=== PATIENT | male | born 1965 | race Caucasian/White ===

== ENCOUNTER → 2017-03-14 | Outpatient (CLI) | payer OTHER ==
--- NOTE | 2017-03-14 08:45 | MR ---
MR lumbar spine wo con radiculopathy lsp Multiplanar, multiecho imaging of the lumbar spine was obtained without contrast on a 3 Ruth magnet. REFERENCE: Previous MRI of the sacroiliac joints dated 04/12/2016. FINDINGS: It is difficult to appreciate ankylosis of the SI joints on this study. Prevertebral soft tissues are normal. There is a mild dextroscoliosis. Vertebral body height and alignment are maintained. Cord signal is maintained. The conus ends normally at the level of the superior endplate of L1. At T12-L1, the intervertebral foramina appear maintained. There is no significant compressive discopa thy. There are mild hypertrophic changes in the facets. At L1-2, the intervertebral foramina are maintained. There is no significant compressive discopathy. There is hypertrophic change in the facets. There is some lateral impression upon the thecal sac by t he left facet. At L2-3, the intervertebral foramina appear maintained. There is no significant compressive discopath y. There is hypertrophic change and capsulitis within the facets. At L3-4, there is mild, bilateral intervertebral foraminal narrowing. There is a diffuse disc displac ement. There are hypertrophic changes in the facets. There is mild trefoiling of the thecal sac. At L4-5, there is bilateral intervertebral foraminal narrowing. There is a diffuse disc displacement. There are hypertrophic changes in the facets. There is mild, bilateral lateral recess stenosis. At L5-S1, the intervertebral foramina are well maintained. There is a diffuse disc displacement. Ther e are hypertrophic changes in the facets. IMPRESSION: 1. DIFFUSE DEGENERATIVE DISC DISEASE AND FACET ARTHROPATHY. 2. MULTILEVEL INTERVERTEBRAL FORAMINAL NARROWING. 3. BILATERAL MILD LATERAL RECESS STENOSIS, L4-5.
== END | disposition home or self-care (01) ==
LOC: RADMRIMAIN 07:46
PROVIDERS: ATTEND Internal Medicine Rheumatology
DX: M48.06 Spinal stenosis, lumbar region (principal); M99.73 Connective tissue and disc stenosis of intervertebral foramina of lumbar region; M51.16 Intervertebral disc disorders with radiculopathy, lumbar region; M46.86 Other specified inflammatory spondylopathies, lumbar region
CPT/HCPCS: 72148

== ENCOUNTER → 2017-05-27 | Outpatient (CLI) | payer OTHER ==
[2017-05-23 12:59] VITALS: BMI 33.0
[2017-05-27 13:32] VITALS: BP 147/90; PULSE 72; RESP 16
--- NOTE | 2017-05-27 14:00 | P.HPIM ---
History of Present Illness H&P Date: 05/27/17 Chief Complaint: low back and leg pain This is a 51-year-old patient referred by Dr. Cervantes for chronic pain in low back and legs. Patient was diagnosed with ankylosing spondylitis two years ago and this pain has been worsening since, and the numbness/tingling in his feet and toes is preventing him from sleeping. Patient has been taking medications from primary care physician including [place] medications with little relief, and patient self-medicates with alcohol. Patient denies adverse drug effects from medications. Patient also denies new-onset weakness, bowel/bladder incontinence , or any other signs or symptoms of cauda equina syndrome. There are no signs of acute intoxication, and no indications of medication diversion or overuse. Patient notes that pain worsens significantly with standing and walking, and improves with rest, alcohol, and medication. Patient has used several types of medications for pain, including NSAIDS, OPIOIDS, and BENZODIAZEPINES. Patient HAS NOT had surgery. Patient HAS NOT had injections previously. Patient HAS had physical therapy recently without relief. In addition to above, 13-point review of systems is also negative for chest pain , shortness of breath, changes in vision, changes in hearing, new onset weakness , abdominal pain, diarrhea, extreme fatigue, malaise, fever, skin changes, homicidal or suicidal ideation, or bowel or bladder incontinence. Vital Signs: Reviewed in EMR Gen: WDWN, AAOx3, NAD HEENT: NCAT, EOMI, hearing grossly normal Pulm: resp unlabored Abd: soft, NT, ND Neck: supple, trachea midline ROM in flexion lumbar spine: reduced ROM in extension lumbar spine: reduced Lumbar paravertebral tenderness: + Facet loading: + bilateral SI joint tenderness: + bilateral Lloyd's test: + R > L Straight leg raise: + LLE at 15 degrees Neuro: CN II-XII grossly intact, muscle strength lower extremities PRESERVED Past Medical History Past Medical History: COPD, Skin Disorder Additional Past Medical History / Comment(s): anykylosing spondylitis,rt uveitis ,HLAB27 positive-Autoimmune Disease,chronic rash r/t steroids,monocular vision rt eye. BACK PAIN. History of Any Multi-Drug Resistant Organisms: None Reported Additional Past Surgical History / Comment(s): rt cataract and 3 laser procedures r/t uveitis Past Anesthesia/Blood Transfusion Reactions: No Reported Reaction Additional Past Anesthesia/Blood Transfusion Reaction / Comment(s): Very fearful of needles Smoking Status: Current every day smoker - Past Family History Brother(s) Family Medical History: Myocardial Infarction ([place]) Mother Family Medical History: CVA/TIA Father Family Medical History: Myocardial Infarction ([place]) Medications and Allergies Home Medications Medication Instructions Recorded Confirmed Type Adalimumab [Humira Pen] 40 mg SQ [id number] 05/23/17 05/27/17 History Albuterol Inhaler [Ventolin Hfa 1 - 2 puff INHALATION Q6HR PRN 05/23/17 History Inhaler] Atenolol [Tenormin] 50 mg PO DAILY 05/23/17 05/27/17 History Atorvastatin [Lipitor] 40 mg PO DAILY 05/23/17 05/27/17 History Cholecalciferol (Vitamin D3) 2,000 unit PO DAILY 05/23/17 05/27/17 History [Vitamin D3] DULoxetine HCL [Cymbalta] 60 mg PO DAILY 05/23/17 05/27/17 History Gabapentin [Neurontin] 1,200 mg PO HS 05/23/17 05/27/17 History Gabapentin [Neurontin] 600 mg PO 0700,1430 05/23/17 05/27/17 History HYDROcodone/APAP 10-325MG [[place] 1 tab PO Q6H PRN 05/23/17 05/27/17 History 10-325] Mometasone/Formoterol [Dulera 200 2 puff INHALATION BID PRN 05/23/17 05/27/17 History Mcg/5 Mcg Inhaler] azaTHIOprine [Imuran] 100 mg PO BID 05/23/17 05/27/17 History cycloSPORINE [cycloSPORINE (GEQ 100 mg PO DAILY 05/23/17 05/27/17 History for SandIMMUNE) 100MG] cycloSPORINE [cycloSPORINE (GEQ 100 mg PO HS 05/23/17 05/27/17 History for SandIMMUNE) 100MG] predniSONE 10 mg PO DAILY 05/23/17 05/27/17 History Allergies Allergy/AdvReac Type Severity Reaction Status Date / Time erythromycin base Allergy Dyspnea,hiv Verified 05/27/17 13:04 es Physical Exam Vitals: Vital Signs Pulse Resp BP Pulse Ox 05/27/17 13:27 72 16 147/90 96 Results Comments: MRI lumbar spine without contrast dated 03/14/2017 demonstrates hypertrophic changes in the facets at T12-L1, L1-L2, L2-L3, L3-L4, L4-L5, and L5-S1. There are diffuse disc displacement at L3-L4, L4-L5, and L5-S1. At the L4-L5 level there is mild bilateral foraminal stenosis. Assessment and Plan (1) Ankylosing spondylitis lumbar region Status: Chronic (2) Lumbar spondylosis Status: Chronic (3) Chronic pain syndrome Status: Chronic (4) Tobacco abuse Status: Chronic Plan: 1. Explanation: Opioid and psychological risk scores were reviewed. Diagnoses , prognoses, and multiple treatment options including but not limited to physical therapy, interventional therapies, adjuvant medical therapies, narcotic medication therapies, and surgery were discussed with the patient and all questions were answered to the patient's satisfaction. 2. Opioid agreement: no opioids prescribed today 3. Counseling: The patient was counseled extensively on SMOKING CESSATION, BODY MASS INDEX, EXERCISE. Specifically, the patient was instructed regarding the importance of smoking cessation, weight control, and exercise in the context of both chronic pain and overall health. 4. Procedures: bilateral lumbar medial branch block 5. Consultations: none 6. Investigations: none 7. 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 Disposition: f/u for procedure as scheduled PQRS measures: 1-Patient's medications are documented in the chart. 2-Tobacco use is positive, counseling given 3-Patient has not had a pneumococcal vaccine. 4-Advanced care planning discussed, patient unable to give. 5-Opioid contract NOT signed with the patient. 6-Pain positive, follow-up visit or procedure scheduled 7-Patient's blood pressure measured and documented, and patient will follow up with the primary care due to hypertension. 8-Patient's weight was measured, and body mass index ABOVE the normal limits, and counseling was done. Patient instructed to follow up with PCP. 9-Patient WAS identified as an unhealthy alcohol user. Time with Patient: Greater than 30
== END ==
LOC: PNWHC3 12:56
PROVIDERS: ATTEND Anesthesiology
DX: M45.6 Ankylosing spondylitis lumbar region (principal); M47.816 Spondylosis without myelopathy or radiculopathy, lumbar region; Z79.899 Other long term (current) drug therapy; Z88.1 Allergy status to other antibiotic agents
CPT/HCPCS: 99211

== ENCOUNTER 2017-07-17 06:32 | Day surgery (SDC) | payer OTHER ==
[2017-07-15 11:03] VITALS: BMI 33.0
[~2017-07-17 06:32] MED LIST: LACTATED RINGERS 1,000 ML IV SCH
[2017-07-17 06:52] VITALS: RESP 16; TEMP 98.1
[2017-07-17] MEDS ORDERED: LIDOCAINE 1% 20 ML VIAL (10MG/ML) FOR IV START INTRADERMA ONE (06:58)
--- NOTE | 2017-07-17 07:23 | P.PCN ---
Date of Procedure: 07/17/17 Preoperative Diagnosis: Lumbar spondylosis without myelopathy Postoperative Diagnosis: Same as above Procedure(s) Performed: Lumbar bilateral medial branch block under fluoroscopic guidance Anesthesia: MAC (Conscious sedation with IV fentanyl and Versed) Surgeon: Júnior Montano Pathology: none sent Condition: stable Disposition: PACU Description of Procedure: the patient was seen and identified in the preop holding area , risks and benefits and possible complications of the procedure and alternatives were discussed with the patient, and the patient agreed to proceed with the procedure and signed the consent. IV was started and vital signs monitored during the procedure and fluoroscopy was used to maximize the benefit and accuracy of the needle placement, sedation was given to decrease patient anxiety, patient was taken to the procedure room and placed in prone position vital signs monitored. The patient was seen in the preop holding area consent was obtained then she was brought into the procedure room and placed in prone position. Skin was prepped with Chloraprep and draped in a sterile manner. Lidocaine 1% was used to numb the skin up at the target points that were chosen as follows: at the L5-S1 level which corresponds to the dorsal ramus of L5 the target points were at the superior medial aspect of the sacral ala on each side of the spine on the AP view of fluoroscopy, and for theL2, L3 and L4 medial branches the target points were the connection between the transverse process and the superior to go process of L3, L4 and L5 respectively on the oblique views of fluoroscopy. I used 22-gauge 3-1/2 inch Qu[place]ke spinal needles for this procedure and after contacting bone at the target points mentioned above I injected 1 mL of a solution made up of 5 mls of Marcaine 0.5% PF +40 mg of Kenalog . Patient tolerated procedure well. At the end of the procedure the needles removed and a bandage applied after the skin was cleaned the cleaning solution. patient was then taken to the recovery room in stable condition and monitored in the recovery room for 20-30 minutes and discharged home in stable condition after discharge criteria met .
[2017-07-17] MEDS ORDERED: LACTATED RINGERS 1,000 ML IV ONE (07:30)
[2017-07-17 07:45] VITALS: BP 139/88; PULSE 65
--- NOTE | 2017-07-17 08:10 | FL ---
EXAMINATION TYPE: FL guided pain mgmt statistic DATE OF EXAM: 07/17/2017 COMPARISON: NONE HISTORY: Back pain TECHNIQUE: Fluoroscopy. FINDINGS/IMPRESSION: Fluoroscopic guidance was provided during procedure performed by Dr. Montano. A total of 9 seconds of fluoroscopic time was utilized during the procedure and 3 spot images was acq uired demonstrating intraoperative localization.
== END 2017-07-17 08:03 | disposition home or self-care (01) ==
LOC: ORPAIN 06:32
PROVIDERS: ATTEND Anesthesiology
DX: M47.816 Spondylosis without myelopathy or radiculopathy, lumbar region (principal); M06.9 Rheumatoid arthritis, unspecified; I10 Essential (primary) hypertension; Z88.1 Allergy status to other antibiotic agents
CPT/HCPCS: 64493; 64494; 64495; J2250; J3301; J3010; 99152

== ENCOUNTER 2018-07-06 09:35 | Emergency (ER) | payer OTHER ==
[2018-07-06 09:56] VITALS: RESP 16
--- NOTE | 2018-07-06 09:57 | ED ---
General Adult HPI - General Chief complaint: Extremity Injury, Lower Stated complaint: RT ANKLE INJURY Time Seen by Provider: 07/06/18 09:46 Source: patient, RN notes reviewed Mode of arrival: wheelchair Limitations: no limitations - History of Present Illness Initial comments: Patient 52-year-old male presented to the emergency room today with a chief complaint of injury to the right ankle that occurred 3 days ago. Patient states that he was outside and stepped into a hole accidentally twisting his right ankle. He states did feel a pop. He states he talked his family doctor was advised that he should have x-rays obtained. Patient states that he has had some swelling increased tenderness over the lateral malleolus. Patient denies any other complaints or symptoms. Patient denies any recent fever, chills , shortness of breath, chest pain, back pain, abdominal pain, nausea or vomiting , headaches or visual changes, or any other complaints. - Related Data Home Medications Medication Instructions Recorded Confirmed Albuterol Inhaler [Ventolin Hfa 1 - 2 puff INHALATION RT-Q4H PRN 05/23/17 Inhaler] Atenolol [Tenormin] 50 mg PO HS 05/23/17 07/06/18 DULoxetine HCL [Cymbalta] 60 mg PO DAILY 05/23/17 07/06/18 HYDROcodone/APAP 10-325MG [[place] 1 tab PO Q6H PRN 05/23/17 07/06/18 10-325] Mometasone/Formoterol [Dulera 200 1 puff INHALATION RT-BID 05/23/17 07/06/18 Mcg/5 Mcg Inhaler] azaTHIOprine [Imuran] 50 mg PO DAILY 05/23/17 07/06/18 Adalimumab [Humira Pen] 40 mg SQ Q14D 07/06/18 07/06/18 Ibuprofen [Motrin] 800 mg PO Q6H PRN 07/06/18 07/06/18 cycloSPORINE [cycloSPORINE (GEQ 50 mg PO BID 07/06/18 07/06/18 for SandIMMUNE)] predniSONE 40 mg PO DAILY 07/06/18 07/06/18 Allergies Allergy/AdvReac Type Severity Reaction Status Date / Time erythromycin base Allergy Severe Dyspnea,hiv Verified 07/06/18 10:02 es Review of Systems ROS Statement: Those systems with pertinent positive or pertinent negative responses have been documented in the HPI. ROS Other: All systems not noted in ROS Statement are negative. Past Medical History Past Medical History: COPD, Hyperlipidemia, Pneumonia, Skin Disorder Additional Past Medical History / Comment(s): anykylosing spondylitis,rt uveitis ,HLAB27 positive-Autoimmune Disease,chronic rash r/t steroids, monocular vision rt eye. umbilical hernia, chronic back pain-2 herniated disks, degenerative disk disease, CURRENTLY ON ANTIBIOTICS FOR BILAT EAR INFECTIONS History of Any Multi-Drug Resistant Organisms: None Reported Additional Past Surgical History / Comment(s): rt cataract and 3 laser procedures r/t uveitis, pain clinic procedure Past Anesthesia/Blood Transfusion Reactions: No Reported Reaction Additional Past Anesthesia/Blood Transfusion Reaction / Comment(s): Very fearful of needles Past Psychological History: Depression Smoking Status: Current every day smoker Past Alcohol Use History: Occasional Past Drug Use History: None Reported - Past Family History Brother(s) Family Medical History: Myocardial Infarction ([place]) Mother Family Medical History: No Reported History Father Family Medical History: Myocardial Infarction ([place]) General Exam - General Exam Comments Initial Comments: General: The patient is awake and alert, in no distress, and does not appear acutely ill. Neck: The neck is supple, there is no tenderness or JVD. Musculoskeletal: Patient does have some moderate swelling over the lateral malleolus posterior some bruising down to his foot over the third and fourth distal metatarsals. Mild tenderness over the second metatarsal on palpation. Pedal pulses 2+. Does have tenderness in the lateral malleolus minimal increased tenderness in the ligamentous areas or the lateral side. No tenderness to the right knee. Sensations intact. Neurological: A&O x 3. CN II-XII intact, There are no obvious motor or sensory deficits. Coordination appears grossly intact. Speech is normal. Skin: Skin is warm and dry and no rashes or lesions are noted. Psychiatric: Normal mood and affect. Limitations: no limitations Course Vital Signs 07/06/18 09:49 Temperature 97.7 F Pulse Rate 59 L Respiratory 16 Rate Blood Pressure 171/92 O2 Sat by Pulse 100 Oximetry Medical Decision Making - Medical Decision Making Patient a reviewed negative for any acute fracture dislocation. Results were discussed with patient. Patient given Aircast splint here in the emergency room for stability. He is advised to ice elevate the affected area follow-up over the next week if symptoms persist. Advised return for any other concerns. Disposition Clinical Impression: Ankle sprain Disposition: HOME SELF-CARE Condition: Good Instructions: Ankle Sprain (ED) Additional Instructions: Please continue to ice elevate the affected area at least 4 times a day for 20 minutes at a time. Please use Tylenol/ibuprofen for pain. Please follow-up in 7-10 days for repeat x-rays if symptoms persist. Please return to emergency room for any other concerns. Is patient prescribed a controlled substance at d/c from ED?: No Referrals: Maribel Murguia DO [Primary Care Provider] - 1-2 days Time of Disposition: 11:18
--- NOTE | 2018-07-06 10:42 | XR ---
EXAMINATION TYPE: XR ankle complete RT, XR foot complete RT , 6 VIEWS DATE OF EXAM ORDERED: 07/06/2018 HISTORY: Pain. COMPARISON: None. FINDINGS: There are mild degenerative changes in the right first MTP joint. No fracture, dislocation or other acute osseous lesion is seen. There is a well-corticated ossific fragment adjacent to the lateral malleolus. This may relate to old trauma. No fracture, dislocation or ankle joint effusion is seen. IMPRESSION: NO ACUTE OSSEOUS LESION.
--- NOTE | 2018-07-06 10:43 | XR ---
EXAMINATION TYPE: XR tibia fibula RT , 4 VIEWS DATE OF EXAM ORDERED: 07/06/2018 HISTORY: Pain. COMPARISON: None. FINDINGS: No fracture or dislocation is identified. No other osseous lesion is seen. IMPRESSION: NO ACUTE OSSEOUS LESION.
[2018-07-06 11:32] VITALS: BP 155/80; PULSE 60; TEMP 97.5
== END 2018-07-06 11:20 | disposition home or self-care (01) ==
LOC: EC 09:35
DX: S93.401A Sprain of unspecified ligament of right ankle, initial encounter (principal); J44.9 Chronic obstructive pulmonary disease, unspecified; F32.9 Major depressive disorder, single episode, unspecified; F17.200 Nicotine dependence, unspecified, uncomplicated; Z79.51 Long term (current) use of inhaled steroids; Z79.52 Long term (current) use of systemic steroids; Z79.899 Other long term (current) drug therapy; Z88.1 Allergy status to other antibiotic agents; X50.1XXA Overexertion from prolonged static or awkward postures, initial encounter
CPT/HCPCS: 73590; 73610; 73630; 99283; 29515; L4350

== ENCOUNTER → 2018-10-30 | Outpatient (CLI) | payer OTHER ==
--- NOTE | 2018-10-31 07:11 | NM ---
EXAMINATION TYPE: NM DatScan Brain SPECT DATE OF EXAM: 10/30/2018 COMPARISON: NONE HISTORY: TECHNIQUE: 10 drops of Lugol's solution was administered 1 hour prior to injection as a thyroid bloc mia agent. After the administration of 4.35 mCi I-123 Ioflupane DaTscan. Images obtained 3 hours p ost injection. SPECT images of the brain were acquired with axial and coronal reconstructions. FINDINGS: The axial SPECT images demonstrate normal background activity. Accounting for head tilt, t here appears to be slight asymmetrically blunted comma-shaped appearance of the left corpus striatum. IMPRESSION: Slightly blunted striatal activity on the left may indicate early changes of idiopathic P arkinson's disease or Parkinsonian syndrome.
== END | disposition home or self-care (01) ==
LOC: RADNMMAIN 10:50
PROVIDERS: ATTEND Psychiatry & Neurology Neurology
DX: R90.89 Other abnormal findings on diagnostic imaging of central nervous system (principal)
CPT/HCPCS: 78607; A9584

== ENCOUNTER → 2020-05-10 | Outpatient (CLI) | payer MEDICARE, OTHER ==
--- NOTE | 2020-05-10 13:36 | CT ---
EXAMINATION TYPE: CT lumbar spine wo con DATE OF EXAM: 05/10/2020 7:49 AM COMPARISON: MRI lumbar spine 03/14/2017 HISTORY: Ankylosing spondylitis CT DLP: 1618.8 mGycm Automated exposure control for dose reduction was used. Unenhanced CT of the lumbar spine was performed. Bone and soft tissue window settings are submitted as well as coronal and sagittal reconstructions. There is diffuse long segment anterior and lateral bridging syndesmophytes consistent with bamboo spi ne and history of ankylosing spondylitis. There is fusion of the bilateral sacroiliac joints. No evidence of acute fracture or dislocation. Vertebral body heights are normal. Disc spaces are norm al. No evidence of pseudoarthroses. Decreased osseous mineralization. Degenerative disc disease and f acet arthropathy. No evidence of high-grade central stenosis. Bilateral neural foramina narrowing of the bilateral inferior lumbosacral spine. IMPRESSION: 1. Diffuse bridging syndesmophytes of the lumbar spine and bony fusion of the bilateral sacroiliac pool ints, consistent with ankylosing spondylitis. 2. No evidence of acute fracture or dislocation. 3. Decreased osseous mineralization.
== END | disposition home or self-care (01) ==
LOC: RADCTMAIN 07:16
PROVIDERS: ATTEND Orthopaedic Surgery
DX: M25.78 Osteophyte, vertebrae (principal); M81.0 Age-related osteoporosis without current pathological fracture; Z88.1 Allergy status to other antibiotic agents
CPT/HCPCS: 72131

== ENCOUNTER 2020-06-14 20:13 | Inpatient (IN) | payer MEDICARE, OTHER ==
[2020-06-14] MEDS ORDERED: methylPREDNISolone SOD SUCCI 125 MG/2 ML VIAL IV STA (20:45)
[2020-06-14] MEDS ORDERED: SODIUM CHLORIDE 0.9% 500 ML 500 ML IV SCH (20:45)
[2020-06-14] MEDS ORDERED: IPRATROPIUM-ALBUTEROL 3 ML NEB INHALATION STA ×2 (20:45→22:39)
--- NOTE | 2020-06-14 20:48 | ED ---
General Adult HPI - General Source: patient, RN notes reviewed Mode of arrival: ambulatory Limitations: no limitations <Octaviano Ram - Last Filed: 06/14/20 23:17> <Gee Rashid - Last Filed: 06/19/20 04:15> - General Chief complaint: Upper Respiratory Infection Stated complaint: Pneumonia Time Seen by Provider: 06/14/20 20:27 - History of Present Illness Initial comments: 54-year-old male with a past medical history of COPD, hyperlipidemia, pneumonia presents to the emergency room for a chief complaint of shortness of breath. Patient reports that he was diagnosed with pneumonia about one week ago and has been taking Augmentin and doxycycline. He reports that despite this he has become increasingly short of breath. He has a productive cough. He has had chest pressure on and off. Patient reports he saw his primary care provider today who wanted him to come to the hospital for admission. Patient has been doing breathing treatments at home without improvement as well. Patient reports that he was tested negative for flu and covid 1 week ago through urgent care.Patient has no other complaints at this time including chest pain, abdominal pain, nausea or vomiting, headache, or visual changes. (Octaviano Ram) - Related Data Home Medications Medication Instructions Recorded Confirmed DULoxetine HCL [Cymbalta] 60 mg PO DAILY 05/23/17 06/14/20 atenoloL [Tenormin] 75 mg PO HS 05/23/17 06/14/20 azaTHIOprine [Imuran] 100 mg PO BID 05/23/17 06/14/20 Adalimumab [Humira(Cf) Pen] 40 mg SQ Q14D 07/06/18 06/14/20 Albuterol Sulfate [Albuterol 2 puff PO RT-Q6H PRN 06/14/20 06/14/20 Sulfate Hfa] Atorvastatin [Lipitor] 40 mg PO DAILY 06/14/20 06/14/20 Cholecalciferol [Vitamin D3 (25 1,000 unit PO DAILY 06/14/20 06/14/20 Mcg = 1000 Iu)] Fluticasone Propion/Salmeterol 1 puff INHALATION RT-BID 06/14/20 06/14/20 [Wixela 250-50 Inhub] Pregabalin [Lyrica] 75 mg PO DAILY 06/14/20 06/14/20 Pregabalin [Lyrica] 150 mg PO HS 06/14/20 06/14/20 buPROPion XL [Wellbutrin XL] 150 mg PO BID 06/14/20 06/14/20 oxyCODONE-APAP 7.5-325MG [Percocet 1 tab PO TID PRN 06/14/20 06/14/20 7.5-325 mg] predniSONE 10 mg PO DAILY 06/14/20 06/14/20 Previous Rx's Medication Instructions Recorded Doxycycline [Vibramycin] 100 mg PO BID 5 Days #10 capsule 06/17/20 Ipratropium-Albuterol Nebulize 3 ml INHALATION RT-QID #120 ml 06/17/20 [Duoneb 0.5 mg-3 mg/3 ml Soln] Nicotine 21Mg/24Hr Patch [Habitrol] 1 patch TRANSDERM DAILY #30 patch 06/17/20 predniSONE 10 mg PO DIRECTED #30 tab 06/17/20 Allergies Allergy/AdvReac Type Severity Reaction Status Date / Time erythromycin base Allergy Severe Dyspnea,hiv Verified 06/14/20 23:29 es Review of Systems ROS Other: All systems not noted in ROS Statement are negative. <Octaviano Ram - Last Filed: 06/14/20 23:17> ROS Other: All systems not noted in ROS Statement are negative. <Gee Rashid - Last Filed: 06/19/20 04:15> ROS Statement: Those systems with pertinent positive or pertinent negative responses have been documented in the HPI. Past Medical History Past Medical History: COPD, Hyperlipidemia, Pneumonia, Skin Disorder Additional Past Medical History / Comment(s): anykylosing spondylitis,rt uveitis,HLAB27 positive-Autoimmune Disease,chronic rash r/t steroids, monocular vision rt eye. umbilical hernia, chronic back pain-2 herniated disks, degenerative disk disease, CURRENTLY ON ANTIBIOTICS FOR BILAT EAR INFECTIONS History of Any Multi-Drug Resistant Organisms: None Reported Additional Past Surgical History / Comment(s): rt cataract and 3 laser procedures r/t uveitis, pain clinic procedure Past Anesthesia/Blood Transfusion Reactions: No Reported Reaction Additional Past Anesthesia/Blood Transfusion Reaction / Comment(s): Very fearful of needles Past Psychological History: Depression Smoking Status: Current every day smoker Past Alcohol Use History: Occasional Past Drug Use History: None Reported - Past Family History Brother(s) Family Medical History: Myocardial Infarction ([place]) Mother Family Medical History: No Reported History Father Family Medical History: Myocardial Infarction ([place]) <Octaviano Ram P - Last Filed: 06/14/20 23:17> General Exam Limitations: no limitations General appearance: alert, in no apparent distress Head exam: Present: atraumatic Eye exam: Present: normal appearance, PERRL, EOMI. Absent: scleral icterus, conjunctival injection, periorbital swelling ENT exam: Present: normal exam, mucous membranes moist Neck exam: Present: normal inspection, full ROM. Absent: tenderness, meningismus, lymphadenopathy Respiratory exam: Present: wheezes (wheezing in lung lebron bilaterally). Absent: respiratory distress, rales, rhonchi, stridor Cardiovascular Exam: Present: regular rate, normal rhythm, normal heart sounds. Absent: systolic murmur, diastolic murmur, rubs, gallop, clicks GI/Abdominal exam: Present: soft, normal bowel sounds. Absent: distended, tenderness, guarding, rebound, rigid Neurological exam: Present: alert <Octaviano Ram P - Last Filed: 06/14/20 23:17> Course Vital Signs 06/14/20 06/14/20 06/14/20 20:16 20:31 21:18 Temperature 98.7 F Pulse Rate 58 L 54 L Respiratory 16 19 18 Rate Blood Pressure 153/98 143/81 O2 Sat by Pulse 99 97 Oximetry 06/14/20 06/14/20 06/14/20 21:41 21:46 23:11 Temperature Pulse Rate 75 76 84 Respiratory 16 16 Rate Blood Pressure O2 Sat by Pulse Oximetry 06/14/20 06/15/20 06/15/20 23:19 04:23 06:40 Temperature Pulse Rate 84 66 55 L Respiratory 18 18 Rate Blood Pressure 149/92 156/91 O2 Sat by Pulse 96 97 Oximetry 06/15/20 06/15/20 06/15/20 07:21 07:59 08:08 Temperature Pulse Rate 60 65 64 Respiratory 16 Rate Blood Pressure 154/82 O2 Sat by Pulse 98 Oximetry 06/15/20 06/15/20 06/15/20 09:35 11:37 11:46 Temperature Pulse Rate 86 64 85 Respiratory 16 Rate Blood Pressure 145/76 O2 Sat by Pulse 99 Oximetry 06/15/20 06/15/20 13:45 15:47 Temperature 98.3 F 98.0 F Pulse Rate 61 68 Respiratory 18 18 Rate Blood Pressure 157/78 166/84 O2 Sat by Pulse 98 96 Oximetry EKG Findings - EKG Comments: EKG Findings:: Sinus bradycardia, ventricular rate 55, [place] interval 166, QTC 41 <Octaviano Ram - Last Filed: 06/14/20 23:17> Medical Decision Making - Lab Data Result diagrams: 06/14/20 21:03 06/14/20 21:03 <Octaviano Ram - Last Filed: 06/14/20 23:17> - Lab Data Result diagrams: 06/14/20 21:03 06/14/20 21:03 <Gee Rashid - Last Filed: 06/19/20 04:15> - Medical Decision Making Vitals are stable. EKG is unremarkable. Patient does have wheezing noted throughout the lung lebron. CBC CMP unremarkable. Troponin is negative. D- dimer was elevated therefore chest CTA was ordered. This showed no evidence of pulmonary embolism. There is right pleural effusion without suspicious pulmonary mass. The patient continues to feel short of breath despite breathing treatments and steroids. Patient reports he saw Dr. Milan today who sent him to the emergency room for admission. Patient will be admitted for further management of COPD exacerbation and trending troponins. (Octaviano Ram) I saw this patient in conjunction with the physician per diem physical therapist assistant. I performed independent history and physical exam. Agree with case management. (Gee Rashid) - Lab Data Lab Results 06/14/20 06/14/20 06/14/20 Range/Units 21:03 21:03 21:03 WBC 7.7 (3.8-10.6) k/uL RBC 4.45 (4.30-5.90) m/uL Hgb 15.1 (13.0-17.5) gm/dL Hct 45.8 (39.0-53.0) % MCV 102.8 H (80.0-100.0) fL MCH 33.9 (25.0-35.0) pg MCHC 33.0 (31.0-37.0) g/dL RDW 13.4 (11.5-15.5) % Plt Count 276 (150-450) k/uL Neutrophils % 61 % Lymphocytes % 26 % Monocytes % 5 % Eosinophils % 5 % Basophils % 1 % Neutrophils # 4.7 (1.3-7.7) k/uL Lymphocytes # 2.0 (1.0-4.8) k/uL Monocytes # 0.4 (0-1.0) k/uL Eosinophils # 0.4 (0-0.7) k/uL Basophils # 0.1 (0-0.2) k/uL Macrocytosis Slight PT 9.5 (9.0-12.0) sec INR 0.9 (<1.2) APTT 24.5 (22.0-30.0) sec D-Dimer 1.90 H (<0.60) mg/L FEU Sodium 137 (137-145) mmol/L Potassium 4.4 (3.5-5.1) mmol/L Chloride 106 (98-107) mmol/L Carbon Dioxide 26 (22-30) mmol/L Anion Gap 5 mmol/L BUN 29 H (9-20) mg/dL Creatinine 0.83 (0.66-1.25) mg/dL Est GFR (CKD-EPI)AfAm >90 (>60 ml/min/1.73 sqM) Est GFR (CKD-EPI)NonAf >90 (>60 ml/min/1.73 sqM) Glucose 94 (74-99) mg/dL Plasma Lactic Acid Marciano (0.7-2.0) mmol/L Calcium 9.5 (8.4-10.2) mg/dL Total Bilirubin 0.6 (0.2-1.3) mg/dL AST 22 (17-59) U/L ALT 21 (4-49) U/L Alkaline Phosphatase 90 (38-126) U/L Troponin I (0.000-0.034) ng/mL NT-Pro-B Natriuret Pep pg/mL Total Protein 6.5 (6.3-8.2) g/dL Albumin 3.8 (3.5-5.0) g/dL Procalcitonin (0.02-0.09) ng/mL Coronavirus (PCR) (Not Detected) Influenza Type A RNA (Not Detectd) Influenza Type B (PCR) (Not Detectd) 10/20/20 10/20/20 10/20/20 Range/Units 21:03 21:03 21:03 WBC (3.8-10.6) k/uL RBC (4.30-5.90) m/uL Hgb (13.0-17.5) gm/dL Hct (39.0-53.0) % MCV (80.0-100.0) fL MCH (25.0-35.0) pg MCHC (31.0-37.0) g/dL RDW (11.5-15.5) % Plt Count (150-450) k/uL Neutrophils % % Lymphocytes % % Monocytes % % Eosinophils % % Basophils % % Neutrophils # (1.3-7.7) k/uL Lymphocytes # (1.0-4.8) k/uL Monocytes # (0-1.0) k/uL Eosinophils # (0-0.7) k/uL Basophils # (0-0.2) k/uL Macrocytosis PT (9.0-12.0) sec INR (<1.2) APTT (22.0-30.0) sec D-Dimer (<0.60) mg/L FEU Sodium (137-145) mmol/L Potassium (3.5-5.1) mmol/L Chloride (98-107) mmol/L Carbon Dioxide (22-30) mmol/L Anion Gap mmol/L BUN (9-20) mg/dL Creatinine (0.66-1.25) mg/dL Est GFR (CKD-EPI)AfAm (>60 ml/min/1.73 sqM) Est GFR (CKD-EPI)NonAf (>60 ml/min/1.73 sqM) Glucose (74-99) mg/dL Plasma Lactic Acid Marciano 1.2 (0.7-2.0) mmol/L Calcium (8.4-10.2) mg/dL Total Bilirubin (0.2-1.3) mg/dL AST (17-59) U/L ALT (4-49) U/L Alkaline Phosphatase (38-126) U/L Troponin I <0.012 (0.000-0.034) ng/mL NT-Pro-B Natriuret Pep 47 pg/mL Total Protein (6.3-8.2) g/dL Albumin (3.5-5.0) g/dL Procalcitonin (0.02-0.09) ng/mL Coronavirus (PCR) (Not Detected) Influenza Type A RNA (Not Detectd) Influenza Type B (PCR) (Not Detectd) 06/15/20 06/15/20 06/15/20 Range/Units 00:42 00:42 03:47 WBC (3.8-10.6) k/uL RBC (4.30-5.90) m/uL Hgb (13.0-17.5) gm/dL Hct (39.0-53.0) % MCV (80.0-100.0) fL MCH (25.0-35.0) pg MCHC (31.0-37.0) g/dL RDW (11.5-15.5) % Plt Count (150-450) k/uL Neutrophils % % Lymphocytes % % Monocytes % % Eosinophils % % Basophils % % Neutrophils # (1.3-7.7) k/uL Lymphocytes # (1.0-4.8) k/uL Monocytes # (0-1.0) k/uL Eosinophils # (0-0.7) k/uL Basophils # (0-0.2) k/uL Macrocytosis PT (9.0-12.0) sec INR (<1.2) APTT (22.0-30.0) sec D-Dimer (<0.60) mg/L FEU Sodium (137-145) mmol/L Potassium (3.5-5.1) mmol/L Chloride (98-107) mmol/L Carbon Dioxide (22-30) mmol/L Anion Gap mmol/L BUN (9-20) mg/dL Creatinine (0.66-1.25) mg/dL Est GFR (CKD-EPI)AfAm (>60 ml/min/1.73 sqM) Est GFR (CKD-EPI)NonAf (>60 ml/min/1.73 sqM) Glucose (74-99) mg/dL Plasma Lactic Acid Marciano (0.7-2.0) mmol/L Calcium (8.4-10.2) mg/dL Total Bilirubin (0.2-1.3) mg/dL AST (17-59) U/L ALT (4-49) U/L Alkaline Phosphatase (38-126) U/L Troponin I <0.012 <0.012 (0.000-0.034) ng/mL NT-Pro-B Natriuret Pep pg/mL Total Protein (6.3-8.2) g/dL Albumin (3.5-5.0) g/dL Procalcitonin 0.02 (0.02-0.09) ng/mL Coronavirus (PCR) (Not Detected) Influenza Type A RNA (Not Detectd) Influenza Type B (PCR) (Not Detectd) 06/15/20 06/15/20 Range/Units 09:31 09:31 WBC (3.8-10.6) k/uL RBC (4.30-5.90) m/uL Hgb (13.0-17.5) gm/dL Hct (39.0-53.0) % MCV (80.0-100.0) fL MCH (25.0-35.0) pg MCHC (31.0-37.0) g/dL RDW (11.5-15.5) % Plt Count (150-450) k/uL Neutrophils % % Lymphocytes % % Monocytes % % Eosinophils % % Basophils % % Neutrophils # (1.3-7.7) k/uL Lymphocytes # (1.0-4.8) k/uL Monocytes # (0-1.0) k/uL Eosinophils # (0-0.7) k/uL Basophils # (0-0.2) k/uL Macrocytosis PT (9.0-12.0) sec INR (<1.2) APTT (22.0-30.0) sec D-Dimer (<0.60) mg/L FEU Sodium (137-145) mmol/L Potassium (3.5-5.1) mmol/L Chloride (98-107) mmol/L Carbon Dioxide (22-30) mmol/L Anion Gap mmol/L BUN (9-20) mg/dL Creatinine (0.66-1.25) mg/dL Est GFR (CKD-EPI)AfAm (>60 ml/min/1.73 sqM) Est GFR (CKD-EPI)NonAf (>60 ml/min/1.73 sqM) Glucose (74-99) mg/dL Plasma Lactic Acid Marciano (0.7-2.0) mmol/L Calcium (8.4-10.2) mg/dL Total Bilirubin (0.2-1.3) mg/dL AST (17-59) U/L ALT (4-49) U/L Alkaline Phosphatase (38-126) U/L Troponin I (0.000-0.034) ng/mL NT-Pro-B Natriuret Pep pg/mL Total Protein (6.3-8.2) g/dL Albumin (3.5-5.0) g/dL Procalcitonin (0.02-0.09) ng/mL Coronavirus (PCR) Not Detected (Not Detected) Influenza Type A RNA Not Detected (Not Detectd) Influenza Type B (PCR) Not Detected (Not Detectd) Disposition Is patient prescribed a controlled substance at d/c from ED?: No Time of Disposition: 23:18 <Octaviano Ram - Last Filed: 06/14/20 23:17> <Gee Rashid - Last Filed: 06/19/20 04:15> Clinical Impression: COPD exacerbation, Shortness of breath Disposition: ADMITTED IP TO THIS HOSP Condition: Fair
--- NOTE | 2020-06-14 21:01 | XR ---
EXAMINATION TYPE: XR chest 2V DATE OF EXAM: 06/14/2020 COMPARISON: NONE HISTORY: Fever. TECHNIQUE: Frontal and lateral views of the chest are obtained. FINDINGS: There is small right pleural effusion with adjacent opacity. No pneumothorax seen. The ca rdiac silhouette size is within normal limits. The osseous structures are intact. IMPRESSION: Small right pleural effusion with adjacent atelectasis.
[2020-06-14 21:33] LABS: Basophils # (A) 0.1 k/uL (0-0.2); Basophils % (A) 1 %; Eosinophils # (A) 0.4 k/uL (0-0.7); Eosinophils % (A) 5 %; HCT 45.8 % (39.0-53.0); HGB 15.1 gm/dL (13.0-17.5); Lymphocytes % (A) 26 %; MCH 33.9 pg (25.0-35.0); MCV 102.8 fL (80.0-100.0); Macrocytosis Slight; Mean Platelet Volume 8.4; Monocytes # (A) 0.4 k/uL (0-1.0); Monocytes % (A) 5 %; Neutrophils # (A) 4.7 k/uL (1.3-7.7); Neutrophils % (A) 61 %; Platelet Count 276 k/uL (150-450); RBC 4.45 m/uL (4.30-5.90); RDW 13.4 % (11.5-15.5); WBC 7.7 k/uL (3.8-10.6)
[2020-06-14 21:42] LABS: ALT 21 U/L (4-49); AST 22 U/L (17-59); African American GFR (CKD) >90 (>60 ml/min/1.73 sqM); Albumin 3.8 g/dL (3.5-5.0); Alkaline Phosphatase 90 U/L (38-126); Anion Gap 5 mmol/L; Blood Urea Nitrogen 29 mg/dL (9-20); Calcium 9.5 mg/dL (8.4-10.2); Carbon Dioxide 26 mmol/L (22-30); Chloride 106 mmol/L (98-107); Glucose 94 mg/dL (74-99); Non-African American GFR(CKD) >90 (>60 ml/min/1.73 sqM); Potassium 4.4 mmol/L (3.5-5.1); Sodium 137 mmol/L (137-145); Total Bilirubin 0.6 mg/dL (0.2-1.3); Total Protein 6.5 g/dL (6.3-8.2)
[2020-06-14 21:45] LABS: INR 0.9 (<1.2); Partial Thromboplastin Time 24.5 sec (22.0-30.0); Prothrombin Time 9.5 sec (9.0-12.0)
[2020-06-14 21:46] LABS: D-Dimer 1.9 mg/L FEU (<0.60)
--- NOTE | 2020-06-14 23:01 | CT ---
EXAMINATION TYPE: CT chest angio for PE DATE OF EXAM: 06/14/2020 COMPARISON: None HISTORY: SOB. elevated d-dimer. CT DLP: 596.6 mGycm Automated exposure control for dose reduction was used. CONTRAST: Performed with IV Contrast, patient injected with 90cc mL of Isovue 370. There are 3-D post processed images. There is a mild right pleural effusion. There is mild atelectasis at the right posterior lung base. T here is no evidence of a pulmonary mass. There is some minimal infiltrate at the left lung apex in th e posterior segment left upper lobe. There is no suspicious pulmonary mass. Heart size is normal. There is no pericardial effusion. There is no mediastinal adenopathy. There are no hilar masses. Thoracic aorta shows no aneurysm or dissection. The ascending aorta measures 3.6 cm . There is normal contrast opacification of the pulmonary arteries. There are no filling defects. There is multilevel spondylotic changes in the thoracic spine. There is bridging osteophyte formation . I see no focal bone destruction. Upper abdominal soft tissues are intact. There is large 2 cm calci fied gallstone. IMPRESSION: No evidence of pulmonary embolism. Right pleural effusion and mild atelectasis right posterior lung b ase. No suspicious pulmonary mass.
[2020-06-15] MEDS: IPRATROPIUM-ALBUTEROL 3 ML NEB INHALATION SCH ×4 (07:59→19:49)
--- NOTE | 2020-06-15 08:28 | P.HPIM ---
History of Present Illness This is a pleasant 54 years old male with past medical history of Parkinson disease. 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 This patient of Dr. Brodie Milan. 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 Is currently smoking about 1 pack and half per day. He got sick about one week ago and diagnosed with pneumonia with treated with antibiotics, he felt slightly better for short while and then he came back to the emergency with shortness of breath exertional dyspnea with coughing and Y phlegm but no chest pain. No change in urine or bowel habits. No fever patient states is there when tested negative for both influenza and Covid about one week ago Vitas looks stable and is saturating 97% on room air. Patient is afebrile. Labs reviewed showing unremarkable CBC, BMP, liver enzymes and troponins 3 with negative less than 0.012. D-dimer is elevated at 1.9. CTA of the chest: No acute pulmonary embolism. Right pleural effusion with mild atelectasis. No pulmonary mass. EKG showing sinus bradycardia at [address] T changes: Chest x- ray: and emergency room patient was started on steroids and breathing treatment. Review of Systems CONSTITUTIONAL: No fever, no malaise, no fatigue. HEENT: No recent visual problems or hearing problems. Denied any sore throat. CARDIOVASCULAR: No orthopnea, PND, no palpitations, no syncope. PULMONARY: no hemoptysis. GASTROINTESTINAL: No diarrhea, no nausea, no vomiting, no abdominal pain. Normoactive bowel sounds. NEUROLOGICAL: No headaches, no weakness, no numbness. HEMATOLOGICAL: Denies any bleeding or petechiae. GENITOURINARY: Denies any burning micturition, frequency, or urgency. MUSCULOSKELETAL/RHEUMATOLOGICAL: Denies any joint pain, swelling, or any muscle pain. ENDOCRINE: Denies any polyuria or polydipsia. Past Medical History Past Medical History: COPD, Hyperlipidemia, Pneumonia, Skin Disorder Additional Past Medical History / Comment(s): anykylosing spondylitis,rt uveitis,HLAB27 positive-Autoimmune Disease,chronic rash r/t steroids, monocular vision rt eye. umbilical hernia, chronic back pain-2 herniated disks, degenerative disk disease, CURRENTLY ON ANTIBIOTICS FOR BILAT EAR INFECTIONS History of Any Multi-Drug Resistant Organisms: None Reported Additional Past Surgical History / Comment(s): rt cataract and 3 laser procedures r/t uveitis, pain clinic procedure Past Anesthesia/Blood Transfusion Reactions: No Reported Reaction Additional Past Anesthesia/Blood Transfusion Reaction / Comment(s): Very fearful of needles Past Psychological History: Depression Smoking Status: Current every day smoker Past Alcohol Use History: Occasional Past Drug Use History: None Reported - Past Family History Brother(s) Family Medical History: Myocardial Infarction ([place]) Mother Family Medical History: No Reported History Father Family Medical History: Myocardial Infarction ([place]) Medications and Allergies Home Medications Medication Instructions Recorded Confirmed Type DULoxetine HCL [Cymbalta] 60 mg PO DAILY 05/23/17 06/14/20 History atenoloL [Tenormin] 75 mg PO HS 05/23/17 06/14/20 History azaTHIOprine [Imuran] 100 mg PO BID 05/23/17 06/14/20 History Adalimumab [Humira Pen] 40 mg SQ Q14D 07/06/18 06/14/20 History Albuterol Sulfate [Albuterol 2 puff PO RT-Q6H PRN 06/14/20 06/14/20 History Sulfate Hfa] Amoxic-Pot Clav 875-125Mg 1 tab PO BID 06/14/20 06/14/20 History [Augmentin 875-125] Atorvastatin [Lipitor] 40 mg PO DAILY 06/14/20 06/14/20 History Cholecalciferol [Vitamin D3 (25 1,000 unit PO DAILY 06/14/20 06/14/20 History Mcg = 1000 Iu)] Doxycycline Monohydrate [Monodox] 100 mg PO BID 06/14/20 06/14/20 History Fluticasone Propion/Salmeterol 1 puff INHALATION RT-BID 06/14/20 06/14/20 History [Wixela 250-50 Inhub] Pregabalin [Lyrica] 75 mg PO DAILY 06/14/20 06/14/20 History Pregabalin [Lyrica] 150 mg PO HS 06/14/20 06/14/20 History buPROPion XL [Wellbutrin Xl] 150 mg PO BID 06/14/20 06/14/20 History oxyCODONE-APAP 7.5-325MG [Percocet 1 tab PO TID PRN 06/14/20 06/14/20 History 7.5-325 mg] predniSONE 10 mg PO DAILY 06/14/20 06/14/20 History Allergies Allergy/AdvReac Type Severity Reaction Status Date / Time erythromycin base Allergy Severe Dyspnea,hiv Verified 06/14/20 23:29 es Physical Exam Vitals: Vital Signs Temp Pulse Resp BP Pulse Ox 06/15/20 08:08 64 06/15/20 07:59 65 06/15/20 07:21 60 16 154/82 98 06/15/20 06:40 55 L 18 156/91 97 06/15/20 04:23 66 18 149/92 96 06/14/20 23:19 84 06/14/20 23:11 84 06/14/20 21:46 76 16 06/14/20 21:41 75 16 06/14/20 21:18 54 L 18 143/81 97 06/14/20 20:31 19 06/14/20 20:16 98.7 F 58 L 16 153/98 99 Intake and Output 06/14/20 06/15/20 06/15/20 22:59 06:59 14:59 Other: Weight 108.862 kg GENERAL: The patient is alert and oriented x3, not in any acute distress. Well developed, well nourished. HEENT: Pupils are round and equally reacting to light. EOMI. No scleral icterus. No conjunctival pallor. Normocephalic, atraumatic. No pharyngeal erythema. No thyromegaly. CARDIOVASCULAR: S1 and S2 present. No murmurs, rubs, or gallops. PULMONARY: Chest is clear to auscultation, no wheezing or crackles. ABDOMEN: Soft, nontender, nondistended, normoactive bowel sounds. No palpable organomegaly. MUSCULOSKELETAL: No joint swelling or deformity. EXTREMITIES: No cyanosis, clubbing, or pedal edema. NEUROLOGICAL: Gross neurological examination did not reveal any focal deficits. SKIN: No rashes. No petechiae Results CBC & Chem 7: 06/14/20 21:03 06/14/20 21:03 Labs: Abnormal Lab Results - Last 24 Hours (Table) 06/14/20 06/14/20 06/14/20 Range/Units 21:03 21:03 21:03 MCV 102.8 H (80.0-100.0) fL D-Dimer 1.90 H (<0.60) mg/L FEU BUN 29 H (9-20) mg/dL Assessment and Plan Assessment: Acute COPD exacerbation small right pleural effusion Ankylosing spondylitis, LA B 27 positive autoimmune disease Umbilical hernia Chronic low back pain secondary to herniated disc with degenerative disc disease Elevated d-dimer with negative CTA for PE. Plan: This is a pleasant 54 years old male who presents with acute COPD exacerbation. Continue with steroids bronchodilator. And doxycycline. Pulmonary consult. Recheck influenza and Covid test. Sputum culture Labs and medication were reviewed.. Continue same treatment. Continue with symptomatic treatment. Resume home medication. Monitor lytes and vitals. DVT and GI prophylaxis. Further recommendationsas per clinical course of the patient DVT prophylaxis: Subcutaneous heparin GI Prophylaxis: Pepcid
[2020-06-15] MEDS ORDERED: DOXYCYCLINE 100 MG in SODIUM CHLORIDE 0.9% 100 ML IVPB SCH (09:00)
[2020-06-15] MEDS: DOXYCYCLINE 100 MG in SODIUM CHLORIDE 0.9% 100 ML IVPB SCH (13:40)
[2020-06-15] MEDS: HEPARIN SODIUM,PORCINE 5,000 UNIT/ML 1 ML VIAL SQ SCH ×2 (13:40→21:58)
[2020-06-15] MEDS: FAMOTIDINE 20 MG/2 ML VIAL IV SCH ×2 (13:40→21:58)
[2020-06-15] MEDS ORDERED: oxyCODONE-APAP 7.5-325MG 1 EACH TAB PO PRN (15:21)
--- NOTE | 2020-06-15 15:42 | CONS ---
CONSULTATION PULMONARY/CRITICAL CARE CONSULTATION: DATE OF SERVICE: 06/15/2020 This is a 54-year-old male whom we were asked to see for upper respiratory tract infection/pneumonia. This is a 54-year-old male with a history of underlying COPD from chronic and ongoing tobacco use for more than 40 years, hyperlipidemia, previous pneumonia, ankylosing spondylitis, uveitis, umbilical hernia, chronic back pain, degenerative disc disease, and bilateral ear infections. The patient apparently came into the ER complaining of possible underlying pneumonia. He apparently was diagnosed about a week ago as having pneumonia and was started on Augmentin and doxycycline. Although he was taking his medications as prescribed, he admits to worsening shortness of breath. He also has a productive cough. He apparently also has had chest pressure on and off. The patient apparently saw his primary care provider on the day of admission which was Dr. Murguia, and apparently Dr. Murguia advised him to come in to be evaluated. He does see Dr. Cervantes as well as Rheumatology ankylosing spondylitis. Because he was not getting into any improvement, he decided to come in to be evaluated. The patient has been tested negative for influenza. And also tested negative for COVID 1 week ago. The patient denies any chest pain or pressure. There is no nausea, vomiting, diarrhea. There are no genitourinary complaints. CURRENT MEDICATIONS: Reviewed. He is currently on albuterol inhaler, Cymbalta, [place], Dulera, atenolol, Imuran, Humira, Motrin, cyclosporine, and prednisone. ALLERGIES: ERYTHROMYCIN. MEDICAL HISTORY: Reviewed. The patient has a history of COPD from chronic tobacco use, although he has never seen a lung doctor, hyperlipidemia, pneumonia, ankylosing spondylitis, uveitis, chronic rash, monocular vision in his right eye, umbilical hernia, chronic back pain, herniated disk, degenerative disk disease, and bilateral infections. SURGICAL HISTORY: Includes right cataract right cataract surgery, 3 laser procedures, as well as some other minor procedures. SOCIAL HISTORY: Positive for ongoing tobacco use. He smokes 1-2 packs a day. He has been smoking for more than 40 years. He drinks alcohol occasionally. There is no illicit drug use. FAMILY HISTORY: Positive for a brother with AR, mother without any medical history and father with myocardial infarction. REVIEW OF SYSTEMS: CONSTITUTIONAL: Negative. NEUROLOGIC: Negative. HEENT: Negative. CARDIOVASCULAR: Negative. PULMONARY: Shortness of breath, cough, nonproductive. GI: Negative. : Negative. RHEUMATOLOGIC: Negative. IMMUNOLOGIC: Negative. ENDOCRINOLOGIC: Negative. DERMATOLOGIC: Negative. Current vital signs are reviewed. Temperature is 98.7, heart rate 76, respiratory rate 16, blood pressure 143/81 mean 101, room air saturation 99%. There is no acute distress. HEENT: Examination is grossly unremarkable. NECK: Supple. Full range of motion. No adenopathy. Neck veins are flat. CARDIOVASCULAR: Examination reveals regular rhythm and rate. Heart rate 76 beats per minute. S1, S2 normal. There is no S3, S4, or murmur. LUNGS: A few scattered expiratory rhonchi and wheezes. The patient sounds more like a COPD exacerbation patient. No crackles. ABDOMEN: Soft, bowel sounds are heard. EXTREMITIES: Intact. No cyanosis, clubbing, or edema. SKIN: Without rash. NEUROLOGIC: Examination is brief but nonfocal. LABS: Reviewed. White count 7.7, hemoglobin 15.1, hematocrit 45.8, platelet count 276,000 PT/INR PTT all normal. D-dimer 1.9. Sodium, potassium chloride, CO2 all normal anion gap normal. BUN and creatinine were 29 and 0.83. The entire rest of the comprehensive metabolic profile including lactic acid, troponin, and N-terminal proBNP were all normal. Influenza studies were negative. Microbiologic studies were negative. IMAGING: Chest x-ray shows a right basilar infiltrate with small right-sided pleural effusion. Chest CT shows no evidence of pulmonary embolism. There is some atelectasis or infiltrate at the right lung base and a small right-sided pleural effusion. Current medications reviewed. Currently, the patient is on doxycycline, famotidine, subcu heparin, and DuoNeb. The patient is also on corticosteroids. ASSESSMENT: 1. Probable chronic obstructive pulmonary disease exacerbation complicated by right basilar atelectasis versus infiltrate and small right-sided pleural effusion. 2. Doubt COVID-19 infection. 3. History of ongoing tobacco use with nicotine addiction. 4. History of ankylosing spondylitis on multiple immunosuppressive drugs including Humira, Imuran, cyclosporine, and prednisone. 5. Hyperlipidemia demonstrates history of COPD from ongoing tobacco use and nicotine addiction. 6. Hyperlipidemia. 7. Prior history of pneumonia. 8. History of uveitis. 9. Umbilical hernia. 10.History of chronic back pain. 11.History of herniated disk. 12.Degenerative disk disease. 13.Bilateral ear infection. PLAN: Please see my orders. Additional recommendations and suggestions are forthcoming. The patient is test was repeated. No additional recommendations are made. We will follow. The patient should be treated primarily as a COPD exacerbation. The patient improved otherwise. MMBILLIEL / ASHLEYN: [id number] /
[2020-06-15] MEDS: atenoloL 25 MG TAB PO SCH (16:15)
[2020-06-15] MEDS: FORMOTEROL FUMARATE 20 MCG/2 ML NEBU INHALATION SCH (19:49)
[2020-06-15] MEDS: BUDESONIDE 1 MG/2 ML NEBU INHALATION SCH (19:49)
[2020-06-15] MEDS: buPROPion XL 150 MG TAB.ER.24H PO SCH (21:58)
[2020-06-15] MEDS: PREGABALIN 75 MG CAP PO SCH (21:58)
[2020-06-15] MEDS: azaTHIOprine 50 MG TAB PO SCH (21:59)
[2020-06-16] MEDS: DOXYCYCLINE 100 MG in SODIUM CHLORIDE 0.9% 100 ML IVPB SCH ×2 (02:09→13:34)
[2020-06-16] MEDS: BUDESONIDE 1 MG/2 ML NEBU INHALATION SCH ×2 (08:06→19:02)
[2020-06-16] MEDS: IPRATROPIUM-ALBUTEROL 3 ML NEB INHALATION SCH ×4 (08:06→19:02)
[2020-06-16] MEDS: FORMOTEROL FUMARATE 20 MCG/2 ML NEBU INHALATION SCH ×2 (08:06→19:02)
[2020-06-16] MEDS: methylPREDNISolone SOD SUCCI 125 MG/2 ML VIAL IV SCH ×4 (08:28→23:52)
[2020-06-16] MEDS: buPROPion XL 150 MG TAB.ER.24H PO SCH ×2 (08:28→21:33)
[2020-06-16] MEDS: NICOTINE 21MG/24HR PATCH TRANSDERM SCH (08:28)
[2020-06-16] MEDS: ATORVASTATIN 40 MG TAB PO SCH (08:29)
[2020-06-16] MEDS: HEPARIN SODIUM,PORCINE 5,000 UNIT/ML 1 ML VIAL SQ SCH ×2 (08:29→21:34)
[2020-06-16] MEDS: PREGABALIN 75 MG CAP PO SCH ×2 (08:29→21:26)
[2020-06-16] MEDS: azaTHIOprine 50 MG TAB PO SCH ×2 (08:29→21:33)
[2020-06-16] MEDS: DULoxetine HCL 60 MG CAPSULE.DR PO SCH (08:29)
[2020-06-16] MEDS: FAMOTIDINE 20 MG/2 ML VIAL IV SCH ×2 (08:29→21:33)
--- NOTE | 2020-06-16 10:20 | PN ---
PROGRESS NOTE PULMONARY/CRITICAL CARE PROGRESS NOTE: DATE OF SERVICE: 06/16/2020 This is a 54-year-old gentleman that we saw yesterday in the emergency room. He came into the hospital with complaints of increasing shortness of breath, cough with minimal phlegm production, chest tightness, wheezing and shortness of breath. His COVID-19 test was negative. He does have a history of underlying hyperlipidemia, previous episode of pneumonia, ankylosing spondylitis/Martha Strumpell disease, uveitis, umbilical hernia, chronic back pain, degenerative disk disease, and bilateral ear infections. The patient went to see his primary doctor, Dr. Murguia, was started on Augmentin and doxycycline. He got worse and end up coming into the hospital. His ankylosing spondylitis is managed by Dr. Cervantes. He is basically being treated for a COPD exacerbation and possibly a slight over small pneumonia in the right lower lobe with a small parapneumonic effusion Current vital signs are reviewed, temperature is 97.6, heart rate 59, respiratory rate 16, blood pressure 143/;p67 mean arterial pressure 85, room air saturation 97%. He appears in no acute distress. HEENT: Examination is unremarkable. NECK: Supple, full range of motion. CARDIOVASCULAR: Examination reveals regular rhythm and rate. Heart rate about 60 beats per minute. LUNGS: Some inspiratory and expiratory rhonchi and wheezes. Breath sounds are diminished. ABDOMEN: Soft. EXTREMITIES: Intact. No cyanosis, clubbing, or edema. SKIN: Without rash. NEUROLOGIC: Examination is brief but nonfocal. No new labs to report. As I mentioned, his COVID test was negative. Influenza A and B studies were also negative. Microbiology is currently negative. No recent chest x-ray to report. We did look at the chest x-ray and CAT scan from June 14, 2020. MEDICATIONS: Reviewed. He is currently on Humira, Tenormin, Lipitor, Imuran, Pulmicort solution, Wellbutrin, doxycycline, Cymbalta, Pepcid, formoterol, heparin, DuoNeb, Solu-Medrol, nicotine patch, oxycodone/APAP, and Lyrica. ASSESSMENT: 1. COPD exacerbation, potentially complicated by a right lower lobe pneumonia with small parapneumonic effusion. 2. Ongoing tobacco use and nicotine addiction. 3. COVID-19 testing negative. 4. History of ankylosing spondylitis/Amrtha Strumpell disease, currently on multiple immunosuppressive drugs including Humira, Imuran, cyclosporin and prednisone. 5. History of hyperlipidemia. 6. Prior history of pneumonia. 7. History of uveitis. 8. Umbilical hernia. 9. Chronic back pain. 10.History of herniated disk. 11.Degenerative disk disease. 12.Bilateral ear infections. PLAN: Currently, the patient is on appropriate medications. No additional recommendations are made. Prognosis is guarded. He is counseled about the importance of smoking cessation. He will need outpatient followup. He has never seen a slag dumper. He will need outpatient pulmonary function testing as well. Prognosis is guarded. MMODL / IJN: [id number] /
[2020-06-16] MEDS: atenoloL 25 MG TAB PO SCH (21:32)
[2020-06-17] MEDS: DOXYCYCLINE 100 MG in SODIUM CHLORIDE 0.9% 100 ML IVPB SCH (03:27)
[2020-06-17] MEDS: methylPREDNISolone SOD SUCCI 125 MG/2 ML VIAL IV SCH ×2 (05:30→12:26)
--- NOTE | 2020-06-17 07:53 | P.PN ---
Subjective Progress Note Date: 06/17/20 Principal diagnosis: Acute exacerbation of chronic obstructive pulmonary The patient is seen today 06/17/2020 in follow-up in the observation unit. He is currently sitting up at bedside. Awake and alert in no acute distress. He is breathing quite a bit better today compared to yesterday. His been under treatment for an acute exacerbation of chronic obstructive pulmonary disease. He does have chronic tobacco dependence and a NicoDerm patches in place. He remains on DuoNeb inhalations, Pulmicort and Perforomist inhalations, IV Solu- Medrol. He is currently maintaining good O2 saturations in the 90s on room air. He's been afebrile. Hemodynamically stable. Objective - Vital Signs Vital signs: Vital Signs Temp 97.9 F 06/17/20 03:00 Pulse 58 L 06/17/20 03:00 Resp 18 06/17/20 03:00 BP 117/59 06/17/20 03:00 Pulse Ox 97 06/17/20 03:00 Intake & Output 06/16/20 06/17/20 06/17/20 18:59 06:59 18:59 Output Total 1 Balance -1 Output: Urine 1 Other: Voiding Method Toilet Toilet # Voids 5 1 - Exam GENERAL EXAM: Alert, active, pleasant 54-year-old gentleman, on room air, comfortable in no apparent distress. HEAD: Normocephalic. EYES: Normal reaction of pupils, equal size. NOSE: Clear with pink turbinates. THROAT: No erythema or exudates. NECK: No masses, no JVD. CHEST: No chest wall deformity. LUNGS: Equal air entry with faint end expiratory wheeze, diminished. CVS: S1 and S2 normal with no audible murmur, regular rhythm. ABDOMEN: No hepatosplenomegaly, normal bowel sounds, no guarding or rigidity. SPINE: No scoliosis or deformity SKIN: No rashes CENTRAL NERVOUS SYSTEM: No focal deficits, tone is normal in all 4 extremities. EXTREMITIES: There is no peripheral edema. No clubbing, no cyanosis. Peripheral pulses are intact. - Labs CBC & Chem 7: 06/14/20 21:03 06/14/20 21:03 Labs: Microbiology - Last 24 Hours (Table) 06/14/20 21:03 Blood Culture - Preliminary Blood No Growth after 48 hours 06/16/20 11:42 Gram Stain - Preliminary Sputum Sputum Culture - Preliminary Assessment and Plan Assessment: 1 Acute exacerbation of chronic obstructive pulmonary disease, complicated by purulent tracheobronchitis 2 Chronic and ongoing tobacco dependence 3 Obesity. 4 Ankylosing spondylitis with multiple immunosuppressive drugs including Humira, Imuran, cyclosporine and prednisone 5 Hyperlipidemia 6 History of pneumonia 7 History of uveitis 8 Degenerative disc disease Plan: The patient was seen and evaluated by Dr. Rueda He is cleared for discharge from pulmonary standpoint Complete a prednisone taper starting at 40 mg daily for 4 days Complete a course of azithromycin 5 more days DuoNeb inhalations 4 times a day Symbicort 2 puffs twice a day Ventolin HFA as needed Follow-up in our office in 1-2 weeks' time where we can perform full pulmonary function testing and make recommendations regarding maintenance medications I, the cosigning physician, performed a history & physical examination of the patient. Lungs sounds with faint end expiratory wheeze bilaterally, diminished. Maintaining good O2 saturations in the 90s on room air. I discussed the assessment and plan of care with my nurse practitioner, Michelle Steven. I attest to the above note as dictated by her.
[2020-06-17 08:03] VITALS: BP 143/69; RESP 16; TEMP 98.3
[2020-06-17] MEDS: HEPARIN SODIUM,PORCINE 5,000 UNIT/ML 1 ML VIAL SQ SCH (08:05)
[2020-06-17] MEDS: IPRATROPIUM-ALBUTEROL 3 ML NEB INHALATION SCH ×2 (08:10→11:32)
[2020-06-17] MEDS: BUDESONIDE 1 MG/2 ML NEBU INHALATION SCH (08:10)
[2020-06-17] MEDS: FORMOTEROL FUMARATE 20 MCG/2 ML NEBU INHALATION SCH (08:10)
[2020-06-17] MEDS: NICOTINE 21MG/24HR PATCH TRANSDERM SCH (08:12)
[2020-06-17] MEDS: PREGABALIN 75 MG CAP PO SCH (08:12)
[2020-06-17] MEDS: DULoxetine HCL 60 MG CAPSULE.DR PO SCH (08:12)
[2020-06-17] MEDS: ATORVASTATIN 40 MG TAB PO SCH (08:12)
[2020-06-17] MEDS: buPROPion XL 150 MG TAB.ER.24H PO SCH (08:12)
[2020-06-17] MEDS: FAMOTIDINE 20 MG/2 ML VIAL IV SCH (08:12)
[2020-06-17] MEDS: azaTHIOprine 50 MG TAB PO SCH (08:13)
--- NOTE | 2020-06-17 10:10 | P.PN ---
Subjective This is a pleasant 54 years old male with past medical history of Parkinson disease. 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 This patient of Dr. Brodie Milan. 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 Is currently smoking about 1 pack and half per day. He got sick about one week ago and diagnosed with pneumonia with treated with antibiotics, he felt slightly better for short while and then he came back to the emergency with shortness of breath exertional dyspnea with coughing and Y phlegm but no chest pain. No change in urine or bowel habits. No fever patient states is there when tested negative for both influenza and Covid about one week ago Vitas looks stable and is saturating 97% on room air. Patient is afebrile. Labs reviewed showing unremarkable CBC, BMP, liver enzymes and troponins 3 with negative less than 0.012. D-dimer is elevated at 1.9. CTA of the chest: No acute pulmonary embolism. Right pleural effusion with mild atelectasis. No pulmonary mass. EKG showing sinus bradycardia at [address] T changes: Chest x- ray: and emergency room patient was started on steroids and breathing treatment. 06/17/2020 Although patient feeling better and noticed working in the room freely, he is also on room air with no tachypnea or chest pain however there is still significant expiratory wheezing on physical exam pulmonary team. For 1 more day of IV steroids and bronchodilator Expecting patient to be discharged some once cleared by pulmonary service. Objective - Vital Signs Vital signs: Vital Signs Temp 97.6 F 06/16/20 08:36 Pulse 52 L 06/16/20 11:48 Resp 20 06/16/20 08:36 BP 144/79 06/16/20 08:36 Pulse Ox 97 06/16/20 08:36 Intake & Output 06/15/20 06/16/20 06/16/20 18:59 06:59 18:59 Intake Total 400 Balance 400 Weight 108.862 kg Intake: Oral 400 Other: Voiding Method Toilet Toilet Toilet # Voids 5 - Exam GENERAL: The patient is alert and oriented x3, not in any acute distress. Well developed, well nourished. HEENT: Pupils are round and equally reacting to light. EOMI. No scleral icterus. No conjunctival pallor. Normocephalic, atraumatic. No pharyngeal erythema. No thyromegaly. CARDIOVASCULAR: S1 and S2 present. No murmurs, rubs, or gallops. -PULMONARY: Chest is clear to auscultation, bilateral expiratory wheezing. ABDOMEN: Soft, nontender, nondistended, normoactive bowel sounds. No palpable organomegaly. MUSCULOSKELETAL: No joint swelling or deformity. EXTREMITIES: No cyanosis, clubbing, or pedal edema. NEUROLOGICAL: Gross neurological examination did not reveal any focal deficits. SKIN: No rashes. no petechiae. - Labs CBC & Chem 7: 06/14/20 21:03 06/14/20 21:03 Labs: Microbiology - Last 24 Hours (Table) 06/14/20 21:03 Blood Culture - Preliminary Blood No Growth after 24 hours Assessment and Plan Assessment: Acute COPD exacerbation small right pleural effusion Ankylosing spondylitis, LA B 27 positive autoimmune disease Umbilical hernia Chronic low back pain secondary to herniated disc with degenerative disc disease Elevated d-dimer with negative CTA for PE. Plan: This is a pleasant 54 years old male who presents with acute COPD exacerbation. Continue with steroids bronchodilator. And doxycycline. Pulmonary consult. Recheck influenza and Covid test. Sputum culture Labs and medication were reviewed.. Continue same treatment. Continue with symptomatic treatment. Resume home medication. Monitor lytes and vitals. DVT and GI prophylaxis. Further recommendationsas per clinical course of the patient DVT prophylaxis: Subcutaneous heparin GI Prophylaxis: Pepcid
[2020-06-17 11:42] VITALS: PULSE 60
--- NOTE | 2020-06-17 16:42 | DS ---
DISCHARGE SUMMARY DATE OF SERVICE: 06/17/2020 FINAL DIAGNOSES: 1. Chronic obstructive pulmonary disease acute exacerbation with acute purulent tracheobronchitis. 2. Chronic ongoing nicotine dependence. 3. Obesity. 4. Ankylosing spondylitis with multiple immunosuppressive medications. 5. Hyperlipidemia. 6. History of pneumonia. 7. History of CAD. 8. History of DJD. DISCHARGE DISPOSITION: The patient will be discharged in stable condition with guarded prognosis. HISTORY OF PRESENT ILLNESS: This is a 54-year-old gentleman with a past medical history of multiple medical problems admitted with COPD exacerbation, acute purulent tracheobronchitis. Patient treated with steroids and intensive bronchodilator treatment and antibiotics. Patient improved significantly. Dr. Rueda saw the patient, cleared the patient for discharge. On exam, vitals are stable. CARDIOVASCULAR: S1, S2. ABDOMEN: Soft. NERVOUS SYSTEM: No focal deficits. DISCHARGE INSTRUCTIONS: 1. Diet is cardiac. 2. Activity limited until followup. 3. Follow up with Dr. Murguia in 2-3 days. 4. Follow up with Dr. Rueda as recommended. DISCHARGE MEDICATIONS: 1. Albuterol p.r.n. 2. Cymbalta 60 mg p.o. daily. 3. Humira q.14 days. 4. Imuran 100 mg p.o. b.i.d. 5. Lipitor 40 mg daily. 6. Lyrica 150 mg q.h.s. and 75 mg p.o. daily. 7. Oxycodone 1 tablet t.i.d. p.r.n. 8. Prednisone 10 mg p.o. daily. 9. Tenormin 75 mg q.h.s. 10.Vitamin D3 1000 mg p.o. daily. 11.Wellbutrin XL 150 mg p.o. b.i.d. 12.Fluticasone salmeterol 1 puff b.i.d. 13.DuoNeb q.i.d. and p.r.n. 14.Habitrol 21 daily. 15.Prednisone taper 40 mg daily for 3 days, 30 for 3 days, 20 for 3 days, 10 for 3 days. 16.Doxycycline 100 mg p.o. b.i.d. for 5 days. Once again, the patient will be discharged in a stable condition with guarded prognosis. MMODL / IJN: [id number] /
[2020-06-21] MEDS ORDERED: NON FORMULARY DRUG (Adalimumab [Humira(Cf) Pen] 40 MG/0.4 ML Pen.Ij.Kit) SQ SCH (09:00)
== END 2020-06-17 12:45 | disposition home or self-care (01) | DRG 191 ==
LOC: EC 20:13 → 1SOBS 23:12 → OBSVTOIN 06-16 09:41
PROVIDERS: ADMIT Internal Medicine; ATTEND Internal Medicine
DX: J44.1 Chronic obstructive pulmonary disease with (acute) exacerbation (principal); J91.8 Pleural effusion in other conditions classified elsewhere; J98.11 Atelectasis; D89.89 Other specified disorders involving the immune mechanism, not elsewhere classified; G20 Parkinson's disease; M45.9 Ankylosing spondylitis of unspecified sites in spine; J44.0 Chronic obstructive pulmonary disease with (acute) lower respiratory infection; Z20.828 Contact with and (suspected) exposure to other viral communicable diseases; J20.9 Acute bronchitis, unspecified; E66.9 Obesity, unspecified; E78.5 Hyperlipidemia, unspecified; G89.29 Other chronic pain; H53.8 Other visual disturbances; F17.210 Nicotine dependence, cigarettes, uncomplicated; F32.9 Major depressive disorder, single episode, unspecified; R21 Rash and other nonspecific skin eruption; R00.1 Bradycardia, unspecified; H20.11 Chronic iridocyclitis, right eye; M51.26 Other intervertebral disc displacement, lumbar region; K42.9 Umbilical hernia without obstruction or gangrene; H66.93 Otitis media, unspecified, bilateral; M51.36 Other intervertebral disc degeneration, lumbar region; I25.10 Atherosclerotic heart disease of native coronary artery without angina pectoris; M19.90 Unspecified osteoarthritis, unspecified site; T38.0X5A Adverse effect of glucocorticoids and synthetic analogues, initial encounter; Z71.6 Tobacco abuse counseling; Z68.31 Body mass index [BMI] 31.0-31.9, adult; Z79.899 Other long term (current) drug therapy; Z79.52 Long term (current) use of systemic steroids; Z98.41 Cataract extraction status, right eye; Z87.01 Personal history of pneumonia (recurrent); Z98.890 Other specified postprocedural states; Z88.1 Allergy status to other antibiotic agents; Z82.49 Family history of ischemic heart disease and other diseases of the circulatory system
CPT/HCPCS: 36415; 71046; 71275; 80053; 83605; 83880; 84145; 84484; 85025; 85379; 85610; 85730; 87040; 87070; 87205; 87502; 93005; 94640; 96365; 96374; 96375; 99285

== ENCOUNTER → 2020-10-24 | Outpatient (CLI) | payer MEDICARE, OTHER | END | disposition home or self-care (01) | LOC: LABWHC1 12:33 | PROVIDERS: ATTEND Psychiatry & Neurology Neurology | DX: Z01.812 Encounter for preprocedural laboratory examination (principal) | CPT/HCPCS: U0003; C9803; U0005 ==

== ENCOUNTER → 2020-10-24 | Outpatient (CLI) | payer MEDICARE, OTHER | END | disposition home or self-care (01) | LOC: LABWHC1 12:01 | PROVIDERS: ATTEND Psychiatry & Neurology Pain Medicine | DX: M45.6 Ankylosing spondylitis lumbar region (principal); M35.2 Behcet's disease | CPT/HCPCS: 36415; 85652; 86140 ==

== ENCOUNTER 2021-04-09 10:21 | Emergency (ER) | payer MEDICARE, OTHER ==
[2021-04-09 10:33] VITALS: RESP 18
[2021-04-09] MEDS ORDERED: ACET/COD 300 MG/30 MG STARTER PACK 6 TAB BTL PO STA (11:18)
[2021-04-09] MEDS ORDERED: HYDROcodone/APAP 5-325MG 1 EACH TAB PO STA (11:18)
--- NOTE | 2021-04-09 11:23 | ED ---
Skin/Abscess/FB HPI - General Chief complaint: Skin/Abscess/Foreign Body Stated complaint: rt sided facial swelling Time Seen by Provider: 04/09/21 10:35 Source: patient, RN notes reviewed Mode of arrival: ambulatory Limitations: no limitations - History of Present Illness Initial comments: 55-year-old male presents emergency Department with chief complaint of right- sided facial redness and swelling. Patient states started with a small pimple he states and popping woke up today with increasing pain and swelling. No dentition pain. Patient states that is just swelling and uncomfortable if you press over the area no fevers or chills no difficulty swallowing or difficult breathing. - Related Data Home Medications Medication Instructions Recorded Confirmed DULoxetine HCL [Cymbalta] 60 mg PO DAILY 05/23/17 06/14/20 atenoloL [Tenormin] 75 mg PO HS 05/23/17 06/14/20 azaTHIOprine [Imuran] 100 mg PO BID 05/23/17 06/14/20 Adalimumab [Humira(Cf) Pen] 40 mg SQ Q14D 07/06/18 06/14/20 Albuterol Sulfate [Albuterol 2 puff PO RT-Q6H PRN 06/14/20 06/14/20 Sulfate Hfa] Atorvastatin [Lipitor] 40 mg PO DAILY 06/14/20 06/14/20 Cholecalciferol [Vitamin D3 (25 1,000 unit PO DAILY 06/14/20 06/14/20 Mcg = 1000 Iu)] Fluticasone Propion/Salmeterol 1 puff INHALATION RT-BID 06/14/20 06/14/20 [Wixela 250-50 Inhub] Pregabalin [Lyrica] 75 mg PO DAILY 06/14/20 06/14/20 Pregabalin [Lyrica] 150 mg PO HS 06/14/20 06/14/20 buPROPion XL [Wellbutrin XL] 150 mg PO BID 06/14/20 06/14/20 oxyCODONE-APAP 7.5-325MG [Percocet 1 tab PO TID PRN 06/14/20 06/14/20 7.5-325 mg] predniSONE 10 mg PO DAILY 06/14/20 06/14/20 Previous Rx's Medication Instructions Recorded Doxycycline [Vibramycin] 100 mg PO BID 5 Days #10 capsule 06/17/20 Ipratropium-Albuterol Nebulize 3 ml INHALATION RT-QID #120 ml 06/17/20 [Duoneb 0.5 mg-3 mg/3 ml Soln] Nicotine 21Mg/24Hr Patch [Habitrol] 1 patch TRANSDERM DAILY #30 patch 06/17/20 predniSONE 10 mg PO DIRECTED #30 tab 06/17/20 Cephalexin [Keflex] 500 mg PO Q6HR #40 cap 04/09/21 Sulfamethox-Tmp 800-160Mg [Bactrim 1 each PO Q12HR #20 tab 04/09/21 Ds] Allergies Allergy/AdvReac Type Severity Reaction Status Date / Time erythromycin base Allergy Severe Dyspnea,hiv Verified 04/09/21 10:34 es Review of Systems ROS Statement: Those systems with pertinent positive or pertinent negative responses have been documented in the HPI. ROS Other: All systems not noted in ROS Statement are negative. 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 History of Any Multi-Drug Resistant Organisms: None Reported Additional Past Surgical History / Comment(s): rt cataract and 3 laser procedures r/t uveitis, pain clinic procedure Past Anesthesia/Blood Transfusion Reactions: No Reported Reaction Additional Past Anesthesia/Blood Transfusion Reaction / Comment(s): Very fearful of needles Past Psychological History: Depression Smoking Status: Current every day smoker Past Alcohol Use History: Occasional Past Drug Use History: None Reported - Past Family History Brother(s) Family Medical History: Myocardial Infarction ([place]) Additional Family Medical History / Comment(s): Brother had a [place] at the age of 51 yrs and is living. Mother Family Medical History: CVA/TIA, Hypertension Additional Family Medical History / Comment(s): Mother has had CVAs. She is living Father Family Medical History: Myocardial Infarction ([place]) Additional Family Medical History / Comment(s): Father had a TN at the age of 83 yrs. He is living General Exam Limitations: no limitations General appearance: alert, in no apparent distress Head exam: Present: atraumatic, normocephalic, normal inspection Eye exam: Present: normal appearance, PERRL, EOMI. Absent: scleral icterus, conjunctival injection, periorbital swelling ENT exam: Present: mucous membranes moist, TM's normal bilaterally, other (Swelling along the right anterior mandible region there is a small firm abscess with surrounding cytolytic changes). Absent: normal oropharynx (Poor dentition) Neck exam: Present: normal inspection, full ROM. Absent: tenderness, meningismus, lymphadenopathy Respiratory exam: Present: normal lung sounds bilaterally. Absent: respiratory distress, wheezes, rales, rhonchi, stridor Cardiovascular Exam: Present: regular rate, normal rhythm, normal heart sounds. Absent: systolic murmur, diastolic murmur, rubs, gallop, clicks Course Vital Signs 04/09/21 10:31 Temperature 98.3 F Pulse Rate 68 Respiratory 18 Rate Blood Pressure 138/88 O2 Sat by Pulse 98 Oximetry Medical Decision Making - Medical Decision Making Patient has facial abscess cellulitis of started on oral antibiotics warm compresses and recheck in 24 hours. Return parameters were discussed. Disposition Clinical Impression: Facial cellulitis, Facial abscess Disposition: HOME SELF-CARE Condition: Stable Instructions (If sedation given, give patient instructions): Abscess (ED) Additional Instructions: Please return to the Emergency Department if symptoms worsen or any other concerns. Prescriptions: Sulfamethox-Tmp 800-160Mg [Bactrim Ds] 1 each PO Q12HR #20 tab Cephalexin [Keflex] 500 mg PO Q6HR #40 cap Is patient prescribed a controlled substance at d/c from ED?: No Referrals: Maribel Murguia DO [Primary Care Provider] - 1-2 days Time of Disposition: 11:23
[2021-04-09 11:45] VITALS: BP 133/78; PULSE 72; TEMP 98.5
== END 2021-04-09 11:40 | disposition home or self-care (01) ==
LOC: EC 10:21
DX: L03.211 Cellulitis of face (principal); L02.01 Cutaneous abscess of face; J44.9 Chronic obstructive pulmonary disease, unspecified; E78.5 Hyperlipidemia, unspecified; F32.9 Major depressive disorder, single episode, unspecified; F17.200 Nicotine dependence, unspecified, uncomplicated; Z88.1 Allergy status to other antibiotic agents
CPT/HCPCS: 99283

== ENCOUNTER 2021-04-11 11:59 | Inpatient (IN) | payer MEDICARE, OTHER ==
[2021-04-11 14:07] LABS: Basophils % (A) 0 %; Eosinophils % (A) 0 %; HCT 49.7 % (39.0-53.0); HGB 17.2 gm/dL (13.0-17.5); Lymphocytes # (A) 0.9 k/uL (1.0-4.8); Lymphocytes % (A) 8 %; MCHC 34.6 g/dL (31.0-37.0); MCV 101.2 fL (80.0-100.0); Macrocytosis Slight; Mean Platelet Volume 10.3; Monocytes # (A) 0.4 k/uL (0-1.0); Monocytes % (A) 4 %; Neutrophils # (A) 9.5 k/uL (1.3-7.7); Neutrophils % (A) 86 %; Platelet Count 192 k/uL (150-450); RBC 4.91 m/uL (4.30-5.90); RDW 13.9 % (11.5-15.5)
[2021-04-11 14:09] LABS: ALT 32 U/L (4-49); AST 39 U/L (17-59); African American GFR (CKD) >90 (>60 ml/min/1.73 sqM); Albumin 4.7 g/dL (3.5-5.0); Alkaline Phosphatase 97 U/L (38-126); Anion Gap 10 mmol/L; Blood Urea Nitrogen 13 mg/dL (9-20); C Reactive Protein 7.8 mg/dL (<1.0); Calcium 10.2 mg/dL (8.4-10.2); Carbon Dioxide 24 mmol/L (22-30); Chloride 101 mmol/L (98-107); Glucose 151 mg/dL (74-99); Non-African American GFR(CKD) >90 (>60 ml/min/1.73 sqM); Potassium 5.3 mmol/L (3.5-5.1); Sodium 135 mmol/L (137-145); Total Protein 7.5 g/dL (6.3-8.2)
[2021-04-11 14:15] LABS: INR 0.8 (<1.2); Partial Thromboplastin Time 25.3 sec (22.0-30.0); Prothrombin Time 9.4 sec (9.0-12.0)
[2021-04-11] MEDS ORDERED: KETOROLAC 15 MG/ML 1 ML VIAL IVP STA (14:34)
--- NOTE | 2021-04-11 14:49 | ED ---
Skin/Abscess/FB HPI - General Chief complaint: Skin/Abscess/Foreign Body Stated complaint: revisit - facial swelling Time Seen by Provider: 04/11/21 13:21 Source: patient Mode of arrival: ambulatory Limitations: no limitations - History of Present Illness Initial comments: Patient is a 55-year-old male with history of COPD, presenting to the emergency department for a recheck of an injury to his right lower cheek. Patient states on Saturday, 4 days ago, he was weed whacking when something flew and hit him on the right lower cheek. He states he does not know what this object was. He came here 2 days later for an abscess to the right lower cheek, he was started on Keflex and Bactrim. Patient returns 2 days later, today for increased pain, swelling and increased redness. He states the area has been draining some however the swelling is increasing in the inside of his mouth. He states he has not been able to chew or eat secondary to the increased pain and swelling. He denies having a fever. Does admit to some mild nausea but no vomiting. I did a trouble breathing. He states the discomfort is felt up into the right side of his cheek and he also feels some discomfort in the right side of his neck. He has no further complaints at this time. His vital signs are stable upon arrival. His tetanus vaccine is up-to-date. - Related Data Home Medications Medication Instructions Recorded Confirmed DULoxetine HCL [Cymbalta] 60 mg PO DAILY 05/23/17 06/14/20 atenoloL [Tenormin] 75 mg PO HS 05/23/17 06/14/20 azaTHIOprine [Imuran] 100 mg PO BID 05/23/17 06/14/20 Adalimumab [Humira(Cf) Pen] 40 mg SQ Q14D 07/06/18 06/14/20 Albuterol Sulfate [Albuterol 2 puff PO RT-Q6H PRN 06/14/20 06/14/20 Sulfate Hfa] Atorvastatin [Lipitor] 40 mg PO DAILY 06/14/20 06/14/20 Cholecalciferol [Vitamin D3 (25 1,000 unit PO DAILY 06/14/20 06/14/20 Mcg = 1000 Iu)] Fluticasone Propion/Salmeterol 1 puff INHALATION RT-BID 06/14/20 06/14/20 [Wixela 250-50 Inhub] Pregabalin [Lyrica] 75 mg PO DAILY 06/14/20 06/14/20 Pregabalin [Lyrica] 150 mg PO HS 06/14/20 06/14/20 buPROPion XL [Wellbutrin XL] 150 mg PO BID 06/14/20 06/14/20 oxyCODONE-APAP 7.5-325MG [Percocet 1 tab PO TID PRN 06/14/20 06/14/20 7.5-325 mg] predniSONE 10 mg PO DAILY 06/14/20 06/14/20 Previous Rx's Medication Instructions Recorded Doxycycline [Vibramycin] 100 mg PO BID 5 Days #10 capsule 06/17/20 Ipratropium-Albuterol Nebulize 3 ml INHALATION RT-QID #120 ml 06/17/20 [Duoneb 0.5 mg-3 mg/3 ml Soln] Nicotine 21Mg/24Hr Patch [Habitrol] 1 patch TRANSDERM DAILY #30 patch 06/17/20 predniSONE 10 mg PO DIRECTED #30 tab 06/17/20 Cephalexin [Keflex] 500 mg PO Q6HR #40 cap 04/09/21 Sulfamethox-Tmp 800-160Mg [Bactrim 1 each PO Q12HR #20 tab 04/09/21 Ds] Allergies Allergy/AdvReac Type Severity Reaction Status Date / Time erythromycin base Allergy Severe Dyspnea,hiv Verified 04/11/21 12:04 es Review of Systems ROS Statement: Those systems with pertinent positive or pertinent negative responses have been documented in the HPI. ROS Other: All systems not noted in ROS Statement are negative. 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 History of Any Multi-Drug Resistant Organisms: None Reported Additional Past Surgical History / Comment(s): rt cataract and 3 laser procedures r/t uveitis, pain clinic procedure Past Anesthesia/Blood Transfusion Reactions: No Reported Reaction Additional Past Anesthesia/Blood Transfusion Reaction / Comment(s): Very fearful of needles Past Psychological History: Depression Smoking Status: Current every day smoker Past Alcohol Use History: Occasional Past Drug Use History: None Reported - Past Family History Brother(s) Family Medical History: Myocardial Infarction ([place]) Additional Family Medical History / Comment(s): Brother had a [place] at the age of 51 yrs and is living. Mother Family Medical History: CVA/TIA, Hypertension Additional Family Medical History / Comment(s): Mother has had CVAs. She is living Father Family Medical History: Myocardial Infarction ([place]) Additional Family Medical History / Comment(s): Father had a OH at the age of 83 yrs. He is living General Exam - General Exam Comments Initial Comments: GENERAL: Patient is well-developed and well-nourished. Patient is nontoxic and in mild distress. HEAD: Atraumatic, normocephalic. EYES: Pupils equal round and reactive to light, extraocular movements intact, sclera anicteric, conjunctiva are normal. Eyelids were unremarkable. ENT: TMs normal, nares patent, oropharynx clear without exudates. Moist mucous membranes. Patient has a large area of swelling and induration noted to the right cheek, he does have a small abrasion noted, no active draining. He also has moderate size swelling in the inside of his mouth in the same area. The swelling is noted to the right cheek, does not fall below the jaw line. NECK: Normal range of motion, supple without lymphadenopathy or JVD. LUNGS: Unlabored respirations. Breath sounds clear to auscultation bilaterally and equal. No wheezes rales or rhonchi. HEART: Regular rate and rhythm without murmurs, rubs or gallops. ABDOMEN: Soft, nontender, normoactive bowel sounds. No guarding, no rebound. No masses appreciated. : Deferred MUSCULOSKELETAL: Normal extremities with adequate strength and normal range of motion, no pitting or edema. No clubbing or cyanosis. NEUROLOGICAL: Patient is alert and oriented x 3. SKIN: Warm, Dry, normal turgor, no rashes or lesions noted. Limitations: no limitations Course Vital Signs 04/11/21 12:00 Temperature 97.4 F L Pulse Rate 66 Respiratory 18 Rate Blood Pressure 153/87 O2 Sat by Pulse 95 Oximetry Medical Decision Making - Medical Decision Making Patient is a 55-year-old male presenting for recheck of an injury to his right cheek. He has worsening pain, swelling. He has been on Bactrim and Keflex for the last 2 days without improvement. No fevers. He was slight white count at 11. CRP is 7.8, ESR is 43. CT of the soft tissue neck shows a 4 x 8 x 2 area of soft tissue thickening along the anterior right side of the mouth. Patient also has a single impacted the right mandible molar. There is trap fluid in the right mastoid air cells and right middle ear, correlate for any signs or symptoms of osteo-mastoiditis. Patient will be admitted For cellulitis, worsening abscess. Patient was started on Unasyn and Vanco for coverage. Patient exited by Dr. Carcamo. Discussed with Dr. Don. - Lab Data Result diagrams: 04/11/21 13:46 04/11/21 13:46 Lab Results 04/11/21 04/11/21 04/11/21 Range/Units 13:46 13:46 13:46 WBC 11.0 H (3.8-10.6) k/uL RBC 4.91 (4.30-5.90) m/uL Hgb 17.2 (13.0-17.5) gm/dL Hct 49.7 (39.0-53.0) % MCV 101.2 H (80.0-100.0) fL MCH 35.0 (25.0-35.0) pg MCHC 34.6 (31.0-37.0) g/dL RDW 13.9 (11.5-15.5) % Plt Count 192 (150-450) k/uL MPV 10.3 Neutrophils % 86 % Lymphocytes % 8 % Monocytes % 4 % Eosinophils % 0 % Basophils % 0 % Neutrophils # 9.5 H (1.3-7.7) k/uL Lymphocytes # 0.9 L (1.0-4.8) k/uL Monocytes # 0.4 (0-1.0) k/uL Eosinophils # 0.0 (0-0.7) k/uL Basophils # 0.0 (0-0.2) k/uL Manual Slide Review Performed Large Platelets Present Macrocytosis Slight ESR 43 H (0-15) mm/hr PT 9.4 (9.0-12.0) sec INR 0.8 (<1.2) APTT 25.3 (22.0-30.0) sec Sodium 135 L (137-145) mmol/L Potassium 5.3 H (3.5-5.1) mmol/L Chloride 101 (98-107) mmol/L Carbon Dioxide 24 (22-30) mmol/L Anion Gap 10 mmol/L BUN 13 (9-20) mg/dL Creatinine 0.89 (0.66-1.25) mg/dL Est GFR (CKD-EPI)AfAm >90 (>60 ml/min/1.73 sqM) Est GFR (CKD-EPI)NonAf >90 (>60 ml/min/1.73 sqM) Glucose 151 H (74-99) mg/dL Plasma Lactic Acid Marciano (0.7-2.0) mmol/L Calcium 10.2 (8.4-10.2) mg/dL Total Bilirubin 1.0 (0.2-1.3) mg/dL AST 39 (17-59) U/L ALT 32 (4-49) U/L Alkaline Phosphatase 97 (38-126) U/L C-Reactive Protein 7.8 H (<1.0) mg/dL Total Protein 7.5 (6.3-8.2) g/dL Albumin 4.7 (3.5-5.0) g/dL 04/11/21 Range/Units 13:52 WBC (3.8-10.6) k/uL RBC (4.30-5.90) m/uL Hgb (13.0-17.5) gm/dL Hct (39.0-53.0) % MCV (80.0-100.0) fL MCH (25.0-35.0) pg MCHC (31.0-37.0) g/dL RDW (11.5-15.5) % Plt Count (150-450) k/uL MPV Neutrophils % % Lymphocytes % % Monocytes % % Eosinophils % % Basophils % % Neutrophils # (1.3-7.7) k/uL Lymphocytes # (1.0-4.8) k/uL Monocytes # (0-1.0) k/uL Eosinophils # (0-0.7) k/uL Basophils # (0-0.2) k/uL Manual Slide Review Large Platelets Macrocytosis ESR (0-15) mm/hr PT (9.0-12.0) sec INR (<1.2) APTT (22.0-30.0) sec Sodium (137-145) mmol/L Potassium (3.5-5.1) mmol/L Chloride (98-107) mmol/L Carbon Dioxide (22-30) mmol/L Anion Gap mmol/L BUN (9-20) mg/dL Creatinine (0.66-1.25) mg/dL Est GFR (CKD-EPI)AfAm (>60 ml/min/1.73 sqM) Est GFR (CKD-EPI)NonAf (>60 ml/min/1.73 sqM) Glucose (74-99) mg/dL Plasma Lactic Acid Marciano 1.2 (0.7-2.0) mmol/L Calcium (8.4-10.2) mg/dL Total Bilirubin (0.2-1.3) mg/dL AST (17-59) U/L ALT (4-49) U/L Alkaline Phosphatase (38-126) U/L C-Reactive Protein (<1.0) mg/dL Total Protein (6.3-8.2) g/dL Albumin (3.5-5.0) g/dL Disposition Clinical Impression: Abscess of right external cheek, Facial cellulitis Disposition: ADMITTED IP TO THIS [facility] Condition: Stable Referrals: Maribel Murguia DO [Primary Care Provider] - 1-2 days Decision Date: 04/11/21 Decision Time: 15:13
--- NOTE | 2021-04-11 14:58 | CT ---
EXAMINATION TYPE: CT soft tissue neck w con DATE OF EXAM: 04/11/2021 COMPARISON: None HISTORY: 55-year-old male right side neck/facial swelling TECHNIQUE: Contiguous axial scanning of the soft tissues of the neck performed with IV Contrast, yarely ent injected with 100 mL of Isovue 300. Coronal/sagittal reconstructions performed. CT DLP: 420.1 mGycm Automated exposure control for dose reduction was used. FINDINGS: The parotid, submandibular, and thyroid glands appear satisfactory. The patient is edentulous. There is an impacted and unerupted right mandibular molar. Small cortical break along the superior medial cortex here, refer to axial image 56. There is abnormal soft tissue thickening with heterogeneous density measuring 4.3 cm clinical correla tion and 3.8 cm AP by 2.5 cm wide along the right side of the anterior mouth. Unclear if this represe nts some type of mass or phlegmonous change. The former is somewhat favored and further ENT evaluatio n is recommended. Visualized orbits and globes are intact. Rightward nasal septal deviation. Small mucosal retention cy sts along the floors of the maxillary sinuses. The right mastoid air cells are hypoplastic but there is opacification of the remaining mastoid air cells and right middle ear cavity. Nasopharynx appears clear. Mild bilateral palatine tonsillar hypertrophy with punctate calcifications. Mild lingual tonsillar hy pertrophy. Epiglottis and prevertebral soft tissues are satisfactory. Glottic and subglottic structures and visualized upper lungs are clear. No cervical lymphadenopathy seen IMPRESSION: 1. A 4.3 X 3.8 X 2.5 CM AREA OF ABNORMAL HETEROGENEOUS SOFT TISSUE THICKENING ALONG THE ANTERIOR RIGH T SIDE OF THE MOUTH. NEOPLASM IS SOMEWHAT FAVORED OVER PHLEGMONOUS CHANGE/INFECTION THOUGH BOTH ARE P OSSIBLE. 2. THE PATIENT IS EDENTULOUS BUT WITH A SINGLE IMPACTED/UNERUPTED RIGHT MANDIBULAR MOLAR. THIS SHOWS A SMALL OVERLYING CORTICAL BREAK. CORRELATE TO EXCLUDE POTENTIAL ODONTOGENIC SOURCE OF INFECTION FROM HERE. 3. TRAPPED FLUID IN THE RIGHT MASTOID AIR CELLS AND RIGHT MIDDLE EAR CAVITY. CORRELATE FOR ANY SIGNS/ SYMPTOMS OF OTOMASTOIDITIS.
[2021-04-11 14:59] LABS: Erythrocyte Sedimentation Rate 43 mm/hr (0-15)
[2021-04-11] MEDS ORDERED: IBUPROFEN 400 MG TAB PO PRN (15:10)
[2021-04-11] MEDS ORDERED: ONDANSETRON 4 MG/2 ML VIAL IVP PRN (15:10)
[2021-04-11] MEDS ORDERED: NALOXONE 0.4 MG/ML 1 ML VIAL IV PRN (15:10)
[2021-04-11] MEDS ORDERED: ACETAMINOPHEN TAB 325 MG TAB PO PRN (15:10)
[2021-04-11] MEDS ORDERED: AMPICILLIN-SULBACTAM 3 GM in SODIUM CHLORIDE 0.9% 100 ML IVPB STA (15:12)
[2021-04-11 15:13] LABS: Large Platelets Present
[2021-04-11] MEDS ORDERED: VANCOMYCIN IV PER PHARMACY 1 EACH MISC MISCELLANE PRN (15:22)
[2021-04-11] MEDS ORDERED: VANCOMYCIN 2,000 MG in SODIUM CHLORIDE 0.9% 500 ML 500 ML IVPB ONE (15:45)
[2021-04-11] MEDS: SODIUM CHLORIDE 0.9% 1,000 ML IV SCH (15:45)
--- NOTE | 2021-04-11 17:14 | P.HPIM ---
History of Present Illness This is a pleasant 55 years old male with past medical history of hyperlipidemia, Parkinson disease, ankylosing spondylitis and right eye uveitis, HLA-B27 positive autoimmune disease, chronic back and cervical pain, herniated disc,. History of depression Presents because of injury to cheek from weed wiper on Saturday, while he was trying to cut some weed in his home, he didn't notice any went at that time about now presents with increased pain and swelling and redness of his right cheek. He was started on Keflex and Bactrim 2 days ago. Now presents because of increased signs and symptoms as above. Labs showing mild leukocytosis of 11 K, elevated ESR of 43, sodium 135, potassium 5.3, creatinine 0.8. As not elevated. CT of the neck tissue with IV contrast: 4.3 x 3.8 x 2.5 area of abnormal heterogenous soft tissue thickening along the anterior right side of the mouth. Neoplasm is somewhat favored over infection. Patient is with single impacted/unruptured mandibular molar Emergency room patient was started on Unasyn and IV vancomycin. Review of Systems CONSTITUTIONAL: No fever, no malaise, no fatigue. HEENT: No recent visual problems or hearing problems. Denied any sore throat. CARDIOVASCULAR: No orthopnea, PND, no palpitations, no syncope. PULMONARY: No shortness of breath, no cough, no hemoptysis. GASTROINTESTINAL: No diarrhea, no nausea, no vomiting, no abdominal pain. No rmoactive bowel sounds. NEUROLOGICAL: No headaches, no weakness, no numbness. HEMATOLOGICAL: Denies any bleeding or petechiae. GENITOURINARY: Denies any burning micturition, frequency, or urgency. MUSCULOSKELETAL/RHEUMATOLOGICAL: Denies any joint pain, swelling, or any muscle pain. ENDOCRINE: Denies any polyuria or polydipsia. 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 History of Any Multi-Drug Resistant Organisms: None Reported Additional Past Surgical History / Comment(s): rt cataract and 3 laser procedures r/t uveitis, pain clinic procedure Past Anesthesia/Blood Transfusion Reactions: No Reported Reaction Additional Past Anesthesia/Blood Transfusion Reaction / Comment(s): Very fearful of needles Past Psychological History: Depression Smoking Status: Current every day smoker Past Alcohol Use History: Occasional Past Drug Use History: None Reported - Past Family History Brother(s) Family Medical History: Myocardial Infarction ([place]) Additional Family Medical History / Comment(s): Brother had a [place] at the age of 51 yrs and is living. Mother Family Medical History: CVA/TIA, Hypertension Additional Family Medical History / Comment(s): Mother has had CVAs. She is living Father Family Medical History: Myocardial Infarction ([place]) Additional Family Medical History / Comment(s): Father had a PR at the age of 83 yrs. He is living Medications and Allergies Home Medications Medication Instructions Recorded Confirmed Type DULoxetine HCL [Cymbalta] 60 mg PO DAILY 05/23/17 04/11/21 History atenoloL [Tenormin] 75 mg PO HS 05/23/17 04/11/21 History azaTHIOprine [Imuran] 100 mg PO BID 05/23/17 04/11/21 History Adalimumab [Humira(Cf) Pen] 40 mg SQ Q14D 07/06/18 04/11/21 History Albuterol Sulfate [Albuterol 1 - 2 puff INHALATION RT-Q6H PRN 06/14/20 04/11/21 History Sulfate Hfa] Atorvastatin [Lipitor] 40 mg PO DAILY 06/14/20 04/11/21 History Pregabalin [Lyrica] 75 mg PO DAILY 06/14/20 04/11/21 History Pregabalin [Lyrica] 150 mg PO HS 06/14/20 04/11/21 History buPROPion XL [Wellbutrin XL] 150 mg PO BID 06/14/20 04/11/21 History Cephalexin [Keflex] 500 mg PO Q6HR #40 cap 04/09/21 04/11/21 Rx Sulfamethox-Tmp 800-160Mg [Bactrim 1 each PO Q12HR #20 tab 04/09/21 04/11/21 Rx Ds] Cholecalciferol [Vitamin D3 (25 25 mcg PO DAILY 04/11/21 04/11/21 History Mcg = 1000 Iu)] oxyCODONE-APAP 10-325MG [Percocet 1 tab PO TID PRN 04/11/21 04/11/21 History 10-325 mg] predniSONE 10 mg PO DAILY 04/11/21 04/11/21 History Allergies Allergy/AdvReac Type Severity Reaction Status Date / Time erythromycin base Allergy Severe Dyspnea,hiv Verified 04/11/21 12:04 es Physical Exam Vitals: Vital Signs Temp Pulse Resp BP Pulse Ox 04/11/21 15:28 98.8 F 64 16 145/91 04/11/21 12:00 97.4 F L 66 18 153/87 95 Intake and Output 04/11/21 04/11/21 04/11/21 06:59 14:59 22:59 Other: Weight 108.862 kg GENERAL: The patient is alert and oriented x3, not in any acute distress. Well developed, well nourished. -HEENT: Pupils are round and equally reacting to light. EOMI. No scleral icterus. No conjunctival pallor. Normocephalic, atraumatic. No pharyngeal erythema. No thyromegaly. Right cheek fluctuant mass about 1.5 inches in diameter close to the right mouth corner, with open dry wound on the outside, no discharge from the site. No teeth CARDIOVASCULAR: S1 and S2 present. No murmurs, rubs, or gallops. PULMONARY: Chest is clear to auscultation, no wheezing or crackles. ABDOMEN: Soft, nontender, nondistended, normoactive bowel sounds. No palpable organomegaly. MUSCULOSKELETAL: No joint swelling or deformity. EXTREMITIES: No cyanosis, clubbing, or pedal edema. NEUROLOGICAL: Gross neurological examination did not reveal any focal deficits. SKIN: No rashes. No petechiae Results CBC & Chem 7: 04/11/21 13:46 04/11/21 13:46 Labs: Abnormal Lab Results - Last 24 Hours (Table) 04/11/21 04/11/21 Range/Units 13:46 13:46 WBC 11.0 H (3.8-10.6) k/uL MCV 101.2 H (80.0-100.0) fL Neutrophils # 9.5 H (1.3-7.7) k/uL Lymphocytes # 0.9 L (1.0-4.8) k/uL ESR 43 H (0-15) mm/hr Sodium 135 L (137-145) mmol/L Potassium 5.3 H (3.5-5.1) mmol/L Glucose 151 H (74-99) mg/dL C-Reactive Protein 7.8 H (<1.0) mg/dL Assessment and Plan Assessment: Right cheek cellulitis, with right cheek area mass versus abscess of 4.3 x 3.8 x 2.5 cm Hyperlipidemia History of Parkinson disease History of ankylosing spondylitis and right eye uveitis, HLA-B27 positive autoimmune disease History of chronic back pain and cervical pain and herniated disc History of depression, Not an active issue Plan: This is a pleasant 55 years old male who presents with right cheek abscess. Possible mass. Started on vancomycin. And Unasyn. Consult infectious disease team. ENT Labs and medication were reviewed.. Continue same treatment. Continue with symptomatic treatment. Resume home medication. Monitor lytes and vitals. DVT and GI prophylaxis. Further recommendations depends on the clinical course of the patient DVT prophylaxis: Subcutaneous heparin GI Prophylaxis: Pepcid Prognosis is guarded
[2021-04-11] MEDS: KETOROLAC 15 MG/ML 1 ML VIAL IVP PRN (19:45)
[2021-04-11] MEDS: HYDROcodone/APAP 5-325MG 1 EACH TAB PO PRN (22:56)
[2021-04-11] MEDS ORDERED: LORazepam 2 MG/ML INJ IV PRN (23:20)
[2021-04-12] MEDS: SODIUM CHLORIDE 0.9% 1,000 ML IV SCH ×3 (01:58→23:01)
[2021-04-12] MEDS: KETOROLAC 15 MG/ML 1 ML VIAL IVP PRN ×4 (01:59→21:36)
[2021-04-12] MEDS: HYDROcodone/APAP 5-325MG 1 EACH TAB PO PRN ×4 (02:56→18:20)
[2021-04-12] MEDS: NICOTINE 21MG/24HR PATCH TRANSDERM SCH ×2 (02:57→09:06)
[2021-04-12 04:22] LABS: Basophils % (A) 1 %; Eosinophils # (A) 0.3 k/uL (0-0.7); Eosinophils % (A) 3 %; HCT 44.2 % (39.0-53.0); HGB 14.8 gm/dL (13.0-17.5); Lymphocytes # (A) 1.8 k/uL (1.0-4.8); Lymphocytes % (A) 21 %; MCH 34.7 pg (25.0-35.0); MCHC 33.4 g/dL (31.0-37.0); MCV 103.8 fL (80.0-100.0); Macrocytosis Slight; Mean Platelet Volume 10.3; Monocytes # (A) 0.5 k/uL (0-1.0); Monocytes % (A) 5 %; Neutrophils # (A) 5.9 k/uL (1.3-7.7); Neutrophils % (A) 68 %; Platelet Count 176 k/uL (150-450); RBC 4.25 m/uL (4.30-5.90); RDW 13.7 % (11.5-15.5); WBC 8.6 k/uL (3.8-10.6)
[2021-04-12] MEDS: VANCOMYCIN 2,000 MG in SODIUM CHLORIDE 0.9% 500 ML 500 ML IVPB SCH ×2 (06:18→19:10)
[2021-04-12] MEDS ORDERED: THIAMINE 100 MG TAB PO SCH (09:00)
[2021-04-12] MEDS: FAMOTIDINE 20 MG/2 ML VIAL IV SCH ×2 (09:03→21:28)
[2021-04-12] MEDS: HEPARIN SODIUM,PORCINE/PF 5,000 UNIT/0.5 ML SYRINGE SQ SCH ×2 (09:03→21:28)
[2021-04-12 09:49] LABS: African American GFR (CKD) 99.1 (60.0-200.0); Calcium 8.9 mg/dL (8.7-10.3); Non-African American GFR(CKD) 85.5 (60.0-200.0); Potassium 4.4 mmol/L (3.5-5.5)
[2021-04-12] MEDS ORDERED: AMPICILLIN-SULBACTAM 3 GM in SODIUM CHLORIDE 0.9% 100 ML IVPB SCH (14:00)
[2021-04-12] MEDS ORDERED: LORazepam 2 MG/ML INJ IV PRN ×3 (17:01)
[2021-04-12] MEDS: THIAMINE 100 MG TAB PO SCH (18:20)
[2021-04-12] MEDS: atenoloL 25 MG TAB PO SCH (21:27)
[2021-04-12] MEDS: azaTHIOprine 50 MG TAB PO SCH (21:27)
[2021-04-12] MEDS: buPROPion XL 150 MG TAB.ER.24H PO SCH (21:28)
[2021-04-12] MEDS: PREGABALIN 75 MG CAP PO SCH (21:28)
--- NOTE | 2021-04-12 22:19 | P.PN ---
Subjective This is a pleasant 55 years old male with past medical history of hyperlipidemia, Parkinson disease, ankylosing spondylitis and right eye uveitis, HLA-B27 positive autoimmune disease, chronic back and cervical pain, herniated disc,. History of depression Presents because of injury to cheek from weed wiper on Saturday, while he was trying to cut some weed in his home, he didn't notice any went at that time about now presents with increased pain and swelling and redness of his right cheek. He was started on Keflex and Bactrim 2 days ago. Now presents because of increased signs and symptoms as above. Labs showing mild leukocytosis of 11 K, elevated ESR of 43, sodium 135, potassium 5.3, creatinine 0.8. As not elevated. CT of the neck tissue with IV contrast: 4.3 x 3.8 x 2.5 area of abnormal heterogenous soft tissue thickening along the anterior right side of the mouth. Neoplasm is somewhat favored over infection. Patient is with single impacted/unruptured mandibular molar Emergency room patient was started on Unasyn and IV vancomycin. 04/12/2021 Patient with right cheek abscess close to his right mouth angle about inch and a half in diameter obvious wound or fistula or discharge looks fluctuating mass and CT showing an abscess. Concurrently covered with Unasyn and IV vancomycin. No much change from yesterday. Hemodynamically stable and labs stable. Leukocytosis improved down to 8. Creatinine is within reference range at 1.0 Check vancomycin trough tomorrow and creatinine as well. No signs or symptoms of alcohol withdrawal Objective - Vital Signs Vital signs: Vital Signs Temp 98.4 F 04/12/21 20:54 Pulse 58 L 04/12/21 20:54 Resp 18 04/12/21 20:54 BP 165/90 04/12/21 20:54 Pulse Ox 98 04/12/21 20:54 Intake & Output 04/12/21 04/12/21 04/13/21 06:59 18:59 06:59 Weight 108.862 kg - Exam GENERAL: The patient is alert and oriented x3, not in any acute distress. Well developed, well nourished. -HEENT: Pupils are round and equally reacting to light. EOMI. No scleral icterus. No conjunctival pallor. Normocephalic, atraumatic. No pharyngeal erythema. No thyromegaly. Right cheek fluctuant mass about 1.5 inches in diameter close to the right mouth corner, with open dry wound on the outside, no discharge from the site. No teeth CARDIOVASCULAR: S1 and S2 present. No murmurs, rubs, or gallops. PULMONARY: Chest is clear to auscultation, no wheezing or crackles. ABDOMEN: Soft, nontender, nondistended, normoactive bowel sounds. No palpable organomegaly. MUSCULOSKELETAL: No joint swelling or deformity. EXTREMITIES: No cyanosis, clubbing, or pedal edema. NEUROLOGICAL: Gross neurological examination did not reveal any focal deficits. SKIN: No rashes. No petechiae - Labs CBC & Chem 7: 04/12/21 03:50 04/12/21 03:50 Labs: Abnormal Lab Results - Last 24 Hours (Table) 04/12/21 04/12/21 Range/Units 03:50 03:50 RBC 4.25 L (4.30-5.90) m/uL MCV 103.8 H (80.0-100.0) fL Glucose 128 H (70-110) mg/dL Microbiology - Last 24 Hours (Table) 04/11/21 13:46 Blood Culture - Preliminary Blood No Growth after 24 hours 04/11/21 13:46 Blood Culture - Preliminary Blood No Growth after 24 hours Assessment and Plan Assessment: Right cheek cellulitis, with right cheek area mass versus abscess of 4.3 x 3.8 x 2.5 cm Hyperlipidemia History of Parkinson disease History of ankylosing spondylitis and right eye uveitis, HLA-B27 positive autoimmune disease History of chronic back pain and cervical pain and herniated disc History of depression, Not an active issue Plan: This is a pleasant 55 years old male who presents with right cheek abscess. Possible mass. Started on vancomycin. And Unasyn. Consult infectious disease team. ENT consult Monitor creatinine. Check vancomycin trough Nicotine patch Labs and medication were reviewed.. Continue same treatment. Continue with symptomatic treatment. Resume home medication. Monitor lytes and vitals. DVT and GI prophylaxis. Further recommendations depends on the clinical course of the patient DVT prophylaxis: Subcutaneous heparin GI Prophylaxis: Pepcid Prognosis is guarded
[2021-04-12] MEDS: AMPICILLIN-SULBACTAM 3 GM in SODIUM CHLORIDE 0.9% 100 ML IVPB SCH (22:59)
--- NOTE | 2021-04-12 23:28 | P.CONS ---
History of Present Illness - Reason for Consult Consult date: 04/12/21 right cheek cellulitis Requesting physician: Francisco E Sheet - Chief Complaint right cheek pain x 4 days - History of Present Illness History of present illness : Patient is 55-year-old male presenting to the ER for evaluation of painful swelling to the right lower jaw area patient symptoms started on Saturday for his presentation the hospital after the patient was doing a bit of biking and something flew and hit him on the right lower cheek area patient noticed the area started getting more swollen red and painful and was seen in the ER 2 days ago the patient was sent home on oral Keflex and Bactrim however the patient presented back to the hospital yesterday with concern for increasing swelling redness and pain to the right lower jaw area patient described the pain to be more of a dull aching to sharp intensity is about 7 intracranial radiation with associated swelling redness but no drainage patient did have some chills but denies high-grade fever on presentation to the hospital patient was afebrile he did have white count of 11,000 kidney function was normal blood culture has been obtained which is currently pending patient did have a CT of the soft tissue of the neck we did shows 4.3 X3.8X 2.5 cm heterogeneous soft tissue thickening along the right side of the mouth concerning for neoplasm versus abscess patient was started on vancomycin in fectious disease was consulted for further management of antibiotic therapy Review of system: Positive point has been mentioned in HPI rest of the systems are negative Past medical history : Reviewed, documented below Past surgical history : Reviewed, documented below Social history: Reviewed, documented below Medications: Reviewed, as documented below GENERAL DESCRIPTION: Middle-aged male lying in bed, no distress. No tachypnea or accessory muscle of respiration use. HEENT: Shows Pallor , no scleral icterus. Oral mucous membrane is dry. Right lower jaw did have an area of induration tenderness no drainage NECK: Trachea central, no thyromegaly. LUNGS: Unlabored breathing. Clear to auscultation anteriorly. No wheeze or crackle. HEART: S1, S2, regular rate and rhythm. ABDOMEN: Soft, no tenderness , guarding or rigidity EXTREMITIES: No edema of feet. SKIN: No rash, no masses palpable. NEUROLOGICAL: The patient is awake, alert, oriented x3, mood and affect normal. LABS AND RADIOLOGY: Reviewed results see below Assessment : Patient with right facial abscess and cellulitis clinical doubt acute nausea as the patient did have a symptom onset of only 4 days and then seem to have failed to respond to outpatient oral Keflex and Bactrim likely secondary to burden of disease and the patient benefit from surgical drainage of this abscess along with deep cultures Plan: 1-vancomycin pharmacy to dose her with a target trough of 15 while watching her kidney function and Vanco trough closely. 2-we will add Unasyn 3 g every 6 hours 3-ENT evaluation for surgical drainage of this abscess and deep culture We will follow on clinical condition and cultures to further adjust medication if needed Thank you for this consultation we will follow the patient along with you Past Medical History Past Medical History: COPD, Hyperlipidemia, Pneumonia, Skin Disorder Additional Past Medical History / Comment(s): Current pneumonia with antibiotic, parkinson's disease, bronchitis, anykylosing spondylitis,rt eye uveitis, monoc ular vision rt eye, HLAB27 positive autoimmune disease, ankylosing spondyitis, chronic back/cervical pain-2 herniated disks, degenerative disk disease, lumbar collapsed vertebrae with pinched nerves, numbness bilateral legs, 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 History of Any Multi-Drug Resistant Organisms: None Reported Additional Past Surgical History / Comment(s): rt cataract and 3 laser procedures r/t uveitis, pain clinic procedure Past Anesthesia/Blood Transfusion Reactions: No Reported Reaction Additional Past Anesthesia/Blood Transfusion Reaction / Comm: Very fearful of needles Past Psychological History: Depression Smoking Status: Current every day smoker Past Alcohol Use History: Occasional Past Drug Use History: None Reported - Past Family History Brother(s) Family Medical History: Myocardial Infarction (NC) Additional Family Medical History / Comment(s): Brother had a NC at the age of 51 yrs and is living. Mother Family Medical History: CVA/TIA, Hypertension Additional Family Medical History / Comment(s): Mother has had CVAs. She is living Father Family Medical History: Myocardial Infarction ([place]) Additional Family Medical History / Comment(s): Father had a NC at the age of 83 yrs. He is living Medications and Allergies Home Medications Medication Instructions Recorded Confirmed Type DULoxetine HCL [Cymbalta] 60 mg PO DAILY 05/23/17 04/11/21 History atenoloL [Tenormin] 75 mg PO HS 05/23/17 04/11/21 History azaTHIOprine [Imuran] 100 mg PO BID 05/23/17 04/11/21 History Adalimumab [Humira(Cf) Pen] 40 mg SQ Q14D 07/06/18 04/11/21 History Albuterol Sulfate [Albuterol 1 - 2 puff INHALATION RT-Q6H PRN 06/14/20 04/11/21 History Sulfate Hfa] Atorvastatin [Lipitor] 40 mg PO DAILY 06/14/20 04/11/21 History Pregabalin [Lyrica] 75 mg PO DAILY 06/14/20 04/11/21 History Pregabalin [Lyrica] 150 mg PO HS 06/14/20 04/11/21 History buPROPion XL [Wellbutrin XL] 150 mg PO BID 06/14/20 04/11/21 History Cephalexin [Keflex] 500 mg PO Q6HR #40 cap 04/09/21 04/11/21 Rx Sulfamethox-Tmp 800-160Mg [Bactrim 1 each PO Q12HR #20 tab 04/09/21 04/11/21 Rx Ds] Cholecalciferol [Vitamin D3 (25 25 mcg PO DAILY 04/11/21 04/11/21 History Mcg = 1000 Iu)] oxyCODONE-APAP 10-325MG [Percocet 1 tab PO TID PRN 04/11/21 04/11/21 History 10-325 mg] predniSONE 10 mg PO DAILY 04/11/21 04/11/21 History Allergies Allergy/AdvReac Type Severity Reaction Status Date / Time erythromycin base Allergy Severe Dyspnea,hiv Verified 04/11/21 12:04 es Physical Exam Vitals: Vital Signs Temp Pulse Resp BP Pulse Ox 04/12/21 06:21 97.8 F 58 L 18 124/76 96 04/12/21 00:48 57 L 16 157/95 96 04/11/21 15:28 98.8 F 64 16 145/91 Results CBC & Chem 7: 04/12/21 03:50 04/12/21 03:50 Labs: Abnormal Lab Results - Last 24 Hours (Table) 04/11/21 04/11/21 04/12/21 Range/Units 13:46 13:46 03:50 WBC 11.0 H (3.8-10.6) k/uL RBC 4.25 L (4.30-5.90) m/uL MCV 101.2 H 103.8 H (80.0-100.0) fL Neutrophils # 9.5 H (1.3-7.7) k/uL Lymphocytes # 0.9 L (1.0-4.8) k/uL ESR 43 H (0-15) mm/hr Sodium 135 L (137-145) mmol/L Potassium 5.3 H (3.5-5.1) mmol/L Glucose 151 H (74-99) mg/dL C-Reactive Protein 7.8 H (<1.0) mg/dL 04/12/21 Range/Units 03:50 WBC (3.8-10.6) k/uL RBC (4.30-5.90) m/uL MCV (80.0-100.0) fL Neutrophils # (1.3-7.7) k/uL Lymphocytes # (1.0-4.8) k/uL ESR (0-15) mm/hr Sodium (137-145) mmol/L Potassium (3.5-5.1) mmol/L Glucose 128 H (74-99) mg/dL C-Reactive Protein (<1.0) mg/dL
[2021-04-13] MEDS: AMPICILLIN-SULBACTAM 3 GM in SODIUM CHLORIDE 0.9% 100 ML IVPB SCH ×4 (05:07→21:52)
[2021-04-13] MEDS: VANCOMYCIN 2,000 MG in SODIUM CHLORIDE 0.9% 500 ML 500 ML IVPB SCH ×2 (06:11→17:45)
[2021-04-13 07:32] LABS: African American GFR (CKD) >90 (>60 ml/min/1.73 sqM); Anion Gap 5 mmol/L; Blood Urea Nitrogen 11 mg/dL (9-20); Calcium 9.3 mg/dL (8.4-10.2); Carbon Dioxide 25 mmol/L (22-30); Chloride 108 mmol/L (98-107); Glucose 114 mg/dL (74-99); Non-African American GFR(CKD) >90 (>60 ml/min/1.73 sqM); Potassium 4.4 mmol/L (3.5-5.1); Sodium 138 mmol/L (137-145)
[2021-04-13] MEDS: predniSONE 10 MG TAB PO SCH (09:34)
[2021-04-13] MEDS: CHOLECALCIFEROL 25 MCG (1000 IU) TABLET PO SCH (09:34)
[2021-04-13] MEDS: PREGABALIN 75 MG CAP PO SCH ×2 (09:34→21:53)
[2021-04-13] MEDS: MULTIVITAMINS, THERA 1 EACH TAB PO SCH (09:34)
[2021-04-13] MEDS: DULoxetine HCL 60 MG CAPSULE.DR PO SCH (09:34)
[2021-04-13] MEDS: buPROPion XL 150 MG TAB.ER.24H PO SCH ×2 (09:34→21:53)
[2021-04-13] MEDS: amLODIPine 5 MG TAB PO SCH (09:35)
[2021-04-13] MEDS: azaTHIOprine 50 MG TAB PO SCH ×2 (09:35→21:52)
[2021-04-13] MEDS: ATORVASTATIN 40 MG TAB PO SCH (09:35)
[2021-04-13] MEDS: NICOTINE 21MG/24HR PATCH TRANSDERM SCH (09:35)
[2021-04-13] MEDS: THIAMINE 100 MG TAB PO SCH ×2 (09:35→17:44)
[2021-04-13] MEDS: FAMOTIDINE 20 MG/2 ML VIAL IV SCH (09:35)
[2021-04-13] MEDS: SODIUM CHLORIDE 0.9% 1,000 ML IV SCH ×2 (09:36→17:45)
[2021-04-13] MEDS: HEPARIN SODIUM,PORCINE/PF 5,000 UNIT/0.5 ML SYRINGE SQ SCH ×3 (09:37→22:00)
--- NOTE | 2021-04-13 15:56 | P.PN ---
Subjective This is a pleasant 55 years old male with past medical history of hyperlipidemia, Parkinson disease, ankylosing spondylitis and right eye uveitis, HLA-B27 positive autoimmune disease, chronic back and cervical pain, herniated disc,. History of depression Presents because of injury to cheek from weed wiper on Saturday, while he was trying to cut some weed in his home, he didn't notice any went at that time about now presents with increased pain and swelling and redness of his right cheek. He was started on Keflex and Bactrim 2 days ago. Now presents because of increased signs and symptoms as above. Labs showing mild leukocytosis of 11 K, elevated ESR of 43, sodium 135, potassium 5.3, creatinine 0.8. As not elevated. CT of the neck tissue with IV contrast: 4.3 x 3.8 x 2.5 area of abnormal heterogenous soft tissue thickening along the anterior right side of the mouth. Neoplasm is somewhat favored over infection. Patient is with single impacted/unruptured mandibular molar Emergency room patient was started on Unasyn and IV vancomycin. 04/12/2021 Patient with right cheek abscess close to his right mouth angle about inch and a half in diameter obvious wound or fistula or discharge looks fluctuating mass and CT showing an abscess. Concurrently covered with Unasyn and IV vancomycin. No much change from yesterday. Hemodynamically stable and labs stable. Leukocytosis improved down to 8. Creatinine is within reference range at 1.0 Check vancomycin trough tomorrow and creatinine as well. No signs or symptoms of alcohol withdrawal 04/13/2021 Patient right cheek Is Opened up Yesterday and There Was Some Discharge However Still There Is Significant Swallowing and Induration Although It Is Improved from Admission. for wound culture has been sent Hemodynamically stable. Creatinine is normal At 0.8 Infectious disease input is appreciated, continue with vancomycin and Unasyn ENT team has been consulted Objective - Vital Signs Vital signs: Vital Signs Temp 98.1 F 04/13/21 12:49 Pulse 53 L 04/13/21 12:49 Resp 18 04/13/21 12:49 BP 148/81 04/13/21 12:49 Pulse Ox 98 04/13/21 12:49 Intake & Output 04/12/21 04/13/21 04/13/21 18:59 06:59 18:59 Intake Total 1900 Balance 1900 Weight 108.862 kg Intake: Intake, IV Titration 1900 Amount Ampicillin-Sulbactam 3 gm 100 In Sodium Chloride 0.9% 100 ml @ 200 mls/hr IVPB Q6H [facility] Rx#:[id number] Ampicillin-Sulbactam 3 gm 100 In Sodium Chloride 0.9% 100 ml @ 200 mls/hr IVPB Q6H [facility] Rx#:[id number] Sodium Chloride 0.9% 1, 1200 000 ml @ 100 mls/hr IV . Q10H [facility] Rx#:[id number] Vancomycin 2,000 mg In 500 Sodium Chloride 0.9% 500 ml 500 ml @ 167 mls/hr IVPB Q12H [facility] Rx#: [id number] Other: Voiding Method Toilet # Voids 5 - Exam GENERAL: The patient is alert and oriented x3, not in any acute distress. Well developed, well nourished. -HEENT: Pupils are round and equally reacting to light. EOMI. No scleral icterus. No conjunctival pallor. Normocephalic, atraumatic. No pharyngeal erythema. No thyromegaly. Right cheek fluctuant mass about 1.5 inches in diameter close to the right mouth corner, with open dry wound on the outside, no discharge from the site. No teeth CARDIOVASCULAR: S1 and S2 present. No murmurs, rubs, or gallops. PULMONARY: Chest is clear to auscultation, no wheezing or crackles. ABDOMEN: Soft, nontender, nondistended, normoactive bowel sounds. No palpable organomegaly. MUSCULOSKELETAL: No joint swelling or deformity. EXTREMITIES: No cyanosis, clubbing, or pedal edema. NEUROLOGICAL: Gross neurological examination did not reveal any focal deficits. SKIN: No rashes. No petechiae - Labs CBC & Chem 7: 04/12/21 03:50 04/13/21 06:46 Labs: Abnormal Lab Results - Last 24 Hours (Table) 04/13/21 Range/Units 06:46 Chloride 108 H (98-107) mmol/L Glucose 114 H (74-99) mg/dL Microbiology - Last 24 Hours (Table) 04/13/21 11:05 Wound Culture - Preliminary Face 04/13/21 11:05 Anaerobic Culture - Preliminary Face 04/11/21 13:46 Blood Culture - Preliminary Blood No Growth after 48 hours 04/11/21 13:46 Blood Culture - Preliminary Blood No Growth after 48 hours Assessment and Plan Assessment: Right cheek cellulitis, with right cheek area mass versus abscess of 4.3 x 3.8 x 2.5 cm Hyperlipidemia History of Parkinson disease History of ankylosing spondylitis and right eye uveitis, HLA-B27 positive autoimmune disease History of chronic back pain and cervical pain and herniated disc History of depression, Not an active issue Plan: This is a pleasant 55 years old male who presents with right cheek abscess. Possible mass. Started on vancomycin. And Unasyn. Consult infectious disease team. ENT consult is ordered Monitor creatinine. Check vancomycin trough Follow-up wound culture Nicotine patch Labs and medication were reviewed.. Continue same treatment. Continue with symptomatic treatment. Resume home medication. Monitor lytes and vitals. DVT and GI prophylaxis. Further recommendations depends on the clinical course of the patient DVT prophylaxis: Subcutaneous heparin GI Prophylaxis: Pepcid Prognosis is guarded
[2021-04-13] MEDS: FAMOTIDINE 20 MG TAB PO SCH (21:52)
[2021-04-13] MEDS: atenoloL 25 MG TAB PO SCH (21:53)
--- NOTE | 2021-04-13 22:09 | CONS ---
CONSULTATION DATE OF CONSULTATION: 04/13/2021 CHIEF COMPLAINT: "My face is swollen." HISTORY OF PRESENT ILLNESS: The patient is a 55-year-old male who presented to the emergency room with a complaint of pain and swelling to the right cheek area. The patient states that he was weed-wacking when a foreign object came up and hit him in the lower lip. He states that there was a puncture wound, but he did not notice any foreign body. Following that, he experienced some pain and swelling and presented to the ER, where he was started on Keflex and sulfa. Two days following that, he had no improvement, with increased pain and swelling. He re-presented to the ER, where a CT scan revealed significant swelling of the right buccal mucosa extending into the vestibule. The patient is edentulous. He does have an impacted wisdom tooth. He is currently on IV antibiotics with improvement, and the swollen area has begun to drain. The patient's past medical history is significant for COPD, hyperlipidemia, ankylosing spondylitis, an autoimmune disease, bronchitis, Parkinson's disease, and degenerative disc disease with several collapsed vertebrae and pinched nerves with resulting numbness to his lower extremities. He also complains of arthritis in multiple joints. His social history is significant for smoking. His medications include albuterol, Humira, Lipitor, Lyrica, Wellbutrin, Percocet, and prednisone. He previously was on doxycycline, Keflex and Bactrim. Head and neck examination reveals mild soft tissue swelling of the right buccal space with a small wound with drainage below the lateral aspect of the right lower lip. The area is somewhat soft, but palpation of the right buccal mucosa reveals a rather firm swelling which is mildly painful. The patient is edentulous, with no odontogenic infection noted. The impacted wisdom tooth is not visible or palpable. There are no other oral lesions. ASSESSMENT: Right buccal space abscess secondary to foreign body. There is no odontogenic component. PLAN: The patient is to continue the IV antibiotics, apply heat to the area, and I expect him to be discharged in the next day or two on p.o. antibiotics. There is no oral surgical intervention at this time. MMODL / IJN: [id number] /
--- NOTE | 2021-04-13 23:03 | PN ---
PROGRESS NOTE DATE OF SERVICE: 04/13/2021 REASON FOR FOLLOWUP: Right facial abscess. INTERVAL HISTORY: The patient is afebrile. The patient is currently breathing comfortably. The patient denies having any chest pain or shortness of breath or cough. No nausea, vomiting, abdominal pain. Overall pain and discomfort to the facial area has improved. PHYSICAL EXAMINATION: Blood pressure 150/77 with a pulse of 60, temperature 99.2. He is 96% on room air. GENERAL DESCRIPTION: General description is a middle-aged male up in the bed in no distress. HEENT EXAMINATION: The right facial induration and swelling have slightly decreased. LUNGS: Unlabored breathing. Clear to auscultation anteriorly. HEART: S1, S2. Regular rate and rhythm. ABDOMEN: Soft. No tenderness. LABS: Blood culture so far negative. White count normal. DIAGNOSTIC IMPRESSION AND PLAN: Patient with right facial abscess and cellulitis. Waiting for surgical drainage. The patient is covered with vancomycin and Unasyn. Culture has been obtained to guide antibiotic therapy and continue supportive care. MMODL / IJN: [id number] /
[2021-04-14] MEDS: SODIUM CHLORIDE 0.9% 1,000 ML IV SCH ×3 (03:15→23:45)
[2021-04-14] MEDS: AMPICILLIN-SULBACTAM 3 GM in SODIUM CHLORIDE 0.9% 100 ML IVPB SCH ×4 (04:29→22:06)
[2021-04-14] MEDS ORDERED: VANCOMYCIN TROUGH DUE 1 EACH MISC MISCELLANE ONE (05:00)
[2021-04-14] MEDS: VANCOMYCIN 2,000 MG in SODIUM CHLORIDE 0.9% 500 ML 500 ML IVPB SCH ×2 (06:21→17:18)
[2021-04-14] MEDS: HEPARIN SODIUM,PORCINE/PF 5,000 UNIT/0.5 ML SYRINGE SQ SCH ×2 (09:08→22:06)
[2021-04-14] MEDS: ATORVASTATIN 40 MG TAB PO SCH (09:09)
[2021-04-14] MEDS: NICOTINE 21MG/24HR PATCH TRANSDERM SCH (09:09)
[2021-04-14] MEDS: CHOLECALCIFEROL 25 MCG (1000 IU) TABLET PO SCH (09:10)
[2021-04-14] MEDS: amLODIPine 5 MG TAB PO SCH (09:10)
[2021-04-14] MEDS: azaTHIOprine 50 MG TAB PO SCH ×2 (09:10→22:05)
[2021-04-14] MEDS: buPROPion XL 150 MG TAB.ER.24H PO SCH ×2 (09:10→22:06)
[2021-04-14] MEDS: MULTIVITAMINS, THERA 1 EACH TAB PO SCH (09:10)
[2021-04-14] MEDS: PREGABALIN 75 MG CAP PO SCH ×2 (09:10→22:05)
[2021-04-14] MEDS: THIAMINE 100 MG TAB PO SCH ×2 (09:10→17:18)
[2021-04-14] MEDS: predniSONE 10 MG TAB PO SCH (09:10)
[2021-04-14] MEDS: DULoxetine HCL 60 MG CAPSULE.DR PO SCH (09:10)
[2021-04-14] MEDS: FAMOTIDINE 20 MG TAB PO SCH ×2 (09:10→22:06)
[2021-04-14 10:22] LABS: African American GFR (CKD) 118.2 (60.0-200.0); Anion Gap 10.6 mmol/L (4.00-12.00); BUN/Creat Ratio 18.75 Ratio (12.00-20.00); Calcium 9.3 mg/dL (8.7-10.3); Carbon Dioxide 22.4 mmol/L (21.6-31.8); Potassium 4.1 mmol/L (3.5-5.5)
--- NOTE | 2021-04-14 16:45 | PN ---
PROGRESS NOTE DATE OF SERVICE: 04/14/2021 REASON FOR FOLLOWUP: Right facial abscess and cellulitis. INTERVAL HISTORY: The patient remains afebrile. The patient mentioned he did have spontaneous drainage of his facial buccal abscess. Culture has been obtained. Overall pain and discomfort have improved. No chest pain, shortness of breath or cough. No abdominal pain or diarrhea. PHYSICAL EXAMINATION: Blood pressure 140/77 with a pulse of 49, temperature 98.3. He is 96% on room air. GENERAL DESCRIPTION: General description is a middle-aged male up in the bed in no distress. HEENT EXAMINATION: Right facial swelling and induration have decreased. LUNGS: Unlabored breathing with decreased intensity of breath sounds. No wheeze. HEART: S1, S2. Regular rate and rhythm. ABDOMEN: Soft. No tenderness. LABS: BUN of 15, creatinine 0.8. Cultures currently pending. DIAGNOSTIC IMPRESSION AND PLAN: Patient with facial cellulitis and a buccal abscess, status post spontaneous drainage. Cultures are pending. Patient to continue Unasyn, vancomycin while waiting for the culture to finalize. Discharge antibiotics on the basis of culture report. Continue supportive care. MMODL / IJN: [id number] /
[2021-04-14] MEDS: atenoloL 25 MG TAB PO SCH (22:05)
[2021-04-15] MEDS: AMPICILLIN-SULBACTAM 3 GM in SODIUM CHLORIDE 0.9% 100 ML IVPB SCH ×4 (03:39→22:36)
[2021-04-15] MEDS: VANCOMYCIN 2,000 MG in SODIUM CHLORIDE 0.9% 500 ML 500 ML IVPB SCH ×2 (05:15→17:57)
[2021-04-15] MEDS: NICOTINE 21MG/24HR PATCH TRANSDERM SCH (08:58)
[2021-04-15] MEDS: DULoxetine HCL 60 MG CAPSULE.DR PO SCH (08:58)
[2021-04-15] MEDS: MULTIVITAMINS, THERA 1 EACH TAB PO SCH (08:58)
[2021-04-15] MEDS: predniSONE 10 MG TAB PO SCH (08:59)
[2021-04-15] MEDS: azaTHIOprine 50 MG TAB PO SCH ×2 (08:59→21:16)
[2021-04-15] MEDS: FAMOTIDINE 20 MG TAB PO SCH ×2 (08:59→21:16)
[2021-04-15] MEDS: CHOLECALCIFEROL 25 MCG (1000 IU) TABLET PO SCH (08:59)
[2021-04-15] MEDS: HEPARIN SODIUM,PORCINE/PF 5,000 UNIT/0.5 ML SYRINGE SQ SCH ×3 (08:59→21:15)
[2021-04-15] MEDS: amLODIPine 5 MG TAB PO SCH ×2 (08:59→09:14)
[2021-04-15] MEDS: ATORVASTATIN 40 MG TAB PO SCH (08:59)
[2021-04-15] MEDS: PREGABALIN 75 MG CAP PO SCH ×2 (08:59→21:16)
[2021-04-15] MEDS: THIAMINE 100 MG TAB PO SCH ×2 (08:59→17:57)
[2021-04-15] MEDS: buPROPion XL 150 MG TAB.ER.24H PO SCH ×2 (08:59→21:16)
[2021-04-15] MEDS: SODIUM CHLORIDE 0.9% 1,000 ML IV SCH (09:00)
--- NOTE | 2021-04-15 10:18 | P.PN ---
Subjective Progress Note Date: 04/14/21 55 years old male with past medical history of hyperlipidemia, Parkinson disease, ankylosing spondylitis and right eye uveitis, HLA-B27 positive autoimmune disease, chronic back and cervical pain, herniated disc,. History of depression Presents because of injury to cheek from weed wiper on Saturday, while he was trying to cut some weed in his home, he didn't notice any went at that time about now presents with increased pain and swelling and redness of his right cheek. He was started on Keflex and Bactrim 2 days ago. Now presents because of increased signs and symptoms as above. Labs showing mild leukocytosis of 11 K, elevated ESR of 43, sodium 135, potassium 5.3, creatinine 0.8. As not elevated. CT of the neck tissue with IV contrast: 4.3 x 3.8 x 2.5 area of abnormal heterogenous soft tissue thickening along the anterior right side of the mouth. Neoplasm is somewhat favored over infection. Patient is with single impacted/unruptured mandibular molar Emergency room patient was started on Unasyn and IV vancomycin. Objective - Vital Signs Vital signs: Vital Signs Temp 98.3 F 04/14/21 12:34 Pulse 49 L 04/14/21 12:34 Resp 16 04/14/21 12:34 BP 140/77 04/14/21 12:34 Pulse Ox 96 04/14/21 12:34 Intake & Output 04/13/21 04/14/21 04/14/21 18:59 06:59 18:59 Intake Total 1360 2000 Balance 1360 1999 Intake: Intake, IV Titration 1800 Amount Ampicillin-Sulbactam 3 gm 100 In Sodium Chloride 0.9% 100 ml @ 200 mls/hr IVPB Q6H [facility] Rx#:[id number] Sodium Chloride 0.9% 1, 1200 000 ml @ 100 mls/hr IV . Q10H [facility] Rx#:[id number] Vancomycin 2,000 mg In 500 Sodium Chloride 0.9% 500 ml 500 ml @ 167 mls/hr IVPB Q12H [facility] Rx#: [id number] Oral 1360 200 Other: Voiding Method Toilet # Voids 3 3 - Exam GENERAL: The patient is alert and oriented x3, not in any acute distress. Well developed, well nourished. -HEENT: Pupils are round and equally reacting to light. EOMI. No scleral icterus. No conjunctival pallor. Normocephalic, atraumatic. No pharyngeal erythema. No thyromegaly. Right cheek fluctuant mass about 1.5 inches in diameter close to the right mouth corner, with open dry wound on the outside, no discharge from the site. No teeth CARDIOVASCULAR: S1 and S2 present. No murmurs, rubs, or gallops. PULMONARY: Chest is clear to auscultation, no wheezing or crackles. ABDOMEN: Soft, nontender, nondistended, normoactive bowel sounds. No palpable organomegaly. MUSCULOSKELETAL: No joint swelling or deformity. EXTREMITIES: No cyanosis, clubbing, or pedal edema. NEUROLOGICAL: Gross neurological examination did not reveal any focal deficits. SKIN: No rashes. No petechiae - Labs CBC & Chem 7: 04/12/21 03:50 04/14/21 05:14 Labs: Abnormal Lab Results - Last 24 Hours (Table) 04/14/21 Range/Units 05:14 Glucose 125 H (70-110) mg/dL Microbiology - Last 24 Hours (Table) 04/13/21 11:05 Gram Stain - Preliminary Face Wound Culture - Preliminary 04/13/21 11:05 Anaerobic Culture - Preliminary Face 04/11/21 13:46 Blood Culture - Preliminary Blood No Growth after 48 hours 04/11/21 13:46 Blood Culture - Preliminary Blood No Growth after 48 hours Assessment and Plan Assessment: Right cheek cellulitis, with right cheek area mass versus abscess of 4.3 x 3.8 x 2.5 cm Hyperlipidemia History of Parkinson disease History of ankylosing spondylitis and right eye uveitis, HLA-B27 positive autoimmune disease History of chronic back pain and cervical pain and herniated disc History of depression, Not an active issue Plan: This is a pleasant 55 years old male who presents with right cheek abscess. Possible mass. Started on vancomycin. And Unasyn. Consult infectious disease team. ENT consult is ordered Monitor creatinine. Check vancomycin trough Follow-up wound culture Nicotine patch Labs and medication were reviewed.. Continue same treatment. Continue with symptomatic treatment. Resume home medication. Monitor lytes and vitals. DVT and GI prophylaxis. Further recommendations depends on the clinical course of the patient DVT prophylaxis: Subcutaneous heparin GI Prophylaxis: Pepcid Prognosis is guarded
--- NOTE | 2021-04-15 16:13 | PN ---
PROGRESS NOTE DATE OF SERVICE: 04/15/2021 REASON FOR FOLLOWUP: Right facial abscess, cellulitis. INTERVAL HISTORY: The patient is currently afebrile. The patient is breathing comfortably. Right facial pain and swelling have improved. No further drainage. No chest pain, shortness of breath or cough. No abdominal pain or diarrhea. PHYSICAL EXAMINATION: Blood pressure 115/70 with a pulse of 47, temperature 98.1. He is 98% on room air. GENERAL DESCRIPTION: General description is a middle-aged male up in the bed in no distress. HEENT EXAMINATION: Right facial swelling and redness have decreased. LUNGS: Unlabored breathing. Clear to auscultation anteriorly. HEART: S1, S2. Regular rate and rhythm. ABDOMEN: Soft. No tenderness. LABS: No new labs have been obtained today. Cultures currently pending. DIAGNOSTIC IMPRESSION AND PLAN: Patient with a right facial abscess and cellulitis, status post spontaneous drainage. Cultures are pending. Patient is covered with Unasyn and vancomycin. Discharge antibiotic on the basis of culture report. Continue supportive care. MMODL / IJN: [id number] /
--- NOTE | 2021-04-15 19:07 | P.PN ---
Subjective Progress Note Date: 04/15/21 Principal diagnosis: Right cheek cellulitis/ abscess 55 years old male with past medical history of hyperlipidemia, Parkinson disease, ankylosing spondylitis and right eye uveitis, HLA-B27 positive autoimmune disease, chronic back and cervical pain, herniated disc,. History of depression Presents because of injury to cheek from weed wiper on Saturday, while he was trying to cut some weed in his home, he didn't notice any went at that time about now presents with increased pain and swelling and redness of his right cheek. He was started on Keflex and Bactrim 2 days ago. Now presents because of increased signs and symptoms as above. Labs showing mild leukocytosis of 11 K, elevated ESR of 43, sodium 135, potassium 5.3, creatinine 0.8. As not elevated. CT of the neck tissue with IV contrast: 4.3 x 3.8 x 2.5 area of abnormal heterogenous soft tissue thickening along the anterior right side of the mouth. Neoplasm is somewhat favored over infection. Patient is with single impacted/unruptured mandibular molar Emergency room patient was started on Unasyn and IV vancomycin. 04/15/2021 Patient is seen and evaluated in room at bedside; denies any specific complaints Vital signs are stable with temperature of 98.1, pulse 47, blood pressure 115/70 with O2 saturation of 98% on room air Patient remains on IV Unasyn and vancomycin for facial abscess and cellulitis; patient is status post spontaneous drainage; final culture and sensitivity are still pending; ID on board and recommending to continue with current antibiotics to final culture is available Objective - Vital Signs Vital signs: Vital Signs Temp 97.6 F 04/15/21 05:32 Pulse 42 L 04/15/21 05:32 Resp 18 04/15/21 05:32 BP 130/82 04/15/21 05:32 Pulse Ox 99 04/15/21 05:32 Intake & Output 04/14/21 04/15/21 04/15/21 18:59 06:59 18:59 Intake Total 2140 Balance 2140 Intake: Intake, IV Titration 1500 Amount Ampicillin-Sulbactam 3 gm 200 In Sodium Chloride 0.9% 100 ml @ 200 mls/hr IVPB Q6H [facility] Rx#:[id number] Sodium Chloride 0.9% 1, 800 000 ml @ 100 mls/hr IV . Q10H [facility] Rx#:[id number] Vancomycin 2,000 mg In 500 Sodium Chloride 0.9% 500 ml 500 ml @ 167 mls/hr IVPB Q12H [facility] Rx#: [id number] Oral 640 Other: # Voids 2 3 - Exam GENERAL: The patient is alert and oriented x3, not in any acute distress. Well developed, well nourished. -HEENT: Pupils are round and equally reacting to light. EOMI. No scleral icterus. No conjunctival pallor. Normocephalic, atraumatic. No pharyngeal erythema. No thyromegaly. Right cheek fluctuant mass about 1.5 inches in diameter close to the right mouth corner, with open dry wound on the outside, no discharge from the site. No teeth CARDIOVASCULAR: S1 and S2 present. No murmurs, rubs, or gallops. PULMONARY: Chest is clear to auscultation, no wheezing or crackles. ABDOMEN: Soft, nontender, nondistended, normoactive bowel sounds. No palpable organomegaly. MUSCULOSKELETAL: No joint swelling or deformity. EXTREMITIES: No cyanosis, clubbing, or pedal edema. NEUROLOGICAL: Gross neurological examination did not reveal any focal deficits. SKIN: No rashes. No petechiae - Labs CBC & Chem 7: 04/12/21 03:50 04/14/21 05:14 Labs: Abnormal Lab Results - Last 24 Hours (Table) 04/14/21 Range/Units 05:14 Glucose 125 H (70-110) mg/dL Microbiology - Last 24 Hours (Table) 04/11/21 13:46 Blood Culture - Preliminary Blood No Growth after 72 hours 04/11/21 13:46 Blood Culture - Preliminary Blood No Growth after 72 hours 04/13/21 11:05 Gram Stain - Preliminary Face Wound Culture - Preliminary Assessment and Plan Assessment: Right cheek cellulitis, with right cheek area mass versus abscess of 4.3 x 3.8 x 2.5 cm Hyperlipidemia History of Parkinson disease History of ankylosing spondylitis and right eye uveitis, HLA-B27 positive autoimmune disease History of chronic back pain and cervical pain and herniated disc History of depression, Not an active issue Plan: This is a pleasant 55 years old male who presents with right cheek abscess. Possible mass. Started on vancomycin. And Unasyn. Consult infectious disease team. ENT consult is ordered Monitor creatinine. Check vancomycin trough Follow-up wound culture Nicotine patch Labs and medication were reviewed.. Continue same treatment. Continue with symptomatic treatment. Resume home medication. Monitor lytes and vitals. DVT and GI prophylaxis. Further recommendations depends on the clinical course of the patient DVT prophylaxis: Subcutaneous heparin GI Prophylaxis: Pepcid Prognosis is guarded
[2021-04-15 20:09] VITALS: RESP 18
[2021-04-15] MEDS: atenoloL 25 MG TAB PO SCH (22:33)
[2021-04-16] MEDS: SODIUM CHLORIDE 0.9% 1,000 ML IV SCH ×3 (02:01→15:26)
[2021-04-16] MEDS: AMPICILLIN-SULBACTAM 3 GM in SODIUM CHLORIDE 0.9% 100 ML IVPB SCH ×2 (03:37→09:18)
[2021-04-16 04:55] VITALS: PULSE 50
[2021-04-16] MEDS: VANCOMYCIN 2,000 MG in SODIUM CHLORIDE 0.9% 500 ML 500 ML IVPB SCH (05:39)
[2021-04-16 06:15] LABS: Basophils # (A) 0.1 k/uL (0-0.2); Basophils % (A) 1 %; Eosinophils # (A) 0.2 k/uL (0-0.7); Eosinophils % (A) 3 %; HCT 43.6 % (39.0-53.0); HGB 14.5 gm/dL (13.0-17.5); Lymphocytes # (A) 2.1 k/uL (1.0-4.8); Lymphocytes % (A) 36 %; MCHC 33.3 g/dL (31.0-37.0); MCV 102.2 fL (80.0-100.0); Macrocytosis Slight; Mean Platelet Volume 9.6; Monocytes # (A) 0.3 k/uL (0-1.0); Monocytes % (A) 6 %; Neutrophils # (A) 2.9 k/uL (1.3-7.7); Neutrophils % (A) 51 %; Platelet Count 255 k/uL (150-450); RBC 4.27 m/uL (4.30-5.90); RDW 13.1 % (11.5-15.5); WBC 5.7 k/uL (3.8-10.6)
[2021-04-16] MEDS: HEPARIN SODIUM,PORCINE/PF 5,000 UNIT/0.5 ML SYRINGE SQ SCH (06:56)
[2021-04-16] MEDS: PREGABALIN 75 MG CAP PO SCH (07:46)
[2021-04-16] MEDS: predniSONE 10 MG TAB PO SCH (07:46)
[2021-04-16] MEDS: azaTHIOprine 50 MG TAB PO SCH (07:46)
[2021-04-16] MEDS: ATORVASTATIN 40 MG TAB PO SCH (07:47)
[2021-04-16] MEDS: THIAMINE 100 MG TAB PO SCH (07:47)
[2021-04-16] MEDS: FAMOTIDINE 20 MG TAB PO SCH (07:47)
[2021-04-16] MEDS: NICOTINE 21MG/24HR PATCH TRANSDERM SCH (07:47)
[2021-04-16] MEDS: amLODIPine 5 MG TAB PO SCH (07:47)
[2021-04-16] MEDS: CHOLECALCIFEROL 25 MCG (1000 IU) TABLET PO SCH (07:47)
[2021-04-16] MEDS: buPROPion XL 150 MG TAB.ER.24H PO SCH (07:47)
[2021-04-16] MEDS: MULTIVITAMINS, THERA 1 EACH TAB PO SCH (07:47)
[2021-04-16] MEDS: DULoxetine HCL 60 MG CAPSULE.DR PO SCH (07:47)
[2021-04-16 11:55] VITALS: BP 162/76; TEMP 97.4
[2021-04-16 12:50] LABS: African American GFR (CKD) 112.6 (60.0-200.0); BUN/Creat Ratio 14.44 Ratio (12.00-20.00); Calcium 8.9 mg/dL (8.7-10.3); Non-African American GFR(CKD) 97.2 (60.0-200.0); Potassium 4.1 mmol/L (3.5-5.5)
--- NOTE | 2021-04-16 14:51 | PN ---
PROGRESS NOTE DATE OF SERVICE: 04/16/2021 REASON FOR FOLLOWUP: Right buccal/facial abscess and cellulitis. INTERVAL HISTORY: The patient is afebrile. The patient is feeling better, breathing comfortably. Denies having any chest pain or shortness of breath or cough. No abdominal pain. Overall pain and discomfort to the right cheek have improved. PHYSICAL EXAMINATION: Blood pressure 152/76, pulse of 50, temperature 97.4. He is 97% on room air. GENERAL DESCRIPTION: General description is a middle-aged male up in the room in no distress. HEENT EXAMINATION: Right facial swelling and redness have improved. LUNGS: Unlabored breathing. Clear to auscultation anteriorly. HEART: S1, S2. Regular rate and rhythm. ABDOMEN: Soft. No tenderness. LABS: Hemoglobin is 14.5, white count 5.7, BUN of 13, creatinine 0.9. DIAGNOSTIC IMPRESSION AND PLAN: Patient with right facial abscess and cellulitis with spontaneous drainage. Culture with MRSA. Patient will finish therapy with oral Bactrim DS. He already has no need for antibiotic on discharge. Continue supportive care. MMODL / IJN: [id number] /
[2021-04-18] MEDS ORDERED: NON FORMULARY DRUG (Adalimumab [Humira(Cf) Pen] 40 MG/0.4 ML Pen.Ij.Kit) SQ SCH (09:00)
== END 2021-04-16 15:49 | disposition home or self-care (01) | DRG 603 ==
LOC: EC 11:59 → 5NMEDONC 15:10
PROVIDERS: ADMIT Internal Medicine; ATTEND Internal Medicine
DX: L02.01 Cutaneous abscess of face (principal); K12.2 Cellulitis and abscess of mouth; L03.211 Cellulitis of face; M35.89 Other specified systemic involvement of connective tissue; M45.9 Ankylosing spondylitis of unspecified sites in spine; E78.5 Hyperlipidemia, unspecified; F17.210 Nicotine dependence, cigarettes, uncomplicated; F32.9 Major depressive disorder, single episode, unspecified; G20 Parkinson's disease; J44.9 Chronic obstructive pulmonary disease, unspecified; K01.1 Impacted teeth; M19.90 Unspecified osteoarthritis, unspecified site; Z79.899 Other long term (current) drug therapy; Z88.1 Allergy status to other antibiotic agents; R11.0 Nausea; M51.36 Other intervertebral disc degeneration, lumbar region; R20.0 Anesthesia of skin; M50.20 Other cervical disc displacement, unspecified cervical region; G89.29 Other chronic pain; M54.9 Dorsalgia, unspecified; K42.9 Umbilical hernia without obstruction or gangrene; H26.9 Unspecified cataract; F40.231 Fear of injections and transfusions; Z98.41 Cataract extraction status, right eye; Z79.2 Long term (current) use of antibiotics; Z79.52 Long term (current) use of systemic steroids; Z87.01 Personal history of pneumonia (recurrent); Z87.09 Personal history of other diseases of the respiratory system
CPT/HCPCS: 36415; 70491; 80048; 80053; 80202; 83605; 85025; 85610; 85652; 85730; 86140; 87040; 87070; 87075; 87077; 87186; 87205; 96374; 99284

== ENCOUNTER 2022-01-01 10:12 | Emergency (ER) | payer MEDICARE, OTHER ==
[2022-01-01 10:26] VITALS: TEMP 98.2
--- NOTE | 2022-01-01 12:47 | ED ---
General Adult HPI - General Chief complaint: Recheck/Abnormal Lab/Rx Stated complaint: facial burn/swelling Time Seen by Provider: 01/01/22 11:57 Source: patient, RN notes reviewed Mode of arrival: ambulatory Limitations: no limitations - History of Present Illness Initial comments: 56-year-old male presents emergency Department chief complaint of chin i nfection. Patient states that he had a burn days ago states now is red swollen painful. Patient does have a history of skin infections. Patient denies any difficulty opening closing his jaw, no fevers chills or night sweats. Patient offers no complaints. - Related Data Home Medications Medication Instructions Recorded Confirmed DULoxetine HCL [Cymbalta] 60 mg PO DAILY 05/23/17 04/11/21 atenoloL [Tenormin] 75 mg PO HS 05/23/17 04/11/21 azaTHIOprine [Imuran] 100 mg PO BID 05/23/17 04/11/21 Adalimumab [Humira(Cf) Pen] 40 mg SQ Q14D 07/06/18 04/11/21 Albuterol Sulfate [Albuterol 1 - 2 puff INHALATION RT-Q6H PRN 06/14/20 04/11/21 Sulfate Hfa] Atorvastatin [Lipitor] 40 mg PO DAILY 06/14/20 04/11/21 Pregabalin [Lyrica] 75 mg PO DAILY 06/14/20 04/11/21 Pregabalin [Lyrica] 150 mg PO HS 06/14/20 04/11/21 buPROPion XL [Wellbutrin XL] 150 mg PO BID 06/14/20 04/11/21 Cholecalciferol [Vitamin D3 (25 25 mcg PO DAILY 04/11/21 04/11/21 Mcg = 1000 Iu)] oxyCODONE-APAP 10-325MG [Percocet 1 tab PO TID PRN 04/11/21 04/11/21 10-325 mg] predniSONE 10 mg PO DAILY 04/11/21 04/11/21 Previous Rx's Medication Instructions Recorded Sulfamethox-Tmp 800-160Mg [Bactrim 1 each PO Q12HR #20 tab 04/09/21 DS 800-160 mg] Multivitamins, Thera [Multivitamin 1 each PO DAILY tab 04/16/21 (formulary)] Thiamine [Vitamin B-1] 100 mg PO BID-W/MEALS tab 04/16/21 amLODIPine [Norvasc] 5 mg PO DAILY #30 tab 04/16/21 Cephalexin [Keflex] 500 mg PO Q6HR #40 cap 01/01/22 Sulfamethox-Tmp 800-160Mg [Bactrim 1 each PO Q12HR #20 tab 01/01/22 Ds] Allergies Allergy/AdvReac Type Severity Reaction Status Date / Time erythromycin base Allergy Severe Dyspnea,hiv Verified 01/01/22 10:26 es Review of Systems ROS Statement: Those systems with pertinent positive or pertinent negative responses have been documented in the HPI. ROS Other: All systems not noted in ROS Statement are negative. 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 History of Any Multi-Drug Resistant Organisms: MRSA Date of last positivie culture/infection: 04/11/21 MDRO Source:: MRSA FACE Additional Past Surgical History / Comment(s): rt cataract and 3 laser proc edures r/t uveitis, pain clinic procedure Past Anesthesia/Blood Transfusion Reactions: No Reported Reaction Additional Past Anesthesia/Blood Transfusion Reaction / Comment(s): Very fearful of needles Past Psychological History: Depression Smoking Status: Current every day smoker Past Alcohol Use History: Occasional Past Drug Use History: None Reported - Past Family History Brother(s) Family Medical History: Myocardial Infarction ([place]) Additional Family Medical History / Comment(s): Brother had a [place] at the age of 51 yrs and is living. Mother Family Medical History: CVA/TIA, Hypertension Additional Family Medical History / Comment(s): Mother has had CVAs. She is living Father Family Medical History: Myocardial Infarction ([place]) Additional Family Medical History / Comment(s): Father had a NC at the age of 83 yrs. He is living General Exam Limitations: no limitations General appearance: alert, in no apparent distress Head exam: Present: atraumatic, normocephalic, normal inspection Eye exam: Present: normal appearance, PERRL, EOMI. Absent: scleral icterus, conjunctival injection, periorbital swelling ENT exam: Present: mucous membranes moist, TM's normal bilaterally, normal external ear exam, other (Swelling of the chin region with mild erythema and sore is noted). Absent: normal oropharynx Neck exam: Present: normal inspection, full ROM. Absent: tenderness, meningismus, lymphadenopathy Respiratory exam: Present: normal lung sounds bilaterally. Absent: respiratory distress, wheezes, rales, rhonchi, stridor Cardiovascular Exam: Present: regular rate, normal rhythm, normal heart sounds. Absent: systolic murmur, diastolic murmur, rubs, gallop, clicks Course Vital Signs 01/01/22 10:23 Temperature 98.2 F Pulse Rate 62 Respiratory 25 H Rate Blood Pressure 135/80 O2 Sat by Pulse 95 Oximetry Medical Decision Making - Medical Decision Making Patient has infection of the chin patient was started on clindamycin. Return parameters were discussed. Disposition Clinical Impression: Facial cellulitis Disposition: TRANSFER TO PSYCH HOSP/UNIT Condition: Stable Instructions (If sedation given, give patient instructions): Cellulitis (ED) Additional Instructions: Please return to the Emergency Department if symptoms worsen or any other concerns. Prescriptions: Sulfamethox-Tmp 800-160Mg [Bactrim Ds] 1 each PO Q12HR #20 tab Cephalexin [Keflex] 500 mg PO Q6HR #40 cap Is patient prescribed a controlled substance at d/c from ED?: No Referrals: Maribel Murguia DO [Primary Care Provider] - 1-2 days Time of Disposition: 12:46
[2022-01-01 13:28] VITALS: BP 127/85; PULSE 54; RESP 16
== END 2022-01-01 13:27 ==
LOC: EC 10:12
DX: L03.211 Cellulitis of face (principal); E78.5 Hyperlipidemia, unspecified; G20 Parkinson's disease; J44.9 Chronic obstructive pulmonary disease, unspecified; F17.200 Nicotine dependence, unspecified, uncomplicated; F32.A Depression, unspecified; Z79.52 Long term (current) use of systemic steroids; Z79.51 Long term (current) use of inhaled steroids; Z79.899 Other long term (current) drug therapy; Z88.1 Allergy status to other antibiotic agents
CPT/HCPCS: 99284

== ENCOUNTER 2022-06-28 07:38 | Inpatient (IN) | payer MEDICARE, OTHER ==
[2022-06-28] MEDS ORDERED: IPRATROPIUM 0.5 MG/2.5 ML NEBU INHALATION STA (07:43)
[2022-06-28] MEDS ORDERED: ALBUTEROL NEBULIZED 2.5 MG/3 ML INHALATION STA (07:43)
[2022-06-28 08:20] LABS: Basophils # (A) 0.1 k/uL (0-0.2); Basophils % (A) 2 %; Eosinophils # (A) 0.2 k/uL (0-0.7); Eosinophils % (A) 2 %; HCT 45.7 % (39.0-53.0); HGB 15.7 gm/dL (13.0-17.5); Lymphocytes # (A) 1.2 k/uL (1.0-4.8); Lymphocytes % (A) 13 %; MCH 33.9 pg (25.0-35.0); MCHC 34.2 g/dL (31.0-37.0); Monocytes # (A) 0.5 k/uL (0-1.0); Monocytes % (A) 5 %; Neutrophils # (A) 7.1 k/uL (1.3-7.7); Neutrophils % (A) 77 %; Platelet Count 185 k/uL (150-450); RBC 4.62 m/uL (4.30-5.90); RDW 13.4 % (11.5-15.5); WBC 9.2 k/uL (3.8-10.6)
--- NOTE | 2022-06-28 08:20 | ED ---
General Adult HPI - General Chief complaint: Shortness of Breath Stated complaint: sob Time Seen by Provider: 06/28/22 07:40 Source: patient, RN notes reviewed, old records reviewed Mode of arrival: EMS Limitations: no limitations - History of Present Illness Initial comments: This is a 56-year-old male who presents emergency Department stating has COPD and continues to smoke. Patient states he also is a pretty regular drinker. Patient states he did not drink last evening. Patient states this is a symptomatically breathing and difficulty breathing is gotten considerably worse per patient states he took some breathing treatments at home has not helped her patient denies any fever chills or cough per patient denies any chest pain or palpitations. Patient denies any exposure to cold recently. Patient denies any abdominal pain patient is not vomiting diarrhea. Patient denies any swelling to legs or calf tenderness. Patient denies any headache patient denies numbness weakness. - Related Data Home Medications Medication Instructions Recorded Confirmed DULoxetine HCL [Cymbalta] 60 mg PO DAILY 05/23/17 04/11/21 atenoloL [Tenormin] 75 mg PO HS 05/23/17 04/11/21 azaTHIOprine [Imuran] 100 mg PO BID 05/23/17 04/11/21 Adalimumab [Humira(Cf) Pen] 40 mg SQ Q14D 07/06/18 04/11/21 Albuterol Sulfate [Albuterol 1 - 2 puff INHALATION RT-Q6H PRN 06/14/20 04/11/21 Sulfate Hfa] Atorvastatin [Lipitor] 40 mg PO DAILY 06/14/20 04/11/21 Pregabalin [Lyrica] 75 mg PO DAILY 06/14/20 04/11/21 Pregabalin [Lyrica] 150 mg PO HS 06/14/20 04/11/21 buPROPion XL [Wellbutrin XL] 150 mg PO BID 06/14/20 04/11/21 Cholecalciferol [Vitamin D3 (25 25 mcg PO DAILY 04/11/21 04/11/21 Mcg = 1000 Iu)] oxyCODONE-APAP 10-325MG [Percocet 1 tab PO TID PRN 04/11/21 04/11/21 10-325 mg] predniSONE 10 mg PO DAILY 04/11/21 04/11/21 Previous Rx's Medication Instructions Recorded Sulfamethox-Tmp 800-160Mg [Bactrim 1 each PO Q12HR #20 tab 04/09/21 DS 800-160 mg] Multivitamins, Thera [Multivitamin 1 each PO DAILY tab 04/16/21 (formulary)] Thiamine [Vitamin B-1] 100 mg PO BID-W/MEALS tab 04/16/21 amLODIPine [Norvasc] 5 mg PO DAILY #30 tab 04/16/21 Cephalexin [Keflex] 500 mg PO Q6HR #40 cap 01/01/22 Sulfamethox-Tmp 800-160Mg [Bactrim 1 each PO Q12HR #20 tab 01/01/22 Ds] Allergies Allergy/AdvReac Type Severity Reaction Status Date / Time erythromycin base Allergy Severe Dyspnea,hiv Verified 06/28/22 07:51 es Review of Systems ROS Statement: Those systems with pertinent positive or pertinent negative responses have been documented in the HPI. ROS Other: All systems not noted in ROS Statement are negative. 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 History of Any Multi-Drug Resistant Organisms: MRSA Date of last positivie culture/infection: 04/11/21 MDRO Source:: MRSA FACE Additional Past Surgical History / Comment(s): rt cataract and 3 laser procedures r/t uveitis, pain clinic procedure Past Anesthesia/Blood Transfusion Reactions: No Reported Reaction Additional Past Anesthesia/Blood Transfusion Reaction / Comment(s): Very fearful of needles Past Psychological History: Depression Smoking Status: Current every day smoker Past Alcohol Use History: Occasional Past Drug Use History: None Reported - Past Family History Brother(s) Family Medical History: Myocardial Infarction ([place]) Additional Family Medical History / Comment(s): Brother had a [place] at the age of 51 yrs and is living. Mother Family Medical History: CVA/TIA, Hypertension Additional Family Medical History / Comment(s): Mother has had CVAs. She is living Father Family Medical History: Myocardial Infarction ([place]) Additional Family Medical History / Comment(s): Father had a [place] at the age of 83 yrs. He is living General Exam - General Exam Comments Initial Comments: GENERAL: Patient is well-developed and well-nourished. Patient is nontoxic and well- hydrated and is in mild distress. ENT: Neck is soft and supple. No significant lymphadenopathy is noted. Oropharynx is clear. Moist mucous membranes. Neck has full range of motion without eliciting any pain. EYES: The sclera were anicteric and conjunctiva were pink and moist. Extraocular movements were intact and pupils were equal round and reactive to light. Eyelids were unremarkable. PULMONARY: Diffuse expiratory wheezing CARDIOVASCULAR: There is a regular rate and rhythm without any murmurs gallops or rubs. ABDOMEN: Soft and nontender with normal bowel sounds. SKIN: Skin is clear with no lesions or rashes and otherwise unremarkable. NEUROLOGIC: Patient is alert and oriented x3. Cranial nerves II through XII are grossly intact. Motor and sensory are also intact. Normal speech, volume and content. Symmetrical smile. MUSCULOSKELETAL: Normal extremities with adequate strength and full range of motion. No lower extremity swelling or edema. No calf tenderness. LYMPHATICS: No significant lymphadenopathy is noted PSYCHIATRIC: Normal psychiatric evaluation. Limitations: no limitations Course Vital Signs 06/28/22 06/28/22 06/28/22 07:47 07:52 08:14 Temperature 97.8 F Pulse Rate 62 62 Respiratory 20 20 Rate Blood Pressure 138/73 O2 Sat by Pulse 96 Oximetry 06/28/22 06/28/22 06/28/22 08:32 10:00 11:00 Temperature Pulse Rate 62 76 71 Respiratory 20 18 Rate Blood Pressure 130/69 117/60 O2 Sat by Pulse 95 96 Oximetry 06/28/22 12:00 Temperature Pulse Rate 59 L Respiratory 20 Rate Blood Pressure 127/73 O2 Sat by Pulse 94 L Oximetry Medical Decision Making - Medical Decision Making EKG was read by me that shows a sinus bradycardia 59 bpm [place] interval is on a 65 QRS is 90 QT interval 414 QTC is 413. Patient's EKG shows no ST segment elevation or depression. Patient's EKG no extrasystole. Chest x-ray interpreted by me. Chest x-ray shows no infiltrates no pleural effusions. Patient received multiple breathing treatments in the emergency department as well as steroids. Patient continued to wheeze diffusely. I spoke with sounds physician's he agreed to admit the patient admitted the patient wrote admitting orders. - Lab Data Result diagrams: 06/28/22 08:02 06/28/22 08:02 Lab Results 06/28/22 06/28/22 06/28/22 Range/Units 08:02 08:02 08:02 WBC 9.2 (3.8-10.6) k/uL RBC 4.62 (4.30-5.90) m/uL Hgb 15.7 (13.0-17.5) gm/dL Hct 45.7 (39.0-53.0) % MCV 99.0 (80.0-100.0) fL MCH 33.9 (25.0-35.0) pg MCHC 34.2 (31.0-37.0) g/dL RDW 13.4 (11.5-15.5) % Plt Count 185 (150-450) k/uL MPV 10.0 Neutrophils % 77 % Lymphocytes % 13 % Monocytes % 5 % Eosinophils % 2 % Basophils % 2 % Neutrophils # 7.1 (1.3-7.7) k/uL Lymphocytes # 1.2 (1.0-4.8) k/uL Monocytes # 0.5 (0-1.0) k/uL Eosinophils # 0.2 (0-0.7) k/uL Basophils # 0.1 (0-0.2) k/uL PT 10.0 (9.0-12.0) sec INR 0.9 (<1.2) APTT 25.0 (22.0-30.0) sec Sodium 138 (137-145) mmol/L Potassium 4.2 (3.5-5.1) mmol/L Chloride 104 (98-107) mmol/L Carbon Dioxide 25 (22-30) mmol/L Anion Gap 9 mmol/L BUN 21 H (9-20) mg/dL Creatinine 0.79 (0.66-1.25) mg/dL Est GFR (CKD-EPI)AfAm >90 (>60 ml/min/1.73 sqM) Est GFR (CKD-EPI)NonAf >90 (>60 ml/min/1.73 sqM) Glucose 143 H (74-99) mg/dL Plasma Lactic Acid Marciano (0.7-2.0) mmol/L Calcium 8.9 (8.4-10.2) mg/dL Magnesium 1.6 (1.6-2.3) mg/dL Total Bilirubin 0.9 (0.2-1.3) mg/dL AST 30 (17-59) U/L ALT 32 (4-49) U/L Alkaline Phosphatase 63 (38-126) U/L Troponin I (0.000-0.034) ng/mL NT-Pro-B Natriuret Pep pg/mL Total Protein 6.3 (6.3-8.2) g/dL Albumin 4.1 (3.5-5.0) g/dL Serum Alcohol <10 mg/dL 06/28/22 06/28/22 06/28/22 Range/Units 08:02 08:02 08:02 WBC (3.8-10.6) k/uL RBC (4.30-5.90) m/uL Hgb (13.0-17.5) gm/dL Hct (39.0-53.0) % MCV (80.0-100.0) fL MCH (25.0-35.0) pg MCHC (31.0-37.0) g/dL RDW (11.5-15.5) % Plt Count (150-450) k/uL MPV Neutrophils % % Lymphocytes % % Monocytes % % Eosinophils % % Basophils % % Neutrophils # (1.3-7.7) k/uL Lymphocytes # (1.0-4.8) k/uL Monocytes # (0-1.0) k/uL Eosinophils # (0-0.7) k/uL Basophils # (0-0.2) k/uL PT (9.0-12.0) sec INR (<1.2) APTT (22.0-30.0) sec Sodium (137-145) mmol/L Potassium (3.5-5.1) mmol/L Chloride (98-107) mmol/L Carbon Dioxide (22-30) mmol/L Anion Gap mmol/L BUN (9-20) mg/dL Creatinine (0.66-1.25) mg/dL Est GFR (CKD-EPI)AfAm (>60 ml/min/1.73 sqM) Est GFR (CKD-EPI)NonAf (>60 ml/min/1.73 sqM) Glucose (74-99) mg/dL Plasma Lactic Acid Marciano 1.8 (0.7-2.0) mmol/L Calcium (8.4-10.2) mg/dL Magnesium (1.6-2.3) mg/dL Total Bilirubin (0.2-1.3) mg/dL AST (17-59) U/L ALT (4-49) U/L Alkaline Phosphatase (38-126) U/L Troponin I <0.012 (0.000-0.034) ng/mL NT-Pro-B Natriuret Pep 54 pg/mL Total Protein (6.3-8.2) g/dL Albumin (3.5-5.0) g/dL Serum Alcohol mg/dL Disposition Clinical Impression: COPD exacerbation Disposition: ADMITTED IP TO THIS HOSP Referrals: Maribel Murguia DO [Primary Care Provider] - 1-2 days Time of Disposition: 12:59
[2022-06-28 08:32] LABS: ALT 32 U/L (4-49); AST 30 U/L (17-59); African American GFR (CKD) >90 (>60 ml/min/1.73 sqM); Albumin 4.1 g/dL (3.5-5.0); Alcohol <10 mg/dL; Alkaline Phosphatase 63 U/L (38-126); Anion Gap 9 mmol/L; Blood Urea Nitrogen 21 mg/dL (9-20); Calcium 8.9 mg/dL (8.4-10.2); Carbon Dioxide 25 mmol/L (22-30); Chloride 104 mmol/L (98-107); Glucose 143 mg/dL (74-99); Magnesium 1.6 mg/dL (1.6-2.3); Non-African American GFR(CKD) >90 (>60 ml/min/1.73 sqM); Potassium 4.2 mmol/L (3.5-5.1); Sodium 138 mmol/L (137-145); Total Bilirubin 0.9 mg/dL (0.2-1.3); Total Protein 6.3 g/dL (6.3-8.2)
[2022-06-28 08:33] LABS: INR 0.9 (<1.2)
--- NOTE | 2022-06-28 09:18 | XR ---
EXAMINATION TYPE: XR chest 2V DATE OF EXAM: 06/28/2022 COMPARISON: 06/14/2020 INDICATION: Difficulty breathing TECHNIQUE: Frontal and lateral views of the chest are obtained. FINDINGS: The heart size is normal. The pulmonary vasculature is normal. The lungs are clear. IMPRESSION: 1. No acute pulmonary process.
[2022-06-28] MEDS ORDERED: NALOXONE 0.4 MG/ML 1 ML VIAL IVP PRN (13:00)
[2022-06-28] MEDS ORDERED: IPRATROPIUM-ALBUTEROL 3 ML NEB INHALATION PRN (13:00)
[2022-06-28] MEDS ORDERED: SYMBICORT 160-4.5 MCG INHALER INHALATION PRN (14:08)
[2022-06-28] MEDS: NICOTINE 21MG/24HR PATCH TRANSDERM SCH ×2 (15:25→20:29)
[2022-06-28] MEDS: IPRATROPIUM-ALBUTEROL 3 ML NEB INHALATION SCH ×2 (15:39→21:08)
[2022-06-28] MEDS: oxyCODONE-APAP 10-325MG 1 EACH TAB PO SCH (15:57)
[2022-06-28 17:10] LABS: Glucose,Whole Blood 236 mg/dL (70-110)
[2022-06-28] MEDS ORDERED: DEXTROSE 50% SYRINGE 50 ML IVP PRN ×2 (17:25)
[2022-06-28] MEDS: INSULIN ASPART (NovoLOG) 100 UNIT/ML VIAL SQ SCH (17:36)
[2022-06-28] MEDS: methylPREDNISolone SOD SUCCI 125 MG/2 ML VIAL IV SCH (17:36)
--- NOTE | 2022-06-28 17:51 | P.HPIM ---
History of Present Illness H&P Date: 06/28/22 History of Presenting Illness: Patient is a very pleasant 56-year-old male with a past medical history of COPD and continued nicotine dependence smoking 1-2 packs of cigarettes daily, daily alcohol use/abuse, hypertension, hyperlipidemia, autoimmune disorder HLA-B27 and chronic back pain. he presented to the emergency department with the chief complaint of shortness of breath. Patient reports worsening shortness of breath and cough unrelieved by home breathing treatments 3 days. Patient denies having any fevers, chills, dizziness, lightheadedness, chest pain, palpitations, sinus or nasal congestion, or experiencing any numbness/tingling/weakness/swelling in his extremities. He underwent full evaluation in the emergency department. CBC, coags, and CMP were unremarkable. Troponin negative at less than 0.012, ProBNP 54, and serum alcohol less than 10. EKG showing sinus bradycardia at 59 bpm with no significant T-wave or ST abnormalities showing no signs of acute ischemia. Chest x-ray negative for acute cardiopulmonary process. Patient was found to have an acute exacerbation of COPD, In the ER he was started on steroids, Augmentin, and given a breathing treatment but continued with persistent wheezing showing no improvement. Pt was admitted under our services with consultation to pulmonology. Review of systems: Pertinent positives and negatives as discussed in HPI, a complete review of systems was performed and all other systems are negative. Physical exam: Vital signs reviewed and stable. General: Nontoxic, no distress and appears stated age. Derm: Skin warm and dry, normal coloration for ethnicity. Head: Atraumatic, normocephalic and symmetric. Eyes: EOMs intact, no lid lag, and anicteric sclera Mouth: no lip lesions, mucus membranes moist Cardiovascular: regular rate and rhythm with normal S1S2, no murmur, positive posterior tibial pulses bilaterally, and cap refill < 2 seconds. Lungs: Respirations even and regular on 2 L O2 via nasal cannula patient did have increased work of breathing without accessory muscle use.. Lungs with wheezing diffusely throughout all lebron bilaterally, no rhonchi or refills. Patient had coarse cough noted during assessment. Abdominal: soft, nontender to palpation, no guarding, no appreciable o rganomegaly Ext: ROM intact. No gross muscle atrophy, no edema, no contractures Neuro: Speech clear, face symmetrical and CN II-XII grossly intact with no noted focal neuro deficits Psych: Alert and oriented to person, place, time, and situation. Appropriate and pleasant affect. Assessment and Plan of Care: Acute COPD exacerbation -Consult to Pulmonology -Oxygenation to be administered and titrated as needed to maintain SPO2 equal to or greater than 90% -Telemetry monitoring. -Continuous Pulse-oximetry -Duonebs as needed for SOB and/or wheezing -Incentive Spirometry -Steroids: Solu-Medrol -Antibiotics: Augmentin -Continue daily Symbicort -Strongly recommend smoking cessation, educated patient on the importance of smoking cessation and risks associated with continued use. Hypertension -Monitor vital signs and continue daily medication regimen with atenolol Hyperlipidemia -Continue daily medication regimen with atorvastatin Nicotine dependence -Nicotine patch -Strongly recommend smoking cessation, educated patient on the importance of smoking cessation and risks associated with continued use. The patient is admitted with an anticipated greater than 2 midnight stay for evaluation of COPD with acute exacerbation CODE STATUS: Full code DVT prophylaxis: Heparin Discussed with: Pt and RN Anticipated discharge date: clinical course to determine Anticipated discharge place: Home A total of 43 minutes was spent on the care of this complex patient more than 50% of the time was spent in counseling and care coordination. 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 History of Any Multi-Drug Resistant Organisms: MRSA Date of last positivie culture/infection: 04/11/21 MDRO Source:: MRSA FACE Additional Past Surgical History / Comment(s): rt cataract and 3 laser procedures r/t uveitis, pain clinic procedure Past Anesthesia/Blood Transfusion Reactions: No Reported Reaction Additional Past Anesthesia/Blood Transfusion Reaction / Comment(s): Very fearful of needles Past Psychological History: Depression Smoking Status: Current every day smoker Past Alcohol Use History: Occasional Past Drug Use History: None Reported - Past Family History Brother(s) Family Medical History: Myocardial Infarction ([place]) Additional Family Medical History / Comment(s): Brother had a UT at the age of 51 yrs and is living. Mother Family Medical History: CVA/TIA, Hypertension Additional Family Medical History / Comment(s): Mother has had CVAs. She is living Father Family Medical History: Myocardial Infarction ([place]) Additional Family Medical History / Comment(s): Father had a UT at the age of 83 yrs. He is living Medications and Allergies Home Medications Medication Instructions Recorded Confirmed Type DULoxetine HCL [Cymbalta] 60 mg PO DAILY 05/23/17 06/28/22 History atenoloL [Tenormin] 75 mg PO HS 05/23/17 06/28/22 History azaTHIOprine [Imuran] 100 mg PO BID 05/23/17 06/28/22 History Adalimumab [Humira(Cf) Pen] 40 mg SQ Q14D 07/06/18 06/28/22 History Atorvastatin [Lipitor] 40 mg PO DAILY 06/14/20 06/28/22 History buPROPion XL [Wellbutrin XL] 150 mg PO DAILY 06/14/20 06/28/22 History Cholecalciferol [Vitamin D3 (25 25 mcg PO DAILY 04/11/21 06/28/22 History Mcg = 1000 Iu)] oxyCODONE-APAP 10-325MG [Percocet 1 tab PO TID 04/11/21 06/28/22 History 10-325 mg] predniSONE 10 mg PO DAILY 04/11/21 06/28/22 History Fluticasone Propion/Salmeterol 1 puff INHALATION RT-BID PRN 06/28/22 06/28/22 History [Advair 500-50 Diskus] Fluticasone/Umeclidin/Vilanter 1 puff INHALATION RT-DAILY 06/28/22 06/28/22 History [Trelegy Ellipta 100-62.5-25] Pregabalin [Lyrica] 150 mg PO BID 06/28/22 06/28/22 History rOPINIRole HCL [Requip] 0.25 mg PO TID 06/28/22 06/28/22 History Allergies Allergy/AdvReac Type Severity Reaction Status Date / Time erythromycin base Allergy Severe Dyspnea,hiv Verified 06/28/22 07:51 es Physical Exam Vitals: Vital Signs Temp Pulse Resp BP Pulse Ox 06/28/22 12:00 59 L 20 127/73 94 L 06/28/22 11:00 71 18 117/60 96 06/28/22 10:00 76 20 130/69 95 06/28/22 08:32 62 06/28/22 08:14 62 06/28/22 07:52 20 06/28/22 07:47 97.8 F 62 20 138/73 96 Intake and Output 06/27/22 06/28/22 06/28/22 22:59 06:59 14:59 Other: Weight 111.13 kg Results CBC & Chem 7: 06/28/22 08:02 06/28/22 08:02 Labs: Abnormal Lab Results - Last 24 Hours (Table) 06/28/22 Range/Units 08:02 BUN 21 H (9-20) mg/dL Glucose 143 H (74-99) mg/dL
[2022-06-28] MEDS: atenoloL 50 MG TAB PO SCH (20:21)
[2022-06-28] MEDS: AMOXIC-POT CLAV 875-125MG 1 EACH TAB PO SCH (20:22)
[2022-06-28] MEDS: PREGABALIN 75 MG CAP PO SCH (20:22)
[2022-06-28] MEDS: azaTHIOprine 50 MG TAB PO SCH (20:23)
[2022-06-28 20:48] LABS: Glucose,Whole Blood 195 mg/dL (70-110)
[2022-06-28] MEDS: SYMBICORT 160-4.5 MCG INHALER INHALATION SCH (21:08)
[2022-06-29] MEDS: INSULIN ASPART (NovoLOG) 100 UNIT/ML VIAL SQ SCH ×5 (00:03→21:47)
[2022-06-29] MEDS: oxyCODONE-APAP 10-325MG 1 EACH TAB PO SCH ×4 (00:04→21:50)
[2022-06-29] MEDS: HEPARIN SODIUM,PORCINE/PF 5,000 UNIT/0.5 ML SYRINGE SQ SCH ×5 (00:05→17:05)
[2022-06-29] MEDS: methylPREDNISolone SOD SUCCI 125 MG/2 ML VIAL IV SCH ×4 (00:10→18:10)
[2022-06-29] MEDS: SYMBICORT 160-4.5 MCG INHALER INHALATION SCH ×2 (06:58→19:55)
[2022-06-29] MEDS: IPRATROPIUM-ALBUTEROL 3 ML NEB INHALATION SCH ×4 (06:58→19:55)
[2022-06-29 07:22] LABS: Glucose,Whole Blood 203 mg/dL (70-110)
[2022-06-29] MEDS ORDERED: SYMBICORT 80-4.5 MCG INHALER INHALATION SCH (08:00)
[2022-06-29] MEDS: PREGABALIN 75 MG CAP PO SCH ×2 (08:44→21:32)
[2022-06-29] MEDS: buPROPion XL 150 MG TAB.ER.24H PO SCH (08:44)
[2022-06-29] MEDS: ATORVASTATIN 40 MG TAB PO SCH (08:44)
[2022-06-29] MEDS: DULoxetine HCL 60 MG CAPSULE.DR PO SCH (08:44)
[2022-06-29] MEDS: NICOTINE 21MG/24HR PATCH TRANSDERM SCH (08:44)
[2022-06-29] MEDS: CHOLECALCIFEROL 25 MCG (1000 IU) TABLET PO SCH (08:44)
[2022-06-29] MEDS: azaTHIOprine 50 MG TAB PO SCH ×2 (08:45→21:34)
[2022-06-29] MEDS: AMOXIC-POT CLAV 875-125MG 1 EACH TAB PO SCH ×2 (08:45→21:33)
[2022-06-29 09:12] LABS: HCT 47.1 % (39.6-50.0); HGB 15.5 g/dL (13.0-17.0); MCH 32.6 pg (27.0-32.0); MCHC 32.9 g/dL (32.0-37.0); MCV 98.9 fL (80.0-97.0); Mean Platelet Volume 12.5 fL (9.5-12.2); NRBC Per 100 WBC 0 /100 WBCS (0.0-0.0); Platelet Count 222 X 10*3/uL (140-440); RBC 4.76 X 10*6/uL (4.40-5.60); RDW 14.3 % (11.5-14.5); WBC 11.32 X 10*3/uL (4.50-10.00)
[2022-06-29 09:17] LABS: African American GFR (CKD) 117.4 (60.0-200.0); Albumin 4.4 g/dL (3.8-4.9); Albumin/Globulin Ratio 1.91 (1.60-3.17); Anion Gap 13.5 mmol/L (10.00-18.00); BUN/Creat Ratio 25.13 Ratio (12.00-20.00); Blood Urea Nitrogen 20.1 mg/dL (9.0-27.0); Calcium 9.4 mg/dL (8.7-10.3); Carbon Dioxide 22.5 mmol/L (20.0-27.5); Globulin 2.3 g/dL (1.6-3.3); Non-African American GFR(CKD) 101.3 (60.0-200.0); Potassium 4.9 mmol/L (3.5-5.5); Total Bilirubin 0.4 mg/dL (0.30-1.20); Total Protein 6.7 g/dL (6.2-8.2)
[2022-06-29 11:40] LABS: Glucose,Whole Blood 249 mg/dL (70-110)
--- NOTE | 2022-06-29 12:47 | P.PN ---
Subjective Progress Note Date: 06/29/22 Principal diagnosis: Shortness of breath. Pulmonary consult dated 06/29/2022. 56-year-old male who presented to the emergency department on June 28, complaining of shortness of breath. The patient does continue to smoke. He's been smoking for 42 years. I apparently saw him in the office couple years ago. He has not been back. He is on 2 L. He does not use home oxygen. He is a nebulizer machine at home with albuterol sulfate and ipratropium bromide, and he also has Advair. The patient comes in with shortness of breath, cough, wheezing, and phlegm production. The patient is feeling only a bit better since he came in on the third. He denies any chest pain or chest discomfort. He denies any fever or chills. He denies any abdominal pain, nausea, vomiting, or diarrhea. His primary care physician is Dr. Murguia. He also has a history of hyperlipidemia, Parkinson's disease, ankylosing spondylitis, uveitis, [id number] autoimmune disease, and chronic back pain. White count 11.3, hemoglobin 15.5, hematocrit 47.1, and platelet count normal. Sodium 137, potassium 4.9, chlorides 101, CO2 23, BUN 20, and creatinine 0.8. The rest of the comprehensive metabolic profile is essentially normal. The patient's chest x-ray does not show an acute pulmonary process. Objective - Vital Signs Vital signs: Vital Signs Temp 97.8 F 06/29/22 05:26 Pulse 72 06/29/22 10:57 Resp 20 06/29/22 05:26 BP 139/82 06/29/22 05:26 Pulse Ox 95 06/29/22 05:26 FiO2 Intake & Output 06/28/22 06/29/22 06/29/22 18:59 06:59 18:59 Weight 111.13 kg Other: Voiding Method Toilet Toilet # Voids 3 2 - Exam No acute distress, oriented 3. Currently on 2 L. No audible wheezing, use of accessory muscles, or conversational dyspnea. The patient does have a very wet, congested and bronchospastic cough. HEENT examination is grossly unremarkable. Neck supple. Full range of motion. No adenopathy thyromegaly or neck vein distention. Cardiovascular examination reveals regular rhythm rate. S1-S2 normal. No S3 or S4. No discernible murmur noted. Heart sounds are distant. Heart rate 72 bpm. Lungs reveal coarse bilateral inspiratory and expiratory wheezes and rhonchi. Breath sounds are equal bilaterally. Slight prolongation on forced maneuver. Adventitious lung sounds are more prominent on forced maneuver. No crackles are appreciated. Abdomen soft bowel sounds are heard. No masses or tenderness. Extremities are intact. No cyanosis clubbing or edema. Skin is without rash or lesion. Neurologic examination is brief but nonfocal. - Labs CBC & Chem 7: 06/29/22 06:07 06/29/22 06:07 Labs: Abnormal Lab Results - Last 24 Hours (Table) 06/28/22 06/28/22 06/29/22 Range/Units 17:04 20:47 06:07 WBC 11.32 H (4.50-10.00) X 10*3/uL MCV 98.9 H (80.0-97.0) fL MCH 32.6 H (27.0-32.0) pg MPV 12.5 H (9.5-12.2) fL BUN/Creatinine Ratio (12.00-20.00) Ratio Glucose (70-110) mg/dL POC Glucose (mg/dL) 236 H 195 H (70-110) mg/dL 06/29/22 06/29/22 06/29/22 Range/Units 06:07 07:21 11:39 WBC (4.50-10.00) X 10*3/uL MCV (80.0-97.0) fL MCH (27.0-32.0) pg MPV (9.5-12.2) fL BUN/Creatinine Ratio 25.13 H (12.00-20.00) Ratio Glucose 213 H (70-110) mg/dL POC Glucose (mg/dL) 203 H 249 H (70-110) mg/dL Microbiology - Last 24 Hours (Table) 06/28/22 08:01 Blood Culture - Preliminary Blood No Growth after 24 hours 06/28/22 08:02 Blood Culture - Preliminary Blood No Growth after 24 hours Assessment and Plan Assessment: Acute hypoxemic respiratory failure secondary to COPD exacerbation. Possible tracheobronchitis, without evidence of pneumonia. Ongoing tobacco use with nicotine addiction. History of hyperlipidemia. History of pneumonia. History of Parkinson's disease. History of ankylosing spondylitis. History of HLA-B27 positive, autoimmune disease. Plan: Plan dated 06/29/2022. The patient is currently on Augmentin. The patient's also getting Symbicort 160/4.5, 2 puffs twice a day. In addition, the patient is getting updrafts with albuterol sulfate and ipratropium bromide, a nicotine patch, and Solu-Medrol, 60 mg every 6 hours. We will continue to follow the patient and make recommendations along the way. The patient will follow-up with me again in the office. He has not see me for a couple years. We counseled about the importanc e of smoking cessation. He will obviously need an updated PFT when he comes back into the office. Time with Patient: Greater than 30
--- NOTE | 2022-06-29 16:33 | P.PN ---
Subjective Progress Note Date: 06/29/22 Hospital Course: Patient is a very pleasant 56-year-old male with a past medical history of COPD and continued nicotine dependence smoking 1-2 packs of cigarettes daily, daily alcohol use/abuse, hypertension, hyperlipidemia, autoimmune disorder HLA-B27 and chronic back pain. he presented to the emergency department with the chief complaint of shortness of breath. Patient reports worsening shortness of breath and cough unrelieved by home breathing treatments 3 days. Patient den ies having any fevers, chills, dizziness, lightheadedness, chest pain, palpitations, sinus or nasal congestion, or experiencing any numbness/tingling/weakness/swelling in his extremities. He underwent full evaluation in the emergency department. CBC, coags, and CMP were unremarkable. Troponin negative at less than 0.012, ProBNP 54, and serum alcohol less than 10. EKG showing sinus bradycardia at 59 bpm with no significant T-wave or ST abnormalities showing no signs of acute ischemia. Chest x-ray negative for acute cardiopulmonary process. Patient was found to have an acute exacerbation of CO PD, In the ER he was started on steroids, Augmentin, and given a breathing treatment but continued with persistent wheezing showing no improvement. Pt was admitted under our services with consultation to pulmonology. Physical exam: Pt seen and fully evaluated at bedside this morning. Overall patient seems slightly better in regards to his work of breathing he continues to be quite bronchospastic with lungs tight and wheezy throughout. Patient reports continued shortness of breath with any exertion but states it has slightly improved at rest. Again had long discussion with patient regarding importance of smoking cessation. Patient denies having any other complaints at this time based on current assessment, patient will likely need an additional 1-2 days of hospitalization for his COPD exacerbation. Vital signs reviewed and stable. General: Nontoxic, no distress and appears stated age. Derm: Skin warm and dry, normal coloration for ethnicity. Head: Atraumatic, normocephalic and symmetric. Eyes: EOMs intact, no lid lag, and anicteric sclera Mouth: no lip lesions, mucus membranes moist Cardiovascular: regular rate and rhythm with normal S1S2, no murmur, positive posterior tibial pulses bilaterally, and cap refill < 2 seconds. Lungs: Respirations even and regular on 2 L O2 via nasal cannula. Lungs with wheezing diffusely throughout all lebron bilaterally, no rhonchi or rales. Patient had coarse cough noted during assessment. His work of breathing has improved, but he continues to be quite bronchospasmic, tight and wheezy. Abdominal: soft, nontender to palpation, no guarding, no appreciable organomegaly Ext: ROM intact. No gross muscle atrophy, no edema, no contractures Neuro: Speech clear, face symmetrical and CN II-XII grossly intact with no noted focal neuro deficits Psych: Alert and oriented to person, place, time, and situation. Appropriate and pleasant affect. Assessment and Plan of Care: Acute COPD exacerbation -Pulmonology following -Oxygenation to be administered and titrated as needed to maintain SPO2 equal to or greater than 90% -Telemetry monitoring. -Monitor Pulse-oximetry -Duonebs scheduled and as needed for SOB and/or wheezing -Incentive Spirometry, recommended using 10-15 times hourly while awake -Steroids: Solu-Medrol -Antibiotics: Augmentin -Continue daily Symbicort -Strongly recommend smoking cessation, educated patient on the importance of smoking cessation and risks associated with continued use. Autoimmune disorder HLA-B27 -Patient may continue use of daily immunosuppressant, Imuran, at this time. However, if patient develops any signs of infection we will hold. Hypertension -Monitor vital signs and continue daily medication regimen with atenolol Hyperlipidemia -Continue daily medication regimen with atorvastatin Nicotine dependence -Nicotine patch -Strongly recommend smoking cessation, educated patient on the importance of smoking cessation and risks associated with continued use. CODE STATUS: Full code DVT prophylaxis: Heparin Discussed with: Pt and RN Anticipated discharge date: Clinical course to determine Anticipated discharge place: Home A total of 33 minutes was spent on the care of this complex patient more than 50% of the time was spent in counseling and care coordination. I reviewed the documentation as provided by the NITESH above, who is the original author of this note. I agree with the documented assessment and plan, with the following changes: none Objective - Vital Signs Vital signs: Vital Signs Temp 97.8 F 06/29/22 05:26 Pulse 66 06/29/22 08:42 Resp 20 06/29/22 05:26 BP 139/82 06/29/22 05:26 Pulse Ox 95 06/29/22 05:26 FiO2 Intake & Output 06/28/22 06/29/22 06/29/22 18:59 06:59 18:59 Weight 111.13 kg Other: Voiding Method Toilet # Voids 3 2 - Labs CBC & Chem 7: 06/29/22 06:07 06/29/22 06:07 Labs: Abnormal Lab Results - Last 24 Hours (Table) 06/28/22 06/28/22 06/29/22 Range/Units 17:04 20:47 06:07 WBC 11.32 H (4.50-10.00) X 10*3/uL MCV 98.9 H (80.0-97.0) fL MCH 32.6 H (27.0-32.0) pg MPV 12.5 H (9.5-12.2) fL BUN/Creatinine Ratio (12.00-20.00) Ratio Glucose (70-110) mg/dL POC Glucose (mg/dL) 236 H 195 H (70-110) mg/dL 06/29/22 06/29/22 Range/Units 06:07 07:21 WBC (4.50-10.00) X 10*3/uL MCV (80.0-97.0) fL MCH (27.0-32.0) pg MPV (9.5-12.2) fL BUN/Creatinine Ratio 25.13 H (12.00-20.00) Ratio Glucose 213 H (70-110) mg/dL POC Glucose (mg/dL) 203 H (70-110) mg/dL
[2022-06-29 17:11] LABS: Glucose,Whole Blood 289 mg/dL (70-110)
[2022-06-29 21:22] LABS: Glucose,Whole Blood 286 mg/dL (70-110)
[2022-06-29] MEDS: atenoloL 50 MG TAB PO SCH (21:32)
[2022-06-30] MEDS: HEPARIN SODIUM,PORCINE/PF 5,000 UNIT/0.5 ML SYRINGE SQ SCH ×4 (00:32→16:43)
[2022-06-30] MEDS: methylPREDNISolone SOD SUCCI 125 MG/2 ML VIAL IV SCH ×4 (00:32→17:39)
[2022-06-30] MEDS: SYMBICORT 160-4.5 MCG INHALER INHALATION SCH ×2 (09:06→19:58)
[2022-06-30] MEDS: IPRATROPIUM-ALBUTEROL 3 ML NEB INHALATION SCH ×4 (09:06→19:58)
[2022-06-30] MEDS: INSULIN ASPART (NovoLOG) 100 UNIT/ML VIAL SQ SCH ×4 (09:23→20:23)
[2022-06-30] MEDS: ATORVASTATIN 40 MG TAB PO SCH (09:24)
[2022-06-30] MEDS: buPROPion XL 150 MG TAB.ER.24H PO SCH (09:24)
[2022-06-30] MEDS: AMOXIC-POT CLAV 875-125MG 1 EACH TAB PO SCH ×2 (09:24→20:22)
[2022-06-30] MEDS: azaTHIOprine 50 MG TAB PO SCH ×2 (09:24→20:23)
[2022-06-30] MEDS: DULoxetine HCL 60 MG CAPSULE.DR PO SCH (09:26)
[2022-06-30] MEDS: oxyCODONE-APAP 10-325MG 1 EACH TAB PO SCH ×3 (09:26→20:23)
[2022-06-30] MEDS: CHOLECALCIFEROL 25 MCG (1000 IU) TABLET PO SCH (09:26)
[2022-06-30] MEDS: PREGABALIN 75 MG CAP PO SCH ×2 (09:27→20:22)
[2022-06-30] MEDS: NICOTINE 21MG/24HR PATCH TRANSDERM SCH (10:01)
[2022-06-30 11:37] LABS: Glucose,Whole Blood 175 mg/dL (70-110)
[2022-06-30 12:32] LABS: Glucose,Whole Blood 223 mg/dL (70-110)
--- NOTE | 2022-06-30 13:26 | PN ---
PROGRESS NOTE DATE OF SERVICE: 06/30/2022 This is a Pulmonary/Critical Care Progress Note. SUBJECTIVE: This is a 56-year-old gentleman, who is admitted with a diagnosis of COPD exacerbation. He is seen today in room 527. He is feeling a bit better today. Slightly improved shortness of breath, and cough. Not ready for discharge yet. He is on 2 L. Not receiving any IV fluids. The patient unfortunately used to see me in the past but has not seen me recently. OBJECTIVE: VITAL SIGNS: Current vital signs include a blood pressure of 140/82, heart rate of 89, respiratory rate of 20, saturation on 2 L of 95%, and temperature, which is normal. GENERAL: No obvious respiratory distress, use of accessory muscles, or audible wheezing. HEENT: Grossly unremarkable. NECK: Supple. Full range of motion. No adenopathy. Neck veins are flat. CARDIOVASCULAR: Reveals regular rhythm and rate. S1, S2 normal. No S3, S4, or murmur. LUNGS: Some inspiratory and expiratory wheezes and rhonchi. There is prolongation of expiration. No crackles. ABDOMEN: Soft. Bowel sounds are heard. EXTREMITIES: Intact. No cyanosis, clubbing, or edema. SKIN: Without rash. NEUROLOGIC: Brief, but nonfocal. ASSESSMENT: 1. Chronic obstructive pulmonary disease exacerbation, complicated by purulent tracheobronchitis, modestly improved. 2. Ongoing tobacco use with nicotine addiction. PLAN: The patient is on appropriate medications. Not quite ready for discharge, I told him maybe tomorrow or Saturday. We will continue to follow. Labs, x-rays, and medications cannot be reviewed as the computer system continues to go down. MMODL / IJN: [id number] / MTDD
--- NOTE | 2022-06-30 14:55 | P.PN ---
Subjective Progress Note Date: 06/30/22 Hospital Course: Patient is a very pleasant 56-year-old male with a past medical history of COPD and continued nicotine dependence smoking 1-2 packs of cigarettes daily, daily alcohol use/abuse, hypertension, hyperlipidemia, autoimmune disorder HLA-B27 and chronic back pain. he presented to the emergency department with the chief complaint of shortness of breath. Patient reports worsening shortness of breath and cough unrelieved by home breathing treatments 3 days. Patient den ies having any fevers, chills, dizziness, lightheadedness, chest pain, palpitations, sinus or nasal congestion, or experiencing any numbness/tingling/weakness/swelling in his extremities. He underwent full evaluation in the emergency department. CBC, coags, and CMP were unremarkable. Troponin negative at less than 0.012, ProBNP 54, and serum alcohol less than 10. EKG showing sinus bradycardia at 59 bpm with no significant T-wave or ST abnormalities showing no signs of acute ischemia. Chest x-ray negative for acute cardiopulmonary process. Patient was found to have an acute exacerbation of CO PD, In the ER he was started on steroids, Augmentin, and given a breathing treatment but continued with persistent wheezing showing no improvement. Pt was admitted under our services with consultation to pulmonology. Physical exam: Pt seen and fully evaluated at bedside this morning. Patient did not seem to show any improvement over the past 24 hours. Patient with conversational dyspnea this morning, approximately 3 words prior to stopping to catch breath. Patient does report feeling short of breath he has been maintaining SpO2 of 90- 93% on 2 L O2 via nasal cannula. Patient denies having any other complaints at this time. Patient to continue Solu-Medrol, Augmentin, Symbicort, and scheduled as well as as needed nebulizer treatments. Pulmonology following. Vital signs reviewed and stable. General: Nontoxic, no distress and appears stated age. Derm: Skin warm and dry, normal coloration for ethnicity. Head: Atraumatic, normocephalic and symmetric. Eyes: EOMs intact, no lid lag, and anicteric sclera Mouth: no lip lesions, mucus membranes moist Cardiovascular: regular rate and rhythm with normal S1S2, no murmur, positive posterior tibial pulses bilaterally, and cap refill < 2 seconds. Lungs: Respirations even and regular on 2 L O2 via nasal cannula. Lungs with wheezing diffusely throughout all lebron bilaterally, no rhonchi or rales. Patient had coarse cough noted during assessment. His work of breathing has improved, but he continues to be quite bronchospasmic, tight and wheezy. Abdominal: soft, nontender to palpation, no guarding, no appreciable organomegaly Ext: ROM intact. No gross muscle atrophy, no edema, no contractures Neuro: Speech clear, face symmetrical and CN II-XII grossly intact with no noted focal neuro deficits Psych: Alert and oriented to person, place, time, and situation. Appropriate and pleasant affect. Assessment and Plan of Care: Acute COPD exacerbation -Pulmonology following -Oxygenation to be administered and titrated as needed to maintain SPO2 equal to or greater than 90% -Telemetry monitoring. -Monitor Pulse-oximetry -Duonebs scheduled and as needed for SOB and/or wheezing -Incentive Spirometry, recommended using 10-15 times hourly while awake -Steroids: Solu-Medrol -Antibiotics: Augmentin -Continue daily Symbicort -Strongly recommend smoking cessation, educated patient on the importance of smoking cessation and risks associated with continued use. Gram positive cocci reported as preliminary results on blood culture -Likely contaminant as it is only noted in 1 of 2 blood cultures. Patient is currently on Augmentin which would provide coverage if truly positive, awaiting final culture results. Autoimmune disorder HLA-B27 -Patient may continue use of daily immunosuppressant, Imuran, at this time. However, if patient develops any signs of infection we will hold. Hypertension -Monitor vital signs and continue daily medication regimen with atenolol Hyperlipidemia -Continue daily medication regimen with atorvastatin Nicotine dependence -Nicotine patch -Strongly recommend smoking cessation, educated patient on the importance of smoking cessation and risks associated with continued use. CODE STATUS: Full code DVT prophylaxis: Heparin Discussed with: Pt and RN Anticipated discharge date: Clinical course to determine Anticipated discharge place: Home A total of 35 minutes was spent on the care of this complex patient more than 50% of the time was spent in counseling and care coordination. Objective - Vital Signs Vital signs: Vital Signs Temp 97.9 F 06/29/22 21:00 Pulse 74 06/30/22 09:12 Resp 16 06/29/22 21:00 BP 134/69 06/29/22 21:00 Pulse Ox 90 L 06/29/22 21:00 FiO2 Intake & Output 06/29/22 06/30/22 06/30/22 18:59 06:59 18:59 Intake Total 20 Balance 20 Intake: IV 20 flush 20 Other: Voiding Method Toilet - Labs CBC & Chem 7: 06/29/22 06:07 06/29/22 06:07 Labs: Abnormal Lab Results - Last 24 Hours (Table) 06/29/22 06/29/22 06/29/22 Range/Units 11:39 17:09 21:11 POC Glucose (mg/dL) 249 H 289 H 286 H (70-110) mg/dL Microbiology - Last 24 Hours (Table) 06/28/22 08:01 Blood Culture Gram Stain - Preliminary Blood 06/28/22 08:01 Blood Culture - Final Blood 06/28/22 08:02 Blood Culture - Preliminary Blood No Growth after 24 hours
[2022-06-30 16:53] LABS: Glucose,Whole Blood 234 mg/dL (70-110)
[2022-06-30 20:14] LABS: Glucose,Whole Blood 255 mg/dL (70-110)
[2022-06-30] MEDS: atenoloL 50 MG TAB PO SCH (20:22)
[2022-07-01] MEDS: HEPARIN SODIUM,PORCINE/PF 5,000 UNIT/0.5 ML SYRINGE SQ SCH ×4 (00:14→23:34)
[2022-07-01] MEDS: methylPREDNISolone SOD SUCCI 125 MG/2 ML VIAL IV SCH ×5 (00:16→23:34)
[2022-07-01 07:34] LABS: Glucose,Whole Blood 176 mg/dL (70-110)
[2022-07-01] MEDS: SYMBICORT 160-4.5 MCG INHALER INHALATION SCH ×2 (08:07→20:11)
[2022-07-01] MEDS: IPRATROPIUM-ALBUTEROL 3 ML NEB INHALATION SCH ×4 (08:07→20:11)
[2022-07-01] MEDS: PREGABALIN 75 MG CAP PO SCH ×2 (09:19→21:03)
[2022-07-01] MEDS: NICOTINE 21MG/24HR PATCH TRANSDERM SCH (09:19)
[2022-07-01] MEDS: DULoxetine HCL 60 MG CAPSULE.DR PO SCH (09:20)
[2022-07-01] MEDS: oxyCODONE-APAP 10-325MG 1 EACH TAB PO SCH ×3 (09:20→21:04)
[2022-07-01] MEDS: AMOXIC-POT CLAV 875-125MG 1 EACH TAB PO SCH ×2 (09:20→21:03)
[2022-07-01] MEDS: ATORVASTATIN 40 MG TAB PO SCH (09:20)
[2022-07-01] MEDS: buPROPion XL 150 MG TAB.ER.24H PO SCH (09:21)
[2022-07-01] MEDS: INSULIN ASPART (NovoLOG) 100 UNIT/ML VIAL SQ SCH ×4 (09:22→21:05)
[2022-07-01] MEDS: azaTHIOprine 50 MG TAB PO SCH ×2 (09:22→21:33)
[2022-07-01] MEDS: CHOLECALCIFEROL 25 MCG (1000 IU) TABLET PO SCH (09:26)
--- NOTE | 2022-07-01 11:26 | P.PN ---
Subjective Progress Note Date: 07/01/22 Principal diagnosis: Shortness of breath. Pulmonary consult dated 06/29/2022. 56-year-old male who presented to the emergency department on June 28, complaining of shortness of breath. The patient does continue to smoke. He's been smoking for 42 years. I apparently saw him in the office couple years ago. He has not been back. He is on 2 L. He does not use home oxygen. He is a nebulizer machine at home with albuterol sulfate and ipratropium bromide, and he also has Advair. The patient comes in with shortness of breath, cough, wheezing, and phlegm production. The patient is feeling only a bit better since he came in on the third. He denies any chest pain or chest discomfort. He denies any fever or chills. He denies any abdominal pain, nausea, vomiting, or diarrhea. His primary care physician is Dr. Murguia. He also has a history of hyperlipidemia, Parkinson's disease, ankylosing spondylitis, uveitis, [id number] autoimmune disease, and chronic back pain. White count 11.3, hemoglobin 15.5, hematocrit 47.1, and platelet count normal. Sodium 137, potassium 4.9, chlorides 101, CO2 23, BUN 20, and creatinine 0.8. The rest of the comprehensive metabolic profile is essentially normal. The patient's chest x-ray does not show an acute pulmonary process. Progress note dated 07/01/2022. 56-year-old male seen in room 527. He remains on 2 L of oxygen. He still quite short of breath, with wheezing, coughing, and chest tightness. He is showing improvement though, and I suspect she might be able to be discharged tomorrow. Unfortunately, the patient does continue to smoke. The only lab today was a glucose of 176. Blood cultures show evidence of micrococcus species on June 28. Objective - Vital Signs Vital signs: Vital Signs Temp 97.7 F 07/01/22 05:00 Pulse 69 07/01/22 08:19 Resp 18 07/01/22 05:00 BP 128/69 07/01/22 05:00 Pulse Ox 97 07/01/22 05:00 FiO2 Intake & Output 06/30/22 07/01/22 07/01/22 19:59 06:59 18:59 Intake Total Balance Intake: IV flush Oral Other: Voiding Method Toilet # Voids - Exam No acute distress, oriented 3. Currently on 2 L. No audible wheezing, use of accessory muscles, or conversational dyspnea. HEENT examination is grossly unremarkable. Neck supple. Full range of motion. No adenopathy thyromegaly or neck vein distention. Cardiovascular examination reveals regular rhythm rate. S1-S2 normal. No S3 or S4. No discernible murmur noted. Heart sounds are distant. Heart rate 69 bpm. Lungs reveal coarse bilateral inspiratory and expiratory wheezes and rhonchi. Breath sounds are equal bilaterally. Slight prolongation on forced maneuver. Adventitious lung sounds are more prominent on forced maneuver. No crackles are appreciated. 2 L saturation is 97%. Abdomen soft bowel sounds are heard. No masses or tenderness. Extremities are intact. No cyanosis clubbing or edema. Skin is without rash or lesion. Neurologic examination is brief but nonfocal. - Labs CBC & Chem 7: 06/29/22 06:07 06/29/22 06:07 Labs: Abnormal Lab Results - Last 24 Hours (Table) 06/30/22 06/30/22 06/30/22 Range/Units 12:30 16:42 20:11 POC Glucose (mg/dL) 223 H 234 H 255 H (70-110) mg/dL 07/01/22 Range/Units 07:25 POC Glucose (mg/dL) 176 H (70-110) mg/dL Microbiology - Last 24 Hours (Table) 06/28/22 08:02 Blood Culture - Preliminary Blood No Growth after 72 hours 06/28/22 08:01 Blood Culture Gram Stain - Preliminary Blood Blood Culture - Preliminary Micrococcus species Assessment and Plan Assessment: Acute hypoxemic respiratory failure secondary to COPD exacerbation. Possible tracheobronchitis, without evidence of pneumonia. Ongoing tobacco use with nicotine addiction. History of hyperlipidemia. History of pneumonia. History of Parkinson's disease. History of ankylosing spondylitis. History of HLA-B27 positive, autoimmune disease. Plan: Plan dated 06/29/2022. The patient is currently on Augmentin. The patient's also getting Symbicort 160/4.5, 2 puffs twice a day. In addition, the patient is getting updrafts with albuterol sulfate and ipratropium bromide, a nicotine patch, and Solu-Medrol, 60 mg every 6 hours. We will continue to follow the patient and make recommendations along the way. The patient will follow-up with me again in the office. He has not see me for a couple years. We counseled about the importance of smoking cessation. He will obviously need an updated PFT when he comes back into the office. Plan dated 07/01/2022. The patient is on appropriate medications. We will continue to follow the patient and make recommendations along the way. I'm hoping by tomorrow, Novem carlitos 7, the patient could be considered for possible discharge. Blood cultures are showing evidence of micrococcus. The patient is currently on Symbicort, albuterol sulfate and ipratropium bromide, Solu-Medrol, and Augmentin. Time with Patient: Less than 30
[2022-07-01 11:27] LABS: Glucose,Whole Blood 245 mg/dL (70-110)
--- NOTE | 2022-07-01 12:50 | P.PN ---
Subjective Progress Note Date: 07/01/22 Hospital Course: Patient is a very pleasant 56-year-old male with a past medical history of COPD and continued nicotine dependence smoking 1-2 packs of cigarettes daily, daily alcohol use/abuse, hypertension, hyperlipidemia, autoimmune disorder HLA-B27 and chronic back pain. he presented to the emergency department with the chief complaint of shortness of breath. Patient reports worsening shortness of breath and cough unrelieved by home breathing treatments 3 days. Patient den ies having any fevers, chills, dizziness, lightheadedness, chest pain, palpitations, sinus or nasal congestion, or experiencing any numbness/tingling/weakness/swelling in his extremities. He underwent full evaluation in the emergency department. CBC, coags, and CMP were unremarkable. Troponin negative at less than 0.012, ProBNP 54, and serum alcohol less than 10. EKG showing sinus bradycardia at 59 bpm with no significant T-wave or ST abnormalities showing no signs of acute ischemia. Chest x-ray negative for acute cardiopulmonary process. Patient was found to have an acute exacerbation of CO PD, In the ER he was started on steroids, Augmentin, and given a breathing treatment but continued with persistent wheezing showing no improvement. Pt was admitted under our services with consultation to pulmonology. Physical exam: Pt seen and fully evaluated at bedside this morning. He appears to have slight improvement from yesterday as he is now with exertional dyspnea but able to speak in approximately 5-6 words prior to stopping to catch his breath. He reports his shortness of breath at rest has improved but remains quite significant with any exertion. He remains on 2 L O2 via nasal cannula. Patient again counseled on importance of smoking cessation. Plans to evaluate for home O2 needs tomorrow morning for likely discharge within the next 24-48 hours. At this time patient to continue Solu-Medrol, Augmentin, Symbicort, and scheduled as well as as needed nebulizer treatments. Pulmonology following. Vital signs reviewed and stable. General: Nontoxic, no distress and appears stated age. Derm: Skin warm and dry, normal coloration for ethnicity. Head: Atraumatic, normocephalic and symmetric. Eyes: EOMs intact, no lid lag, and anicteric sclera Mouth: no lip lesions, mucus membranes moist Cardiovascular: regular rate and rhythm with normal S1S2, no murmur, positive p osterior tibial pulses bilaterally, and cap refill < 2 seconds. Lungs: Respirations even and regular on 2 L O2 via nasal cannula. Lungs with wheezing diffusely throughout all lebron bilaterally, no rhonchi, crackles or rales. Abdominal: soft, nontender to palpation, no guarding, no appreciable or ganomegaly Ext: ROM intact. No gross muscle atrophy, no edema, no contractures Neuro: Speech clear, face symmetrical and CN II-XII grossly intact with no noted focal neuro deficits Psych: Alert and oriented to person, place, time, and situation. Appropriate and pleasant affect. Assessment and Plan of Care: Acute COPD exacerbation -Pulmonology following -Oxygenation to be administered and titrated as needed to maintain SPO2 equal to or greater than 90% -Telemetry monitoring. -Monitor Pulse-oximetry -Duonebs scheduled and as needed for SOB and/or wheezing -Incentive Spirometry, recommended using 10-15 times hourly while awake -Steroids: Solu-Medrol -Antibiotics: Augmentin -Continue daily Symbicort -Strongly recommend smoking cessation, educated patient on the importance of smoking cessation and risks associated with continued use. Gram positive cocci reported as preliminary results on blood culture -Likely contaminant as it is only noted in 1 of 2 blood cultures. Patient is currently on Augmentin which would provide coverage if truly positive, awaiting final culture results. Autoimmune disorder HLA-B27 -Patient may continue use of daily immunosuppressant, Imuran, at this time. However, if patient develops any signs of infection we will hold. Hypertension -Monitor vital signs and continue daily medication regimen with atenolol Hyperlipidemia -Continue daily medication regimen with atorvastatin Nicotine dependence -Nicotine patch -Strongly recommend smoking cessation, educated patient on the importance of smoking cessation and risks associated with continued use. CODE STATUS: Full code DVT prophylaxis: Heparin Discussed with: Pt and RN Anticipated discharge date: Clinical course to determine Anticipated discharge place: Home A total of 33 minutes was spent on the care of this complex patient more than 50% of the time was spent in counseling and care coordination. I reviewed the documentation as provided by the NITESH above, who is the original author of this note. I agree with the documented assessment and plan, with the following changes: none Objective - Vital Signs Vital signs: Vital Signs Temp 97.7 F 07/01/22 05:00 Pulse 69 07/01/22 08:19 Resp 18 07/01/22 05:00 BP 128/69 07/01/22 05:00 Pulse Ox 97 07/01/22 05:00 FiO2 Intake & Output 06/30/22 07/01/22 07/01/22 19:59 06:59 18:59 Intake Total Balance Intake: IV flush Oral Other: Voiding Method # Voids - Labs CBC & Chem 7: 06/29/22 06:07 06/29/22 06:07 Labs: Abnormal Lab Results - Last 24 Hours (Table) 06/30/22 06/30/22 06/30/22 Range/Units 07:34 12:30 16:42 POC Glucose (mg/dL) 175 H 223 H 234 H (70-110) mg/dL 06/30/22 07/01/22 Range/Units 20:11 07:25 POC Glucose (mg/dL) 255 H 176 H (70-110) mg/dL Microbiology - Last 24 Hours (Table) 06/28/22 08:01 Blood Culture Gram Stain - Preliminary Blood Blood Culture - Preliminary Micrococcus species 06/28/22 08:02 Blood Culture - Preliminary Blood No Growth after 48 hours
[2022-07-01 17:19] LABS: Glucose,Whole Blood 264 mg/dL (70-110)
[2022-07-01 20:07] LABS: Glucose,Whole Blood 346 mg/dL (70-110)
[2022-07-01] MEDS: atenoloL 50 MG TAB PO SCH (21:03)
[2022-07-02] MEDS: methylPREDNISolone SOD SUCCI 125 MG/2 ML VIAL IV SCH ×3 (06:00→17:32)
[2022-07-02 06:58] LABS: Glucose,Whole Blood 200 mg/dL (70-110)
[2022-07-02] MEDS: SYMBICORT 160-4.5 MCG INHALER INHALATION SCH ×2 (07:43→19:40)
[2022-07-02] MEDS: IPRATROPIUM-ALBUTEROL 3 ML NEB INHALATION SCH ×4 (07:43→19:40)
[2022-07-02] MEDS: NICOTINE 21MG/24HR PATCH TRANSDERM SCH (08:42)
[2022-07-02] MEDS: ATORVASTATIN 40 MG TAB PO SCH (08:43)
[2022-07-02] MEDS: AMOXIC-POT CLAV 875-125MG 1 EACH TAB PO SCH ×2 (08:43→20:56)
[2022-07-02] MEDS: DULoxetine HCL 60 MG CAPSULE.DR PO SCH (08:43)
[2022-07-02] MEDS: HEPARIN SODIUM,PORCINE/PF 5,000 UNIT/0.5 ML SYRINGE SQ SCH ×2 (08:43→14:31)
[2022-07-02] MEDS: INSULIN ASPART (NovoLOG) 100 UNIT/ML VIAL SQ SCH ×4 (08:43→20:56)
[2022-07-02] MEDS: oxyCODONE-APAP 10-325MG 1 EACH TAB PO SCH ×3 (08:44→20:55)
[2022-07-02] MEDS: PREGABALIN 75 MG CAP PO SCH ×2 (08:44→20:56)
[2022-07-02] MEDS: CHOLECALCIFEROL 25 MCG (1000 IU) TABLET PO SCH (08:44)
[2022-07-02] MEDS: buPROPion XL 150 MG TAB.ER.24H PO SCH (08:45)
[2022-07-02] MEDS: azaTHIOprine 50 MG TAB PO SCH ×2 (08:45→21:17)
[2022-07-02 08:56] LABS: Estimated Average Glucose CANCELED
[2022-07-02 11:19] LABS: Glucose,Whole Blood 320 mg/dL (70-110)
--- NOTE | 2022-07-02 12:18 | P.PN ---
Subjective Progress Note Date: 07/02/22 The patient is seen today 07/02/2022 in follow-up on the regular medical floor. He is currently sitting up at the bedside. Awake and alert in no acute distress. He is improved today compared to yesterday. Still not quite back to his baseline. Still dyspneic with conversation. Dyspneic with exertion. Maintaining O2 saturations in the 90s on room air. Afebrile. Hemodynamically stable. Blood glucose 200. He is continued on DuoNeb inhalations, Symbicort, IV Solu-Medrol. NicoDerm patch in place. Empiric antibiotics in the form of Augmentin. Objective - Vital Signs Vital signs: Vital Signs Temp 97.9 F 07/02/22 05:30 Pulse 64 07/02/22 11:32 Resp 16 07/02/22 05:30 BP 130/77 07/02/22 05:30 Pulse Ox 92 L 07/02/22 10:20 FiO2 Intake & Output 07/01/22 07/02/22 07/02/22 18:59 06:59 18:59 Intake Total 260 Balance 260 Intake: IV 20 flush 20 Oral 240 Other: Voiding Method Toilet Toilet # Voids 1 - Exam GENERAL EXAM: Alert, pleasant 56-year-old male patient, on room air, fairly comfortable in no apparent distress. HEAD: Normocephalic. EYES: Normal reaction of pupils, equal size. NOSE: Clear with pink turbinates. THROAT: No erythema or exudates. NECK: No masses, no JVD. CHEST: No chest wall deformity. LUNGS: Equal air entry with bilateral wheeze. Diminished. CVS: S1 and S2 normal with no audible murmur, regular rhythm. ABDOMEN: No hepatosplenomegaly, normal bowel sounds, no guarding or rigidity. SPINE: No scoliosis or deformity SKIN: No rashes CENTRAL NERVOUS SYSTEM: No focal deficits, tone is normal in all 4 extremities. EXTREMITIES: There is no peripheral edema. No clubbing, no cyanosis. Per ipheral pulses are intact. - Labs CBC & Chem 7: 06/29/22 06:07 06/29/22 06:07 Labs: Abnormal Lab Results - Last 24 Hours (Table) 07/01/22 07/01/22 07/02/22 Range/Units 17:06 20:05 06:57 POC Glucose (mg/dL) 264 H 346 H 200 H (70-110) mg/dL 07/02/22 Range/Units 11:18 POC Glucose (mg/dL) 320 H (70-110) mg/dL Microbiology - Last 24 Hours (Table) 06/28/22 08:02 Blood Culture - Preliminary Blood No Growth after 96 hours 06/28/22 08:01 Blood Culture Gram Stain - Final Blood Blood Culture - Final Micrococcus species Assessment and Plan Assessment: Acute hypoxemic respiratory failure secondary to COPD exacerbation. Possible tracheobronchitis, without evidence of pneumonia. Ongoing tobacco use with nicotine addiction. History of hyperlipidemia. History of pneumonia. History of Parkinson's disease. History of ankylosing spondylitis. History of HLA-B27 positive, autoimmune disease. Lang: The patient was seen and evaluated Medications and labs reviewed Improved but not quite back to his baseline Continue the current treatment plan Continue Symbicort, DuoNeb inhalations, IV Solu-Medrol Continue empiric antibiotics Educated regarding the importance of complete smoking cessation Probable discharge in the a.m. We will continue to follow I have personally seen and examined the patient, performed the documentation and the assessment and plan as written. Number of minutes spent on the visit: 10.
--- NOTE | 2022-07-02 13:35 | P.PN ---
Subjective Progress Note Date: 07/02/22 Hospital Course: Patient is a very pleasant 56-year-old male with a past medical history of COPD and continued nicotine dependence smoking 1-2 packs of cigarettes daily, daily alcohol use/abuse, hypertension, hyperlipidemia, autoimmune disorder HLA-B27 and chronic back pain. he presented to the emergency department with the chief complaint of shortness of breath. Patient reports worsening shortness of breath and cough unrelieved by home breathing treatments 3 days. Patient den ies having any fevers, chills, dizziness, lightheadedness, chest pain, palpitations, sinus or nasal congestion, or experiencing any numbness/tingling/weakness/swelling in his extremities. He underwent full evaluation in the emergency department. CBC, coags, and CMP were unremarkable. Troponin negative at less than 0.012, ProBNP 54, and serum alcohol less than 10. EKG showing sinus bradycardia at 59 bpm with no significant T-wave or ST abnormalities showing no signs of acute ischemia. Chest x-ray negative for acute cardiopulmonary process. Patient was found to have an acute exacerbation of CO PD, In the ER he was started on steroids, Augmentin, and given a breathing treatment but continued with persistent wheezing showing no improvement. Pt was admitted under our services with consultation to pulmonology. Physical exam: Pt seen and fully evaluated at bedside this morning. He continues to have improvement in airflow but remains with bronchospasmic with diffuse expiratory wheezing in all [place] bilaterally. He has been weaned off of oxygen SpO2 at rest on room air is 92%. Discussed with RN need for home oxygen evaluation and patient was again counseled on importance of smoking cessation. At this time patient to continue Solu-Medrol, Augmentin, Symbicort, and scheduled as well as as needed nebulizer treatments with plans to discharge within the next 24 hours likely tomorrow a.m. Vital signs reviewed and stable. General: Nontoxic, no distress and appears stated age. Derm: Skin warm and dry, normal coloration for ethnicity. Head: Atraumatic, normocephalic and symmetric. Eyes: EOMs intact, no lid lag, and anicteric sclera Mouth: no lip lesions, mucus membranes moist Cardiovascular: regular rate and rhythm with normal S1S2, no murmur, positive posterior tibial pulses bilaterally, and cap refill < 2 seconds. Lungs: Respirations even and regular on 2 L O2 via nasal cannula. Lungs with wheezing diffusely throughout all lebron bilaterally, no rhonchi, crackles or rales. Abdominal: soft, nontender to palpation, no guarding, no appreciable organomegaly Ext: ROM intact. No gross muscle atrophy, no edema, no contractures Neuro: Speech clear, face symmetrical and CN II-XII grossly intact with no noted focal neuro deficits Psych: Alert and oriented to person, place, time, and situation. Appropriate and pleasant affect. Assessment and Plan of Care: Acute COPD exacerbation -Pulmonology following -Oxygenation to be administered and titrated as needed to maintain SPO2 equal to or greater than 90% -Telemetry monitoring. -Monitor Pulse-oximetry -Duonebs scheduled and as needed for SOB and/or wheezing -Incentive Spirometry, recommended using 10-15 times hourly while awake -Steroids: Solu-Medrol -Antibiotics: Augmentin -Continue daily Symbicort -Strongly recommend smoking cessation, educated patient on the importance of smoking cessation and risks associated with continued use. Gram positive cocci reported as preliminary results on blood culture -Likely contaminant as it is only noted in 1 of 2 blood cultures. Patient is currently on Augmentin which would provide coverage if truly positive, awaiting final culture results. Autoimmune disorder HLA-B27 -Patient may continue use of daily immunosuppressant, Imuran, at this time. However, if patient develops any signs of infection we will hold. Hypertension -Monitor vital signs and continue daily medication regimen with atenolol Hyperlipidemia -Continue daily medication regimen with atorvastatin Nicotine dependence -Nicotine patch -Strongly recommend smoking cessation, educated patient on the importance of smoking cessation and risks associated with continued use. CODE STATUS: Full code DVT prophylaxis: Heparin Discussed with: Pt and RN Anticipated discharge date: Likely tomorrow morning Anticipated discharge place: Home A total of 31 minutes was spent on the care of this complex patient more than 50% of the time was spent in counseling and care coordination. I reviewed the documentation as provided by the NITESH above, who is the original author of this note. I agree with the documented assessment and plan, with the following changes: none Objective - Vital Signs Vital signs: Vital Signs Temp 98.2 F 07/02/22 11:34 Pulse 62 07/02/22 11:34 Resp 18 07/02/22 11:34 BP 151/76 07/02/22 11:34 Pulse Ox 95 07/02/22 11:34 FiO2 Intake & Output 07/01/22 07/02/22 07/02/22 18:59 06:59 18:59 Intake Total 260 Balance 260 Intake: IV 20 flush 20 Oral 240 Other: Voiding Method Toilet Toilet # Voids 1 - Labs CBC & Chem 7: 06/29/22 06:07 06/29/22 06:07 Labs: Abnormal Lab Results - Last 24 Hours (Table) 07/01/22 07/01/22 07/02/22 Range/Units 17:06 20:05 06:57 POC Glucose (mg/dL) 264 H 346 H 200 H (70-110) mg/dL 07/02/22 Range/Units 11:18 POC Glucose (mg/dL) 320 H (70-110) mg/dL Microbiology - Last 24 Hours (Table) 06/28/22 08:02 Blood Culture - Preliminary Blood No Growth after 96 hours 06/28/22 08:01 Blood Culture Gram Stain - Final Blood Blood Culture - Final Micrococcus species
[2022-07-02 17:17] LABS: Glucose,Whole Blood 265 mg/dL (70-110)
[2022-07-02 19:41] VITALS: RESP 16; TEMP 97.7
[2022-07-02 20:18] LABS: Glucose,Whole Blood 256 mg/dL (70-110)
[2022-07-02] MEDS: atenoloL 50 MG TAB PO SCH (20:56)
[2022-07-03] MEDS: HEPARIN SODIUM,PORCINE/PF 5,000 UNIT/0.5 ML SYRINGE SQ SCH ×2 (00:14→08:31)
[2022-07-03] MEDS: methylPREDNISolone SOD SUCCI 125 MG/2 ML VIAL IV SCH ×2 (00:19→06:18)
[2022-07-03 05:08] VITALS: BP 138/79
[2022-07-03 07:07] LABS: Glucose,Whole Blood 209 mg/dL (70-110)
[2022-07-03] MEDS: IPRATROPIUM-ALBUTEROL 3 ML NEB INHALATION SCH ×2 (07:31→10:51)
[2022-07-03] MEDS: SYMBICORT 160-4.5 MCG INHALER INHALATION SCH (07:31)
[2022-07-03 07:44] VITALS: PULSE 52
[2022-07-03] MEDS: NICOTINE 21MG/24HR PATCH TRANSDERM SCH (08:31)
[2022-07-03] MEDS: ATORVASTATIN 40 MG TAB PO SCH (08:32)
[2022-07-03] MEDS: AMOXIC-POT CLAV 875-125MG 1 EACH TAB PO SCH (08:32)
[2022-07-03] MEDS: INSULIN ASPART (NovoLOG) 100 UNIT/ML VIAL SQ SCH (08:32)
[2022-07-03] MEDS: buPROPion XL 150 MG TAB.ER.24H PO SCH (08:33)
[2022-07-03] MEDS: DULoxetine HCL 60 MG CAPSULE.DR PO SCH (08:33)
[2022-07-03] MEDS: oxyCODONE-APAP 10-325MG 1 EACH TAB PO SCH (08:33)
[2022-07-03] MEDS: CHOLECALCIFEROL 25 MCG (1000 IU) TABLET PO SCH (08:33)
[2022-07-03] MEDS: azaTHIOprine 50 MG TAB PO SCH (08:33)
[2022-07-03] MEDS: PREGABALIN 75 MG CAP PO SCH (08:34)
--- NOTE | 2022-07-03 10:31 | P.DS ---
Providers Date of admission: 06/28/22 13:00 Expected date of discharge: 07/03/22 Attending physician: Ani Milton MD Consults: 06/28/22 17:41 Consult Physician Routine Consulting Provider: Marquise Rueda Consult Reason/Comments: COPD exacerbation, follows you outpatient Do you want consulting provider notified?: Yes Primary care physician: Maribel Murguia Hospital Course: Discharge Diagnosis: Acute COPD exacerbation, patient was strongly educated on the importance of smoking cessation and risks associated with continued use. Patient discharged home on doxycycline, prednisone taper, and duo nebs. Patient to follow up outpatient with pulmonology in one week. Gram positive cocci Micrococcus species in one of 2 blood cultures, believed to be contaminant. However patient did complete 5 day course of Augmentin. Repeat blood culture showing no growth after 120 hours. Autoimmune disorder HLA-B27. Pt to continue use of daily immunosuppressant, Imuran. Hypertension. Monitor vital signs and continue daily medication regimen with atenolol Hyperlipidemia. Continue daily medication regimen with atorvastatin Nicotine dependence. Strongly recommend smoking cessation, educated patient on the importance of smoking cessation and risks associated with continued use. Hospital Course: Patient is a very pleasant 56-year-old male with a past medical history of COPD and continued nicotine dependence smoking 1-2 packs of cigarettes daily, daily alcohol use/abuse, hypertension, hyperlipidemia, autoimmune disorder HLA-B27 and chronic back pain. he presented to the emergency department with the chief complaint of shortness of breath. Patient reports worsening shortness of amish ath and cough unrelieved by home breathing treatments 3 days. Patient denies having any fevers, chills, dizziness, lightheadedness, chest pain, palpitations, sinus or nasal congestion, or experiencing any numbness/tingling/weakness/swelling in his extremities. He underwent full evaluation in the emergency department. CBC, coags, and CMP were unremarkable. Troponin negative at less than 0.012, ProBNP 54, and serum alcohol less than 10. EKG showing sinus bradycardia at 59 bpm with no significant T-wave or ST abnormalities showing no signs of acute ischemia. Chest x-ray negative for acute cardiopulmonary process. Patient was found to have an acute exacerbation of COPD, In the ER he was started on steroids, Augmentin, and given a breathing treatment but continued with persistent wheezing showing no improvement. Pt was admitted under our services with consultation to pulmonology. patient received IV steroids, empiric antibiotics, as well as scheduled and as needed breathing treatments. the patient slowly progressed throughout hospitalization. He was weaned off of oxygen and maintained SpO2 ambulatory and at rest greater than 90%. Patient was strongly educated on the importance of smoking cessation and the risks associated with continued use. Patient completed 5 day course of Augmentin and is being discharged home on 10 day course of doxycycline, prednisone taper, and duo nebs. Patient to follow-up with PCP in 1-2 days and pulmonology in one week. Patient being discharged home on COPD navigator program. Physical exam: Vital signs reviewed and stable. General: Nontoxic, no distress and appears stated age. Derm: Skin warm and dry, normal coloration for ethnicity. Head: Atraumatic, normocephalic and symmetric. Eyes: EOMs intact, no lid lag, and anicteric sclera Mouth: no lip lesions, mucus membranes moist Cardiovascular: regular rate and rhythm with normal S1S2, no murmur, positive posterior tibial pulses bilaterally, and cap refill < 2 seconds. Lungs: Respirations even and regular on room air.. Lungs with equal airflow bilaterally. Expiratory wheezes, no rhonchi, crackles or rales. Abdominal: soft, nontender to palpation, no guarding, no appreciable organomegaly Ext: ROM intact. No gross muscle atrophy, no edema, no contractures Neuro: Speech clear, face symmetrical and CN II-XII grossly intact with no noted focal neuro deficits Psych: Alert and oriented to person, place, time, and situation. Appropriate and pleasant affect. A total of 33 minutes of time were spent preparing this complex discharge summary. Pt was discharged on 07/03/22 at 9:57 AM. Attending Note: Ron Potter NP rendered care for this patient independently, reviewed the findings and plan as documented in the note above. I did not physically speak with or examine the patient on this date. Patient Condition at Discharge: Stable Plan - Discharge Summary Discharge Rx Participant: No New Discharge Prescriptions: New Ipratropium-Albuterol Nebulize [Duoneb 0.5 mg-3 mg/3 ml Soln] 3 ml INHALATION Q6H PRN #120 each PRN Reason: Shortness Of Breath Or Wheezing predniSONE See Taper PO DIRECTED 16 Days #30 tab Nicotine 21Mg/24Hr Patch [Habitrol] 1 patch TRANSDERM DAILY 30 Days #30 patch Doxycycline [Vibramycin] 100 mg PO BID 10 Days #20 capsule Continue azaTHIOprine [Imuran] 100 mg PO BID DULoxetine HCL [Cymbalta] 60 mg PO DAILY atenoloL [Tenormin] 75 mg PO HS Adalimumab [Humira(Cf) Pen] 40 mg SQ Q14D Atorvastatin [Lipitor] 40 mg PO DAILY buPROPion XL [Wellbutrin XL] 150 mg PO DAILY Cholecalciferol [Vitamin D3 (25 Mcg = 1000 Iu)] 25 mcg PO DAILY oxyCODONE-APAP 10-325MG [Percocet 10-325 mg] 1 tab PO TID predniSONE 10 mg PO DAILY rOPINIRole HCL [Requip] 0.25 mg PO TID Fluticasone/Umeclidin/Vilanter [Trelegy Ellipta 100-62.5-25] 1 puff INHALATION RT-DAILY Pregabalin [Lyrica] 150 mg PO BID Fluticasone Propion/Salmeterol [Advair 500-50 Diskus] 1 puff INHALATION RT- BID PRN PRN Reason: Shortness Of Breath Discharge Medication List DULoxetine HCL [Cymbalta] 60 mg PO DAILY 05/23/17 [History] atenoloL [Tenormin] 75 mg PO HS 05/23/17 [History] azaTHIOprine [Imuran] 100 mg PO BID 05/23/17 [History] Adalimumab [Humira(Cf) Pen] 40 mg SQ Q14D 07/06/18 [History] Atorvastatin [Lipitor] 40 mg PO DAILY 06/14/20 [History] buPROPion XL [Wellbutrin XL] 150 mg PO DAILY 06/14/20 [History] Cholecalciferol [Vitamin D3 (25 Mcg = 1000 Iu)] 25 mcg PO DAILY 04/11/21 [History] oxyCODONE-APAP 10-325MG [Percocet 10-325 mg] 1 tab PO TID 04/11/21 [History] predniSONE 10 mg PO DAILY 04/11/21 [History] Fluticasone Propion/Salmeterol [Advair 500-50 Diskus] 1 puff INHALATION RT-BID PRN 06/28/22 [History] Fluticasone/Umeclidin/Vilanter [Trelegy Ellipta 100-62.5-25] 1 puff INHALATION RT-DAILY 06/28/22 [History] Pregabalin [Lyrica] 150 mg PO BID 06/28/22 [History] rOPINIRole HCL [Requip] 0.25 mg PO TID 06/28/22 [History] Doxycycline [Vibramycin] 100 mg PO BID 10 Days #20 capsule 07/03/22 [Rx] Ipratropium-Albuterol Nebulize [Duoneb 0.5 mg-3 mg/3 ml Soln] 3 ml INHALATION Q6H PRN #120 each 07/03/22 [Rx] Nicotine 21Mg/24Hr Patch [Habitrol] 1 patch TRANSDERM DAILY 30 Days #30 patch 07/03/22 [Rx] predniSONE See Taper PO DIRECTED 16 Days #30 tab 07/03/22 [Rx] Follow up Appointment(s)/Referral(s): Maribel Murguia DO [Primary Care Provider] - 07/05/22 11:20 am () Marquise Rueda DO [Doctor of Osteopathic Medicine] - 07/24/22 1:00 pm (The office is putting you on the cancelation list.) Patient Instructions/Handouts: Prednisone (By mouth), Nicotine (Absorbed through the skin), Ipratropium/Albuterol (By breathing), How to Stop Smoking (DC), How to Use an Incentive Spirometer (DC), COPD (Chronic Obstructive Pulmonary Disease) (DC), Chronic Lung Disease and Infection Prevention (DC) Activity/Diet/Wound Care/Special Instructions: Activity: As tolerated. Take breaks as needed. Diet: Heart healthy and carb consistent diet. Avoid salts, or foods with hidden salts such as canned or boxed foods and frozen dinners. Extra salt makes your heart work harder and traps the fluid in your body for longer. Special Instructions: Take all of your medications as directed and remember to keep all of your doctor's appointments and follow-up as needed. Strongly recommend you to stop smoking, as we discussed continued smoking will lead to worsening of your COPD and continued exacerbations. Continued smoking with your COPD can lead to significant health consequences up to and including . Thank you for allowing us to participate in your care, it was truly a pleasure having you for our patient!!! Discharge Disposition: HOME WITH HOME HEALTH SERVICES
[2022-07-03 11:09] LABS: Glucose,Whole Blood 245 mg/dL (70-110)
--- NOTE | 2022-07-03 11:49 | P.PN ---
Subjective Progress Note Date: 07/03/22 The patient is seen today 07/02/2022 in follow-up on the regular medical floor. He is currently sitting up at the bedside. Awake and alert in no acute distress. He is improved today compared to yesterday. Still not quite back to his baseline. Still dyspneic with conversation. Dyspneic with exertion. Maintaining O2 saturations in the 90s on room air. Afebrile. Hemodynamically stable. Blood glucose 200. He is continued on DuoNeb inhalations, Symbicort, IV Solu-Medrol. NicoDerm patch in place. Empiric antibiotics in the form of Augmentin. The patient is seen today 07/03/2022 in follow-up on the regular medical floor. He is awake and alert in no acute distress. Feeling better today. Nearly back to his baseline. Less cough and congestion. He is maintaining good O2 saturations in the 90s on room air. He's been afebrile. Hemodynamically stable. Follow-up blood culture reveals no growth. Blood glucose 245. Appendectomy is continued on DuoNeb inhalations, Symbicort, IV Solu-Medrol. Antibiotics in the form of Augmentin. Objective - Vital Signs Vital signs: Vital Signs Temp 97.7 F 07/03/22 05:00 Pulse 52 L 07/03/22 07:44 Resp 16 07/03/22 05:00 BP 138/79 07/03/22 05:00 Pulse Ox 93 L 07/03/22 05:00 FiO2 Intake & Output 07/02/22 07/03/22 07/03/22 18:59 06:59 18:59 Intake Total 1170 250 Balance 1170 250 Intake: Oral 1170 250 Other: # Voids 2 - Exam GENERAL EXAM: Alert, pleasant 56-year-old male, on room air, fairly comfortable in no apparent distress. HEAD: Normocephalic. EYES: Normal reaction of pupils, equal size. NOSE: Clear with pink turbinates. THROAT: No erythema or exudates. NECK: No masses, no JVD. CHEST: No chest wall deformity. LUNGS: Equal air entry with bilateral wheeze. Diminished. CVS: S1 and S2 normal with no audible murmur, regular rhythm. ABDOMEN: No hepatosplenomegaly, normal bowel sounds, no guarding or rigidity. SPINE: No scoliosis or deformity SKIN: No rashes CENTRAL NERVOUS SYSTEM: No focal deficits, tone is normal in all 4 extremities. EXTREMITIES: There is no peripheral edema. No clubbing, no cyanosis. Peripheral pulses are intact. - Labs CBC & Chem 7: 06/29/22 06:07 06/29/22 06:07 Labs: Abnormal Lab Results - Last 24 Hours (Table) 07/02/22 07/02/22 07/03/22 Range/Units 17:16 20:16 07:07 POC Glucose (mg/dL) 265 H 256 H 209 H (70-110) mg/dL 07/03/22 Range/Units 11:08 POC Glucose (mg/dL) 245 H (70-110) mg/dL Microbiology - Last 24 Hours (Table) 06/28/22 08:02 Blood Culture - Preliminary Blood No Growth after 120 hours Assessment and Plan Assessment: Acute hypoxemic respiratory failure secondary to COPD exacerbation. Possible tracheobronchitis, without evidence of pneumonia. Ongoing tobacco use with nicotine addiction. History of hyperlipidemia. History of pneumonia. History of Parkinson's disease. History of ankylosing spondylitis. History of HLA-B27 positive, autoimmune disease. Lang: The patient was seen and evaluated Medications and labs reviewed Cleared for discharge from the pulmonary stamp Continue his home pulmonary medications Complete a prednisone taper starting at 40 mg daily for 4 days Complete a course of antibiotics in form of doxycycline 100 mg twice a day for 10 days Educated regarding the importance of complete smoking cessation Follow-up in the office in 1 week I have personally seen and examined the patient, performed the documentation and the assessment and plan as written. Number of minutes spent on the visit: 10.
--- NOTE | 2022-07-10 10:53 | CDI ---
Documentation Clarification Form Date: 07/10/2022 10:36:00 AM From: Cynthia Saleh Admit Date: 06/28/2022 01:00:00 PM Patient Name: Mauro Hollis Visit Number: [id number] Discharge Date: 07/03/2022 12:10:00 PM ATTENTION: The Clinical Documentation Specialists (CDI) and [facility] Coding Staff appreciate your assistance in clarifying documentation. Please respond to the clarification below the line at the bottom and electronically sign. The CDI & [facility] Coding staff will review the response and follow-up if needed. Please note: Queries are made part of the Legal Health Record. If you have any questions, please contact the author of this message via ITS. Dr. Rosie Dial Acute hypoxemic respiratory failure secondary to COPD exacerbation is documented in PN's 06/29 to 07/03. For each diagnosis, documentation must be clear to determine if the condition was present at the time of the patients inpatient admission or developed during the hospital stay. Additional clarification regarding the POA status of respiratory failure is requested. History/Risk Factors: COPD smoker, HTN hyperlipidemia Clinical Indicators: Patient admit time is 06/28/22 13:00. An hour after admission patient's O2 sat 93% on 2L. No documentation of Acute respiratory failure in ER notes or H and P. RR at 18 and 20. Triage vitals RR 20, 96% on 2L NC. Treatment: 2L NC Definition of Present on Admission (POA): A diagnosis present at the time the order for admission to inpatient status was written. Please clarify if the Acute hypoxic respiratory failure was POA [ ] Y = Yes, the Acute hypoxic respiratory failure was POA [ ] N = No, the Acute hypoxic respiratory failure was not present when admit order written. [ ] W = Clinically undetermined if the condition was present at the time of the order for inpatient admission. Yes, the Acute hypoxic respiratory failure was POA MTDD
== END 2022-07-03 12:10 | disposition home health service (06) | DRG 190 ==
LOC: EC 07:38 → 5NMEDONC 13:00
PROVIDERS: ADMIT Internal Medicine; ATTEND Internal Medicine
DX: J44.1 Chronic obstructive pulmonary disease with (acute) exacerbation (principal); J96.01 Acute respiratory failure with hypoxia; I10 Essential (primary) hypertension; M45.9 Ankylosing spondylitis of unspecified sites in spine; Z71.6 Tobacco abuse counseling; F17.210 Nicotine dependence, cigarettes, uncomplicated; J44.0 Chronic obstructive pulmonary disease with (acute) lower respiratory infection; J20.9 Acute bronchitis, unspecified; G20 Parkinson's disease; E78.5 Hyperlipidemia, unspecified; F32.A Depression, unspecified; R00.1 Bradycardia, unspecified; M15.9 Polyosteoarthritis, unspecified; Z79.624 Long term (current) use of inhibitors of nucleotide synthesis; Z79.899 Other long term (current) drug therapy; Z82.3 Family history of stroke; Z82.49 Family history of ischemic heart disease and other diseases of the circulatory system; Z87.01 Personal history of pneumonia (recurrent); M51.36 Other intervertebral disc degeneration, lumbar region; M50.20 Other cervical disc displacement, unspecified cervical region; M45.8 Ankylosing spondylitis sacral and sacrococcygeal region; D89.89 Other specified disorders involving the immune mechanism, not elsewhere classified; Z79.891 Long term (current) use of opiate analgesic; Z86.14 Personal history of Methicillin resistant Staphylococcus aureus infection; G89.29 Other chronic pain
CPT/HCPCS: 36415; 71046; 80053; 80320; 83036; 83605; 83735; 83880; 84484; 85025; 85027; 85610; 85730; 87040; 87635; 93005; 94640; 94760; 96365; 99285

== ENCOUNTER → 2022-11-09 | Outpatient (CLI) | payer MEDICARE, OTHER ==
--- NOTE | 2022-11-09 15:05 | CT ---
EXAMINATION TYPE: CT brain wo con DATE OF EXAM: 11/09/2022 COMPARISON: None HISTORY: slight AMS CT DLP: 1254 mGycm Automated exposure control for dose reduction was used. FINDINGS: The ventricles, basal cisterns and sulci over the convexities are within normal limits and there is n o mass effect or shift to midline structures. No abnormal density is seen throughout the brain parenchyma. There is no acute intra or extra-axial h emorrhage. The posterior fossa including the brainstem, fourth ventricle and cerebellar pontine angles are gross ly normal. The intraorbital contents appear normal and symmetric. There are mild chronic inflammatory changes maxillary sinuses. The mastoid air cells are well aerated . The calvarium is intact. IMPRESSION: Mild chronic inflammatory changes of the maxillary sinuses with no other significant abnormality seen . There is no acute bleed or mass effect. IMPRESSION:
== END | disposition home or self-care (01) ==
LOC: RADCTMAIN 13:42
PROVIDERS: ATTEND Family Medicine
DX: R41.82 Altered mental status, unspecified (principal); J34.89 Other specified disorders of nose and nasal sinuses
CPT/HCPCS: 70450

== ENCOUNTER 2023-04-01 10:55 | Inpatient (IN) | payer MEDICARE, OTHER ==
--- NOTE | 2023-04-01 11:57 | ED ---
General Adult HPI - General Chief complaint: Extremity Injury, Upper Stated complaint: arm swelling Time Seen by Provider: 04/01/23 11:16 Source: patient Mode of arrival: ambulatory Limitations: no limitations - History of Present Illness Initial comments: 57-year-old male presenting to ED with a chief complaint of left elbow pain. Patient states 2 days ago hit his left elbow on a piece of wood. Since then notes pain and swelling to his left elbow. Yesterday, states that he started to notice yellow drainage from his left elbow prompting him to present to the ED for further evaluation. Notes history of remote trauma to the same elbow 2 weeks ago. Denies fever. No other symptoms. - Related Data Home Medications Medication Instructions Recorded Confirmed DULoxetine HCL [Cymbalta] 60 mg PO DAILY 05/23/17 04/01/23 atenoloL [Tenormin] 75 mg PO HS 05/23/17 04/01/23 Adalimumab [Humira(Cf) Pen] 40 mg SQ Q14D 07/06/18 04/01/23 Atorvastatin [Lipitor] 40 mg PO DAILY 06/14/20 04/01/23 oxyCODONE-APAP 10-325MG [Percocet 1 tab PO TID PRN 04/11/21 04/01/23 10-325 mg] Fluticasone/Umeclidin/Vilanter 1 puff INHALATION RT-DAILY 06/28/22 04/01/23 [Trelegy Ellipta 100-62.5-25] Pregabalin [Lyrica] 150 mg PO BID 06/28/22 04/01/23 Albuterol Inhaler [Ventolin Hfa 1 - 2 puff INHALATION RT-QID PRN 04/01/23 04/01/23 Inhaler] Albuterol Nebulized [Ventolin 1.25 mg INHALATION RT-Q6H PRN 04/01/23 04/01/23 Nebulized (Accuneb)] Omeprazole [PriLOSEC] 40 mg PO DAILY 04/01/23 04/01/23 metFORMIN HCL ER [Glucophage XR] 500 mg PO BID 04/01/23 04/01/23 predniSONE 10 mg PO DAILY 04/01/23 04/01/23 rOPINIRole HCL [Requip] 0.5 mg PO TID 04/01/23 04/01/23 sitaGLIPtin [Januvia] 100 mg PO DAILY 04/01/23 04/01/23 Allergies Allergy/AdvReac Type Severity Reaction Status Date / Time erythromycin base Allergy Severe Dyspnea,hiv Verified 04/01/23 14:09 es Review of Systems ROS Statement: Those systems with pertinent positive or pertinent negative responses have been documented in the HPI. ROS Other: All systems not noted in ROS Statement are negative. 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 History of Any Multi-Drug Resistant Organisms: MRSA Date of last positivie culture/infection: 04/11/21 MDRO Source:: MRSA FACE Additional Past Surgical History / Comment(s): rt cataract and 3 laser procedures r/t uveitis, pain clinic procedure Past Anesthesia/Blood Transfusion Reactions: No Reported Reaction Additional Past Anesthesia/Blood Transfusion Reaction / Comment(s): Very fearful of needles Past Psychological History: Depression Smoking Status: Former smoker Past Alcohol Use History: Occasional Past Drug Use History: None Reported - Past Family History Brother(s) Family Medical History: Myocardial Infarction (ND) Additional Family Medical History / Comment(s): Brother had a ND at the age of 51 yrs and is living. Mother Family Medical History: CVA/TIA, Hypertension Additional Family Medical History / Comment(s): Mother has had CVAs. She is living Father Family Medical History: Myocardial Infarction (ND) Additional Family Medical History / Comment(s): Father had a ND at the age of 83 yrs. He is living General Exam Limitations: no limitations General appearance: alert, in no apparent distress Neck exam: Present: normal inspection Respiratory exam: Present: normal lung sounds bilaterally Cardiovascular Exam: Present: regular rate, normal rhythm GI/Abdominal exam: Present: soft Extremities exam: Present: other (Strength and sensation of the left upper extremity intact. Left elbow shows warmth, erythema, edema with tenderness to palpation. No active drainage.) Neurological exam: Present: alert, oriented X3 Skin exam: Present: warm, dry Course Vital Signs 04/01/23 11:00 Temperature 98.5 F Pulse Rate 65 Respiratory 20 Rate Blood Pressure 124/77 O2 Sat by Pulse 99 Oximetry Procedures - Incision & Drainage Site: upper extremity Anesthetic Used: lidocaine 1% Amount (mLs): 2 I&D Cleaning Method: Chloroprep Sterile Field Used?: Yes Needle Aspiration Performed?: Yes (Small amount of purulent fluid with blood) I&D Drainage Obtained: Pus, Blood Culture Obtained?: Yes Patient Tolerated Procedure: well Medical Decision Making - Medical Decision Making Was pt. sent in by a medical professional or institution (, PA, TRANSPORTATION DEPARTMENT SUPERVISOR, urgent care, hospital, or long term...) When possible be specific @ -No Did you speak to anyone other than the patient for history (EMS, parent, family, police, friend...)? What history was obtained from this source @ -No Did you review nursing and triage notes (agree or disagree)? Why? @ -I reviewed and agree with nursing and triage notes Were old charts reviewed (outside hosp., previous admission, EMS record, old EKG, old radiological studies, urgent care reports/EKG's, long term records)? Report findings @ -No old charts were reviewed Differential Diagnosis (chest pain, altered mental status, abdominal pain women, abdominal pain men, vaginal bleeding, weakness, fever, dyspnea, syncope, headache, dizziness, GI bleed, back pain, seizure, CVA, palpatations, mental health, musculoskeletal)? @ -Differential Musculoskeletal Muscular strain, contusion, ligament sprain, fracture, arthritis, septic arthritis, bursitis, cellulitis, muscle spasm, nerve compression, DVT, arterial occlusion, herpes zoster, electrolyte abnormality, tumor.... This is not meant to be in all inclusive list EKG interpreted by me (3pts min.). @ -As above X-rays interpreted by me (1pt min.). @ -None done CT interpreted by me (1pt min.). @ -None done U/S interpreted by me (1pt. min.). @ -Ultrasound showed fluid collection consistent with abscess formation. What testing was considered but not performed or refused? (CT, X-rays, U/S, labs)? Why? @ -None What meds were considered but not given or refused? Why? @ -None Did you discuss the management of the patient with other professionals (professionals i.e. , PA, TRANSPORTATION DEPARTMENT SUPERVISOR, lab, RT, psych nurse, nephrology social worker, coin counter and wrapper, teacher, global chief creative officer, top case assembler)? Give summary @ -No Was smoking cessation discussed for >3mins.? @ -No Was critical care preformed (if so, how long)? @ -No Were there social determinants of health that impacted care today? How? (Homelessness, low income, unemployed, alcoholism, drug addiction, tr ansportation, low edu. Level, literacy, decrease access to med. care, intermediate, rehab)? @ -No Was there de-escalation of care discussed even if they declined (Discuss DNR or withdrawal of care, Hospice)? DNR status @ -No What co-morbidities impacted this encounter? (DM, HTN, Smoking, COPD, CAD, Cancer, CVA, ARF, Chemo, Hep., AIDS, mental health diagnosis, sleep apnea, morbid obesity)? @ -Diabetes, autoimmune disorder Was patient admitted / discharged? Hospital course, mention meds given and route, prescriptions, significant lab abnormalities, going to OR and other pertinent info. @ -[place]. Laboratory studies including CBC, ESR, CRP largely unremarkable however small elevation in ESR. Aspiration performed and small amounts of purulent fluid was obtained and sent off for culture. With purulent fluid obtained and history of MRSA, patient will be admitted for IV antibiotics with consults to infectious disease and orthopedics. Undiagnosed new problem with uncertain prognosis? @ -No Drug Therapy requiring intensive monitoring for toxicity (Heparin, Nitro, Insulin, Cardizem)? @ -No Were any procedures done? @ -No Diagnosis/symptom? @ -Septic bursitis Acute, or Chronic, or Acute on Chronic? @ -Acute Uncomplicated (without systemic symptoms) or Complicated (systemic symptoms)? @ -Uncomplicated Side effects of treatment? @ -No Exacerbation, Progression, or Severe Exacerbation? @ -No Poses a threat to life or bodily function? How? (Chest pain, USA, ND, pneumonia, PE, COPD, DKA, ARF, appy, cholecystitis, CVA, Diverticulitis, Homicidal, Suicidal, threat to staff... and all critical care pts) @ -No - Lab Data Result diagrams: 04/01/23 12:39 04/01/23 12:39 Lab Results 04/01/23 04/01/23 Range/Units 12:39 12:39 WBC 8.8 (3.8-10.6) k/uL RBC 5.38 (4.30-5.90) m/uL Hgb 17.9 H (13.0-17.5) gm/dL Hct 52.0 (39.0-53.0) % MCV 96.6 (80.0-100.0) fL MCH 33.3 (25.0-35.0) pg MCHC 34.5 (31.0-37.0) g/dL RDW 12.9 (11.5-15.5) % Plt Count 155 (150-450) k/uL MPV 10.2 Neutrophils % 74 % Lymphocytes % 15 % Monocytes % 6 % Eosinophils % 3 % Basophils % 1 % Neutrophils # 6.5 (1.3-7.7) k/uL Lymphocytes # 1.3 (1.0-4.8) k/uL Monocytes # 0.5 (0-1.0) k/uL Eosinophils # 0.3 (0-0.7) k/uL Basophils # 0.0 (0-0.2) k/uL ESR 8 (0-15) mm/hr Sodium 136 L (137-145) mmol/L Potassium 4.1 (3.5-5.1) mmol/L Chloride 107 (98-107) mmol/L Carbon Dioxide 22 (22-30) mmol/L Anion Gap 7 mmol/L BUN 16 (9-20) mg/dL Creatinine 0.74 (0.66-1.25) mg/dL Est GFR (CKD-EPI)AfAm >90 (>60 ml/min/1.73 sqM) Est GFR (CKD-EPI)NonAf >90 (>60 ml/min/1.73 sqM) Glucose 88 (74-99) mg/dL Calcium 9.2 (8.4-10.2) mg/dL Total Bilirubin 0.7 (0.2-1.3) mg/dL AST 21 (17-59) U/L ALT 23 (4-49) U/L Alkaline Phosphatase 89 (38-126) U/L C-Reactive Protein 2.5 H (<1.0) mg/dL Total Protein 6.7 (6.3-8.2) g/dL Albumin 3.9 (3.5-5.0) g/dL Disposition Clinical Impression: Septic bursitis of elbow Disposition: ADMITTED IP TO THIS HOSP Referrals: Maribel Murguia DO [Primary Care Provider] - 1-2 days Time of Disposition: 15:15
--- NOTE | 2023-04-01 12:02 | XR ---
EXAMINATION TYPE: XR elbow complete LT DATE OF EXAM: 04/01/2023 11:38 AM INDICATION: Patient age:Male; 57 years old; Reason for study: r/o osteo/bursitis; PHH. COMPARISON: None TECHNIQUE: The left elbow was examined in AP, lateral, and oblique projections. FINDINGS: Soft tissue swelling over the olecranon process/posterior elbow. No osseous erosion. No theo dence of any acute osseous pathology, joint dislocation. IMPRESSION: No evidence of acute fracture. Soft tissue swelling without evidence of osseous erosion. Correlate for bursitis/cellulitis.
[2023-04-01 12:57] LABS: Basophils % (A) 1 %; Eosinophils # (A) 0.3 k/uL (0-0.7); Eosinophils % (A) 3 %; HGB 17.9 gm/dL (13.0-17.5); Lymphocytes # (A) 1.3 k/uL (1.0-4.8); Lymphocytes % (A) 15 %; MCH 33.3 pg (25.0-35.0); MCHC 34.5 g/dL (31.0-37.0); MCV 96.6 fL (80.0-100.0); Mean Platelet Volume 10.2; Monocytes # (A) 0.5 k/uL (0-1.0); Monocytes % (A) 6 %; Neutrophils # (A) 6.5 k/uL (1.3-7.7); Neutrophils % (A) 74 %; Platelet Count 155 k/uL (150-450); RBC 5.38 m/uL (4.30-5.90); RDW 12.9 % (11.5-15.5); WBC 8.8 k/uL (3.8-10.6)
--- NOTE | 2023-04-01 13:39 | US ---
EXAMINATION TYPE: US extremity nonvasc mass LT DATE OF EXAM: 04/01/2023 COMPARISON: NONE CLINICAL INDICATION: Male, 57 years old with history of r/o left septic bursitis; fall a few days ago , now leaking green discharge from large swollen lump TECHNIQUE: Soft tissue left elbow scan FINDINGS: Complex fluid collection seen that could correlate for septic bursitis color Doppler flow around this region is mild but may be secondary to technique. There is soft tissue skin thickening. IMPRESSION: Complex organizing fluid collection suspicious for abscess.
[2023-04-01 13:42] LABS: Erythrocyte Sedimentation Rate 8 mm/hr (0-15)
[2023-04-01 13:46] LABS: ALT 23 U/L (4-49); AST 21 U/L (17-59); African American GFR (CKD) >90 (>60 ml/min/1.73 sqM); Albumin 3.9 g/dL (3.5-5.0); Alkaline Phosphatase 89 U/L (38-126); Anion Gap 7 mmol/L; Blood Urea Nitrogen 16 mg/dL (9-20); C Reactive Protein 2.5 mg/dL (<1.0); Calcium 9.2 mg/dL (8.4-10.2); Carbon Dioxide 22 mmol/L (22-30); Chloride 107 mmol/L (98-107); Glucose 88 mg/dL (74-99); Non-African American GFR(CKD) >90 (>60 ml/min/1.73 sqM); Potassium 4.1 mmol/L (3.5-5.1); Sodium 136 mmol/L (137-145); Total Bilirubin 0.7 mg/dL (0.2-1.3); Total Protein 6.7 g/dL (6.3-8.2)
[2023-04-01] MEDS ORDERED: LIDOCAINE 1% INJ 10MG/ML (20 ML MDV) SQ ONE (14:23)
[2023-04-01] MEDS ORDERED: VANCOMYCIN IV PER PHARMACY 1 EACH MISC MISCELLANE PRN (15:59)
[2023-04-01] MEDS ORDERED: SODIUM CHLORIDE 0.9% 1,000 ML IV STA (16:01)
[2023-04-01] MEDS ORDERED: ALBUTEROL NEBULIZED 1.25 MG/3 ML INHALATION PRN (16:25)
[2023-04-01] MEDS ORDERED: ALBUTEROL HFA INHALER INHALATION PRN (16:25)
[2023-04-01] MEDS ORDERED: DEXTROSE 50% SYRINGE 50 ML IVP PRN ×2 (16:26)
[2023-04-01] MEDS ORDERED: VANCOMYCIN 1,750 MG in SODIUM CHLORIDE 0.9% 500 ML 500 ML IVPB ONE (16:30)
[2023-04-01] MEDS: HYDROmorphone 0.5 MG/0.5 ML SYRINGE IVP PRN (16:38)
[2023-04-01] MEDS ORDERED: ONDANSETRON 4 MG/2 ML VIAL IVP PRN (17:44)
[2023-04-01] MEDS ORDERED: ACETAMINOPHEN TAB 325 MG TAB PO PRN (17:44)
[2023-04-01] MEDS ORDERED: NALOXONE 0.4 MG/ML 1 ML VIAL IV PRN (17:44)
[2023-04-01 17:53] LABS: Glucose,Whole Blood 124 mg/dL (70-110)
[2023-04-01] MEDS: INSULIN ASPART (NovoLOG) 100 UNIT/ML VIAL SQ SCH ×2 (18:19→22:14)
[2023-04-01] MEDS: HYDROmorphone 1 MG/ML 1 ML SYRINGE IVP PRN ×2 (18:25→22:06)
[2023-04-01] MEDS: metFORMIN 500 MG TAB PO SCH (18:27)
[2023-04-01 20:57] LABS: Glucose,Whole Blood 108 mg/dL (70-110)
[2023-04-01] MEDS: SYMBICORT 80-4.5 MCG INHALER INHALATION SCH (21:03)
[2023-04-01] MEDS: PREGABALIN 75 MG CAP PO SCH (22:13)
[2023-04-01] MEDS: atenoloL 25 MG TAB PO SCH (22:13)
[2023-04-01] MEDS: HEPARIN SODIUM,PORCINE 5,000 UNIT/ML 1 ML VIAL SQ SCH (22:14)
[2023-04-02] MEDS: VANCOMYCIN 1,750 MG in SODIUM CHLORIDE 0.9% 500 ML 500 ML IVPB SCH ×3 (01:20→17:08)
[2023-04-02] MEDS: HYDROmorphone 1 MG/ML 1 ML SYRINGE IVP PRN ×6 (01:20→20:03)
--- NOTE | 2023-04-02 02:29 | HP ---
HISTORY AND PHYSICAL CHIEF COMPLAINT: Left elbow and arm swelling. HISTORY OF PRESENT ILLNESS: This is a 57-year-old gentleman who was injured by a piece of wood on the left elbow. Prior to that, the patient has history of fall also. The patient had similar drainage and the patient came to [facility] and admitted for further evaluation and treatment. Some fluid was aspirated and olecranon bursitis was suspected. The patient was admitted for further evaluation and treatment. The ultrasound showed possibly abscess also. There is no history of any fever, rigors, or chills. PAST MEDICAL HISTORY: Reviewed include hyperlipidemia, pneumonia, COPD, rest of the history and chart is also reviewed. HOME MEDICATIONS: Reviewed include oxycodone, doses and rest of medications reviewed. ALLERGIES: Erythromycin. FAMILY HISTORY: History of myocardial infarction in the family. SOCIAL HISTORY: Previous history of smoking. REVIEW OF SYSTEMS: A 14-point review is negative except as mentioned earlier. PHYSICAL EXAMINATION: VITAL SIGNS: Pulse is 65, blood pressure 124/70, respirations 20. HEENT: Conjunctivae normal. NECK: No jugular venous distention. CARDIOVASCULAR: S1, S2 muffled. RESPIRATIONS: ntd ABDOMEN: Soft. nontender. LEGS: No edema, no swelling. NERVOUS SYSTEM: No focal deficit. EXTREMITIES: Significant swelling and pain in the left elbow and proximal part of the left forearm, erythema, redness also present in the olecranon bursitis area, fluctuating mass also present. SKIN: As mentioned earlier. LABORATORY DATA: Reviewed. ASSESSMENT: 1. Left olecranon bursitis, possibly septic, possibly secondary to trauma. 2. Chronic obstructive pulmonary disease. 3. Hyperlipidemia. 4. Multiple complex medical issues. RECOMMENDATIONS: This 57-year-old gentleman presented with multiple complex medical issues, we will monitor the patient closely. I would recommend to initiate broad-spectrum IV antibiotics including vancomycin, obtain the cultures, infectious disease and orthopedic evaluation, symptomatic treatment. Prognosis guarded because of multiple complex medical conditions. Further recommendations to follow. We will initiate the home medications once they are confirmed. MMODL / IJN: [id number] / MTDD
[2023-04-02] MEDS: HYDROcodone/APAP 5-325MG 1 EACH TAB PO PRN (05:46)
[2023-04-02 06:10] LABS: Glucose,Whole Blood 93 mg/dL (70-110)
[2023-04-02] MEDS: INSULIN ASPART (NovoLOG) 100 UNIT/ML VIAL SQ SCH ×4 (06:11→21:43)
[2023-04-02] MEDS: PREGABALIN 75 MG CAP PO SCH ×2 (07:52→21:38)
[2023-04-02] MEDS: HEPARIN SODIUM,PORCINE 5,000 UNIT/ML 1 ML VIAL SQ SCH ×3 (07:52→21:44)
[2023-04-02] MEDS: metFORMIN 500 MG TAB PO SCH ×2 (07:53→17:07)
[2023-04-02] MEDS: predniSONE 10 MG TAB PO SCH (07:53)
[2023-04-02] MEDS: ATORVASTATIN 40 MG TAB PO SCH (07:53)
[2023-04-02] MEDS: DULoxetine HCL 60 MG CAPSULE.DR PO SCH (07:53)
[2023-04-02] MEDS: LINAGLIPTIN 5 MG TABLET PO SCH (07:53)
[2023-04-02] MEDS: PANTOPRAZOLE 40 MG TABLET PO SCH (08:08)
[2023-04-02] MEDS: SYMBICORT 80-4.5 MCG INHALER INHALATION SCH ×2 (08:40→20:26)
[2023-04-02] MEDS: IPRATROPIUM 0.5 MG/2.5 ML NEBU INHALATION SCH ×4 (08:40→20:28)
[2023-04-02] MEDS ORDERED: NON FORMULARY DRUG (Omeprazole 40 MG Capsule.Dr) PO SCH (09:00)
--- NOTE | 2023-04-02 09:54 | P.CNOR ---
History of Present Illness - [facility] Consult date: 04/02/23 History of present illness: Patient is a 57-year-old male who presented to the emergency department yesterday with a chief complaint of left elbow pain. Orthopedics was consulted for left elbow swelling. Patient was seen at bedside this morning sitting up at the edge of the bed currently on IV Vanco. Patient states about 2 weeks ago he developed fall where he landed on his left elbow. He did have a scrape around the tip of his elbow he states currently he does have a scab over this elbow. Patient states this past Saturday he did hit his left elbow has a piece of wood. Patient states over the weekend he did note increase in swelling and redness around the elbow which started to extend down to his wrist and left hand. Patient decided to come to the ER due to the swelling and pain in the left elbow forearm. Patient states since coming to the hospital some swelling in his hand and wrist has decreased, however, he is still having a lot of redness and swelling in the left elbow. Patient states he is able to move his elbow. but does have pain to palpation of the elbow. Patient says in the emergency department they did try and aspirate his elbow. Patient denies chest pain, fever, shortness of breath, nausea, vomiting, change in vision, loss of bowel/bladder control. 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 History of Any Multi-Drug Resistant Organisms: MRSA Year Discovered:: 04/11/21 MDRO Source:: MRSA FACE Additional Past Surgical History / Comment(s): rt cataract and 3 laser procedures r/t uveitis, pain clinic procedure Past Anesthesia/Blood Transfusion Reactions: No Reported Reaction Additional Past Anesthesia/Blood Transfusion Reaction / Comm: Very fearful of needles Past Psychological History: Depression Additional Psychological History / Comment(s): Pt resides with his spouse and son. He has a nebulizer. No other medical equipment. He can drive. Smoking Status: Former smoker Past Alcohol Use History: Occasional Additional Past Alcohol Use History / Comment(s): Pt started smoking in 1977 and is a 1-2.5 ppd smoker. patient quit earlier this month. states he cut down drinking 3 months ago- used to drink daily "all my life" per patient, now he only drinks up to a six pack daily per patient. Past Drug Use History: None Reported - Past Family History Brother(s) Family Medical History: Myocardial Infarction (DC) Additional Family Medical History / Comment(s): Brother had a DC at the age of 51 yrs and is living. Mother Family Medical History: CVA/TIA, Hypertension Additional Family Medical History / Comment(s): Mother has had CVAs. She is living Father Family Medical History: Myocardial Infarction (DC) Additional Family Medical History / Comment(s): Father had a DC at the age of 83 yrs. He is living Medications and Allergies Home Medications Medication Instructions Recorded Confirmed Type DULoxetine HCL [Cymbalta] 60 mg PO DAILY 05/23/17 04/01/23 History atenoloL [Tenormin] 75 mg PO HS 05/23/17 04/01/23 History Adalimumab [Humira(Cf) Pen] 40 mg SQ Q14D 07/06/18 04/01/23 History Atorvastatin [Lipitor] 40 mg PO DAILY 06/14/20 04/01/23 History oxyCODONE-APAP 10-325MG [Percocet 1 tab PO TID PRN 04/11/21 04/01/23 History 10-325 mg] Fluticasone/Umeclidin/Vilanter 1 puff INHALATION RT-DAILY 06/28/22 04/01/23 History [Trelegy Ellipta 100-62.5-25] Pregabalin [Lyrica] 150 mg PO BID 06/28/22 04/01/23 History Albuterol Inhaler [Ventolin Hfa 1 - 2 puff INHALATION RT-QID PRN 04/01/23 04/01/23 History Inhaler] Albuterol Nebulized [Ventolin 1.25 mg INHALATION RT-Q6H PRN 04/01/23 04/01/23 History Nebulized (Accuneb)] Omeprazole [PriLOSEC] 40 mg PO DAILY 04/01/23 04/01/23 History metFORMIN HCL ER [Glucophage XR] 500 mg PO BID 04/01/23 04/01/23 History predniSONE 10 mg PO DAILY 04/01/23 04/01/23 History rOPINIRole HCL [Requip] 0.5 mg PO TID 04/01/23 04/01/23 History sitaGLIPtin [Januvia] 100 mg PO DAILY 04/01/23 04/01/23 History Allergies Allergy/AdvReac Type Severity Reaction Status Date / Time erythromycin base Allergy Severe Dyspnea,hiv Verified 04/01/23 14:09 es Physical Examination Inspection: Erythema and swelling/edema in the left elbow extending distally to the right forearm. Puncture wounds present over the olecranon as well as scab on the tip of the elbow. Negative for any active drainage. Sensation: Equal, symmetric, bilaterally intact throughout the upper extremities Palpation: Moderate to severe tenderness to palpation over the olecranon and diffusely around the elbow and left forearm. Nontender to palpation throughout rest of exam. Range of motion: Patient has full range of motion in the shoulder. Forward elevation, abduction, external and internal rotation. Patient does have point motion in left wrist flexion/extension. Patient is able to wiggle digits in the left hand. Patient does have decreased range of motion left elbow but he does lack several degrees of full extension left elbow. Motor: 4/5 in all major motor groups in left upper extremity Neurovascular: Radial pulse intact, 2+ bilateral. Capillary refill under 3 seconds in digits upper extremities Special tests: Negative Homans bilaterally. Results - Labs Labs: Abnormal Lab Results - Last 24 Hours (Table) 04/01/23 04/01/23 04/01/23 Range/Units 12:39 12:39 17:52 Hgb 17.9 H (13.0-17.5) gm/dL Sodium 136 L (137-145) mmol/L POC Glucose (mg/dL) 124 H (70-110) mg/dL C-Reactive Protein 2.5 H (<1.0) mg/dL H & H 04/01/23 Range/Units 12:39 Hgb 17.9 H (13.0-17.5) gm/dL Hct 52.0 (39.0-53.0) % Result Diagrams: 04/01/23 12:39 04/01/23 12:39 - Diagnostic results Elbow x-ray: report reviewed, image reviewed (Left elbow x-rays negative for any fractures. There is evidence swelling to the left elbow likely septic bursitis) Assessment and Plan Assessment: 1. Septic olecranon bursitis left upper extremity; possible foreign body left elbow Plan: 1. Septic olecranon bursitis left upper extremity; possible foreign body left elbow - patient was seen at bedside this morning. On exam Patient does present with extensive swelling to the left elbow and forearm. X-ray left elbow does present with swelling, likely infection cellulitis. Patient currently on IV vancomycin. ESR and CRP are elevated. Patient does likely have septic bursitis of the left elbow. I did talk with my attending, Dr. Jack. At this time we plan to move forward with surgery tomorrow, 04/03/2023 for I&D of the left elbow. Patient to be nothing by mouth being tonight at midnight. Withhold blood thinners at this time. We'll continue to follow patient during his stay in hospital. 2. Appreciate medical management 3. Pain management - [place]; Tylenol; Dilaudid 4. GI prophylaxis - Protonix 5. DVT prophylaxis - withhold blood thinners at this time 6. PT/OT - weightbearing as tolerated 7. Encourage incentive spirometer use 8. Appreciate consult Time with Patient: Less than 30
[2023-04-02 11:06] LABS: Basophils # (A) 0.04 X 10*3/uL (0.00-0.10); Basophils % (A) 0.5 %; Eosinophils # (A) 0.21 X 10*3/uL (0.04-0.35); Eosinophils % (A) 2.6 %; HCT 46.3 % (39.6-50.0); Lymphocytes # (A) 1.71 X 10*3/uL (0.90-5.00); Lymphocytes % (A) 21.5 %; MCH 33.2 pg (27.0-32.0); MCHC 34.6 d/dL (32.0-37.0); MCV 96.1 FL (80.0-97.0); Mean Platelet Volume 12.7 FL (9.5-12.2); Monocytes # (A) 0.89 X 10*3/uL (0.20-1.00); Monocytes % (A) 11.2 %; NRBC Per 100 WBC 0 X 10*3/uL (0.00-0.01); Neutrophils # (A) 5.06 X 10*3/uL (1.80-7.70); Neutrophils % (A) 63.8 %; Platelet Count 146 X 10*3/uL (140-440); RBC 4.82 X 10*6/uL (4.40-5.60); RDW 13.6 % (11.5-14.5); WBC 7.94 X 10*3/uL (4.50-10.00)
[2023-04-02 11:07] LABS: BUN/Creat Ratio 16.38 Ratio (12.00-20.00); Blood Urea Nitrogen 13.1 mg/dL (9.0-27.0); Calcium 8.8 mg/dL (8.7-10.3); Carbon Dioxide 22.7 mmol/L (21.6-31.8); Chloride 107 mmol/L (96-109); Glucose 91 mg/dL (70-110); Sodium 141 mmol/L (135-145)
[2023-04-02 11:12] LABS: Glucose,Whole Blood 132 mg/dL (70-110)
[2023-04-02 16:14] LABS: Glucose,Whole Blood 187 mg/dL (70-110)
[2023-04-02 20:11] LABS: Glucose,Whole Blood 114 mg/dL (70-110)
--- NOTE | 2023-04-02 20:26 | PN ---
PROGRESS NOTE DATE OF SERVICE: 04/02/2023 SUBJECTIVE: This 57-year-old gentleman who was admitted with left elbow swelling and olecranon bursitis. The patient is slated to undergo surgery by Orthopedic surgery. No chest pain, no palpitations. OBJECTIVE: VITAL SIGNS: Pulse is 54, blood pressure 120/76, respirations 16. CHEST: Clear to auscultation. CARDIOVASCULAR: S1, S2. ABDOMEN: Soft. EXTREMITIES: Left elbow is swollen, left forearm is also the forearm is also. LABORATORY DATA: Reviewed. ASSESSMENT: 1. Left olecranon bursitis, possibly septic secondary to trauma. 2. COPD. 3. Hyperlipidemia. 4. Multiple complex medical issues. RECOMMENDATIONS: Recommended to continue current management and continue symptomatic treatment, otherwise continue the empiric antibiotics. Follow the cultures. Surgery by Orthopedic surgery. DVT prophylaxis. Further recommendations to follow. MMODL / ASHLEYN: [id number] /
[2023-04-02] MEDS: atenoloL 25 MG TAB PO SCH (21:37)
--- NOTE | 2023-04-02 22:06 | P.CONS ---
History of Present Illness - Reason for Consult Consult date: 04/02/23 Bursitis Requesting physician: Anahi Moy - Chief Complaint Left elbow pain and swelling x days - History of Present Illness Patient is a 57-year male with a past medical history significant for hyperlipidemia COPD Parkinson disease presenting to the ER for evaluation of left elbow swelling and pain, patient did have a fall about 2 weeks ago with the patient landed on his left elbow which has scraped tip of his elbow which initially scabbed over however since last Saturday there has been increasing pain swelling and redness patient describes the pain to be mostly sharp in nature almost 10 out of 10 in severity with associated swelling redness and some radi ation of the pain to the upper arm and forearm, and did have some purulent drainage with this and the patient presented to the hospital on presentation to the hospital patient was afebrile and no fever has been guarded subsequently patient did have a normal white count kidney function was normal patient did have a ultrasound which did shows complex organizing fluid collection suspicious for abscess patient did have attempted aspirate of the area by the ER physician culture has been obtained patient was started on vancomycin infectious disease was consulted for further management of antibiotic therapy Review of Systems Positive point and negatives has been mentioned in the HPI, complete review of systems was performed and all other systems are negative Past Medical History Past Medical History: COPD, Hyperlipidemia, Pneumonia, Skin Disorder Additional Past Medical History / Comment(s): Current pneumonia with antibiotic, parkinson's disease, bronchitis, anykylosing spondylitis,rt eye uveitis, monocular vision rt eye, HLAB27 positive autoimmune disease, ankylosing spondyitis, chronic back/cervical pain-2 herniated disks, degenerative disk disease, lumbar collapsed vertebrae with pinched nerves, numbness bilateral legs, 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 History of Any Multi-Drug Resistant Organisms: MRSA Year Discovered:: 04/11/21 MDRO Source:: MRSA FACE Additional Past Surgical History / Comment(s): rt cataract and 3 laser procedures r/t uveitis, pain clinic procedure Past Anesthesia/Blood Transfusion Reactions: No Reported Reaction Additional Past Anesthesia/Blood Transfusion Reaction / Comm: Very fearful of needles Past Psychological History: Depression Additional Psychological History / Comment(s): Pt resides with his spouse and son. He has a nebulizer. No other medical equipment. He can drive. Smoking Status: Former smoker Past Alcohol Use History: Occasional Additional Past Alcohol Use History / Comment(s): Pt started smoking in 1977 and is a 1-2.5 ppd smoker. patient quit earlier this month. states he cut down drinking 3 months ago- used to drink daily "all my life" per patient, now he only drinks up to a six pack daily per patient. Past Drug Use History: None Reported - Past Family History Brother(s) Family Medical History: Myocardial Infarction (IA) Additional Family Medical History / Comment(s): Brother had a IA at the age of 51 yrs and is living. Mother Family Medical History: CVA/TIA, Hypertension Additional Family Medical History / Comment(s): Mother has had CVAs. She is living Father Family Medical History: Myocardial Infarction (IA) Additional Family Medical History / Comment(s): Father had a IA at the age of 83 yrs. He is living Medications and Allergies Home Medications Medication Instructions Recorded Confirmed Type DULoxetine HCL [Cymbalta] 60 mg PO DAILY 05/23/17 04/01/23 History atenoloL [Tenormin] 75 mg PO HS 05/23/17 04/01/23 History Adalimumab [Humira(Cf) Pen] 40 mg SQ Q14D 07/06/18 04/01/23 History Atorvastatin [Lipitor] 40 mg PO DAILY 06/14/20 04/01/23 History oxyCODONE-APAP 10-325MG [Percocet 1 tab PO TID PRN 04/11/21 04/01/23 History 10-325 mg] Fluticasone/Umeclidin/Vilanter 1 puff INHALATION RT-DAILY 06/28/22 04/01/23 History [Trelegy Ellipta 100-62.5-25] Pregabalin [Lyrica] 150 mg PO BID 06/28/22 04/01/23 History Albuterol Inhaler [Ventolin Hfa 1 - 2 puff INHALATION RT-QID PRN 04/01/23 04/01/23 History Inhaler] Albuterol Nebulized [Ventolin 1.25 mg INHALATION RT-Q6H PRN 04/01/23 04/01/23 History Nebulized (Accuneb)] Omeprazole [PriLOSEC] 40 mg PO DAILY 04/01/23 04/01/23 History metFORMIN HCL ER [Glucophage XR] 500 mg PO BID 04/01/23 04/01/23 History predniSONE 10 mg PO DAILY 04/01/23 04/01/23 History rOPINIRole HCL [Requip] 0.5 mg PO TID 04/01/23 04/01/23 History sitaGLIPtin [Januvia] 100 mg PO DAILY 04/01/23 04/01/23 History Allergies Allergy/AdvReac Type Severity Reaction Status Date / Time erythromycin base Allergy Severe Dyspnea,hiv Verified 04/01/23 14:09 es Physical Exam Vitals: Vital Signs Temp Pulse Pulse Resp BP BP Pulse Ox 04/02/23 07:15 97.6 F 54 L 16 122/76 94 L 04/02/23 02:00 97.7 F 54 L 16 103/58 94 L 04/01/23 20:00 98.7 F 63 17 134/77 97 04/01/23 18:00 90 18 132/78 98 04/01/23 17:00 80 18 132/78 100 Intake and Output 04/01/23 04/02/23 04/02/23 22:59 06:59 14:59 Intake Total 2200 Balance 2200 Intake: Intake, IV Titration 2200 Amount Sodium Chloride 0.9% 1, 1200 000 ml @ 100 mls/hr IV . Q10H STA Rx#:[id number] Vancomycin 1,750 mg In 500 Sodium Chloride 0.9% 500 ml 500 ml @ 167 mls/hr IVPB ONCE ONE Rx#: [id number] Vancomycin 1,750 mg In 500 Sodium Chloride 0.9% 500 ml 500 ml @ 167 mls/hr IVPB Q8H [place] Rx#: [id number] Other: # Voids 0 Weight 102.058 kg GENERAL DESCRIPTION: Middle-aged male lying in bed, no distress. No tachypnea or accessory muscle of respiration use. HEENT: Shows Pallor , no scleral icterus. Oral mucous membrane is dry. No pharyngeal erythema or thrush NECK: Trachea central, no thyromegaly. LUNGS: Unlabored breathing. Clear to auscultation anteriorly. No wheeze or crackle. HEART: S1, S2, regular rate and rhythm. No loud murmur ABDOMEN: Soft, no tenderness , guarding or rigidity, no organomegaly EXTREMITIES: Left elbow did have superficial abrasion with significant swelling redness warmth and tenderness to touch SKIN: No rash, no masses palpable. NEUROLOGICAL: The patient is awake, alert, oriented x3, mood and affect normal. Results CBC & Chem 7: 04/04/23 06:07 04/04/23 06:07 Labs: Abnormal Lab Results - Last 24 Hours (Table) 04/01/23 04/01/23 04/01/23 Range/Units 12:39 12:39 17:52 Hgb 17.9 H (13.0-17.5) gm/dL MCH (27.0-32.0) pg MPV (9.5-12.2) FL Sodium 136 L (137-145) mmol/L POC Glucose (mg/dL) 124 H (70-110) mg/dL C-Reactive Protein 2.5 H (<1.0) mg/dL 04/02/23 04/02/23 Range/Units 04:01 11:10 Hgb (13.0-17.5) gm/dL MCH 33.2 H (27.0-32.0) pg MPV 12.7 H (9.5-12.2) FL Sodium (137-145) mmol/L POC Glucose (mg/dL) 132 H (70-110) mg/dL C-Reactive Protein (<1.0) mg/dL Microbiology - Last 24 Hours (Table) 04/01/23 16:30 Gram Stain - Preliminary Elbow - Left Assessment and Plan (1) Septic bursitis of elbow Current Visit: Yes Status: Acute Code(s): M71.129 - OTHER INFECTIVE BURSITIS, UNSPECIFIED ELBOW SNOMED Code(s): 157483976 Plan: 1patient with a left elbow abscess and cellulitis started with the scratch from a fall with associated swelling and redness and concerning for complex fluid collection on the ultrasound possibly abscess and likely from gram-positive skin karl 2-await surgical drainage and deep cultures 3-vancomycin pharmacy to dose with a target trough of 15 while watching kidney function and Vanco trough closely. We will follow on clinical condition and cultures to further adjust medication if needed Thank you for this consultation we will follow the patient along with you Dictation was produced using [employer] dictation software. please excuse any grammatical, word or spelling errors. Time with Patient: Greater than 30
[2023-04-03] MEDS: VANCOMYCIN 1,750 MG in SODIUM CHLORIDE 0.9% 500 ML 500 ML IVPB SCH ×3 (01:28→20:45)
[2023-04-03 06:28] LABS: Glucose,Whole Blood 141 mg/dL (70-110)
[2023-04-03] MEDS: metFORMIN 500 MG TAB PO SCH ×2 (07:32→17:04)
[2023-04-03] MEDS: PANTOPRAZOLE 40 MG TABLET PO SCH (07:33)
[2023-04-03] MEDS: INSULIN ASPART (NovoLOG) 100 UNIT/ML VIAL SQ SCH ×4 (07:34→20:46)
[2023-04-03] MEDS ORDERED: VANCOMYCIN TROUGH DUE 1 EACH MISC MISCELLANE ONE (08:00)
[2023-04-03] MEDS: IPRATROPIUM 0.5 MG/2.5 ML NEBU INHALATION SCH ×4 (08:05→20:27)
[2023-04-03] MEDS: SYMBICORT 80-4.5 MCG INHALER INHALATION SCH ×2 (08:05→20:22)
[2023-04-03] MEDS: HEPARIN SODIUM,PORCINE 5,000 UNIT/ML 1 ML VIAL SQ SCH ×3 (08:15→22:15)
[2023-04-03] MEDS: PREGABALIN 75 MG CAP PO SCH ×2 (08:16→20:46)
[2023-04-03] MEDS: predniSONE 10 MG TAB PO SCH (08:16)
[2023-04-03] MEDS: DULoxetine HCL 60 MG CAPSULE.DR PO SCH (08:16)
[2023-04-03] MEDS: LINAGLIPTIN 5 MG TABLET PO SCH (08:16)
[2023-04-03] MEDS: ATORVASTATIN 40 MG TAB PO SCH (08:16)
[2023-04-03 08:45] LABS: African American GFR (CKD) >90 (>60 ml/min/1.73 sqM); Anion Gap 7 mmol/L; Blood Urea Nitrogen 11 mg/dL (9-20); Calcium 8.7 mg/dL (8.4-10.2); Carbon Dioxide 23 mmol/L (22-30); Chloride 109 mmol/L (98-107); Glucose 115 mg/dL (74-99); Non-African American GFR(CKD) >90 (>60 ml/min/1.73 sqM); Potassium 3.9 mmol/L (3.5-5.1); Sodium 139 mmol/L (137-145)
--- NOTE | 2023-04-03 09:03 | P.PN ---
Subjective Progress Note Date: 04/03/23 Principal diagnosis: Septic olecranon bursitis left upper extremity; possible foreign body left elbow Patient was seen at bedside this morning sitting up in the edge of the bed. P tai says he feels that the swelling in his arm has improved, however, patient still says he has pain over the left elbow. Patient denies any other changes at this time. Denies chest pain, fever, shortness of breath, nausea, vomiting, change in vision, loss of bladder control. Objective - Vital Signs Vital signs: Vital Signs Temp 97.2 F L 04/03/23 07:20 Pulse 61 04/03/23 07:20 Resp 15 04/03/23 07:20 BP 158/70 04/03/23 07:20 Pulse Ox 97 04/03/23 07:20 FiO2 Intake & Output 04/02/23 04/03/23 04/03/23 18:59 06:59 18:59 Intake Total 1680 Balance 1680 Intake: Oral 1680 Other: # Voids 5 3 - Exam Inspection: Erythema and swelling/edema improving in the left elbow extending distally to the right forearm. Puncture wounds present over the olecranon as well as scab on the tip of the elbow. Negative for any active drainage. Sensation: Equal, symmetric, bilaterally intact throughout the upper extremities Palpation: Moderate tenderness to palpation over the olecranon and diffusely around the elbow and left forearm. Nontender to palpation throughout rest of exam. Range of motion: Patient has full range of motion in the shoulder. Forward elevation, abduction, external and internal rotation. Patient does have point motion in left wrist flexion/extension. Patient is able to wiggle digits in the left hand. Patient does have decreased range of motion left elbow but he does lack several degrees of full extension left elbow. Motor: 4/5 in all major motor groups in left upper extremity Neurovascular: Radial pulse intact, 2+ bilateral. Capillary refill under 3 seconds in digits upper extremities Special tests: Negative Homans bilaterally. - Labs CBC & Chem 7: 04/02/23 04:01 04/03/23 08:01 Labs: Abnormal Lab Results - Last 24 Hours (Table) 04/02/23 04/02/23 04/02/23 Range/Units 04:01 04:01 11:10 MCH 33.2 H (27.0-32.0) pg MPV 12.7 H (9.5-12.2) FL POC Glucose (mg/dL) 132 H (70-110) mg/dL Hemoglobin A1c 6.8 H (<=6.0) % 04/02/23 04/02/23 04/03/23 Range/Units 16:13 20:10 06:26 MCH (27.0-32.0) pg MPV (9.5-12.2) FL POC Glucose (mg/dL) 187 H 114 H 141 H (70-110) mg/dL Hemoglobin A1c (<=6.0) % Microbiology - Last 24 Hours (Table) 04/01/23 12:47 Blood Culture - Preliminary Blood 04/01/23 12:22 Blood Culture - Preliminary Blood 04/01/23 16:30 Gram Stain - Preliminary Elbow - Left Assessment and Plan Assessment: 1. Septic olecranon bursitis left upper extremity; possible foreign body left elbow Plan: 1. Septic olecranon bursitis left upper extremity; possible foreign body left elbow - patient was seen at bedside this morning. On exam Patient does present with extensive swelling to the left elbow and forearm, but does seem to be improving. Patient currently on IV vancomycin. ESR and CRP are elevated. Patient does likely have septic bursitis of the left elbow. I did talk with my attending, Dr. Jack. At this time we plan to move forward with surgery today, 04/03/2023 for I&D of the left elbow. Patient to be nothing by mouth. Withhold blood thinners at this time. We'll continue to follow patient during his stay in hospital. 2. Appreciate medical management 3. Pain management - Dupree; Tylenol; Dilaudid 4. GI prophylaxis - Protonix 5. DVT prophylaxis - withhold blood thinners at this time 6. PT/OT - weightbearing as tolerated 7. Encourage incentive spirometer use Time with Patient: Less than 30
[2023-04-03] MEDS: HYDROmorphone 1 MG/ML 1 ML SYRINGE IVP PRN ×4 (10:27→21:45)
[2023-04-03 11:44] LABS: Glucose,Whole Blood 113 mg/dL (70-110)
--- NOTE | 2023-04-03 12:37 | PN ---
PROGRESS NOTE DATE OF SERVICE: 04/03/2023 SUBJECTIVE: This is a 57-year-old gentleman who was admitted with left olecranon bursitis, septic arthritis, being closely monitored. No chest pain, no palpitations, no fever. OBJECTIVE: VITAL SIGNS: Pulse is 54, blood pressure 130/70, respirations 15. CHEST: Clear to auscultation. CARDIOVASCULAR: S1, S2. ABDOMEN: Soft. EXTREMITIES: Left elbow is painful, swollen. Fluctuant mass present. LABORATORY DATA: Reviewed. ASSESSMENT: 1. Left olecranon bursitis with possible sepsis present on admission secondary to trauma. 2. Chronic obstructive pulmonary disease. 3. Hyperlipidemia. 4. Multiple complex medical issues. RECOMMENDATIONS: Recommended to continue current management, continue symptomatic treatment, otherwise repeat labs. I&D planned by Orthopedic surgery. Guarded prognosis. Further recommendations to follow. MMODL / IJN: [id number] /
[2023-04-03] MEDS ORDERED: LACTATED RINGERS 1,000 ML IV ONE (12:58)
[2023-04-03 13:13] LABS: Glucose,Whole Blood 115 mg/dL (70-110)
[2023-04-03] MEDS ORDERED: ONDANSETRON 4 MG/2 ML VIAL IVP ONE (13:16)
[2023-04-03] MEDS ORDERED: DEXAMETHASONE SOD PHOSPHATE 4 MG/ML 1 ML VIAL IVP ONE (13:17)
[2023-04-03] MEDS ORDERED: HYDROCORTISONE SUCCINATE 100 MG/2 ML VIAL IVP ONE (13:40)
[2023-04-03] MEDS ORDERED: fentaNYL (PF) 50 MCG/ML 2 ML AMP ONE (13:45)
[2023-04-03] MEDS ORDERED: SUCCINYLCHOLINE CHLORIDE 200 MG/10 ML VIAL IV ONE (13:45)
[2023-04-03] MEDS ORDERED: LIDOCAINE 2% INJ 20 MG/ML (2 ML VIAL) ONE (13:45)
[2023-04-03] MEDS ORDERED: PROPOFOL 10 MG/ML 20 ML VIAL IV ONE (13:45)
[2023-04-03] MEDS ORDERED: ePHEDrine 50 MG/ML 1 ML VIAL ONE (13:45)
[2023-04-03] MEDS ORDERED: MIDAZOLAM 2 MG/2 ML VIAL ONE (13:45)
[2023-04-03] MEDS ORDERED: ceFAZolin 3,000 MG in SODIUM CHLORIDE 0.9% IRRIGATIO 3,000 ML IRRIGATION ONE (14:16)
[2023-04-03 14:21] LABS: Basophils # (A) 0.02 X 10*3/uL (0.00-0.10); Basophils % (A) 0.3 %; Eosinophils # (A) 0.22 X 10*3/uL (0.04-0.35); Eosinophils % (A) 3.5 %; HCT 45.3 % (39.6-50.0); HGB 15.6 d/dL (13.0-17.0); Lymphocytes % (A) 22.4 %; MCH 33.1 pg (27.0-32.0); MCHC 34.4 d/dL (32.0-37.0); MCV 96.2 FL (80.0-97.0); Mean Platelet Volume 12.7 FL (9.5-12.2); Monocytes # (A) 0.67 X 10*3/uL (0.20-1.00); Monocytes % (A) 10.7 %; NRBC Per 100 WBC 0 X 10*3/uL (0.00-0.01); Neutrophils # (A) 3.93 X 10*3/uL (1.80-7.70); Neutrophils % (A) 62.8 %; Platelet Count 148 X 10*3/uL (140-440); RBC 4.71 X 10*6/uL (4.40-5.60); RDW 13.3 % (11.5-14.5); WBC 6.26 X 10*3/uL (4.50-10.00)
--- NOTE | 2023-04-03 14:43 | P.OP ---
Date of Procedure: 04/03/23 Preoperative Diagnosis: Left olecranon bursitisseptic Postoperative Diagnosis: Same Procedure(s) Performed: Irrigation and debridement/incision and drainage left septic olecranon bursitis Anesthesia: SANJUANITA Surgeon: Gabriel Jack Victims Advocate Clerk/Specialist #1: Rolan Chen Estimated Blood Loss (ml): 10 Pathology: other (Deep cultures/Gram stain) Condition: stable Disposition: PACU Indications for Procedure: The patient is a 57-year-old male presents with a two-week history of left elbow pain, redness, swelling, and drainage after an injury. Upon evaluation he was noted have septic left olecranon bursitis. A discussion of the risks and benefits of surgery was made with patient. He opted to proceed with surgery. Operative risks to include persistence of infection and need for subsequent procedures was discussed. Informed consent was obtained. Operative Findings: As below Description of Procedure: The patient was brought to the operating room, and after induction of general anesthesia the left upper extremity was prepped and draped in normal fashion. The limb was elevated to facilitate exsanguination. The tourniquet was inflated to 250 mmHg. An 8 cm incision was then made centered over the olecranon and the palpable fluctuance and open wound. The skin was incised sharply. Subcutaneous tissues were divided sharply. Electrocautery was used for hemostasis. A wide bursectomy was performed with a scalpel down to the olecranon/bone. Deep cultures were obtained. This was then copiously irrigated with 3 L of saline mixed with. The skin was reapproximated over a Ben drain with simple 3-0 nylon suture. A sterile dressing was applied. The tourniquet was deflated with less than 30 minutes total tourniquet time. The patient was awoken from general anesthesia and transferred to recovery room in good condition. Blood loss was estimated at 10 mL. No complications were incurred. Sponge and needle counts were correct in the case.
[2023-04-03] MEDS ORDERED: HYDROmorphone 0.5 MG/0.5 ML SYRINGE IVP ONE (15:10)
[2023-04-03 16:16] LABS: Glucose,Whole Blood 149 mg/dL (70-110)
[2023-04-03] MEDS: HYDROcodone/APAP 5-325MG 1 EACH TAB PO PRN (17:12)
[2023-04-03 20:09] LABS: Glucose,Whole Blood 223 mg/dL (70-110)
[2023-04-03] MEDS: atenoloL 25 MG TAB PO SCH (21:44)
[2023-04-04] MEDS: KETOROLAC 15 MG/ML 1 ML VIAL IVP PRN ×3 (00:29→17:36)
[2023-04-04 05:30] LABS: Glucose,Whole Blood 96 mg/dL (70-110)
[2023-04-04] MEDS: INSULIN ASPART (NovoLOG) 100 UNIT/ML VIAL SQ SCH ×4 (06:43→21:59)
[2023-04-04] MEDS: PANTOPRAZOLE 40 MG TABLET PO SCH (07:02)
[2023-04-04] MEDS: metFORMIN 500 MG TAB PO SCH ×2 (07:02→16:54)
[2023-04-04 07:16] LABS: African American GFR (CKD) >90 (>60 ml/min/1.73 sqM); Anion Gap 7 mmol/L; Blood Urea Nitrogen 11 mg/dL (9-20); Calcium 8.2 mg/dL (8.4-10.2); Carbon Dioxide 22 mmol/L (22-30); Chloride 107 mmol/L (98-107); Glucose 83 mg/dL (74-99); Non-African American GFR(CKD) >90 (>60 ml/min/1.73 sqM); Potassium 3.8 mmol/L (3.5-5.1); Sodium 136 mmol/L (137-145)
[2023-04-04] MEDS: VANCOMYCIN 1,750 MG in SODIUM CHLORIDE 0.9% 500 ML 500 ML IVPB SCH ×2 (08:09→22:05)
[2023-04-04] MEDS: PREGABALIN 75 MG CAP PO SCH ×2 (08:09→22:05)
[2023-04-04] MEDS: DULoxetine HCL 60 MG CAPSULE.DR PO SCH (08:10)
[2023-04-04] MEDS: LINAGLIPTIN 5 MG TABLET PO SCH (08:10)
[2023-04-04] MEDS: HEPARIN SODIUM,PORCINE 5,000 UNIT/ML 1 ML VIAL SQ SCH ×2 (08:10→22:05)
[2023-04-04] MEDS: predniSONE 10 MG TAB PO SCH (08:10)
[2023-04-04] MEDS: ATORVASTATIN 40 MG TAB PO SCH (08:10)
--- NOTE | 2023-04-04 08:22 | P.PN ---
Subjective Progress Note Date: 04/04/23 Principal diagnosis: Septic olecranon bursitis left upper extremity; possible foreign body left elbow Patient was seen at bedside this morning sitting up to the bed eating breakfast. There is Lobo bandage present over left elbow. Patient states he feels that the swelling in the elbow has gone down since surgery was performed. However, patient says he doesincreased swelling in the left hand/wrist since surgery. Patient says his pain is well-controlled pain medication. Patient states he is not having any other issues at this time. Patient denies chest pain, fever, shortness breath, nausea, vomiting, change in vision, loss of bowel/bladder control. Patient denies any numbness down the left arm. Objective - Vital Signs Vital signs: Vital Signs Temp 97.6 F 04/04/23 01:27 Pulse 50 L 04/04/23 01:27 Resp 16 04/04/23 01:27 BP 106/64 04/04/23 01:27 Pulse Ox 97 04/04/23 01:27 FiO2 Intake & Output 04/03/23 04/04/23 04/04/23 18:59 06:59 18:59 Intake Total 801 Output Total 10 Balance 791 Intake: IV 801 Output: Estimated Blood Loss 10 Other: # Voids 3 2 - Exam Lobo bandage present to the left upper extremity over the elbow at this time. There is some swelling present in the left wrist/hand. Patient is able to fully flex and extend left wrist. Patient does have full range of motion left shoulder and forward elevation, abduction, external and internal rotation. There is some limited range of motion of left elbow due to the bandage pain in the elbow. Radial pulse intact, 2+ bilaterally. Cap refill under 3 seconds in digits of upper extremities. There is a fair amount of tenderness supination diffusely throughout the left elbow. Nontender to palpation throughout rest of exam. Dressing to be left in place and may be taken down this evening. - Labs CBC & Chem 7: 04/03/23 08:04/04/23 06:07 Labs: Abnormal Lab Results - Last 24 Hours (Table) 04/03/23 04/03/23 04/03/23 Range/Units 08: 08: 11:43 MCH 33.1 H (27.0-32.0) pg MPV 12.7 H (9.5-12.2) FL Sodium (137-145) mmol/L Chloride 109 H (98-107) mmol/L Creatinine (0.66-1.25) mg/dL Glucose 115 H (74-99) mg/dL POC Glucose (mg/dL) 113 H (70-110) mg/dL Calcium (8.4-10.2) mg/dL 04/03/23 04/03/23 04/03/23 Range/Units 13:11 16:14 20:08 MCH (27.0-32.0) pg MPV (9.5-12.2) FL Sodium (137-145) mmol/L Chloride (98-107) mmol/L Creatinine (0.66-1.25) mg/dL Glucose (74-99) mg/dL POC Glucose (mg/dL) 115 H 149 H 223 H (70-110) mg/dL Calcium (8.4-10.2) mg/dL 04/04/23 Range/Units 06:07 MCH (27.0-32.0) pg MPV (9.5-12.2) FL Sodium 136 L (137-145) mmol/L Chloride (98-107) mmol/L Creatinine 0.65 L (0.66-1.25) mg/dL Glucose (74-99) mg/dL POC Glucose (mg/dL) (70-110) mg/dL Calcium 8.2 L (8.4-10.2) mg/dL Microbiology - Last 24 Hours (Table) 04/01/23 12:47 Blood Culture - Preliminary Blood 04/01/23 12:22 Blood Culture - Preliminary Blood 04/01/23 16:30 Gram Stain - Preliminary Elbow - Left Wound Culture - Preliminary Assessment and Plan Assessment: Left olecranon bursitisseptic - Postop day 1 status post Irrigation and debridement/incision and drainage left septic olecranon bursitis Plan: 1. Left olecranon bursitisseptic - surgery was performed yesterday, 04/03/2023 Irrigation and debridement/incision and drainage left septic olecranon bursitis. patient was seen at bedside this morning. Lobo bandage present to left upper extremity over elbow. We'll maintain dressing at this time. Plan for possible removal of drain tomorrow morning and dressing change. Patient currently on IV vancomycin. Cultures pending at this time. Pain medic ation as needed. Weightbearing as tolerated. We'll continue to follow patient during his stay in hospital. 2. Appreciate medical management 3. Pain management - Parrish; Tylenol; Dilaudid 4. GI prophylaxis - Protonix 5. DVT prophylaxis -heparin 6. PT/OT - weightbearing as tolerated 7. Encourage incentive spirometer use Time with Patient: Less than 30
[2023-04-04] MEDS: HYDROmorphone 1 MG/ML 1 ML SYRINGE IVP PRN ×2 (08:54→14:20)
[2023-04-04] MEDS: SYMBICORT 80-4.5 MCG INHALER INHALATION SCH ×2 (08:58→20:33)
[2023-04-04] MEDS: IPRATROPIUM 0.5 MG/2.5 ML NEBU INHALATION SCH ×4 (09:06→20:34)
[2023-04-04 10:51] LABS: Basophils # (A) 0.02 X 10*3/uL (0.00-0.10); Basophils % (A) 0.3 %; Eosinophils # (A) 0.18 X 10*3/uL (0.04-0.35); Eosinophils % (A) 2.6 %; HCT 39.9 % (39.6-50.0); HGB 13.1 d/dL (13.0-17.0); Lymphocytes # (A) 1.43 X 10*3/uL (0.90-5.00); Lymphocytes % (A) 20.6 %; MCH 32.2 pg (27.0-32.0); MCHC 32.8 d/dL (32.0-37.0); Mean Platelet Volume 12.1 FL (9.5-12.2); Monocytes # (A) 0.61 X 10*3/uL (0.20-1.00); Monocytes % (A) 8.8 %; NRBC Per 100 WBC 0 X 10*3/uL (0.00-0.01); Neutrophils # (A) 4.66 X 10*3/uL (1.80-7.70); Neutrophils % (A) 67.3 %; Platelet Count 144 X 10*3/uL (140-440); RBC 4.07 X 10*6/uL (4.40-5.60); RDW 13.3 % (11.5-14.5); WBC 6.93 X 10*3/uL (4.50-10.00)
[2023-04-04 11:13] LABS: Glucose,Whole Blood 125 mg/dL (70-110)
--- NOTE | 2023-04-04 13:19 | PN ---
PROGRESS NOTE DATE OF SERVICE: 04/04/2023 SUBJECTIVE: This is a 57-year-old gentleman admitted with left olecranon septic bursitis, had incision and drainage. No chest pain. No palpitation. Cultures are negative. OBJECTIVE: VITAL SIGNS: Pulse is 50, blood pressure 106/64, respirations 16. CHEST: Clear to auscultation. CARDIOVASCULAR: S1 and S2. ABDOMEN: Soft. EXTREMITIES: Left elbow status post surgery, incision and drainage. LABORATORY DATA: Reviewed. ASSESSMENT: 1. Left olecranon bursitis, posttraumatic, with possible sepsis present on admission, status post incision and drainage. 2. Chronic obstructive pulmonary disease. 3. Hyperlipidemia. 4. Multiple complex medical issues. RECOMMENDATIONS: Recommend to continue current medications. Continue symptomatic treatment. The patient is on antibiotics. Otherwise, closely follow with Orthopedic Surgery and as well as Infectious Disease. Further recommendations to follow. MMODL / IJN: [id number] /
--- NOTE | 2023-04-04 15:33 | P.PN ---
Subjective Progress Note Date: 04/03/23 Principal diagnosis: Left elbow olecranon bursitis Patient is a 57-year male with a past medical history significant for hyperlipidemia COPD Parkinson disease presenting to the ER for evaluation of left elbow swelling and pain, started with a trauma 2 weeks prior to admission to the hospital patient did have abnormal ultrasound suggestive of abscess. on today's evaluation that is 04/03/2023, the patient denies having any fever or any chills, the patient is breathing comfortably on room air no chest pain shortness of the cough no nausea no vomiting no abdominal pain recommending a pain to the left elbow area Patient did have a hemoglobin of 15.6 white count 6.26 creatinine 0.66, blood culture so far pending Objective - Vital Signs Vital signs: Vital Signs Temp 97.2 F L 04/03/23 07:20 Pulse 61 04/03/23 07:20 Resp 15 04/03/23 07:20 BP 158/70 04/03/23 07:20 Pulse Ox 97 04/03/23 07:20 FiO2 Intake & Output 04/02/23 04/03/23 04/03/23 18:59 06:59 18:59 Intake Total 1680 Balance 1680 Intake: Oral 1680 Other: # Voids 5 3 - Exam GENERAL DESCRIPTION: Middle-age male lying in bed in no distress RESPIRATORY SYSTEM: Unlabored breathing , decreased breath sounds at bases HEART: S1 S2 regular rate and rhythm , ABDOMEN: Soft , no tenderness EXTREMITIES: Left elbow did have superficial ulceration significant swelling redness and warmth - Labs CBC & Chem 7: 04/04/23 06:07 04/04/23 06:07 Labs: Abnormal Lab Results - Last 24 Hours (Table) 04/02/23 04/02/23 04/02/23 Range/Units 04:01 16:13 20:10 Chloride (98-107) mmol/L Glucose (74-99) mg/dL POC Glucose (mg/dL) 187 H 114 H (70-110) mg/dL Hemoglobin A1c 6.8 H (<=6.0) % 04/03/23 04/03/23 04/03/23 Range/Units 06:26 08:01 11:43 Chloride 109 H (98-107) mmol/L Glucose 115 H (74-99) mg/dL POC Glucose (mg/dL) 141 H 113 H (70-110) mg/dL Hemoglobin A1c (<=6.0) % Microbiology - Last 24 Hours (Table) 04/01/23 12:47 Blood Culture - Preliminary Blood 04/01/23 12:22 Blood Culture - Preliminary Blood 04/01/23 16:30 Gram Stain - Preliminary Elbow - Left Assessment and Plan (1) Septic bursitis of elbow Current Visit: Yes Status: Acute Code(s): M71.129 - OTHER INFECTIVE BURSITIS, UNSPECIFIED ELBOW SNOMED Code(s): 412266736 Plan: 1patient with a left elbow abscess and cellulitis started with the scratch from a fall with associated swelling and redness and concerning for complex fluid c ollection on the ultrasound possibly abscess and likely from gram-positive skin karl 2Patient is scheduled for surgical drainage and deep cultures this afternoon 3-patient to continue with vancomycin pharmacy to dose with a target trough of 15 while watching kidney function and Vanco trough closely. Dictation was produced using [employer] dictation software. please excuse any grammatical, word or spelling errors. Time with Patient: Less than 30
--- NOTE | 2023-04-04 15:35 | P.PN ---
Subjective Progress Note Date: 04/04/23 Principal diagnosis: Left elbow olecranon bursitis Patient is a 57-year male with a past medical history significant for hyperlipidemia COPD Parkinson disease presenting to the ER for evaluation of left elbow swelling and pain, started with a trauma 2 weeks prior to admission to the hospital patient did have abnormal ultrasound suggestive of abscess. Patient is status post I&D and drainage of the left septic olecranon bursitis by orthopedics on 04/03/2023 on today's evaluation that is 04/04/2023, the patient remains to be afebrile, the patient is breathing comfortably on room air , the patient denies chest pain shortness of the cough no nausea no vomiting no abdominal pain , the patient still complaining of pain to the left elbow area and one the pain medication to be upped Patient did have a hemoglobin of 15.6 white count 6.93, creatinine 0.65 blood cultures so far pending left elbow cultures currently pending Objective - Vital Signs Vital signs: Vital Signs Temp 97.5 F L 04/04/23 06:49 Pulse 44 L 04/04/23 06:49 Resp 17 04/04/23 06:49 BP 131/79 04/04/23 06:49 Pulse Ox 97 04/04/23 06:49 FiO2 Intake & Output 04/03/23 04/04/23 04/04/23 18:59 06:59 18:59 Intake Total 801 Output Total 10 Balance 791 Intake: IV 801 Output: Estimated Blood Loss 10 Other: # Voids 3 2 - Exam GENERAL DESCRIPTION: Middle-age male lying in bed in no distress RESPIRATORY SYSTEM: Unlabored breathing , decreased breath sounds at bases HEART: S1 S2 regular rate and rhythm , ABDOMEN: Soft , no tenderness EXTREMITIES: Left elbow is currently dressed no drainage on the dressing - Labs CBC & Chem 7: 04/04/23 06:07 04/04/23 06:07 Labs: Abnormal Lab Results - Last 24 Hours (Table) 04/03/23 04/03/23 04/03/23 Range/Units 08:01 13:11 16:14 RBC (4.40-5.60) X 10*6/uL MCV (80.0-97.0) FL MCH 33.1 H (27.0-32.0) pg MPV 12.7 H (9.5-12.2) FL Sodium (137-145) mmol/L Creatinine (0.66-1.25) mg/dL POC Glucose (mg/dL) 115 H 149 H (70-110) mg/dL Calcium (8.4-10.2) mg/dL 04/03/23 04/04/23 04/04/23 Range/Units 20:08 06:07 06:07 RBC 4.07 L (4.40-5.60) X 10*6/uL MCV 98.0 H (80.0-97.0) FL MCH 32.2 H (27.0-32.0) pg MPV (9.5-12.2) FL Sodium 136 L (137-145) mmol/L Creatinine 0.65 L (0.66-1.25) mg/dL POC Glucose (mg/dL) 223 H (70-110) mg/dL Calcium 8.2 L (8.4-10.2) mg/dL 04/04/23 Range/Units 11:11 RBC (4.40-5.60) X 10*6/uL MCV (80.0-97.0) FL MCH (27.0-32.0) pg MPV (9.5-12.2) FL Sodium (137-145) mmol/L Creatinine (0.66-1.25) mg/dL POC Glucose (mg/dL) 125 H (70-110) mg/dL Calcium (8.4-10.2) mg/dL Microbiology - Last 24 Hours (Table) 04/03/23 14:20 Gram Stain - Preliminary Elbow - Left 04/03/23 14:19 Gram Stain - Preliminary Elbow - Left 04/01/23 12:47 Blood Culture - Preliminary Blood 04/01/23 12:22 Blood Culture - Preliminary Blood 04/01/23 16:30 Gram Stain - Preliminary Elbow - Left Wound Culture - Preliminary Assessment and Plan (1) Septic bursitis of elbow Current Visit: Yes Status: Acute Code(s): M71.129 - OTHER INFECTIVE BURSITIS, UNSPECIFIED ELBOW SNOMED Code(s): 240249192 Plan: 1patient with a left elbow abscess and cellulitis started with the scratch from a fall with associated swelling and redness and concerning for complex fluid collection on the ultrasound possibly abscess and likely from gram-positive skin karl 2Patient is status post I&D and drainage of left elbow olecranon bursitis and deep cultures are currently pending 3-patient to continue with vancomycin while waiting for the cultures to finalize and monitor clinical course closely Dictation was produced using [employer] dictation software. please excuse any grammatical, word or spelling errors. Time with Patient: Less than 30
[2023-04-04 16:40] LABS: Glucose,Whole Blood 130 mg/dL (70-110)
[2023-04-04 20:32] LABS: Glucose,Whole Blood 94 mg/dL (70-110)
[2023-04-04] MEDS: atenoloL 25 MG TAB PO SCH (22:04)
[2023-04-05] MEDS: HYDROmorphone 0.5 MG/0.5 ML SYRINGE IVP PRN ×2 (00:19→15:08)
[2023-04-05] MEDS: KETOROLAC 15 MG/ML 1 ML VIAL IVP PRN ×2 (03:17→16:03)
[2023-04-05 06:18] LABS: Glucose,Whole Blood 83 mg/dL (70-110)
[2023-04-05] MEDS: INSULIN ASPART (NovoLOG) 100 UNIT/ML VIAL SQ SCH ×4 (06:21→22:38)
[2023-04-05] MEDS: metFORMIN 500 MG TAB PO SCH ×2 (06:25→17:08)
[2023-04-05] MEDS: PANTOPRAZOLE 40 MG TABLET PO SCH (06:25)
[2023-04-05 07:45] LABS: African American GFR (CKD) >90 (>60 ml/min/1.73 sqM); Non-African American GFR(CKD) >90 (>60 ml/min/1.73 sqM)
[2023-04-05] MEDS ORDERED: VANCOMYCIN TROUGH DUE 1 EACH MISC MISCELLANE ONE (08:00)
[2023-04-05] MEDS: SYMBICORT 80-4.5 MCG INHALER INHALATION SCH ×2 (08:12→20:03)
[2023-04-05] MEDS: IPRATROPIUM 0.5 MG/2.5 ML NEBU INHALATION SCH ×4 (08:14→20:02)
[2023-04-05] MEDS: PREGABALIN 75 MG CAP PO SCH ×2 (09:27→21:46)
[2023-04-05] MEDS: ATORVASTATIN 40 MG TAB PO SCH (09:27)
[2023-04-05] MEDS: predniSONE 10 MG TAB PO SCH (09:27)
[2023-04-05] MEDS: DULoxetine HCL 60 MG CAPSULE.DR PO SCH (09:27)
[2023-04-05] MEDS: LINAGLIPTIN 5 MG TABLET PO SCH (09:27)
[2023-04-05] MEDS: HEPARIN SODIUM,PORCINE 5,000 UNIT/ML 1 ML VIAL SQ SCH ×3 (09:27→21:46)
[2023-04-05] MEDS: VANCOMYCIN 1,750 MG in SODIUM CHLORIDE 0.9% 500 ML 500 ML IVPB SCH ×2 (09:50→21:46)
[2023-04-05 11:14] LABS: Glucose,Whole Blood 87 mg/dL (70-110)
--- NOTE | 2023-04-05 12:26 | P.PN ---
Subjective Progress Note Date: 04/05/23 Principal diagnosis: Septic olecranon bursitis left upper extremity; possible foreign body left elbow Patient was seen at bedside this morning sitting up at the edge of the bed. Ezra tai is hoping he can go home soon. Patient denies any changes since yesterday. Patient does note that there is decrease swelling in his arm. Patient says the pain is controlled with medication. Patient denies any numbness/tingling down the left upper extremity. Patient denies chest pain, fev er, shortness breath, nausea, vomiting, change in vision, loss of bowel/bladder control. Objective - Vital Signs Vital signs: Vital Signs Temp 97.9 F 04/05/23 07:52 Pulse 47 L 04/05/23 07:52 Resp 16 04/05/23 07:52 BP 155/87 04/05/23 07:52 Pulse Ox 95 04/05/23 07:52 FiO2 Intake & Output 04/04/23 04/05/23 04/05/23 18:59 06:59 18:59 Intake Total 200 Balance 200 Intake: Oral 200 Other: # Voids 3 - Exam Lobo bandage present to the left upper extremity over the elbow at this time. Lobo bandage was taken down negative for any drainage. Swelling appears to be decreasing in the left elbow. Steri-Strips were placed at the proximal and distal on the incision after drain was removed. New Adaptic, 4 x 4's and Kerlix bandage was placed over the left elbow. Patient is able to fully flex and extend left wrist. Patient does have full range of motion left shoulder and forward elevation, abduction, external and internal rotation. There is some limited range of motion of left elbow due to the bandage pain in the elbow. Radial pul se intact, 2+ bilaterally. Cap refill under 3 seconds in digits of upper extremities. There is a fair amount of tenderness to palpation diffusely throughout the left elbow. Nontender to palpation throughout rest of exam. - Labs CBC & Chem 7: 04/04/23 06:07 04/05/23 07:27 Labs: Abnormal Lab Results - Last 24 Hours (Table) 04/04/23 04/04/23 04/04/23 Range/Units 06:07 11:11 16:39 RBC 4.07 L (4.40-5.60) X 10*6/uL MCV 98.0 H (80.0-97.0) FL MCH 32.2 H (27.0-32.0) pg POC Glucose (mg/dL) 125 H 130 H (70-110) mg/dL Microbiology - Last 24 Hours (Table) 04/01/23 12:47 Blood Culture - Preliminary Blood 04/01/23 12:22 Blood Culture - Preliminary Blood 04/01/23 16:30 Gram Stain - Final Elbow - Left Wound Culture - Final 04/03/23 14:20 Gram Stain - Preliminary Elbow - Left 04/03/23 14:19 Gram Stain - Preliminary Elbow - Left Assessment and Plan Assessment: Left olecranon bursitisseptic - Postop day 2 status post Irrigation and debridement/incision and drainage left septic olecranon bursitis Plan: 1. Left olecranon bursitisseptic - surgery was performed 04/03/2023 Irrigation and debridement/incision and drainage left septic olecranon bursitis. patient was seen at bedside this morning. Dressing taken down at bedside. Drain removed. Steri-Strips placed over distal and proximal aspect of the incision. Sutures well aligned at this time. Negative for any active drainage. Cultures do show presumptive MRSA. Medicine and ID following for antibiotics. Pain medication as needed. Weightbearing as tolerated. Patient is stable from an orthopedic standpoint for discharge home. At this time orthopedics is signing off. Please do not hesitate to contact us for any further questions 2. Appreciate medical management and ID management - abx per ID/medicine 3. Pain management - [place]; Tylenol; Dilaudid 4. GI prophylaxis - Protonix 5. DVT prophylaxis -heparin 6. PT/OT - weightbearing as tolerated 7. Encourage incentive spirometer use Time with Patient: Less than 30
--- NOTE | 2023-04-05 14:04 | PN ---
PROGRESS NOTE DATE OF SERVICE: 04/05/2023 SUBJECTIVE: This is a 57-year-old gentleman who was admitted with left olecranon bursitis, posttraumatic, also had features of sepsis. The culture showed presumptive MRSA. No chest pain, no palpitation. OBJECTIVE: VITAL SIGNS: Pulse 49, blood pressure 150/90, respirations 16. HEENT: Conjunctivae normal. CARDIOVASCULAR: S1, S2. ABDOMEN: Soft. EXTREMITIES: Left elbow status post surgery. NERVOUS SYSTEM: No focal deficits. LABORATORY DATA: Noted. ASSESSMENT: 1. Left olecranon bursitis posttraumatic with possible sepsis present on admission, status post incision, drainage, possibly secondary to MRSA. 2. Chronic obstructive pulmonary disease. 3. Hyperlipidemia. 4. Multiple complex medical issues. RECOMMENDATIONS AND DISCUSSION: Recommend to continue current management, continue symptomatic treatment, otherwise the patient is on vancomycin. Closely follow with Infectious Disease and Orthopedic surgery. I would recommend repeat labs tomorrow and further recommendations to follow. MMODL / IJN: [id number] /
[2023-04-05] MEDS: HYDROcodone/APAP 5-325MG 1 EACH TAB PO PRN (16:03)
--- NOTE | 2023-04-05 16:12 | P.PN ---
Subjective Progress Note Date: 04/05/23 Principal diagnosis: Left elbow olecranon bursitis Patient is a 57-year male with a past medical history significant for hyperlipidemia COPD Parkinson disease presenting to the ER for evaluation of left elbow swelling and pain, started with a trauma 2 weeks prior to admission to the hospital patient did have abnormal ultrasound suggestive of abscess. Patient is status post I&D and drainage of the left septic olecranon bursitis by orthopedics on 04/03/2023 on today's evaluation that is 04/05/2023, the patient continues to be afebrile, the patient is breathing comfortably on room air , the patient denies chest pain shortness of breath and no significant cough no nausea no vomiting no abdominal pain , the patient pain to the left elbow area has decreased in intensity Patient did have a hemoglobin of 15.6 white count 6.93 as of yesterday no CBC was done today, creatinine 0.65 blood cultures so far pending left elbow cultures currently growing presumptive MRSA Objective - Vital Signs Vital signs: Vital Signs Temp 97.9 F 04/05/23 07:52 Pulse 47 L 04/05/23 07:52 Resp 16 04/05/23 07:52 BP 155/87 04/05/23 07:52 Pulse Ox 95 04/05/23 07:52 FiO2 Intake & Output 04/04/23 04/05/23 04/05/23 18:59 06:59 18:59 Intake Total 200 Balance 200 Intake: Oral 200 Other: # Voids 3 - Exam GENERAL DESCRIPTION: Middle-age male lying in bed in no distress RESPIRATORY SYSTEM: Unlabored breathing , decreased breath sounds at bases HEART: S1 S2 regular rate and rhythm , ABDOMEN: Soft , no tenderness EXTREMITIES: Left elbow is currently dressed no drainage on the dressing - Labs CBC & Chem 7: 04/04/23 06:07 04/05/23 07:27 Labs: Abnormal Lab Results - Last 24 Hours (Table) 04/04/23 04/04/23 Range/Units 11:11 16:39 POC Glucose (mg/dL) 125 H 130 H (70-110) mg/dL Microbiology - Last 24 Hours (Table) 04/01/23 12:47 Blood Culture - Preliminary Blood 04/01/23 12:22 Blood Culture - Preliminary Blood 04/01/23 16:30 Gram Stain - Final Elbow - Left Wound Culture - Final 04/03/23 14:20 Gram Stain - Preliminary Elbow - Left 04/03/23 14:19 Gram Stain - Preliminary Elbow - Left Assessment and Plan (1) Septic bursitis of elbow Current Visit: Yes Status: Acute Code(s): M71.129 - OTHER INFECTIVE BURSITIS, UNSPECIFIED ELBOW SNOMED Code(s): 880053449 Plan: 1patient with a left elbow abscess and cellulitis started with the scratch from a fall with associated swelling and redness and concerning for complex fluid collection on the ultrasound possibly abscess and likely from gram-positive skin karl 2Patient is status post I&D and drainage of left elbow olecranon bursitis and deep cultures are currently growing presumptive MRSA with a final pending 3-patient to continue with vancomycin while waiting for the cultures to finalize showcase trimmer to check for outpatient IV antibiotic coverage Dictation was produced using [employer] dictation software. please excuse any grammatical, word or spelling errors. Time with Patient: Less than 30
[2023-04-05 16:15] LABS: Glucose,Whole Blood 116 mg/dL (70-110)
[2023-04-05] MEDS: HYDROmorphone 1 MG/ML 1 ML SYRINGE IVP PRN ×2 (19:59→23:43)
[2023-04-05 20:40] LABS: Glucose,Whole Blood 98 mg/dL (70-110)
[2023-04-05] MEDS: atenoloL 25 MG TAB PO SCH (21:46)
[2023-04-06 01:58] LABS: Glucose,Whole Blood 95 mg/dL (70-110)
[2023-04-06] MEDS: INSULIN ASPART (NovoLOG) 100 UNIT/ML VIAL SQ SCH ×4 (06:04→21:09)
[2023-04-06] MEDS: PANTOPRAZOLE 40 MG TABLET PO SCH (06:12)
[2023-04-06] MEDS: metFORMIN 500 MG TAB PO SCH ×2 (06:12→16:49)
[2023-04-06 06:14] LABS: Glucose,Whole Blood 97 mg/dL (70-110)
[2023-04-06 08:14] LABS: African American GFR (CKD) >90 (>60 ml/min/1.73 sqM); Anion Gap 8 mmol/L; Blood Urea Nitrogen 17 mg/dL (9-20); Calcium 8.9 mg/dL (8.4-10.2); Carbon Dioxide 26 mmol/L (22-30); Chloride 106 mmol/L (98-107); Glucose 72 mg/dL (74-99); Non-African American GFR(CKD) >90 (>60 ml/min/1.73 sqM); Sodium 140 mmol/L (137-145)
[2023-04-06 08:21] LABS: Basophils % (A) 0 %; Eosinophils # (A) 0.2 k/uL (0-0.7); Eosinophils % (A) 4 %; HCT 42.7 % (39.0-53.0); Lymphocytes # (A) 1.4 k/uL (1.0-4.8); Lymphocytes % (A) 26 %; MCH 32.5 pg (25.0-35.0); MCHC 33.6 g/dL (31.0-37.0); MCV 96.9 fL (80.0-100.0); Mean Platelet Volume 11.2; Monocytes # (A) 0.4 k/uL (0-1.0); Monocytes % (A) 8 %; Neutrophils # (A) 3.1 k/uL (1.3-7.7); Neutrophils % (A) 58 %; Platelet Count 165 k/uL (150-450); RBC 4.41 m/uL (4.30-5.90); WBC 5.4 k/uL (3.8-10.6)
[2023-04-06] MEDS: HEPARIN SODIUM,PORCINE 5,000 UNIT/ML 1 ML VIAL SQ SCH ×2 (08:28→21:09)
[2023-04-06 08:32] LABS: HGB 14.3 gm/dL (13.0-17.5)
[2023-04-06] MEDS: PREGABALIN 75 MG CAP PO SCH ×2 (08:41→21:08)
[2023-04-06] MEDS: predniSONE 10 MG TAB PO SCH (08:41)
[2023-04-06] MEDS: ATORVASTATIN 40 MG TAB PO SCH (08:41)
[2023-04-06] MEDS: VANCOMYCIN 1,750 MG in SODIUM CHLORIDE 0.9% 500 ML 500 ML IVPB SCH ×2 (08:41→21:07)
[2023-04-06] MEDS: DULoxetine HCL 60 MG CAPSULE.DR PO SCH (08:41)
[2023-04-06] MEDS: LINAGLIPTIN 5 MG TABLET PO SCH (08:42)
[2023-04-06] MEDS: IPRATROPIUM 0.5 MG/2.5 ML NEBU INHALATION SCH ×4 (08:59→20:55)
[2023-04-06] MEDS: SYMBICORT 80-4.5 MCG INHALER INHALATION SCH ×2 (08:59→20:55)
[2023-04-06 11:05] LABS: Glucose,Whole Blood 216 mg/dL (70-110)
[2023-04-06] MEDS: amLODIPine 10 MG TAB PO SCH (12:04)
[2023-04-06] MEDS: HYDROmorphone 0.5 MG/0.5 ML SYRINGE IVP PRN (13:59)
--- NOTE | 2023-04-06 14:22 | PN ---
PROGRESS NOTE DATE OF SERVICE: 04/06/2023 SUBJECTIVE: This is a 57-year-old gentleman, who was admitted with left olecranon sepsis and bursitis and presumptive MRSA grown from the culture. The patient is on IV Vanco. No chest pain. No palpitations. No fever. OBJECTIVE: VITAL SIGNS: Pulse is 45, blood pressure 177/90, respirations 17. CHEST: Clear to auscultation. CARDIOVASCULAR: S1, S2. ABDOMEN: Soft. EXTREMITIES: Olecranon bursitis. LABORATORY DATA: Reviewed. ASSESSMENT: 1. Left olecranon bursitis posttraumatic with possible sepsis present on admission with presumptive Methicillin-resistant Staphylococcus aureus, status post incision and drainage. 2. Chronic obstructive pulmonary disease. 3. Hypertension. 4. Hyperlipidemia. 5. Multiple complex medical issues. RECOMMENDATIONS AND DISCUSSION: Recommend to continue current management, continue symptomatic treatment. Otherwise, I would continue the antibiotics. Closely follow with Infectious Disease. Monitor closely. I would add Norvasc to the current regimen. MMODL / IJN: [id number] /
[2023-04-06] MEDS: KETOROLAC 15 MG/ML 1 ML VIAL IVP PRN ×2 (16:06→23:27)
[2023-04-06 16:35] LABS: Glucose,Whole Blood 108 mg/dL (70-110)
[2023-04-06 20:18] LABS: Glucose,Whole Blood 115 mg/dL (70-110)
[2023-04-06] MEDS: atenoloL 25 MG TAB PO SCH (21:08)
[2023-04-06] MEDS: HYDROmorphone 1 MG/ML 1 ML SYRINGE IVP PRN (21:09)
[2023-04-07 02:03] LABS: Glucose,Whole Blood 123 mg/dL (70-110)
[2023-04-07 06:06] LABS: Glucose,Whole Blood 82 mg/dL (70-110)
[2023-04-07] MEDS: PANTOPRAZOLE 40 MG TABLET PO SCH (06:28)
[2023-04-07] MEDS: metFORMIN 500 MG TAB PO SCH (06:28)
[2023-04-07] MEDS: INSULIN ASPART (NovoLOG) 100 UNIT/ML VIAL SQ SCH ×2 (06:30→12:17)
[2023-04-07] MEDS: SYMBICORT 80-4.5 MCG INHALER INHALATION SCH (08:55)
[2023-04-07] MEDS: IPRATROPIUM 0.5 MG/2.5 ML NEBU INHALATION SCH ×3 (08:55→15:40)
[2023-04-07] MEDS: DULoxetine HCL 60 MG CAPSULE.DR PO SCH (09:42)
[2023-04-07] MEDS: ATORVASTATIN 40 MG TAB PO SCH (09:42)
[2023-04-07] MEDS: amLODIPine 10 MG TAB PO SCH (09:42)
[2023-04-07] MEDS: predniSONE 10 MG TAB PO SCH (09:42)
[2023-04-07] MEDS: HEPARIN SODIUM,PORCINE 5,000 UNIT/ML 1 ML VIAL SQ SCH (09:42)
[2023-04-07] MEDS: LINAGLIPTIN 5 MG TABLET PO SCH (09:42)
[2023-04-07] MEDS: PREGABALIN 75 MG CAP PO SCH (09:42)
[2023-04-07] MEDS: VANCOMYCIN 1,750 MG in SODIUM CHLORIDE 0.9% 500 ML 500 ML IVPB SCH (09:43)
--- NOTE | 2023-04-07 10:06 | P.PN ---
Subjective Progress Note Date: 04/06/23 Principal diagnosis: Left elbow olecranon bursitis Patient is a 57-year male with a past medical history significant for hyperlipidemia COPD Parkinson disease presenting to the ER for evaluation of left elbow swelling and pain, started with a trauma 2 weeks prior to admission to the hospital patient did have abnormal ultrasound suggestive of abscess. Patient is status post I&D and drainage of the left septic olecranon bursitis by orthopedics on 04/03/2023 on today's evaluation that is 04/06/2023 the patient remains to be afebrile, the patient is breathing comfortably on room air denies any chest pain shortness of breath or cough no nausea vomiting no abdominal pain and no diarrhea left elbow pain has decreased in intensity. Patient white count is 5.4 creatinine 0.75 left elbow cultures currently growing MRSA with sensitivities pending blood culture has been negative Objective - Vital Signs Vital signs: Vital Signs Temp 97.2 F L 04/06/23 07:32 Pulse 45 L 04/06/23 08:40 Resp 17 04/06/23 07:32 BP 177/98 04/06/23 07:32 Pulse Ox 99 04/06/23 07:32 FiO2 Intake & Output 04/05/23 04/06/23 04/06/23 18:59 06:59 18:59 Intake Total 640 Balance 640 Intake: Oral 640 Other: # Voids 3 3 - Exam GENERAL DESCRIPTION: Middle-age male lying in bed in no distress RESPIRATORY SYSTEM: Unlabored breathing , decreased breath sounds at bases HEART: S1 S2 regular rate and rhythm , ABDOMEN: Soft , no tenderness EXTREMITIES: Left elbow incision is stitched swelling redness has decreased no drainage was noticed - Labs CBC & Chem 7: 04/06/23 06:40 04/06/23 06:40 Labs: Abnormal Lab Results - Last 24 Hours (Table) 04/05/23 04/06/23 Range/Units 16:08 06:40 Glucose 72 L (74-99) mg/dL POC Glucose (mg/dL) 116 H (70-110) mg/dL Microbiology - Last 24 Hours (Table) 04/03/23 14:19 Gram Stain - Preliminary Elbow - Left Wound Culture - Preliminary Presumptive MRSA 04/03/23 14:20 Gram Stain - Preliminary Elbow - Left Wound Culture - Preliminary Presumptive MRSA Assessment and Plan (1) Septic bursitis of elbow Current Visit: Yes Status: Acute Code(s): M71.129 - OTHER INFECTIVE BURSITIS, UNSPECIFIED ELBOW SNOMED Code(s): 662754349 Plan: 1patient with a left elbow abscess and cellulitis started with the scratch from a fall with associated swelling and redness and concerning for complex fluid collection on the ultrasound possibly abscess and likely from gram-positive skin karl 2Patient is status post I&D and drainage of left elbow olecranon bursitis and deep cultures are currently growing presumptive MRSA With the sensitivities currently pending. 3we will continue patient on vancomycin pharmacy to dose while waiting for the sensitivity to finalize determine his discharge antibiotics, patient was offered IV antibiotic however he wants to go home on oral, questions concerns answered Dictation was produced using [employer] dictation software. please excuse any grammatical, word or spelling errors. Time with Patient: Less than 30
[2023-04-07] MEDS ORDERED: oxyCODONE-APAP 10-325MG 1 EACH TAB PO PRN (10:24)
[2023-04-07 10:47] LABS: Basophils # (A) 0.05 X 10*3/uL (0.00-0.10); Basophils % (A) 0.9 %; Eosinophils # (A) 0.26 X 10*3/uL (0.04-0.35); Eosinophils % (A) 4.6 %; HCT 44.6 % (39.6-50.0); HGB 15.4 d/dL (13.0-17.0); Lymphocytes # (A) 1.78 X 10*3/uL (0.90-5.00); Lymphocytes % (A) 31.4 %; MCH 32.7 pg (27.0-32.0); MCHC 34.5 d/dL (32.0-37.0); MCV 94.7 FL (80.0-97.0); Mean Platelet Volume 12.5 FL (9.5-12.2); Monocytes # (A) 0.53 X 10*3/uL (0.20-1.00); Monocytes % (A) 9.3 %; NRBC Per 100 WBC 0 X 10*3/uL (0.00-0.01); Neutrophils # (A) 3.03 X 10*3/uL (1.80-7.70); Neutrophils % (A) 53.4 %; Platelet Count 189 X 10*3/uL (140-440); RBC 4.71 X 10*6/uL (4.40-5.60); RDW 12.8 % (11.5-14.5); WBC 5.67 X 10*3/uL (4.50-10.00)
[2023-04-07 11:35] LABS: Glucose,Whole Blood 101 mg/dL (70-110)
[2023-04-07 11:52] LABS: BUN/Creat Ratio 20.88 Ratio (12.00-20.00); Blood Urea Nitrogen 16.7 mg/dL (9.0-27.0); Calcium 9.5 mg/dL (8.7-10.3); Carbon Dioxide 26.3 mmol/L (21.6-31.8); Chloride 105 mmol/L (96-109); Glucose 70 mg/dL (70-110); Potassium 3.9 mmol/L (3.5-5.5); Sodium 143 mmol/L (135-145)
[2023-04-07 13:56] VITALS: BP 123/71; PULSE 60; RESP 16; TEMP 97.7
--- NOTE | 2023-04-07 16:31 | P.PN ---
Subjective Progress Note Date: 04/07/23 Principal diagnosis: Left elbow olecranon bursitis Patient is a 57-year male with a past medical history significant for hyperlipidemia COPD Parkinson disease presenting to the ER for evaluation of left elbow swelling and pain, started with a trauma 2 weeks prior to admission to the hospital patient did have abnormal ultrasound suggestive of abscess. Patient is status post I&D and drainage of the left septic olecranon bursitis by orthopedics on 04/03/2023 on today's evaluation that is 04/07/2023 the patient continues to be afebrile, the patient is breathing comfortably on room air , the patient denies any chest pain shortness of breath or cough no nausea vomiting no abdominal pain and no diarrhea, the patient left elbow pain has decreased in intensity and no drainage. Patient white count is 5.67, creatinine is 0.8, potassium is 3.9, the patient left elbow cultures currently growing MRSA that is resistant to tetracycline was sensitive to Bactrim Objective - Vital Signs Vital signs: Vital Signs Temp 98.1 F 04/07/23 07:28 Pulse 54 L 04/07/23 07:28 Resp 15 04/07/23 07:28 BP 143/84 04/07/23 07:28 Pulse Ox 98 04/07/23 07:28 FiO2 Intake & Output 04/06/23 04/07/23 04/07/23 18:59 06:59 18:59 Other: # Voids 5 2 # Bowel Movements 1 - Exam GENERAL DESCRIPTION: Middle-age male lying in bed in no distress RESPIRATORY SYSTEM: Unlabored breathing , decreased breath sounds at bases HEART: S1 S2 regular rate and rhythm , ABDOMEN: Soft , no tenderness EXTREMITIES: Left elbow incision is currently dressed no drainage on the dressing - Labs CBC & Chem 7: 04/07/23 06:16 04/07/23 06:16 Labs: Abnormal Lab Results - Last 24 Hours (Table) 04/06/23 04/07/23 04/07/23 Range/Units 20:15 01:53 06:16 MCH 32.7 H (27.0-32.0) pg MPV 12.5 H (9.5-12.2) FL BUN/Creatinine Ratio (12.00-20.00) Ratio POC Glucose (mg/dL) 115 H 123 H (70-110) mg/dL 04/07/23 Range/Units 06:16 MCH (27.0-32.0) pg MPV (9.5-12.2) FL BUN/Creatinine Ratio 20.88 H (12.00-20.00) Ratio POC Glucose (mg/dL) (70-110) mg/dL Microbiology - Last 24 Hours (Table) 04/01/23 12:47 Blood Culture - Final Blood 04/01/23 12:22 Blood Culture - Final Blood 04/03/23 14:20 Anaerobic Culture - Preliminary Elbow - Left 04/03/23 14:19 Anaerobic Culture - Preliminary Elbow - Left 04/03/23 14:19 Gram Stain - Final Elbow - Left Wound Culture - Final Methicillin resist S. aureus 04/03/23 14:20 Gram Stain - Final Elbow - Left Wound Culture - Final Methicillin resist S. aureus Assessment and Plan (1) Septic bursitis of elbow Current Visit: Yes Status: Acute Code(s): M71.129 - OTHER INFECTIVE BURSITIS, UNSPECIFIED ELBOW SNOMED Code(s): 791694179 Plan: 1patient with a left elbow abscess and cellulitis started with the scratch from a fall with associated swelling and redness and concerning for complex fluid collection on the ultrasound possibly abscess and likely from gram-positive skin karl 2Patient is status post I&D and drainage of left elbow olecranon bursitis and deep cultures are currently growing presumptive MRSA With the sensitivities finalize resistant to tetracycline sensitive to Bactrim 3patient has shown clinical improvement with IV vancomycin and wants to go home. a prescription for Bactrim DS for 10 days was sent to the pharmacy and close outpatient follow-up discussed with admitting team as well Dictation was produced using [employer] dictation software. please excuse any grammatical, word or spelling errors. Time with Patient: Less than 30
--- NOTE | 2023-04-07 22:35 | PN ---
PROGRESS NOTE DATE OF SERVICE: 04/07/2023 SUBJECTIVE: This is a 57-year-old gentleman, who was admitted with left olecranon bursitis and MRSA grown from the culture. The patient apparently had some blunt trauma to the area recently also. No chest pain. No palpitation. OBJECTIVE: VITAL SIGNS: Pulse is 54, blood pressure 143/84, respirations 15. CHEST: Clear to auscultation. CARDIOVASCULAR: S1, S2. ABDOMEN: Soft, left elbow cellulitis present, status post surgery. LABORATORY DATA: Reviewed. ASSESSMENT: 1. Left olecranon bursitis posttraumatic with possible sepsis present on admission with Methicillin-resistant Staphylococcus aureus, status post incision and drainage. 2. Chronic obstructive pulmonary disease. 3. Hypertension. 4. Hyperlipidemia. 5. Multiple medical issues. RECOMMENDATIONS AND DISCUSSION: Recommend to continue current management, continue symptomatic treatment. Continue local treatment. Otherwise, continue the vancomycin and closely follow with Infectious Disease and Orthopedic Surgery. Further recommendations to follow. MMODL / IJN: [id number] /
--- NOTE | 2023-04-08 03:32 | DS ---
DISCHARGE SUMMARY FINAL DIAGNOSES: 1. Left olecranon bursitis, posttraumatic possible sepsis present on admission with methicillin-resistant Staphylococcus aureus, status post incision and drainage. 2. Chronic obstructive pulmonary disease. 3. Hypertension. 4. Hyperlipidemia. 5. Multiple medical issues. DISCHARGE DISPOSITION: The patient is discharged in stable condition. Dr. Brown cleared the patient. HISTORY OF PRESENT ILLNESS: This is a 57-year-old gentleman admitted with left olecranon bursitis, underwent incision and drainage. MRSA has grown. Dr. Brown recommended antibiotics. PHYSICAL EXAMINATION: VITALS: Stable. CARDIOVASCULAR: S1, S2 muffled. ABDOMEN: Soft. EXTREMITIES: Left elbow bursitis, improving. The patient will be discharged home to resume the home medications Bactrim DS for 10 days and also add Norvasc to the current regimen. Follow up with primary physician and Dr. Murguia and Dr. Brown and Orthopedic Surgery as recommended. MMODL / IJN: [id number] /
== END 2023-04-07 16:50 | disposition home or self-care (01) | DRG 854 ==
LOC: EC 10:55 → 4SSUR 17:09
PROVIDERS: ADMIT Hospitalist; ATTEND Hospitalist
PROC: 0MB40ZZ Excision of Left Elbow Bursa and Ligament, Open Approach (ICD-10-PCS; principal; 2023-04-03 13:45)
DX: A41.02 Sepsis due to Methicillin resistant Staphylococcus aureus (principal); L03.114 Cellulitis of left upper limb; E11.36 Type 2 diabetes mellitus with diabetic cataract; G20 Parkinson's disease; J44.9 Chronic obstructive pulmonary disease, unspecified; M45.9 Ankylosing spondylitis of unspecified sites in spine; M71.122 Other infective bursitis, left elbow; S51.032A Puncture wound without foreign body of left elbow, initial encounter; H26.9 Unspecified cataract; E78.5 Hyperlipidemia, unspecified; I10 Essential (primary) hypertension; F32.A Depression, unspecified; M51.36 Other intervertebral disc degeneration, lumbar region; M50.20 Other cervical disc displacement, unspecified cervical region; L98.9 Disorder of the skin and subcutaneous tissue, unspecified; Z79.620 Long term (current) use of immunosuppressive biologic; Z79.84 Long term (current) use of oral hypoglycemic drugs; Z79.51 Long term (current) use of inhaled steroids; Z79.899 Other long term (current) drug therapy; Z91.81 History of falling; Z87.891 Personal history of nicotine dependence; W19.XXXA Unspecified fall, initial encounter; Z88.1 Allergy status to other antibiotic agents
CPT/HCPCS: 10060; 36415; 80048; 80053; 80202; 82565; 83036; 83605; 85025; 85652; 86140; 87040; 87070; 87075; 87077; 87186; 87205; 94640; 96365; 96366; 96375; 96376; 99285

== ENCOUNTER → 2023-08-06 | Outpatient (CLI) | payer MEDICARE, OTHER ==
--- NOTE | 2023-08-06 16:23 | BD ---
EXAMINATION TYPE: Axial Bone Density DATE OF EXAM: 08/06/2023 CLINICAL HISTORY: 57 years old Male. 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 History of Fracture in Adulthood: yes Secondary Osteoporosis: Current Tobacco Use: yes RISK FACTORS HISTORY OF: Surgery to Spine/Hip(right/left)/Wrist (right/left): yes, lumbar surgery with hardware When: about 3-5 years ago Family History of Osteoporosis: unknown Frequent falls: yes MEDICATIONS: Prednisone or other steroids: yes How Long: about 9 years Additional Medications: Additional History: diabetic, acute spondylosis, acute eye condition, parkinson's disease, ankle fx, COPD EXAM MEASUREMENTS: Bone mineral densitometry was performed using the [employer] System. Bone mineral density about the R hip (g/cm2): 0.978 Bone mineral density about the L hip (g/cm2): 1.030 T Score values are as follows: -----R Neck: -0.4 -----L Neck: -0.3 -----R Total: -0.2 -----L Total: 0.2 Z Score values are as follows: -----R Neck: -0.3 -----L Neck: -0.2 -----R Total: -0.8 -----L Total: -0.5 First dexa at [facility] FRAX%s: The graph provided illustrates a 13.3% chance for a major osteoporotic fx and a 1.8% chance f or the hips probability for fx in 10 years time. IMPRESSION: Normal (Values between +1 and -1 indicate normal bone mass). Consider repeating this study in 5 year s or sooner if there is some new clinical indication. NOTE: T-SCORE=SD OF THE YOUNG ADULT MEAN.
== END | disposition home or self-care (01) ==
LOC: RADBDWWP 09:40
PROVIDERS: ATTEND Family Medicine
DX: M47.9 Spondylosis, unspecified (principal); J44.9 Chronic obstructive pulmonary disease, unspecified; G20.A1 Parkinson's disease without dyskinesia, without mention of fluctuations; E11.9 Type 2 diabetes mellitus without complications; Z79.52 Long term (current) use of systemic steroids
CPT/HCPCS: 77080

== ENCOUNTER 2023-09-13 20:43 | Inpatient (IN) | payer MEDICARE, OTHER ==
--- NOTE | 2023-09-13 21:32 | XR ---
EXAMINATION TYPE: XR chest 2V DATE OF EXAM: 09/13/2023 COMPARISON: 10/19/2022 HISTORY: Shortness of breath TECHNIQUE: Frontal and lateral views of the chest are obtained. FINDINGS: Scattered senescent parenchymal changes noted. Hyperinflation compatible with COPD. No evidence for infiltrate. No evidence for atelectasis. Heart size is stable. Mediastinal structures are stable and grossly unremarkable. No evidence for hilar prominence. Degenerative changes dorsal spine. IMPRESSION: 1. No evidence for acute pulmonary disease.
[2023-09-13 22:06] LABS: Basophils % (A) 0 %; Eosinophils # (A) 0.1 k/uL (0-0.7); Eosinophils % (A) 1 %; HCT 48.8 % (39.0-53.0); HGB 16.5 gm/dL (13.0-17.5); Lymphocytes # (A) 0.8 k/uL (1.0-4.8); Lymphocytes % (A) 10 %; MCH 33.1 pg (25.0-35.0); MCHC 33.8 g/dL (31.0-37.0); Mean Platelet Volume 10.1; Monocytes # (A) 0.2 k/uL (0-1.0); Monocytes % (A) 3 %; Neutrophils % (A) 85 %; Platelet Count 151 k/uL (150-450); RBC 4.99 m/uL (4.30-5.90); RDW 12.9 % (11.5-15.5); WBC 8.2 k/uL (3.8-10.6)
[2023-09-13 22:16] LABS: ALT 20 U/L (4-49); AST 22 U/L (17-59); African American GFR (CKD) >90 (>60 ml/min/1.73 sqM); Albumin 3.6 g/dL (3.5-5.0); Alkaline Phosphatase 80 U/L (38-126); Anion Gap 3 mmol/L; Blood Urea Nitrogen 15 mg/dL (9-20); Calcium 8.7 mg/dL (8.4-10.2); Carbon Dioxide 25 mmol/L (22-30); Chloride 110 mmol/L (98-107); Glucose 108 mg/dL (74-99); Non-African American GFR(CKD) >90 (>60 ml/min/1.73 sqM); Potassium 3.7 mmol/L (3.5-5.1); Sodium 138 mmol/L (137-145); Total Bilirubin 0.6 mg/dL (0.2-1.3); Total Protein 6.2 g/dL (6.3-8.2)
[2023-09-13 22:19] LABS: INR 0.9 (<1.2); Prothrombin Time 9.7 sec (10.0-12.5)
[2023-09-13] MEDS ORDERED: IPRATROPIUM-ALBUTEROL 3 ML NEB INHALATION STA (23:03)
[2023-09-13] MEDS ORDERED: MORPHINE SULFATE 4 MG/ML SYRINGE IVP STA (23:09)
[2023-09-13] MEDS ORDERED: NALOXONE 0.4 MG/ML 1 ML VIAL IV PRN (23:10)
--- NOTE | 2023-09-13 23:10 | ED ---
SOB HPI - General Chief Complaint: Shortness of Breath Stated Complaint: BRITTNI Time Seen by Provider: 09/13/23 20:49 Source: patient, EMS Mode of arrival: EMS Limitations: no limitations - History of Present Illness Initial Comments: 57-year-old male with past medical history of COPD presents emergency department reporting shortness of breath. States that 2 days ago he began having a fever and productive cough. Denies sick contacts. States that it has caused him to be extremely short of breath. He sees Dr. Rueda. Wears 2 L of oxygen as needed and takes prednisone 10 mg daily. States that he has been doing for breathing treatments today but continues to be short of breath. He denies any chest pain. No history of cardiac disease. No calf pain or swelling. No history of DVT or PE. Upon EMS transport, he was given 2 breathing treatments and 125 of Solu- Medrol. - Related Data Home Medications Medication Instructions Recorded Confirmed DULoxetine HCL [Cymbalta] 60 mg PO DAILY 05/23/17 09/14/23 Adalimumab [Humira(Cf) Pen] 40 mg SQ Q14D 07/06/18 09/14/23 Atorvastatin [Lipitor] 40 mg PO DAILY 06/14/20 09/14/23 oxyCODONE-APAP 10-325MG [Percocet 1 tab PO TID PRN 04/11/21 09/14/23 10-325 mg] Fluticasone/Umeclidin/Vilanter 1 puff INHALATION RT-DAILY 06/28/22 09/14/23 [Trelegy Ellipta 100-62.5-25] Pregabalin [Lyrica] 150 mg PO BID 06/28/22 09/14/23 Albuterol Inhaler [Ventolin Hfa 1 - 2 puff INHALATION RT-QID PRN 04/01/23 09/14/23 Inhaler] Omeprazole [PriLOSEC] 40 mg PO DAILY 04/01/23 09/14/23 metFORMIN HCL ER [Glucophage XR] 500 mg PO BID 04/01/23 09/14/23 predniSONE 10 mg PO DAILY 04/01/23 09/14/23 rOPINIRole HCL [Requip] 0.5 mg PO TID 04/01/23 09/14/23 sitaGLIPtin [Januvia] 100 mg PO DAILY 04/01/23 09/14/23 Previous Rx's Medication Instructions Recorded Acetaminophen Tab [Tylenol] 650 mg PO Q6HR PRN tab 09/17/23 Benzonatate [Tessalon Perles] 100 mg PO TID PRN #10 cap 09/17/23 Doxycycline [Vibramycin] 100 mg PO BID 5 Days #10 cap 09/17/23 Ipratropium-Albuterol Nebulize 3 ml INHALATION RT-QID PRN #100 09/17/23 [Duoneb 0.5 mg-3 mg/3 ml Soln] each atenoloL [Tenormin] 50 mg PO HS #30 tab 09/17/23 guaiFENesin [Mucinex] 600 mg PO Q12HR 7 Days #14 tab 09/17/23 predniSONE 10 mg PO DIRECTED #30 tab 09/17/23 Allergies Allergy/AdvReac Type Severity Reaction Status Date / Time erythromycin base Allergy Severe Dyspnea,hiv Verified 09/14/23 11:21 es Review of Systems ROS Statement: Those systems with pertinent positive or pertinent negative responses have been documented in the HPI. ROS Other: All systems not noted in ROS Statement are negative. 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 History of Any Multi-Drug Resistant Organisms: MRSA Date of last positivie culture/infection: 04/03/23 MDRO Source:: Left Elbow Additional Past Surgical History / Comment(s): rt cataract and 3 laser procedures r/t uveitis, pain clinic procedure Past Anesthesia/Blood Transfusion Reactions: No Reported Reaction Additional Past Anesthesia/Blood Transfusion Reaction / Comment(s): Very fearful of needles Past Psychological History: Depression Smoking Status: Former smoker Past Alcohol Use History: Occasional Past Drug Use History: None Reported - Past Family History Brother(s) Family Medical History: Myocardial Infarction (LA) Additional Family Medical History / Comment(s): Brother had a LA at the age of 51 yrs and is living. Mother Family Medical History: CVA/TIA, Hypertension Additional Family Medical History / Comment(s): Mother has had CVAs. She is living Father Family Medical History: Myocardial Infarction (LA) Additional Family Medical History / Comment(s): Father had a LA at the age of 83 yrs. He is living General Exam Limitations: no limitations General appearance: alert, in no apparent distress Head exam: Present: atraumatic, normocephalic, normal inspection Eye exam: Present: normal appearance, PERRL, EOMI. Absent: scleral icterus, conjunctival injection, periorbital swelling ENT exam: Present: normal exam, mucous membranes moist Neck exam: Present: normal inspection. Absent: tenderness, meningismus, lympha denopathy Respiratory exam: Present: normal lung sounds bilaterally. Absent: respiratory distress, wheezes, rales, rhonchi, stridor Cardiovascular Exam: Present: regular rate, normal rhythm, normal heart sounds. Absent: systolic murmur, diastolic murmur, rubs, gallop, clicks GI/Abdominal exam: Present: soft, normal bowel sounds. Absent: distended, tenderness, guarding, rebound, rigid Extremities exam: Present: normal inspection, full ROM, normal capillary refill. Absent: tenderness, pedal edema, joint swelling, calf tenderness Back exam: Present: normal inspection Neurological exam: Present: alert, oriented X3, CN II-XII intact Psychiatric exam: Present: normal affect, normal mood Skin exam: Present: warm, dry, intact, normal color. Absent: rash Course Vital Signs 09/13/23 09/13/23 09/13/23 20:44 21:55 22:50 Temperature 98.6 F 98.7 F 97.9 F Pulse Rate 70 65 76 Respiratory 22 14 18 Rate Blood Pressure 141/81 124/62 117/61 O2 Sat by Pulse 97 95 94 L Oximetry 09/13/23 09/14/23 23:22 00:21 Temperature 97.9 F Pulse Rate 62 67 Respiratory 16 Rate Blood Pressure 126/59 O2 Sat by Pulse 95 Oximetry Medical Decision Making - Medical Decision Making Was pt. sent in by a medical professional or institution (, PA, PRODUCT MANAGER [employer], urgent ca re, hospital, or half-way...) When possible be specific @ -No Did you speak to anyone other than the patient for history (EMS, parent, family, police, friend...)? What history was obtained from this source @ -No Did you review nursing and triage notes (agree or disagree)? Why? @ -I reviewed and agree with nursing and triage notes Were old charts reviewed (outside hosp., previous admission, EMS record, old EKG, old radiological studies, urgent care reports/EKG's, half-way records)? Report findings @ -No old charts were reviewed Differential Diagnosis (chest pain, altered mental status, abdominal pain women, abdominal pain men, vaginal bleeding, weakness, fever, dyspnea, syncope, headache, dizziness, GI bleed, back pain, seizure, CVA, palpatations, mental health, musculoskeletal)? @ -Differential Dyspnea: Coronary syndrome, arrhythmia, tamponade, asthma, COPD, pulmonary embolism, pneumonia, pneumothorax, pulmonary effusion, anaphylaxis, diabetic ketoacidosis, flailed chest, pulmonary contusion, diaphragmatic rupture, anemia, neuromuscular, this is not meant to be an all-inclusive list. EKG interpreted by me (3pts min.). @ -Yes and demonstrates sinus rhythm with a rate of 63. Pr interval 160. QRS 101. QTC of 401. No acute ST segment elevations or depressions X-rays interpreted by me (1pt min.). @ -Yes and demonstrates no acute process CT interpreted by me (1pt min.). @ -None done U/S interpreted by me (1pt. min.). @ -None done What testing was considered but not performed or refused? (CT, X-rays, U/S, labs)? Why? @ -None What meds were considered but not given or refused? Why? @ -None Did you discuss the management of the patient with other professionals (professionals i.e. , PA, PRODUCT MANAGER [employer], lab, RT, psych nurse, criminal justice social worker, senior oracle applications developer, teacher, credit risk officer, field case manager)? Give summary @ -Herman from [facility] Was smoking cessation discussed for >3mins.? @ -No Was critical care preformed (if so, how long)? @ -No Were there social determinants of health that impacted care today? How? (Homelessness, low income, unemployed, alcoholism, drug addiction, transportation, low edu. Level, literacy, decrease access to med. care, halfway, rehab)? @ -No Was there de-escalation of care discussed even if they declined (Discuss DNR or withdrawal of care, Hospice)? DNR status @ -No What co-morbidities impacted this encounter? (DM, HTN, Smoking, COPD, CAD, Cancer, CVA, ARF, Chemo, Hep., AIDS, mental health diagnosis, sleep apnea, morbid obesity)? @ -COPD Was patient admitted / discharged? Hospital course, mention meds given and route, prescriptions, significant lab abnormalities, going to OR and other pertinent info. @ -Upon arrival patient placed into room 10. Thorough history and physical exam was performed. Patient was given a third breathing treatment. Laboratory studies were conducted and chest x-rays performed. Results are discussed with the patient. Recommended admission due to persistent shortness of breath after 3 breathing treatments. Spoke with Herman from [facility] who agreed to admission Undiagnosed new problem with uncertain prognosis? @ -No Drug Therapy requiring intensive monitoring for toxicity (Heparin, Nitro, Insulin, Cardizem)? @ -No Were any procedures done? @ -No Diagnosis/symptom? @ -AECOPD Acute, or Chronic, or Acute on Chronic? @ -Acute on chronic Uncomplicated (without systemic symptoms) or Complicated (systemic symptoms)? @ -Complicated Side effects of treatment? @ -No Exacerbation, Progression, or Severe Exacerbation? @ -yes Poses a threat to life or bodily function? How? (Chest pain, USA, LA, pneumonia, PE, COPD, DKA, ARF, appy, cholecystitis, CVA, Diverticulitis, Homicidal, Suicidal, threat to staff... and all critical care pts) @ -No - Lab Data Result diagrams: 09/16/23 05:38 09/16/23 05:38 Lab Results 09/13/23 09/13/23 09/13/23 Range/Units 21:45 21:45 21:45 WBC 8.2 (3.8-10.6) k/uL RBC 4.99 (4.30-5.90) m/uL Hgb 16.5 (13.0-17.5) gm/dL Hct 48.8 (39.0-53.0) % MCV 98.0 (80.0-100.0) fL MCH 33.1 (25.0-35.0) pg MCHC 33.8 (31.0-37.0) g/dL RDW 12.9 (11.5-15.5) % Plt Count 151 (150-450) k/uL MPV 10.1 Immature Gran % (Auto) % Absolute Nucleated RBC % Neutrophils % 85 % Lymphocytes % 10 % Monocytes % 3 % Eosinophils % 1 % Basophils % 0 % Immature Gran # (0.00-0.04) X 10*3/uL Neutrophils # 7.0 (1.3-7.7) k/uL Lymphocytes # 0.8 L (1.0-4.8) k/uL Monocytes # 0.2 (0-1.0) k/uL Eosinophils # 0.1 (0-0.7) k/uL Basophils # 0.0 (0-0.2) k/uL NRBC/100 WBC Diff (0.00-0.01) X 10*3/uL PT 9.7 L (10.0-12.5) sec INR 0.9 (<1.2) APTT 27.0 (22.0-30.0) sec Sodium 138 (137-145) mmol/L Potassium 3.7 (3.5-5.1) mmol/L Chloride 110 H (98-107) mmol/L Carbon Dioxide 25 (22-30) mmol/L Anion Gap 3 mmol/L BUN 15 (9-20) mg/dL Creatinine 0.77 (0.66-1.25) mg/dL Est GFR (CKD-EPI) (>=60) Est GFR (CKD-EPI)AfAm >90 (>60 ml/min/1.73 sqM) Est GFR (CKD-EPI)NonAf >90 (>60 ml/min/1.73 sqM) BUN/Creatinine Ratio (12.00-20.00) Ratio Glucose 108 H (74-99) mg/dL POC Glucose (mg/dL) (70-110) mg/dL POC Glu Helmet Hat Brim Cutter ID Plasma Lactic Acid Marciano (0.7-2.0) mmol/L Calcium 8.7 (8.4-10.2) mg/dL Total Bilirubin 0.6 (0.2-1.3) mg/dL AST 22 (17-59) U/L ALT 20 (4-49) U/L Alkaline Phosphatase 80 (38-126) U/L Troponin I (0.000-0.034) ng/mL Total Protein 6.2 L (6.3-8.2) g/dL Albumin 3.6 (3.5-5.0) g/dL Influenza Type A (PCR) (Not Detectd) Influenza Type B (PCR) (Not Detectd) RSV (PCR) (Not Detectd) SARS-CoV-2 (PCR) (Not Detectd) 09/13/23 09/13/23 09/13/23 Range/Units 21:45 21:45 21:45 WBC (3.8-10.6) k/uL RBC (4.30-5.90) m/uL Hgb (13.0-17.5) gm/dL Hct (39.0-53.0) % MCV (80.0-100.0) fL MCH (25.0-35.0) pg MCHC (31.0-37.0) g/dL RDW (11.5-15.5) % Plt Count (150-450) k/uL MPV Immature Gran % (Auto) % Absolute Nucleated RBC % Neutrophils % % Lymphocytes % % Monocytes % % Eosinophils % % Basophils % % Immature Gran # (0.00-0.04) X 10*3/uL Neutrophils # (1.3-7.7) k/uL Lymphocytes # (1.0-4.8) k/uL Monocytes # (0-1.0) k/uL Eosinophils # (0-0.7) k/uL Basophils # (0-0.2) k/uL NRBC/100 WBC Diff (0.00-0.01) X 10*3/uL PT (10.0-12.5) sec INR (<1.2) APTT (22.0-30.0) sec Sodium (137-145) mmol/L Potassium (3.5-5.1) mmol/L Chloride (98-107) mmol/L Carbon Dioxide (22-30) mmol/L Anion Gap mmol/L BUN (9-20) mg/dL Creatinine (0.66-1.25) mg/dL Est GFR (CKD-EPI) (>=60) Est GFR (CKD-EPI)AfAm (>60 ml/min/1.73 sqM) Est GFR (CKD-EPI)NonAf (>60 ml/min/1.73 sqM) BUN/Creatinine Ratio (12.00-20.00) Ratio Glucose (74-99) mg/dL POC Glucose (mg/dL) (70-110) mg/dL POC Glu Helmet Hat Brim Cutter ID Plasma Lactic Acid Marciano 1.2 (0.7-2.0) mmol/L Calcium (8.4-10.2) mg/dL Total Bilirubin (0.2-1.3) mg/dL AST (17-59) U/L ALT (4-49) U/L Alkaline Phosphatase (38-126) U/L Troponin I <0.012 (0.000-0.034) ng/mL Total Protein (6.3-8.2) g/dL Albumin (3.5-5.0) g/dL Influenza Type A (PCR) Not Detected (Not Detectd) Influenza Type B (PCR) Not Detected (Not Detectd) RSV (PCR) Not Detected (Not Detectd) SARS-CoV-2 (PCR) Not Detected (Not Detectd) 09/14/23 09/14/23 09/14/23 Range/Units 05:53 05:53 11:50 WBC 8.4 (3.8-10.6) k/uL RBC 4.91 (4.30-5.90) m/uL Hgb 16.4 (13.0-17.5) gm/dL Hct 48.9 (39.0-53.0) % MCV 99.7 (80.0-100.0) fL MCH 33.3 (25.0-35.0) pg MCHC 33.4 (31.0-37.0) g/dL RDW 13.3 (11.5-15.5) % Plt Count 163 (150-450) k/uL MPV 11.1 Immature Gran % (Auto) % Absolute Nucleated RBC % Neutrophils % 91 % Lymphocytes % 6 % Monocytes % 3 % Eosinophils % 0 % Basophils % 0 % Immature Gran # (0.00-0.04) X 10*3/uL Neutrophils # 7.6 (1.3-7.7) k/uL Lymphocytes # 0.5 L (1.0-4.8) k/uL Monocytes # 0.2 (0-1.0) k/uL Eosinophils # 0.0 (0-0.7) k/uL Basophils # 0.0 (0-0.2) k/uL NRBC/100 WBC Diff (0.00-0.01) X 10*3/uL PT (10.0-12.5) sec INR (<1.2) APTT (22.0-30.0) sec Sodium 134 L (137-145) mmol/L Potassium 4.4 (3.5-5.1) mmol/L Chloride 106 (98-107) mmol/L Carbon Dioxide 19 L (22-30) mmol/L Anion Gap 9 mmol/L BUN 16 (9-20) mg/dL Creatinine 0.81 (0.66-1.25) mg/dL Est GFR (CKD-EPI) (>=60) Est GFR (CKD-EPI)AfAm >90 (>60 ml/min/1.73 sqM) Est GFR (CKD-EPI)NonAf >90 (>60 ml/min/1.73 sqM) BUN/Creatinine Ratio (12.00-20.00) Ratio Glucose 288 H (74-99) mg/dL POC Glucose (mg/dL) 174 H (70-110) mg/dL POC Glu Helmet Hat Brim Cutter ID Thuy Gongora Plasma Lactic Acid Marciano (0.7-2.0) mmol/L Calcium 8.8 (8.4-10.2) mg/dL Total Bilirubin (0.2-1.3) mg/dL AST (17-59) U/L ALT (4-49) U/L Alkaline Phosphatase (38-126) U/L Troponin I (0.000-0.034) ng/mL Total Protein (6.3-8.2) g/dL Albumin (3.5-5.0) g/dL Influenza Type A (PCR) (Not Detectd) Influenza Type B (PCR) (Not Detectd) RSV (PCR) (Not Detectd) SARS-CoV-2 (PCR) (Not Detectd) 09/14/23 09/14/23 09/15/23 Range/Units 17:24 19:41 05:56 WBC (3.8-10.6) k/uL RBC (4.30-5.90) m/uL Hgb (13.0-17.5) gm/dL Hct (39.0-53.0) % MCV (80.0-100.0) fL MCH (25.0-35.0) pg MCHC (31.0-37.0) g/dL RDW (11.5-15.5) % Plt Count (150-450) k/uL MPV Immature Gran % (Auto) % Absolute Nucleated RBC % Neutrophils % % Lymphocytes % % Monocytes % % Eosinophils % % Basophils % % Immature Gran # (0.00-0.04) X 10*3/uL Neutrophils # (1.3-7.7) k/uL Lymphocytes # (1.0-4.8) k/uL Monocytes # (0-1.0) k/uL Eosinophils # (0-0.7) k/uL Basophils # (0-0.2) k/uL NRBC/100 WBC Diff (0.00-0.01) X 10*3/uL PT (10.0-12.5) sec INR (<1.2) APTT (22.0-30.0) sec Sodium (137-145) mmol/L Potassium (3.5-5.1) mmol/L Chloride (98-107) mmol/L Carbon Dioxide (22-30) mmol/L Anion Gap mmol/L BUN (9-20) mg/dL Creatinine (0.66-1.25) mg/dL Est GFR (CKD-EPI) (>=60) Est GFR (CKD-EPI)AfAm (>60 ml/min/1.73 sqM) Est GFR (CKD-EPI)NonAf (>60 ml/min/1.73 sqM) BUN/Creatinine Ratio (12.00-20.00) Ratio Glucose (74-99) mg/dL POC Glucose (mg/dL) 201 H 219 H 145 H (70-110) mg/dL POC Glu Helmet Hat Brim Cutter Thuy Sarmiento, Faiza Fernando, Faiza Plasma Lactic Acid Marciano (0.7-2.0) mmol/L Calcium (8.4-10.2) mg/dL Total Bilirubin (0.2-1.3) mg/dL AST (17-59) U/L ALT (4-49) U/L Alkaline Phosphatase (38-126) U/L Troponin I (0.000-0.034) ng/mL Total Protein (6.3-8.2) g/dL Albumin (3.5-5.0) g/dL Influenza Type A (PCR) (Not Detectd) Influenza Type B (PCR) (Not Detectd) RSV (PCR) (Not Detectd) SARS-CoV-2 (PCR) (Not Detectd) 09/15/23 09/15/23 09/15/23 Range/Units 06:44 06:44 11:56 WBC 10.26 H (3.8-10.6) k/uL RBC 5.06 (4.30-5.90) m/uL Hgb 16.2 (13.0-17.5) gm/dL Hct 49.0 (39.0-53.0) % MCV 96.8 (80.0-100.0) fL MCH 32.0 (25.0-35.0) pg MCHC 33.1 (31.0-37.0) g/dL RDW 13.2 (11.5-15.5) % Plt Count 184 (150-450) k/uL MPV 12.5 H Immature Gran % (Auto) 0.50 % Absolute Nucleated RBC 0 % Neutrophils % 86.3 % Lymphocytes % 8.5 % Monocytes % 4.6 % Eosinophils % 0 % Basophils % 0.1 % Immature Gran # 0.05 H (0.00-0.04) X 10*3/uL Neutrophils # 8.86 H (1.3-7.7) k/uL Lymphocytes # 0.87 L (1.0-4.8) k/uL Monocytes # 0.47 (0-1.0) k/uL Eosinophils # 0 L (0-0.7) k/uL Basophils # 0.01 (0-0.2) k/uL NRBC/100 WBC Diff 0 (0.00-0.01) X 10*3/uL PT (10.0-12.5) sec INR (<1.2) APTT (22.0-30.0) sec Sodium 140 (137-145) mmol/L Potassium 5.3 (3.5-5.1) mmol/L Chloride 105 (98-107) mmol/L Carbon Dioxide 23.1 (22-30) mmol/L Anion Gap 11.90 mmol/L BUN 16.4 (9-20) mg/dL Creatinine 0.8 (0.66-1.25) mg/dL Est GFR (CKD-EPI) 105 (>=60) Est GFR (CKD-EPI)AfAm (>60 ml/min/1.73 sqM) Est GFR (CKD-EPI)NonAf (>60 ml/min/1.73 sqM) BUN/Creatinine Ratio 20.50 H (12.00-20.00) Ratio Glucose 144 H (74-99) mg/dL POC Glucose (mg/dL) 156 H (70-110) mg/dL POC Glu Helmet Hat Brim Cutter ID Thuy Gongora Plasma Lactic Acid Marciano (0.7-2.0) mmol/L Calcium 9.9 (8.4-10.2) mg/dL Total Bilirubin (0.2-1.3) mg/dL AST (17-59) U/L ALT (4-49) U/L Alkaline Phosphatase (38-126) U/L Troponin I (0.000-0.034) ng/mL Total Protein (6.3-8.2) g/dL Albumin (3.5-5.0) g/dL Influenza Type A (PCR) (Not Detectd) Influenza Type B (PCR) (Not Detectd) RSV (PCR) (Not Detectd) SARS-CoV-2 (PCR) (Not Detectd) Disposition Clinical Impression: COPD exacerbation, Acute respiratory insufficiency Disposition: ADMITTED IP TO THIS [facility] Condition: Stable Is patient prescribed a controlled substance at d/c from ED?: No Time of Disposition: 23:09 Decision to Admit Reason: Admit from EC Decision Date: 09/13/23 Decision Time: 23:09
[2023-09-14] MEDS: methylPREDNISolone SOD SUCCI 40 MG/ML 1 ML VIAL IV SCH ×4 (00:01→23:15)
[2023-09-14] MEDS: oxyCODONE-APAP 10-325MG 1 EACH TAB PO PRN ×3 (02:01→17:08)
[2023-09-14 06:15] LABS: Basophils % (A) 0 %; Eosinophils % (A) 0 %; HCT 48.9 % (39.0-53.0); HGB 16.4 gm/dL (13.0-17.5); Lymphocytes # (A) 0.5 k/uL (1.0-4.8); Lymphocytes % (A) 6 %; MCH 33.3 pg (25.0-35.0); MCHC 33.4 g/dL (31.0-37.0); MCV 99.7 fL (80.0-100.0); Mean Platelet Volume 11.1; Monocytes # (A) 0.2 k/uL (0-1.0); Monocytes % (A) 3 %; Neutrophils # (A) 7.6 k/uL (1.3-7.7); Neutrophils % (A) 91 %; Platelet Count 163 k/uL (150-450); RBC 4.91 m/uL (4.30-5.90); RDW 13.3 % (11.5-15.5); WBC 8.4 k/uL (3.8-10.6)
[2023-09-14 06:37] LABS: African American GFR (CKD) >90 (>60 ml/min/1.73 sqM); Anion Gap 9 mmol/L; Blood Urea Nitrogen 16 mg/dL (9-20); Calcium 8.8 mg/dL (8.4-10.2); Carbon Dioxide 19 mmol/L (22-30); Chloride 106 mmol/L (98-107); Glucose 288 mg/dL (74-99); Non-African American GFR(CKD) >90 (>60 ml/min/1.73 sqM); Potassium 4.4 mmol/L (3.5-5.1); Sodium 134 mmol/L (137-145)
[2023-09-14] MEDS: SYMBICORT 80-4.5 MCG INHALER INHALATION SCH ×2 (07:46→20:43)
[2023-09-14] MEDS ORDERED: ACETAMINOPHEN TAB 325 MG TAB PO PRN (09:57)
[2023-09-14] MEDS ORDERED: ONDANSETRON 4 MG/2 ML VIAL IVP PRN (09:57)
[2023-09-14] MEDS ORDERED: BENZONATATE 100 MG CAP PO PRN (10:00)
[2023-09-14] MEDS ORDERED: guaiFENesin-Coden 100-10MG/5ML 10 ML CUP PO PRN (10:00)
[2023-09-14] MEDS ORDERED: DEXTROSE 50% SYRINGE 50 ML IVP PRN ×2 (10:06)
[2023-09-14] MEDS: IPRATROPIUM-ALBUTEROL 3 ML NEB INHALATION PRN ×2 (11:16→15:02)
[2023-09-14] MEDS: DOXYCYCLINE 100 MG CAP PO SCH ×2 (11:48→20:45)
[2023-09-14] MEDS: SODIUM CHLORIDE 0.9% 1,000 ML IV SCH ×2 (11:48→20:44)
[2023-09-14] MEDS: guaiFENesin 600 MG TABLET.ER PO SCH ×2 (11:48→20:45)
[2023-09-14 11:51] LABS: Glucose,Whole Blood 174 mg/dL (70-110)
[2023-09-14] MEDS: INSULIN ASPART (NovoLOG) 100 UNIT/ML VIAL SQ SCH ×3 (11:54→20:45)
--- NOTE | 2023-09-14 13:17 | P.CNPUL ---
History of Present Illness Consult date: 09/14/23 Reason for consult: dyspnea, COPD History of present illness: 57-year-old male patient with known history of COPD coming in with increased dyspnea, chest tightness and wheezing he stated that over the past 2 days she started having some fever or productive cough. No chest pain. He is followed up in our office on outpatient basis anyways oxygen at 2 L/m nasal cannula and he also is on a maintenance of prednisone 10 mg by mouth daily. In terms of maintenance inhalers, the patient is maintained on Trelegy Ellipta one inhalation a day. He also uses albuterol updrafts on an as-needed basis. Noted the patient has advanced COPD. Is an ex-smoker. He has had previous cephalization for COPD exacerbation. He also has excessive history of ankylosing spondylitis and autoimmune disease and the patient is demented on Humira and as such is somewhat immunosuppressed. His chest x-ray is not showing any acute pulmonary abnormalities. Labs were reviewed and the patient has a white cell count of 8.4 with a hemoglobin of 16, Marimar is at 60 with a creatinine of 0.8 and a sodium level is at 134. The viral panel has been negative. Troponins are negative. Chest x-ray showed no acute pulmonary infiltrates. Review of Systems CONSTITUTIONAL: Denies any recent significant weight loss or weight gain. EYES: Denies change in vision. EARS, NOSE, MOUTH, THROAT: Denies headaches, denies sore throat. CARDIOVASCULAR: Denies chest pain, palpitations or syncopal episodes. RESPIRATORY: See HPI worsening shortness of breath as stated above typical of COPD exacerbation GASTROINTESTINAL: Denies change in appetite, abdominal pain, nausea and vomiting, or diarrhea GENITOURINARY: Denies hematuria, denies infections. MUSKULOSKELETAL: Denies pain, denies swelling. INTEGUMENTARY: Denies rash, denies eczema. NEUROLOGICAL: Denies recent memory loss, no recent seizure activity. PSYCHIATRIC: Denies anxiety, denies depression. HEMATOLOGIC/LYMPHATIC: Denies anemia, denies enlarged lymph node Past Medical History Past Medical History: COPD, Hyperlipidemia, Pneumonia, Skin Disorder Additional Past Medical History / Comment(s): Current pneumonia with antibiotic, parkinson's disease, bronchitis, anykylosing spondylitis,rt eye uveitis, monocular vision rt eye, HLAB27 positive autoimmune disease, ankylosing spondyitis, chronic back/cervical pain-2 herniated disks, degenerative disk disease, lumbar collapsed vertebrae with pinched nerves, numbness bilateral legs, 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 History of Any Multi-Drug Resistant Organisms: MRSA Date of last positivie culture/infection: 04/03/23 MDRO Source:: Left Elbow Additional Past Surgical History / Comment(s): rt cataract and 3 laser procedures r/t uveitis, pain clinic procedure Past Anesthesia/Blood Transfusion Reactions: No Reported Reaction Additional Past Anesthesia/Blood Transfusion Reaction / Comment(s): Very fearful of needles Past Psychological History: Depression Additional Psychological History / Comment(s): Pt resides with his spouse and son. He has a nebulizer. No other medical equipment. He can drive. Smoking Status: Former smoker Past Alcohol Use History: Occasional Additional Past Alcohol Use History / Comment(s): Pt started smoking in 1977 and is a 1-2.5 ppd smoker. patient quit earlier this month. states he cut down drinking 3 months ago- used to drink daily "all my life" per patient, now he only drinks up to a six pack daily per patient. Past Drug Use History: None Reported - Past Family History Brother(s) Family Medical History: Myocardial Infarction ([place]) Additional Family Medical History / Comment(s): Brother had a ME at the age of 51 yrs and is living. Mother Family Medical History: CVA/TIA, Hypertension Additional Family Medical History / Comment(s): Mother has had CVAs. She is romel ng Father Family Medical History: Myocardial Infarction ([place]) Additional Family Medical History / Comment(s): Father had a ME at the age of 83 yrs. He is living Medications and Allergies Home Medications Medication Instructions Recorded Confirmed Type DULoxetine HCL [Cymbalta] 60 mg PO DAILY 05/23/17 09/14/23 History atenoloL [Tenormin] 75 mg PO HS 05/23/17 09/14/23 History Adalimumab [Humira(Cf) Pen] 40 mg SQ Q14D 07/06/18 09/14/23 History Atorvastatin [Lipitor] 40 mg PO DAILY 06/14/20 09/14/23 History oxyCODONE-APAP 10-325MG [Percocet 1 tab PO TID PRN 04/11/21 09/14/23 History 10-325 mg] Fluticasone/Umeclidin/Vilanter 1 puff INHALATION RT-DAILY 06/28/22 09/14/23 History [Trelegy Ellipta 100-62.5-25] Pregabalin [Lyrica] 150 mg PO BID 06/28/22 09/14/23 History Albuterol Inhaler [Ventolin Hfa 1 - 2 puff INHALATION RT-QID PRN 04/01/23 09/14/23 History Inhaler] Omeprazole [PriLOSEC] 40 mg PO DAILY 04/01/23 09/14/23 History metFORMIN HCL ER [Glucophage XR] 500 mg PO BID 04/01/23 09/14/23 History predniSONE 10 mg PO DAILY 04/01/23 09/14/23 History rOPINIRole HCL [Requip] 0.5 mg PO TID 04/01/23 09/14/23 History sitaGLIPtin [Januvia] 100 mg PO DAILY 04/01/23 09/14/23 History Allergies Allergy/AdvReac Type Severity Reaction Status Date / Time erythromycin base Allergy Severe Dyspnea,hiv Verified 09/14/23 11:21 es Physical Exam Vitals: Vital Signs Temp Pulse Pulse Resp BP BP Pulse Ox 09/14/23 11:26 60 09/14/23 11:16 54 L 09/14/23 07:00 97.4 F L 60 16 130/76 97 09/14/23 02:00 97.6 F 64 15 134/87 93 L 09/14/23 00:21 97.9 F 67 16 126/59 95 09/13/23 23:22 62 09/13/23 22:50 97.9 F 76 18 117/61 94 L 09/13/23 21:55 98.7 F 65 14 124/62 95 09/13/23 20:44 98.6 F 70 22 141/81 97 Intake and Output 09/13/23 09/14/23 09/14/23 22:59 06:59 14:59 Other: Voiding Method Toilet Toilet # Voids 2 Weight 99.79 kg 99.79 kg GENERAL EXAM: Alert, 56-year-old white male, comfortable in no apparent distress. HEAD: Normocephalic and atraumatic EYES: Normal reaction of pupils, equal size. NOSE: Clear with pink turbinates. THROAT: No erythema or exudates. NECK: No masses, no JVD. CHEST: No chest wall deformity. LUNGS: Equal air entry with expiratory wheezes heard throughout and scattered rhonchi. no crackles or dullness. On 3 L nasal cannula. No conversational dyspnea or accessory muscle use.. CVS: S1 and S2 normal with no audible murmur, regular rhythm. No extra heart sounds ABDOMEN: No hepatosplenomegaly, active bowel sounds, no guarding or rigidity. SPINE: No scoliosis or deformity SKIN: No rashes CENTRAL NERVOUS SYSTEM: No focal deficits, tone is normal in all 4 extremities. EXTREMITIES: There is no peripheral edema, clubbing, or cyanosis. Peripheral pulses are intact. Results - Laboratory Findings CBC and BMP: 09/14/23 05:53 09/14/23 05:53 PT/INR, D-dimer PT 9.7 sec (10.0-12.5) L 09/13/23 21:45 INR 0.9 (<1.2) 09/13/23 21:45 Abnormal lab findings: Abnormal Labs 09/13/23 09/13/23 09/13/23 21:45 21:45 21:45 Lymphocytes # 0.8 L PT 9.7 L Sodium Chloride 110 H Carbon Dioxide Glucose 108 H POC Glucose (mg/dL) Total Protein 6.2 L 09/14/23 09/14/23 09/14/23 05:53 05:53 11:50 Lymphocytes # 0.5 L PT Sodium 134 L Chloride Carbon Dioxide 19 L Glucose 288 H POC Glucose (mg/dL) 174 H Total Protein - Diagnostic Findings Chest x-ray: image reviewed Assessment and Plan Plan: Acute COPD exacerbation. The viral panel is negative Chronic hypoxic respiratory failure and the patient maintain on 3 L of oxygen by nasal cannula Advanced COPD with maintain on Trelegy Ellipta and 10 mg of prednisone as maintenance on outpatient basis. He has also chronic hypoxic respiratory failure. History of smoking carries around 24-olve-bksv smoking history Hyperlipidemia Parkinson's disease Ankylosing spondylitis, maintain on Humira Chronic back pain HLA B 27 autoimmune disease Plan Agree on the current management. Will follow.
--- NOTE | 2023-09-14 13:34 | P.HPIM ---
History of Present Illness H&P Date: 09/14/23 Chief Complaint: Shortness of breath * 57-year-old patient with past medical history significant for chronic hypoxic respiratory failure on 3 L of oxygen, history of Parkinson's disease, hyperlipidemia, ankylosing spondylitis, chronic back pain who presents to the emergency department with complains of shortness of breath, fever, productive cough ongoing for the last 48 hours.. Patient states she had exertional shortness of breath and has been using her breathing treatments however without any relief. Patient has been wearing 2 L of oxygen. Workup initiated included CBC which showed WBC 8.2 hemoglobin 16. 4-151 INR of 0.9 * Serum chemistry shows sodium 138 potassium 3.7 chloride 110 BUNs 15 creatinine 0.7 troponin within normal limits * Patient tested negative for infectious of Covid and RSV * Chest x-ray obtained in ER within normal limits no intrathoracic process noted * Patient was given breathing treatment, started on IV steroids and admitted to medical floor with consultation from pulmonary medicine REVIEW OF SYSTEMS: Cough, sputum production, shortness of breath CONSTITUTIONAL: No fever, no malaise, no fatigue. HEENT: No recent visual problems or hearing problems. Denied any sore throat. CARDIOVASCULAR: No chest pain, orthopnea, PND, no palpitations, no syncope. PULMONARY: Cough, sputum production, shortness of breath GASTROINTESTINAL: No diarrhea, no nausea, no vomiting, no abdominal pain. NEUROLOGICAL: No headaches, no weakness, no numbness. HEMATOLOGICAL: Denies any bleeding or petechiae. GENITOURINARY: Denies any burning micturition, frequency, or urgency. MUSCULOSKELETAL/RHEUMATOLOGICAL: Denies any joint pain, swelling, or any muscle pain. ENDOCRINE: Denies any polyuria or polydipsia. PHYSICAL EXAMINATION: GENERAL: The patient is alert and oriented x3, ill appearance, nasal cannula in place HEENT: Pupils are round and equally reacting to light. EOMI Normocephalic, atraumatic. No pharyngeal erythema. No thyromegaly. CARDIOVASCULAR: S1 and S2 present. No murmurs, rubs, or gallops. PULMONARY: Chest is clear to auscultation, no wheezing or crackles. ABDOMEN: Soft, nontender, nondistended, normoactive bowel sounds. No palpable organomegaly. MUSCULOSKELETAL: No joint swelling or deformity. EXTREMITIES: No cyanosis, clubbing, or pedal edema. NEUROLOGICAL: Gross neurological examination did not reveal any focal deficits. SKIN: No rashes. 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 History of Any Multi-Drug Resistant Organisms: MRSA Date of last positivie culture/infection: 04/03/23 MDRO Source:: Left Elbow Additional Past Surgical History / Comment(s): rt cataract and 3 laser procedures r/t uveitis, pain clinic procedure Past Anesthesia/Blood Transfusion Reactions: No Reported Reaction Additional Past Anesthesia/Blood Transfusion Reaction / Comment(s): Very fearful of needles Past Psychological History: Depression Additional Psychological History / Comment(s): Pt resides with his spouse and son. He has a nebulizer. No other medical equipment. He can drive. Smoking Status: Former smoker Past Alcohol Use History: Occasional Additional Past Alcohol Use History / Comment(s): Pt started smoking in 1977 and is a 1-2.5 ppd smoker. patient quit earlier this month. states he cut down drinking 3 months ago- used to drink daily "all my life" per patient, now he only drinks up to a six pack daily per patient. Past Drug Use History: None Reported - Past Family History Brother(s) Family Medical History: Myocardial Infarction ([place]) Additional Family Medical History / Comment(s): Brother had a [place] at the age of 5 1 yrs and is living. Mother Family Medical History: CVA/TIA, Hypertension Additional Family Medical History / Comment(s): Mother has had CVAs. She is living Father Family Medical History: Myocardial Infarction ([place]) Additional Family Medical History / Comment(s): Father had a [place] at the age of 83 yrs. He is living Medications and Allergies Home Medications Medication Instructions Recorded Confirmed Type DULoxetine HCL [Cymbalta] 60 mg PO DAILY 05/23/17 09/14/23 History atenoloL [Tenormin] 75 mg PO HS 05/23/17 09/14/23 History Adalimumab [Humira(Cf) Pen] 40 mg SQ Q14D 07/06/18 09/14/23 History Atorvastatin [Lipitor] 40 mg PO DAILY 06/14/20 09/14/23 History oxyCODONE-APAP 10-325MG [Percocet 1 tab PO TID PRN 04/11/21 09/14/23 History 10-325 mg] Fluticasone/Umeclidin/Vilanter 1 puff INHALATION RT-DAILY 06/28/22 09/14/23 History [Trelegy Ellipta 100-62.5-25] Pregabalin [Lyrica] 150 mg PO BID 06/28/22 09/14/23 History Albuterol Inhaler [Ventolin Hfa 1 - 2 puff INHALATION RT-QID PRN 04/01/23 09/14/23 History Inhaler] Omeprazole [PriLOSEC] 40 mg PO DAILY 04/01/23 09/14/23 History metFORMIN HCL ER [Glucophage XR] 500 mg PO BID 04/01/23 09/14/23 History predniSONE 10 mg PO DAILY 04/01/23 09/14/23 History rOPINIRole HCL [Requip] 0.5 mg PO TID 04/01/23 09/14/23 History sitaGLIPtin [Januvia] 100 mg PO DAILY 04/01/23 09/14/23 History Allergies Allergy/AdvReac Type Severity Reaction Status Date / Time erythromycin base Allergy Severe Dyspnea,hiv Verified 09/14/23 11:21 es Physical Exam Vitals: Vital Signs Temp Pulse Pulse Resp BP BP Pulse Ox 09/14/23 07:00 97.4 F L 60 16 130/76 97 09/14/23 02:00 97.6 F 64 15 134/87 93 L 09/14/23 00:21 97.9 F 67 16 126/59 95 09/13/23 23:22 62 09/13/23 22:50 97.9 F 76 18 117/61 94 L 09/13/23 21:55 98.7 F 65 14 124/62 95 09/13/23 20:44 98.6 F 70 22 141/81 97 Intake and Output 09/13/23 09/14/23 09/14/23 22:59 06:59 14:59 Other: Voiding Method Toilet # Voids 2 Weight 99.79 kg 99.79 kg Results CBC & Chem 7: 09/14/23 05:53 09/14/23 05:53 Labs: Abnormal Lab Results - Last 24 Hours (Table) 09/13/23 09/13/23 09/13/23 Range/Units 21:45 21:45 21:45 Lymphocytes # 0.8 L (1.0-4.8) k/uL PT 9.7 L (10.0-12.5) sec Sodium (137-145) mmol/L Chloride 110 H (98-107) mmol/L Carbon Dioxide (22-30) mmol/L Glucose 108 H (74-99) mg/dL Total Protein 6.2 L (6.3-8.2) g/dL 09/14/23 09/14/23 Range/Units 05:53 05:53 Lymphocytes # 0.5 L (1.0-4.8) k/uL PT (10.0-12.5) sec Sodium 134 L (137-145) mmol/L Chloride (98-107) mmol/L Carbon Dioxide 19 L (22-30) mmol/L Glucose 288 H (74-99) mg/dL Total Protein (6.3-8.2) g/dL Assessment and Plan Assessment: Assessment and plan * Acute on chronic hypoxic respiratory failure * Acute exacerbation of COPD * Acute tracheobronchitis * Diabetes mellitus type 2 * In regards to respiratory failure and COPD exacerbation, continue patient on breathing treatments, continue Mucinex, Tessalon Perles, started on doxycycline for tracheobronchitis, pulmonary medicine consulted, continue IV Solu-Medrol * In regards to acute tracheobronchitis continue Mucinex and doxycycline * In regards to diabetes mellitus, Accu-Cheks before meals at bedtime patient placed on correctional insulin, will resume home regimen * CODE STATUS is full code, Lovenox for DVT prophylaxis Time with Patient: Greater than 30
[2023-09-14 17:25] LABS: Glucose,Whole Blood 201 mg/dL (70-110)
[2023-09-14 19:42] LABS: Glucose,Whole Blood 219 mg/dL (70-110)
[2023-09-14] MEDS: PREGABALIN 75 MG CAP PO SCH (20:45)
[2023-09-14] MEDS: HEPARIN SODIUM,PORCINE 5,000 UNIT/ML 1 ML VIAL SQ SCH (20:45)
[2023-09-14] MEDS ORDERED: atenoloL 25 MG TAB PO SCH (21:00)
[2023-09-14] MEDS: ZOLPIDEM 5 MG TAB PO PRN (23:15)
[2023-09-15 05:57] LABS: Glucose,Whole Blood 145 mg/dL (70-110)
[2023-09-15] MEDS: INSULIN ASPART (NovoLOG) 100 UNIT/ML VIAL SQ SCH ×4 (05:59→21:24)
[2023-09-15] MEDS: SYMBICORT 80-4.5 MCG INHALER INHALATION SCH ×2 (08:30→19:41)
[2023-09-15] MEDS: IPRATROPIUM-ALBUTEROL 3 ML NEB INHALATION PRN ×3 (08:30→15:37)
[2023-09-15] MEDS: methylPREDNISolone SOD SUCCI 40 MG/ML 1 ML VIAL IV SCH ×3 (08:37→22:59)
[2023-09-15] MEDS: ATORVASTATIN 40 MG TAB PO SCH (08:38)
[2023-09-15] MEDS: DOXYCYCLINE 100 MG CAP PO SCH ×2 (08:38→21:22)
[2023-09-15] MEDS: DULoxetine HCL 60 MG CAPSULE.DR PO SCH (08:38)
[2023-09-15] MEDS: LINAGLIPTIN 5 MG TABLET PO SCH (08:38)
[2023-09-15] MEDS: PANTOPRAZOLE 40 MG TABLET PO SCH (08:38)
[2023-09-15] MEDS: PREGABALIN 75 MG CAP PO SCH ×2 (08:38→21:22)
[2023-09-15] MEDS: guaiFENesin 600 MG TABLET.ER PO SCH ×2 (08:38→21:22)
[2023-09-15] MEDS: HEPARIN SODIUM,PORCINE 5,000 UNIT/ML 1 ML VIAL SQ SCH ×2 (08:39→19:46)
[2023-09-15 09:15] LABS: Blood Urea Nitrogen 16.4 mg/dL (9.0-27.0); Calcium 9.9 mg/dL (8.7-10.3); Carbon Dioxide 23.1 mmol/L (21.6-31.8); Chloride 105 mmol/L (96-109); Glucose 144 mg/dL (70-110); Potassium 5.3 mmol/L (3.5-5.5); Sodium 140 mmol/L (135-145)
[2023-09-15] MEDS ORDERED: SODIUM ZIRCONIUM CYCLOSILICATE 10 GM PACKET PO ONE (09:17)
[2023-09-15 09:46] LABS: Basophils # (A) 0.01 X 10*3/uL (0.00-0.10); Basophils % (A) 0.1 %; Eosinophils # (A) 0 X 10*3/uL (0.04-0.35); Eosinophils % (A) 0 %; HGB 16.2 g/dL (13.0-17.0); Lymphocytes # (A) 0.87 X 10*3/uL (0.90-5.00); Lymphocytes % (A) 8.5 %; MCHC 33.1 g/dL (32.0-37.0); MCV 96.8 FL (80.0-97.0); Mean Platelet Volume 12.5 FL (9.5-12.2); Monocytes # (A) 0.47 X 10*3/uL (0.20-1.00); Monocytes % (A) 4.6 %; NRBC Per 100 WBC 0 X 10*3/uL (0.00-0.01); Neutrophils # (A) 8.86 X 10*3/uL (1.80-7.70); Neutrophils % (A) 86.3 %; Platelet Count 184 X 10*3/uL (140-440); RBC 5.06 X 10*6/uL (4.40-5.60); RDW 13.2 % (11.5-14.5); WBC 10.26 X 10*3/uL (4.50-10.00)
[2023-09-15 11:57] LABS: Glucose,Whole Blood 156 mg/dL (70-110)
[2023-09-15] MEDS ORDERED: CALCIUM GLUCONATE IN NACL 2 GM in SALINE 1 100ML.BAG IVPB ONE (12:12)
--- NOTE | 2023-09-15 12:16 | P.PN ---
Subjective Progress Note Date: 09/15/23 * 57-year-old patient with past medical history significant for chronic hypoxic respiratory failure on 3 L of oxygen, history of Parkinson's disease, hyperlipidemia, ankylosing spondylitis, chronic back pain who presents to the emergency department with complains of shortness of breath, fever, productive cough ongoing for the last 48 hours.. Patient states she had exertional shortness of breath and has been using her breathing treatments however without any relief. Patient has been wearing 2 L of oxygen. Workup initiated included CBC which showed WBC 8.2 hemoglobin 16. 4-151 INR of 0.9 * Serum chemistry shows sodium 138 potassium 3.7 chloride 110 BUNs 15 creatinine 0.7 troponin within normal limits * Patient tested negative for infectious of Covid and RSV * Chest x-ray obtained in ER within normal limits no intrathoracic process noted * Patient was given breathing treatment, started on IV steroids and admitted to medical floor with consultation from pulmonary medicine * 09/15/2023: patient seen and evaluated bedside, continue with current management including steroids, antibiotics, oxygen supplementation, appreciate input from Pulmonary Medicine, expected length of stay another 48 hours de pending on clinical course. Blood work reviewed. Noted to have transient hyperkalemia given local and calcium gluconate. Patient continued to complain of cough. Noted to have bradycardia dose of atenolol decreased holding instructions placed REVIEW OF SYSTEMS: Cough, sputum production, shortness of breath CONSTITUTIONAL: No fever, no malaise, no fatigue. HEENT: No recent visual problems or hearing problems. Denied any sore throat. CARDIOVASCULAR: No chest pain, orthopnea, PND, no palpitations, no syncope. PULMONARY: Cough, sputum production, shortness of breath GASTROINTESTINAL: No diarrhea, no nausea, no vomiting, no abdominal pain. NEUROLOGICAL: No headaches, no weakness, no numbness. HEMATOLOGICAL: Denies any bleeding or petechiae. GENITOURINARY: Denies any burning micturition, frequency, or urgency. MUSCULOSKELETAL/RHEUMATOLOGICAL: Denies any joint pain, swelling, or any muscle pain. ENDOCRINE: Denies any polyuria or polydipsia. PHYSICAL EXAMINATION: GENERAL: The patient is alert and oriented x3, ill appearance, nasal cannula in place HEENT: Pupils are round and equally reacting to light. EOMI Normocephalic, atraumatic. No pharyngeal erythema. No thyromegaly. CARDIOVASCULAR: S1 and S2 present. Bradycardia noted PULMONARY: Decreased breath sound bilaterally ABDOMEN: Soft, nontender, nondistended, normoactive bowel sounds. No palpable organomegaly. MUSCULOSKELETAL: No joint swelling or deformity. EXTREMITIES: No cyanosis, clubbing, or pedal edema. NEUROLOGICAL: Gross neurological examination did not reveal any focal deficits. SKIN: No rashes. Objective - Vital Signs Vital signs: Vital Signs Temp 97.7 F 09/14/23 19:23 Pulse 58 L 09/14/23 19:23 Resp 16 09/14/23 19:23 BP 119/70 09/14/23 19:23 Pulse Ox 95 09/14/23 19:23 FiO2 Intake & Output 09/14/23 09/14/23 09/15/23 06:59 18:59 06:59 Weight 99.79 kg Other: Voiding Method Toilet Toilet Toilet # Voids 2 3 1 # Bowel Movements 0 - Labs CBC & Chem 7: 09/15/23 06:44 09/15/23 06:44 Labs: Abnormal Lab Results - Last 24 Hours (Table) 09/14/23 09/14/23 09/14/23 Range/Units 05:53 05:53 11:50 Lymphocytes # 0.5 L (1.0-4.8) k/uL Sodium 134 L (137-145) mmol/L Carbon Dioxide 19 L (22-30) mmol/L Glucose 288 H (74-99) mg/dL POC Glucose (mg/dL) 174 H (70-110) mg/dL 09/14/23 09/14/23 Range/Units 17:24 19:41 Lymphocytes # (1.0-4.8) k/uL Sodium (137-145) mmol/L Carbon Dioxide (22-30) mmol/L Glucose (74-99) mg/dL POC Glucose (mg/dL) 201 H 219 H (70-110) mg/dL Assessment and Plan Assessment: Assessment and plan * Acute on chronic hypoxic respiratory failure * Acute exacerbation of COPD * Acute tracheobronchitis * Diabetes mellitus type 2 * Hypertension * In regards to respiratory failure and COPD exacerbation, continue patient on breathing treatments> continue Mucinex, Tessalon Perles, doxycycline day 3 /5 for tracheobronchitis, pulmonary medicine consulted, continue IV Solu-Medrol Day 3 * In regards to acute tracheobronchitis continue Mucinex and doxycycline * In regards to diabetes mellitus, Accu-Cheks before meals at bedtime patient placed on correctional insulin, will resume home regimen * In regards to history of hypertension dose of atenolol decreased to 50 mg at at bedtime, monitor for worsening bradycardia * CODE STATUS is full code * Lovenox for DVT prophylaxis Time with Patient: Greater than 30
--- NOTE | 2023-09-15 14:51 | P.PN ---
Subjective Progress Note Date: 09/15/23 57-year-old male patient with known history of COPD coming in with increased dyspnea, chest tightness and wheezing he stated that over the past 2 days she started having some fever or productive cough. No chest pain. He is followed up in our office on outpatient basis anyways oxygen at 2 L/m nasal cannula and he also is on a maintenance of prednisone 10 mg by mouth daily. In terms of maintenance inhalers, the patient is maintained on Trelegy Ellipta one inhalation a day. He also uses albuterol updrafts on an as-needed basis. Noted the patient has advanced COPD. Is an ex-smoker. He has had previous cephalization for COPD exacerbation. He also has excessive history of ankylosing spondylitis and autoimmune disease and the patient is demented on Humira and as such is somewhat immunosuppressed. His chest x-ray is not showing any acute pulmonary abnormalities. Labs were reviewed and the patient has a white cell count of 8.4 with a hemoglobin of 16, Marimar is at 60 with a creatinine of 0.8 and a sodium level is at 134. The viral panel has been negative. Troponins are negative. Chest x-ray showed no acute pulmonary infiltrates. 09/15/2023, patient is being seen for a follow-up. The patient is feeling slightly improved compared to yesterday. He has no specific complaints. His being treated for an acute COPD exacerbation. No indication for pneumonia. He remains on IV Solu-Medrol 40 mg every 8 hours. Remains on Symbicort and DuoNeb updrafts. Labs from today showing white cell count of 10, he was 16.2, BUN is at 60 mg and 0.8 and sodium level is at 140. Objective - Vital Signs Vital signs: Vital Signs Temp 97.6 F 09/15/23 07:00 Pulse 50 L 09/15/23 08:48 Resp 16 09/15/23 07:00 BP 142/81 09/15/23 07:00 Pulse Ox 94 L 09/15/23 08:31 FiO2 Intake & Output 09/14/23 09/15/23 09/15/23 18:59 06:59 18:59 Other: Voiding Method Toilet Toilet # Voids 3 2 # Bowel Movements 0 - Exam GENERAL EXAM: Alert, 56-year-old white male, comfortable in no apparent distress. HEAD: Normocephalic and atraumatic EYES: Normal reaction of pupils, equal size. NOSE: Clear with pink turbinates. THROAT: No erythema or exudates. NECK: No masses, no JVD. CHEST: No chest wall deformity. LUNGS: Equal air entry with expiratory wheezes heard throughout and scattered rhonchi. no crackles or dullness. On 3 L nasal cannula. No conversational dyspnea or accessory muscle use.. CVS: S1 and S2 normal with no audible murmur, regular rhythm. No extra heart sounds ABDOMEN: No hepatosplenomegaly, active bowel sounds, no guarding or rigidity. SPINE: No scoliosis or deformity SKIN: No rashes CENTRAL NERVOUS SYSTEM: No focal deficits, tone is normal in all 4 extremities. EXTREMITIES: There is no peripheral edema, clubbing, or cyanosis. Peripheral pulses are intact. - Labs CBC & Chem 7: 09/15/23 06:44 09/15/23 06:44 Labs: Abnormal Lab Results - Last 24 Hours (Table) 09/14/23 09/14/23 09/14/23 Range/Units 11:50 17:24 19:41 WBC (4.50-10.00) X 10*3/uL MPV (9.5-12.2) FL Immature Gran # (0.00-0.04) X 10*3/uL Neutrophils # (1.80-7.70) X 10*3/uL Lymphocytes # (0.90-5.00) X 10*3/uL Eosinophils # (0.04-0.35) X 10*3/uL BUN/Creatinine Ratio (12.00-20.00) Ratio Glucose (70-110) mg/dL POC Glucose (mg/dL) 174 H 201 H 219 H (70-110) mg/dL 09/15/23 09/15/23 09/15/23 Range/Units 05:56 06:44 06:44 WBC 10.26 H (4.50-10.00) X 10*3/uL MPV 12.5 H (9.5-12.2) FL Immature Gran # 0.05 H (0.00-0.04) X 10*3/uL Neutrophils # 8.86 H (1.80-7.70) X 10*3/uL Lymphocytes # 0.87 L (0.90-5.00) X 10*3/uL Eosinophils # 0 L (0.04-0.35) X 10*3/uL BUN/Creatinine Ratio 20.50 H (12.00-20.00) Ratio Glucose 144 H (70-110) mg/dL POC Glucose (mg/dL) 145 H (70-110) mg/dL Assessment and Plan Plan: Acute COPD exacerbation. The viral panel is negative Chronic hypoxic respiratory failure and the patient maintain on 3 L of oxygen by nasal cannula Advanced COPD with maintain on Trelegy Ellipta and 10 mg of prednisone as maintenance on outpatient basis. He has also chronic hypoxic respiratory failure. 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 No other co mplaints. Labs were reviewed. Continue bronchodilators and steroids.
[2023-09-15 17:36] LABS: Glucose,Whole Blood 141 mg/dL (70-110)
[2023-09-15] MEDS: atenoloL 50 MG TAB PO SCH (19:59)
[2023-09-15 20:47] LABS: Glucose,Whole Blood 183 mg/dL (70-110)
[2023-09-15] MEDS: ZOLPIDEM 5 MG TAB PO PRN (22:59)
[2023-09-16 06:12] LABS: Glucose,Whole Blood 150 mg/dL (70-110)
[2023-09-16] MEDS: INSULIN ASPART (NovoLOG) 100 UNIT/ML VIAL SQ SCH ×4 (06:29→21:15)
[2023-09-16] MEDS: PANTOPRAZOLE 40 MG TABLET PO SCH (08:28)
[2023-09-16] MEDS: ATORVASTATIN 40 MG TAB PO SCH (08:28)
[2023-09-16] MEDS: DULoxetine HCL 60 MG CAPSULE.DR PO SCH (08:28)
[2023-09-16] MEDS: guaiFENesin 600 MG TABLET.ER PO SCH ×2 (08:28→21:11)
[2023-09-16] MEDS: PREGABALIN 75 MG CAP PO SCH ×2 (08:28→21:10)
[2023-09-16] MEDS: DOXYCYCLINE 100 MG CAP PO SCH ×2 (08:29→21:11)
[2023-09-16] MEDS: methylPREDNISolone SOD SUCCI 40 MG/ML 1 ML VIAL IV SCH ×3 (08:29→23:02)
[2023-09-16] MEDS: LINAGLIPTIN 5 MG TABLET PO SCH (08:29)
[2023-09-16 09:08] LABS: HCT 47.1 % (39.6-50.0); HGB 15.8 g/dL (13.0-17.0); MCH 32.5 pg (27.0-32.0); MCHC 33.5 g/dL (32.0-37.0); MCV 96.9 FL (80.0-97.0); Mean Platelet Volume 12.7 FL (9.5-12.2); NRBC Per 100 WBC 0 X 10*3/uL (0.00-0.01); Platelet Count 204 X 10*3/uL (140-440); RBC 4.86 X 10*6/uL (4.40-5.60); RDW 13.2 % (11.5-14.5); WBC 9.45 X 10*3/uL (4.50-10.00)
[2023-09-16 09:10] LABS: BUN/Creat Ratio 31.43 Ratio (12.00-20.00); Calcium 9.3 mg/dL (8.7-10.3); Carbon Dioxide 25.5 mmol/L (21.6-31.8); Chloride 101 mmol/L (96-109); Glucose 140 mg/dL (70-110); Potassium 4.7 mmol/L (3.5-5.5); Sodium 138 mmol/L (135-145)
[2023-09-16] MEDS: SYMBICORT 80-4.5 MCG INHALER INHALATION SCH ×2 (09:23→19:36)
[2023-09-16] MEDS: IPRATROPIUM-ALBUTEROL 3 ML NEB INHALATION PRN (09:23)
[2023-09-16] MEDS: HEPARIN SODIUM,PORCINE 5,000 UNIT/ML 1 ML VIAL SQ SCH ×2 (12:36→21:11)
[2023-09-16 13:08] LABS: Glucose,Whole Blood 111 mg/dL (70-110)
--- NOTE | 2023-09-16 13:25 | P.PN ---
Subjective Progress Note Date: 09/16/23 57-year-old male patient with known history of COPD coming in with increased dyspnea, chest tightness and wheezing he stated that over the past 2 days she started having some fever or productive cough. No chest pain. He is followed up in our office on outpatient basis anyways oxygen at 2 L/m nasal cannula and he also is on a maintenance of prednisone 10 mg by mouth daily. In terms of maintenance inhalers, the patient is maintained on Trelegy Ellipta one inhalation a day. He also uses albuterol updrafts on an as-needed basis. Noted the patient has advanced COPD. Is an ex-smoker. He has had previous cephalization for COPD exacerbation. He also has excessive history of ankylosing spondylitis and autoimmune disease and the patient is demented on Humira and as such is somewhat immunosuppressed. His chest x-ray is not showing any acute pulmonary abnormalities. Labs were reviewed and the patient has a white cell count of 8.4 with a hemoglobin of 16, Marimar is at 60 with a creatinine of 0.8 and a sodium level is at 134. The viral panel has been negative. Troponins are negative. Chest x-ray showed no acute pulmonary infiltrates. 09/15/2023, patient is being seen for a follow-up. The patient is feeling slightly improved compared to yesterday. He has no specific complaints. His be ing treated for an acute COPD exacerbation. No indication for pneumonia. He remains on IV Solu-Medrol 40 mg every 8 hours. Remains on Symbicort and DuoNeb updrafts. Labs from today showing white cell count of 10, he was 16.2, BUN is at 60 mg and 0.8 and sodium level is at 140. The patient is seen today 09/16/2023 in follow-up on the regular medical floor. He is currently resting in bed. Awake and alert in no acute distress. Maintaining O2 saturations in the 90s on 2 L/m per nasal cannula. He is improved but not quite back to his baseline. Still some bronchospasm and wheezing. White count 9.4. Hemoglobin 15.8. Sodium 130. Potassium 4.7. Bicarb 26. BUN 22. Creatinine 0.7. Glucose 140. He is continued on DuoNeb inhalations, Symbicort, Solu-Medrol. Heparin for DVT prophylaxis. Remains on empiric antibiotics in the form of Vibramycin. Continued on slump, Robitussin and Mu cinex. Objective - Vital Signs Vital signs: Vital Signs Temp 97.6 F 09/16/23 07:00 Pulse 65 09/16/23 09:33 Resp 16 09/16/23 07:00 BP 176/92 09/16/23 07:00 Pulse Ox 96 09/16/23 09:26 FiO2 Intake & Output 09/15/23 09/16/23 09/16/23 18:59 06:59 18:59 Intake Total 240 Balance 240 Intake: Oral 240 Other: Voiding Method Toilet Toilet # Voids 3 1 # Bowel Movements 0 - Exam GENERAL EXAM: Alert, active, 57-year-old male, on 2 L nasal cannula, comfortable in no apparent distress. HEAD: Normocephalic. EYES: Normal reaction of pupils, equal size. NOSE: Clear with pink turbinates. THROAT: No erythema or exudates. NECK: No masses, no JVD. CHEST: No chest wall deformity. LUNGS: Equal air entry with bilateral end expiratory wheeze, diminished. CVS: S1 and S2 normal with no audible murmur, regular rhythm. ABDOMEN: No hepatosplenomegaly, normal bowel sounds, no guarding or rigidity. SPINE: No scoliosis or deformity SKIN: No rashes CENTRAL NERVOUS SYSTEM: No focal deficits, tone is normal in all 4 extremities. EXTREMITIES: There is no peripheral edema. No clubbing, no cyanosis. Peripheral pulses are intact. - Labs CBC & Chem 7: 09/16/23 05:38 09/16/23 05:38 Labs: Abnormal Lab Results - Last 24 Hours (Table) 09/15/23 09/15/23 09/16/23 Range/Units 17:35 20:45 05:38 MCH 32.5 H (27.0-32.0) pg MPV 12.7 H (9.5-12.2) FL BUN/Creatinine Ratio (12.00-20.00) Ratio Glucose (70-110) mg/dL POC Glucose (mg/dL) 141 H 183 H (70-110) mg/dL 09/16/23 09/16/23 09/16/23 Range/Units 05:38 06:09 13:06 MCH (27.0-32.0) pg MPV (9.5-12.2) FL BUN/Creatinine Ratio 31.43 H (12.00-20.00) Ratio Glucose 140 H (70-110) mg/dL POC Glucose (mg/dL) 150 H 111 H (70-110) mg/dL Assessment and Plan Assessment: Acute COPD exacerbation. The viral panel is negative Chronic hypoxic respiratory failure and maintained on 3 L of oxygen by nasal can nula Advanced COPD with maintain on Trelegy Ellipta and 10 mg of prednisone as maintenance on outpatient basis. 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 I have personally seen and examined the patient, performed the documentation and the assessment and plan as written. Number of minutes spent on the visit: 10
[2023-09-16 17:13] LABS: Glucose,Whole Blood 203 mg/dL (70-110)
--- NOTE | 2023-09-16 19:57 | P.PN ---
Subjective Progress Note Date: 09/16/23 57-year-old patient with past medical history significant for chronic hypoxic respiratory failure on 3 L of oxygen, history of Parkinson's disease, hyperlipidemia, ankylosing spondylitis, chronic back pain who presents to the emergency department with complains of shortness of breath, fever, productive cough ongoing for the last 48 hours.. Patient states she had exertional shortness of breath and has been using her breathing treatments however without any relief. Patient has been wearing 2 L of oxygen. Workup initiated included CBC which showed WBC 8.2 hemoglobin 16. 4-151 INR of 0.9 * Serum chemistry shows sodium 138 potassium 3.7 chloride 110 BUNs 15 creatinine 0.7 troponin within normal limits * Patient tested negative for infectious of Covid and RSV * Chest x-ray obtained in ER within normal limits no intrathoracic process noted * Patient was given breathing treatment, started on IV steroids and admitted to medical floor with consultation from pulmonary medicine * 09/15/2023: patient seen and evaluated bedside, continue with current management including steroids, antibiotics, oxygen supplementation, appreciate input from Pulmonary Medicine, expected length of stay another 48 hours d epending on clinical course. Blood work reviewed. Noted to have transient hyperkalemia given local and calcium gluconate. Patient continued to complain of cough. Noted to have bradycardia dose of atenolol decreased holding instructions placed 09/16/2023 Patient is seen in follow-up this morning with pulmonary following maintained on IV steroids along with antibiotics and continue DuoNeb treatments 4 times daily and as needed. Patient is currently on 2-3 L via nasal cannula and reports does not chronically wear outpatient oxygen other than as needed. Patient has been requiring more oxygen a few days prior to hospitalization. Patient continues to be with significant wheezes and bronchospastic with coughing on exam. Encouraged increased activity as tolerated and will continue to monitor and continue current regimen. Review of systems: Constitutional: No reports of fatigue, fever, or chills Cardiovascular: No reports of chest pain or palpitations Respiratory: reports of continued shortness of breath with cough GI: No reports of nausea, vomiting, or diarrhea : No reports of dysuria or retention Neurovascular: No reports of weakness or numbness All medications have been reviewed PHYSICAL EXAMINATION: GENERAL: The patient is alert and oriented x3, ill appearance, nasal cannula in placean maintained on 2-3 L, well-developed, well-nourished HEENT: Pupils are round and equally reacting to light. EOMI Normocephalic, atraumatic. No pharyngeal erythema. No thyromegaly. CARDIOVASCULAR: S1 and S2 present. Bradycardia noted PULMONARY: Decreased breath sound bilaterally with scattered expiratory wheezing noted ABDOMEN: Soft, nontender, nondistended, normoactive bowel sounds. No palpable organomegaly. MUSCULOSKELETAL: No joint swelling or deformity. EXTREMITIES: No cyanosis, clubbing, or pedal edema. NEUROLOGICAL: Gross neurological examination did not reveal any focal deficits. SKIN: No rashes. Assessment: * Acute on chronic hypoxic respiratory failure secondary to COPD exacerbation * Acute exacerbation of COPD * Acute tracheobronchitis * Diabetes mellitus type 2 * Hypertension * GI prophylaxis * DVT prophylaxis * Full code Plan: * In regards to respiratory failure and COPD exacerbation, continue patient on breathing treatments> continue Mucinex, Tessalon Perles, doxycycline day 3 /5 for tracheobronchitis, pulmonary medicine following recommending continuing current regimen. Will continue IV steroids as patient continues with significant wheezing * In regards to acute tracheobronchitis continue Mucinex and doxycycline * In regards to diabetes mellitus, continue Accu-Cheks before meals at bed and will continue sliding scale * regards to history of hypertension, have decreased the dose of atenolol to 50 mg at at bedtime, monitor for worsening bradycardia The impression and plan of care has been dictated by Juanita Fitzgerald, Nurse Practitioner as directed. Dr. Sheri MD I have performed a history and examination and MDM of this patient, discussed the same with the dictator, and agree with the dictator's assessment and plan as written ,documented as a scribe. Based on total visit time, I have performed more than 50% of the visit. Objective - Vital Signs Vital signs: Vital Signs Temp 97.6 F 09/16/23 07:00 Pulse 61 09/16/23 09:24 Resp 16 09/16/23 07:00 BP 176/92 09/16/23 07:00 Pulse Ox 96 09/16/23 09:26 FiO2 Intake & Output 09/15/23 09/16/23 09/16/23 18:59 06:59 18:59 Other: Voiding Method Toilet Toilet # Voids 3 1 # Bowel Movements 0 - Labs CBC & Chem 7: 09/16/23 05:38 09/16/23 05:38 Labs: Abnormal Lab Results - Last 24 Hours (Table) 09/15/23 09/15/23 09/15/23 Range/Units 06:44 11:56 17:35 WBC 10.26 H (4.50-10.00) X 10*3/uL MCH (27.0-32.0) pg MPV 12.5 H (9.5-12.2) FL Immature Gran # 0.05 H (0.00-0.04) X 10*3/uL Neutrophils # 8.86 H (1.80-7.70) X 10*3/uL Lymphocytes # 0.87 L (0.90-5.00) X 10*3/uL Eosinophils # 0 L (0.04-0.35) X 10*3/uL BUN/Creatinine Ratio (12.00-20.00) Ratio Glucose (70-110) mg/dL POC Glucose (mg/dL) 156 H 141 H (70-110) mg/dL 09/15/23 09/16/23 09/16/23 Range/Units 20:45 05:38 05:38 WBC (4.50-10.00) X 10*3/uL MCH 32.5 H (27.0-32.0) pg MPV 12.7 H (9.5-12.2) FL Immature Gran # (0.00-0.04) X 10*3/uL Neutrophils # (1.80-7.70) X 10*3/uL Lymphocytes # (0.90-5.00) X 10*3/uL Eosinophils # (0.04-0.35) X 10*3/uL BUN/Creatinine Ratio 31.43 H (12.00-20.00) Ratio Glucose 140 H (70-110) mg/dL POC Glucose (mg/dL) 183 H (70-110) mg/dL 09/16/23 Range/Units 06:09 WBC (4.50-10.00) X 10*3/uL MCH (27.0-32.0) pg MPV (9.5-12.2) FL Immature Gran # (0.00-0.04) X 10*3/uL Neutrophils # (1.80-7.70) X 10*3/uL Lymphocytes # (0.90-5.00) X 10*3/uL Eosinophils # (0.04-0.35) X 10*3/uL BUN/Creatinine Ratio (12.00-20.00) Ratio Glucose (70-110) mg/dL POC Glucose (mg/dL) 150 H (70-110) mg/dL
[2023-09-16 20:15] LABS: Glucose,Whole Blood 150 mg/dL (70-110)
[2023-09-16 20:54] VITALS: RESP 16
[2023-09-16] MEDS: atenoloL 50 MG TAB PO SCH (21:10)
[2023-09-17 05:55] LABS: Glucose,Whole Blood 160 mg/dL (70-110)
[2023-09-17] MEDS: INSULIN ASPART (NovoLOG) 100 UNIT/ML VIAL SQ SCH (05:59)
[2023-09-17 08:42] VITALS: BP 154/88; PULSE 63; TEMP 97.8
[2023-09-17] MEDS: SYMBICORT 80-4.5 MCG INHALER INHALATION SCH (08:54)
[2023-09-17] MEDS ORDERED: predniSONE 20 MG TAB PO SCH (09:00)
[2023-09-17] MEDS: methylPREDNISolone SOD SUCCI 40 MG/ML 1 ML VIAL IV SCH (09:52)
[2023-09-17] MEDS: HEPARIN SODIUM,PORCINE 5,000 UNIT/ML 1 ML VIAL SQ SCH (10:02)
[2023-09-17] MEDS: PANTOPRAZOLE 40 MG TABLET PO SCH (10:04)
[2023-09-17] MEDS: LINAGLIPTIN 5 MG TABLET PO SCH (10:04)
[2023-09-17] MEDS: ATORVASTATIN 40 MG TAB PO SCH (10:04)
[2023-09-17] MEDS: DOXYCYCLINE 100 MG CAP PO SCH (10:04)
[2023-09-17] MEDS: guaiFENesin 600 MG TABLET.ER PO SCH (10:05)
[2023-09-17] MEDS: DULoxetine HCL 60 MG CAPSULE.DR PO SCH (10:05)
[2023-09-17] MEDS: PREGABALIN 75 MG CAP PO SCH (10:05)
--- NOTE | 2023-09-17 11:47 | P.PN ---
Subjective Progress Note Date: 09/17/23 57-year-old male patient with known history of COPD coming in with increased dyspnea, chest tightness and wheezing he stated that over the past 2 days she started having some fever or productive cough. No chest pain. He is followed up in our office on outpatient basis anyways oxygen at 2 L/m nasal cannula and he also is on a maintenance of prednisone 10 mg by mouth daily. In terms of maintenance inhalers, the patient is maintained on Trelegy Ellipta one inhalation a day. He also uses albuterol updrafts on an as-needed basis. Noted the patient has advanced COPD. Is an ex-smoker. He has had previous cephalization for COPD exacerbation. He also has excessive history of ankylosing spondylitis and autoimmune disease and the patient is demented on Humira and as such is somewhat immunosuppressed. His chest x-ray is not showing any acute pulmonary abnormalities. Labs were reviewed and the patient has a white cell count of 8.4 with a hemoglobin of 16, Marimar is at 60 with a creatinine of 0.8 and a sodium level is at 134. The viral panel has been negative. Troponins are negative. Chest x-ray showed no acute pulmonary infiltrates. 09/15/2023, patient is being seen for a follow-up. The patient is feeling slightly improved compared to yesterday. He has no specific complaints. His be ing treated for an acute COPD exacerbation. No indication for pneumonia. He remains on IV Solu-Medrol 40 mg every 8 hours. Remains on Symbicort and DuoNeb updrafts. Labs from today showing white cell count of 10, he was 16.2, BUN is at 60 mg and 0.8 and sodium level is at 140. The patient is seen today 09/16/2023 in follow-up on the regular medical floor. He is currently resting in bed. Awake and alert in no acute distress. Maintaining O2 saturations in the 90s on 2 L/m per nasal cannula. He is improved but not quite back to his baseline. Still some bronchospasm and wheezing. White count 9.4. Hemoglobin 15.8. Sodium 130. Potassium 4.7. Bicarb 26. BUN 22. Creatinine 0.7. Glucose 140. He is continued on DuoNeb inhalations, Symbicort, Solu-Medrol. Heparin for DVT prophylaxis. Remains on empiric antibiotics in the form of Vibramycin. Continued on slump, Robitussin and Mu cinex. The patient is seen today September 17, 2019 for follow-up on the regular medical floor. Was currently sitting up at the bedside. Awake and alert in no acute distress. Breathing easier today compared to yesterday. Maintaining O2 saturations in the 90s on room air. He has been afebrile. Hemodynamically stable. He is continued on DuoNeb ventilations, Symbicort, Solu-Medrol. Empiric antibiotics in the form of doxycycline. Heparin for DVT prophylaxis. Objective - Vital Signs Vital signs: Vital Signs Temp 97.8 F 09/17/23 07:00 Pulse 63 09/17/23 07:00 Resp 16 09/17/23 07:00 BP 154/88 09/17/23 07:00 Pulse Ox 97 09/17/23 08:57 FiO2 Intake & Output 09/16/23 09/17/23 09/17/23 18:59 06:59 18:59 Intake Total 240 240 Balance 240 240 Intake: Oral 240 240 Other: Voiding Method Toilet Toilet # Voids 2 2 - Exam GENERAL EXAM: Alert, 57-year-old male, on room air, comfortable in no apparent distress. HEAD: Normocephalic. EYES: Normal reaction of pupils, equal size. NOSE: Clear with pink turbinates. THROAT: No erythema or exudates. NECK: No masses, no JVD. CHEST: No chest wall deformity. LUNGS: Equal air entry with bilateral end expiratory wheeze, diminished. CVS: S1 and S2 normal with no audible murmur, regular rhythm. ABDOMEN: No hepatosplenomegaly, normal bowel sounds, no guarding or rigidity. SPINE: No scoliosis or deformity SKIN: No rashes CENTRAL NERVOUS SYSTEM: No focal deficits, tone is normal in all 4 extremities. EXTREMITIES: There is no peripheral edema. No clubbing, no cyanosis. Peripheral pulses are intact. - Labs CBC & Chem 7: 09/16/23 05:38 09/16/23 05:38 Labs: Abnormal Lab Results - Last 24 Hours (Table) 09/16/23 09/16/23 09/16/23 Range/Units 13:06 17:11 20:14 POC Glucose (mg/dL) 111 H 203 H 150 H (70-110) mg/dL 01/23/24 Range/Units 05:53 POC Glucose (mg/dL) 160 H (70-110) mg/dL Assessment and Plan Assessment: Acute COPD exacerbation. The viral panel is negative Chronic hypoxic respiratory failure and maintained on 3 L of oxygen by nasal cannula Advanced COPD with maintain on Trelegy Ellipta and 10 mg of prednisone as maintenance on outpatient basis. 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 Number of minutes spent on the visit: 24
--- NOTE | 2023-09-18 06:20 | P.DS ---
Providers Date of admission: 09/15/23 12:25 Expected date of discharge: 09/17/23 Attending physician: Anhai Moy Consults: 09/13/23 23:20 Consult Physician Urgent Consulting Provider: Brayan Hugo Consult Reason/Comments: copd exacerbation Do you want consulting provider notified?: Yes Primary care physician: Maribel Harrington Hospital Course: Final diagnosis Acute on chronic hypoxic respiratory failure secondary to COPD exacerbation Acute exacerbation of COPD Acute tracheobronchitis Diabetes mellitus type 2 Hypertension GI prophylaxis DVT prophylaxis Full code Discharge disposition Patient is being discharged in a stable condition with guarded prognosis to home. Patient will follow-up with Dr. Harrington in the outpatient setting upon discharge. Patient is to continue with DuoNeb treatments along with antibiotics and steroid taper and outpatient follow-up with pulmonary as scheduled. Total time taken is greater than 35 minutes. Hospital course This is a 57-year-old male who was recently admitted with COPD exacerbation with increased shortness of breath. Patient reports does have oxygen that he uses as needed in the home although does not wear it continuously. Patient also with Trelegy inhaler and DuoNeb treatments was maintained on steroids and evaluated by pulmonary and has cleared the patient for discharge. Patient also to continue with antibiotics for tracheobronchitis. Please refer to pulmonary notes for further HPI. Patient reports to feeling improved and would like to go home. Currently no reports of chest pain, shortness of breath, or palpitations. Patient is afebrile. No reports of nausea or vomiting and patient is tolerating diet. Patient will be discharged home today. Physical exam: Gen: This is a 57-year-old male who is awake, alert and oriented x 3, well- developed, well-nourished, appears older than stated age HEENT: Head is atraumatic, normocephalic. Pupils equal, round. Sclerae is anicteric. NECK: Supple. No JVD. No lymphadenopathy. No thyromegaly. LUNGS: Diminished breath sounds bilaterally with some scattered faint expiratory wheezes noted. No intercostal retractions. HEART: Regular rate and rhythm. No murmur. ABDOMEN: Soft. Bowel sounds are present. No masses. No tenderness. EXTREMITIES: No pedal edema. No calf tenderness. NEUROLOGICAL: Patient is awake, alert and oriented x3. Cranial nerves 2 through 12 are grossly intact. Please refer to medication reconciliation sheet for a list of medications. The impression and plan of care has been dictated by Juanita Fitzgerald, Nurse Pract itioner as directed. Dr. Sheri MD I have performed a history and examination and MDM of this patient, discussed the same with the dictator, and agree with the dictator's assessment and plan as written ,documented as a scribe. Based on total visit time, I have performed more than 50% of the visit. Patient Condition at Discharge: Stable Plan - Discharge Summary New Discharge Prescriptions: New guaiFENesin [Mucinex] 600 mg PO Q12HR 7 Days #14 tab atenoloL [Tenormin] 50 mg PO HS #30 tab Benzonatate [Tessalon Perles] 100 mg PO TID PRN #10 cap PRN Reason: Cough Doxycycline [Vibramycin] 100 mg PO BID 5 Days #10 cap Ipratropium-Albuterol Nebulize [Duoneb 0.5 mg-3 mg/3 ml Soln] 3 ml INHALATION RT-QID PRN #100 each PRN Reason: Shortness Of Breath Or Wheezing predniSONE 10 mg PO DIRECTED #30 tab Acetaminophen Tab [Tylenol] 650 mg PO Q6HR PRN tab PRN Reason: Mild Pain Or Fever > 100.5 Continue DULoxetine HCL [Cymbalta] 60 mg PO DAILY Adalimumab [Humira(Cf) Pen] 40 mg SQ Q14D Atorvastatin [Lipitor] 40 mg PO DAILY oxyCODONE-APAP 10-325MG [Percocet 10-325 mg] 1 tab PO TID PRN PRN Reason: Pain Fluticasone/Umeclidin/Vilanter [Trelegy Ellipta 100-62.5-25] 1 puff INHALATION RT-DAILY predniSONE 10 mg PO DAILY sitaGLIPtin [Januvia] 100 mg PO DAILY Albuterol Inhaler [Ventolin Hfa Inhaler] 1 - 2 puff INHALATION RT-QID PRN PRN Reason: Shortness Of Breath Or Wheezing rOPINIRole HCL [Requip] 0.5 mg PO TID Omeprazole [PriLOSEC] 40 mg PO DAILY Pregabalin [Lyrica] 150 mg PO BID metFORMIN HCL ER [Glucophage XR] 500 mg PO BID Discontinued atenoloL [Tenormin] 75 mg PO HS Discharge Medication List DULoxetine HCL [Cymbalta] 60 mg PO DAILY 05/23/17 [History] Adalimumab [Humira(Cf) Pen] 40 mg SQ Q14D 07/06/18 [History] Atorvastatin [Lipitor] 40 mg PO DAILY 06/14/20 [History] oxyCODONE-APAP 10-325MG [Percocet 10-325 mg] 1 tab PO TID PRN 04/11/21 [History] Fluticasone/Umeclidin/Vilanter [Trelegy Ellipta 100-62.5-25] 1 puff INHALATION RT-DAILY 06/28/22 [History] Pregabalin [Lyrica] 150 mg PO BID 06/28/22 [History] Albuterol Inhaler [Ventolin Hfa Inhaler] 1 - 2 puff INHALATION RT-QID PRN 04/01/23 [History] Omeprazole [PriLOSEC] 40 mg PO DAILY 04/01/23 [History] metFORMIN HCL ER [Glucophage XR] 500 mg PO BID 04/01/23 [History] predniSONE 10 mg PO DAILY 04/01/23 [History] rOPINIRole HCL [Requip] 0.5 mg PO TID 04/01/23 [History] sitaGLIPtin [Januvia] 100 mg PO DAILY 04/01/23 [History] Acetaminophen Tab [Tylenol] 650 mg PO Q6HR PRN tab 09/17/23 [Rx] Benzonatate [Tessalon Perles] 100 mg PO TID PRN #10 cap 09/17/23 [Rx] Doxycycline [Vibramycin] 100 mg PO BID 5 Days #10 cap 09/17/23 [Rx] Ipratropium-Albuterol Nebulize [Duoneb 0.5 mg-3 mg/3 ml Soln] 3 ml INHALATION RT-QID PRN #100 each 09/17/23 [Rx] atenoloL [Tenormin] 50 mg PO HS #30 tab 09/17/23 [Rx] guaiFENesin [Mucinex] 600 mg PO Q12HR 7 Days #14 tab 09/17/23 [Rx] predniSONE 10 mg PO DIRECTED #30 tab 09/17/23 [Rx] Follow up Appointment(s)/Referral(s): Domingo Beckett MD [STAFF PHYSICIAN] - 10/03/23 1:30 pm Maribel Harrington DO [Primary Care Provider] - 1-2 days Patient Instructions/Handouts: COPD (Chronic Obstructive Pulmonary Disease) (DC) Activity/Diet/Wound Care/Special Instructions: Limited until follow-up Follow-up with primary care provider on discharge follow-up with pulmonary outpatient continue taking prednisone taper and antibiotics until finished prior to resuming daily dosing of prednisone Discharge Disposition: HOME SELF-CARE
== END 2023-09-17 11:47 | disposition home or self-care (01) | DRG 190 ==
LOC: EC 20:43 → 6NMEDSUR 23:10 → OBSVTOIN 09-15 12:25
PROVIDERS: ADMIT Hospitalist; ATTEND Hospitalist
DX: J44.1 Chronic obstructive pulmonary disease with (acute) exacerbation (principal); J96.21 Acute and chronic respiratory failure with hypoxia; F02.83 Dementia in other diseases classified elsewhere, unspecified severity, with mood disturbance; D84.821 Immunodeficiency due to drugs; J20.9 Acute bronchitis, unspecified; J44.0 Chronic obstructive pulmonary disease with (acute) lower respiratory infection; F32.A Depression, unspecified; E78.5 Hyperlipidemia, unspecified; E11.9 Type 2 diabetes mellitus without complications; G20.A1 Parkinson's disease without dyskinesia, without mention of fluctuations; I10 Essential (primary) hypertension; M54.9 Dorsalgia, unspecified; G89.29 Other chronic pain; E87.5 Hyperkalemia; R00.1 Bradycardia, unspecified; M45.9 Ankylosing spondylitis of unspecified sites in spine; Z87.01 Personal history of pneumonia (recurrent); Z11.52 Encounter for screening for COVID-19; Z88.1 Allergy status to other antibiotic agents; Z87.891 Personal history of nicotine dependence; Z86.14 Personal history of Methicillin resistant Staphylococcus aureus infection; Z79.899 Other long term (current) drug therapy; Z79.84 Long term (current) use of oral hypoglycemic drugs; Z79.620 Long term (current) use of immunosuppressive biologic; Z79.51 Long term (current) use of inhaled steroids
CPT/HCPCS: 36415; 71046; 80048; 80053; 83605; 84484; 85025; 85027; 85610; 85730; 87636; 93005; 94640; 94760; 96374; 99285

== ENCOUNTER 2024-02-10 08:33 | Emergency (ER) | payer MEDICARE, OTHER ==
[2024-02-10 08:38] VITALS: RESP 18
[2024-02-10] MEDS: KETOROLAC 15 MG/ML 1 ML VIAL IM STA (08:53)
--- NOTE | 2024-02-10 09:18 | ED ---
General Adult HPI - General Chief complaint: Extremity Injury, Lower Stated complaint: fall-knee pain Time Seen by Provider: 02/10/24 08:42 Source: patient, RN notes reviewed, old records reviewed Mode of arrival: ambulatory Limitations: no limitations - History of Present Illness Initial comments: 58-year-old male with right knee pain. Patient states he was mowing the lawn and tripped falling twisting his right knee. This occurred 2 days ago. He had pain with ambulation and at rest since this injury. No other pain complaints other than the right knee. - Related Data Home Medications Medication Instructions Recorded Confirmed DULoxetine HCL [Cymbalta] 60 mg PO DAILY 05/23/17 09/14/23 Adalimumab [Humira(Cf) Pen] 40 mg SQ Q14D 07/06/18 09/14/23 Atorvastatin [Lipitor] 40 mg PO DAILY 06/14/20 09/14/23 oxyCODONE-APAP 10-325MG [Percocet 1 tab PO TID PRN 04/11/21 09/14/23 10-325 mg] Fluticasone/Umeclidin/Vilanter 1 puff INHALATION RT-DAILY 06/28/22 09/14/23 [Trelegy Ellipta 100-62.5-25] Pregabalin [Lyrica] 150 mg PO BID 06/28/22 09/14/23 Albuterol Inhaler [Ventolin Hfa 1 - 2 puff INHALATION RT-QID PRN 04/01/23 09/14/23 Inhaler] Omeprazole [PriLOSEC] 40 mg PO DAILY 04/01/23 09/14/23 metFORMIN HCL ER [Glucophage XR] 500 mg PO BID 04/01/23 09/14/23 predniSONE 10 mg PO DAILY 04/01/23 09/14/23 rOPINIRole HCL [Requip] 0.5 mg PO TID 04/01/23 09/14/23 sitaGLIPtin [Januvia] 100 mg PO DAILY 04/01/23 09/14/23 Previous Rx's Medication Instructions Recorded Acetaminophen Tab [Tylenol] 650 mg PO Q6HR PRN tab 09/17/23 Benzonatate [Tessalon Perles] 100 mg PO TID PRN #10 cap 09/17/23 Doxycycline [Vibramycin] 100 mg PO BID 5 Days #10 cap 09/17/23 Ipratropium-Albuterol Nebulize 3 ml INHALATION RT-QID PRN #100 09/17/23 [Duoneb 0.5 mg-3 mg/3 ml Soln] each atenoloL [Tenormin] 50 mg PO HS #30 tab 09/17/23 guaiFENesin [Mucinex] 600 mg PO Q12HR 7 Days #14 tab 09/17/23 predniSONE 10 mg PO DIRECTED #30 tab 09/17/23 Ibuprofen [Motrin] 600 mg PO Q8HR PRN #24 tab 02/10/24 Allergies Allergy/AdvReac Type Severity Reaction Status Date / Time erythromycin base Allergy Severe Dyspnea,hiv Verified 02/10/24 08:38 es Review of Systems ROS Statement: Those systems with pertinent positive or pertinent negative responses have been documented in the HPI. ROS Other: All systems not noted in ROS Statement are negative. 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 History of Any Multi-Drug Resistant Organisms: MRSA Date of last positivie culture/infection: 04/03/23 MDRO Source:: Left Elbow Additional Past Surgical History / Comment(s): rt cataract and 3 laser procedures r/t uveitis, pain clinic procedure Past Anesthesia/Blood Transfusion Reactions: No Reported Reaction Additional Past Anesthesia/Blood Transfusion Reaction / Comment(s): Very fearful of needles Past Psychological History: Depression Smoking Status: Current every day smoker Past Alcohol Use History: Daily, Heavy Past Drug Use History: None Reported - Past Family History Brother(s) Family Medical History: Myocardial Infarction (UT) Additional Family Medical History / Comment(s): Brother had a UT at the age of 51 yrs and is living. Mother Family Medical History: CVA/TIA, Hypertension Additional Family Medical History / Comment(s): Mother has had CVAs. She is living Father Family Medical History: Myocardial Infarction ([place]) Additional Family Medical History / Comment(s): Father had a UT at the age of 83 yrs. He is living General Exam Limitations: no limitations General appearance: alert, in no apparent distress Head exam: Present: atraumatic, normocephalic Eye exam: Present: normal appearance, PERRL ENT exam: Present: normal exam Neck exam: Present: normal inspection. Absent: tenderness Respiratory exam: Present: normal lung sounds bilaterally. Absent: respiratory distress Cardiovascular Exam: Present: regular rate, normal rhythm GI/Abdominal exam: Present: soft. Absent: distended, tenderness, guarding Extremities exam: Present: tenderness (Right knee: Effusion, tenderness to palpation, no deformity, joint is stable.), joint swelling Neurological exam: Present: alert, oriented X3 Psychiatric exam: Present: normal affect, normal mood Skin exam: Present: warm, dry, intact. Absent: cyanosis, diaphoretic Course Vital Signs 02/10/24 08:35 Temperature 98.1 F Pulse Rate 56 L Respiratory 18 Rate Blood Pressure 134/78 O2 Sat by Pulse 98 Oximetry Medical Decision Making - Medical Decision Making Was pt. sent in by a medical professional or institution (PADDY Houser, [employer] PATH THERAPIST, urgent care, hospital, or alf...) When possible be specific @ -No Did you speak to anyone other than the patient for history (EMS, parent, family, police, friend...)? What history was obtained from this source @ -No Did you review nursing and triage notes (agree or disagree)? Why? @ -I reviewed and agree with nursing and triage notes Were old charts reviewed (outside hosp., previous admission, EMS record, old EKG, old radiological studies, urgent care reports/EKG's, alf records)? Report findings @ -No old charts were reviewed Differential Musculoskeletal Muscular strain, contusion, ligament sprain, fracture, arthritis, septic arthritis, bursitis, cellulitis, muscle spasm, nerve compression, DVT, arterial occlusion, herpes zoster, electrolyte abnormality, tumor.... This is not meant to be in all inclusive list EKG interpreted by me (3pts min.). @ -As above X-rays interpreted by me (1pt min.). @No fracture or dislocation in the right knee on x-ray CT interpreted by me (1pt min.). @ -None done U/S interpreted by me (1pt. min.). @ -None done What testing was considered but not performed or refused? (CT, X-rays, U/S, labs)? Why? @ -None What meds were considered but not given or refused? Why? @ -None Did you discuss the management of the patient with other professionals (professionals i.e. , PA, SPE[employer] PATH THERAPIST, lab, RT, psych nurse, social science manager, lease picker, teacher, correction officer reformatory, showcase trimmer)? Give summary @ -No Was smoking cessation discussed for >3mins.? @ -No Was critical care preformed (if so, how long)? @ -No Were there social determinants of health that impacted care today? How? (Homelessness, low income, unemployed, alcoholism, drug addiction, transportation, low edu. Level, literacy, decrease access to med. care, alf, rehab)? @ -No Was there de-escalation of care discussed even if they declined (Discuss DNR or withdrawal of care, Hospice)? DNR status @ -No What co-morbidities impacted this encounter? (DM, HTN, Smoking, COPD, CAD, Cancer, CVA, ARF, Chemo, Hep., AIDS, mental health diagnosis, sleep apnea, morbid obesity)? @ -None Was patient admitted / discharged? Hospital course, mention meds given and route, prescriptions, significant lab abnormalities, going to OR and other pertinent info. @ 58-year-old male with knee injury which occurred 2 days ago, x-rays are negative for displaced fracture or dislocation. Patient possibly has sprain versus ligamentous disruption. He will be placed on anti-inflammatories, instructed to ice and elevate the knee and follow-up with orthopedics for evaluation. Undiagnosed new problem with uncertain prognosis? @ -No Drug Therapy requiring intensive monitoring for toxicity (Heparin, Nitro, Insulin, Cardizem)? @ -No Were any procedures done? @ -No Diagnosis/symptom? @Knee sprain Acute, or Chronic, or Acute on Chronic? @Acute Uncomplicated (without systemic symptoms) or Complicated (systemic symptoms)? @ -Default Side effects of treatment? @ -No Exacerbation, Progression, or Severe Exacerbation? @ -No Poses a threat to life or bodily function? How? (Chest pain, [place], [place], pneumonia, PE, COPD, DKA, ARF, appy, cholecystitis, CVA, Diverticulitis, Homicidal, Suicidal, threat to staff... and all critical care pts) @ -No Disposition Clinical Impression: Knee sprain Disposition: HOME SELF-CARE Condition: Good Instructions (If sedation given, give patient instructions): Knee Sprain (ED) Prescriptions: Ibuprofen [Motrin] 600 mg PO Q8HR PRN #24 tab PRN Reason: Pain Is patient prescribed a controlled substance at d/c from ED?: No Referrals: Maribel Murguia DO [Primary Care Provider] - 1-2 days Mayelin Gutierrez DO [Doctor of Osteopathic Medicine] - 1-2 days Time of Disposition: 09:40
--- NOTE | 2024-02-10 10:02 | XR ---
EXAMINATION TYPE: XR knee complete RT DATE OF EXAM: 02/10/2024 COMPARISON: 07/06/2018 HISTORY: Pain, fall TECHNIQUE: 3 view right knee FINDINGS: Joint spaces are preserved. No acute fracture or dislocation is evident. No joint effusion is evident. Follow-up MRI can be performed as clinically indicated. Follow-up x-ray can be performed for continue d pain 7-10 days from acute trauma. IMPRESSION: 1. No acute osseous abnormality radiographically.
[2024-02-10 10:12] VITALS: BP 136/76; PULSE 62; TEMP 98.4
== END 2024-02-10 10:12 | disposition home or self-care (01) ==
LOC: EC 08:33
DX: S83.91XA Sprain of unspecified site of right knee, initial encounter (principal); F17.200 Nicotine dependence, unspecified, uncomplicated; Z88.1 Allergy status to other antibiotic agents; W01.0XXA Fall on same level from slipping, tripping and stumbling without subsequent striking against object, initial encounter
CPT/HCPCS: 73562; 99283; 96372; J1885

== ENCOUNTER 2024-10-17 12:52 | Inpatient (IN) | payer MEDICARE, OTHER ==
[2024-10-17] MEDS: IPRATROPIUM-ALBUTEROL 3 ML NEB INHALATION STA ×2 (13:10)
[2024-10-17] MEDS: methylPREDNISolone SOD SUCCI 125 MG/2 ML VIAL IV STA (13:17)
[2024-10-17] MEDS: MAGNESIUM SULFATE-D5W PMX 1 GM in DEXTROSE/WATER 1 100ML.BAG IVPB STA (13:19)
[2024-10-17 13:25] LABS: Basophils % (A) 0 %; Eosinophils # (A) 0.1 k/uL (0-0.7); Eosinophils % (A) 1 %; HCT 51.8 % (39.0-53.0); HGB 17.1 gm/dL (13.0-17.5); Lymphocytes # (A) 0.5 k/uL (1.0-4.8); Lymphocytes % (A) 5 %; MCH 32.2 pg (25.0-35.0); MCHC 33.1 g/dL (31.0-37.0); MCV 97.5 fL (80.0-100.0); Mean Platelet Volume 11.2; Monocytes # (A) 0.2 k/uL (0-1.0); Monocytes % (A) 3 %; Neutrophils # (A) 7.7 k/uL (1.3-7.7); Neutrophils % (A) 89 %; Platelet Count 145 k/uL (150-450); RBC 5.31 m/uL (4.30-5.90); RDW 13.2 % (11.5-15.5); WBC 8.6 k/uL (3.8-10.6)
[2024-10-17 13:41] LABS: ALT 46 U/L (4-49); African American GFR (CKD) >90 (>60 ml/min/1.73 sqM); Albumin 4.7 g/dL (3.5-5.0); Anion Gap 14 mmol/L; Blood Urea Nitrogen 26 mg/dL (9-20); Calcium 9.8 mg/dL (8.4-10.2); Carbon Dioxide 18 mmol/L (22-30); Chloride 102 mmol/L (98-107); Glucose 138 mg/dL (74-99); Non-African American GFR(CKD) >90 (>60 ml/min/1.73 sqM); Sodium 134 mmol/L (137-145); Total Bilirubin 1.2 mg/dL (0.2-1.3); Total Protein 7.7 g/dL (6.3-8.2)
[2024-10-17 13:45] LABS: AST 46 U/L (17-59); Alkaline Phosphatase 75 U/L (38-126); Potassium 5.1 mmol/L (3.5-5.1)
[2024-10-17 13:58] LABS: Influenza A Not Detected (Not Detectd); Influenza B Not Detected (Not Detectd); RSV Detected (Not Detectd)
--- NOTE | 2024-10-17 14:00 | XR ---
EXAMINATION TYPE: XR chest 2V DATE OF EXAM: 10/17/2024 1:55 PM COMPARISON: 09/13/2023 CLINICAL INDICATION: Male, 58 years old with history of difficulty breathing, TECHNIQUE: XR chest 2V view(s) obtained. FINDINGS: The heart size is normal. The pulmonary vasculature is normal. The lungs are clear. IMPRESSION: 1. No acute pulmonary process. [facility], , 10/17/2024 1:58 PM
[2024-10-17] MEDS ORDERED: NALOXONE 0.4 MG/ML 1 ML VIAL IV PRN (14:27)
--- NOTE | 2024-10-17 14:27 | ED ---
SOB HPI - General Chief Complaint: Shortness of Breath Stated Complaint: BRITTNI Time Seen by Provider: 10/17/24 12:57 Source: patient Mode of arrival: ambulatory - History of Present Illness Initial Comments: 58-year-old male with past medical history of COPD who currently smokes presents to the emergency department reporting shortness of breath. Patient thinks he is having a COPD attack. States he has been using his nebulizer or inhalers every 4 hours without any improvement. He has been around some sick contacts. States that he was around a 3-year-old who was sick. Denies any fevers but does admit to a productive cough with green sputum. He has been taking Mucinex DM. He does have oxygen at home. States he has been wearing 2-1/2 L without any improvement in his work of breathing. Patient takes prednisone 10 mg daily. He saw his primary care doctor who placed him on doxycycline and a Medrol Dosepak. States that these additional medications are not helping him. He denies any fevers. No chest pain. No history of cardiac disease. No other alleviating, precipitating or modifying factors - Related Data Home Medications Medication Instructions Recorded Confirmed DULoxetine HCL [Cymbalta] 60 mg PO DAILY 05/23/17 10/17/24 Adalimumab [Humira(Cf) Pen] 40 mg SQ Q14D 07/06/18 10/17/24 Atorvastatin [Lipitor] 40 mg PO DAILY 06/14/20 10/17/24 oxyCODONE-APAP 10-325MG [Percocet 1 tab PO TID PRN 04/11/21 10/17/24 10-325 mg] Fluticasone/Umeclidin/Vilanter 1 puff INHALATION RT-DAILY 06/28/22 10/17/24 [Trelegy Ellipta 100-62.5-25] Pregabalin [Lyrica] 150 mg PO BID 06/28/22 10/17/24 Albuterol Inhaler [Ventolin Hfa 2 puff INHALATION RT-QID PRN 04/01/23 10/17/24 Inhaler] Omeprazole [PriLOSEC] 40 mg PO DAILY 04/01/23 10/17/24 metFORMIN HCL ER [Glucophage XR] 500 mg PO BID 04/01/23 10/17/24 predniSONE 10 mg PO DIRECTED 04/01/23 10/17/24 rOPINIRole HCL [Requip] 0.5 mg PO TID 04/01/23 10/17/24 sitaGLIPtin [Januvia] 100 mg PO DAILY 04/01/23 10/17/24 Albuterol Nebulized [Ventolin 2.5 mg INHALATION RT-QID PRN 10/17/24 10/17/24 Nebulized] Cholecalciferol [Vitamin D3 (25 50 mcg PO DAILY 10/17/24 10/17/24 Mcg = 1000 Iu)] atenoloL [Tenormin] 50 mg PO DAILY 10/17/24 10/17/24 methylPREDNISolone Dose Pack See Taper PO DIRECTED 10/17/24 10/17/24 [Medrol Dose Pack] Previous Rx's Medication Instructions Recorded Acetaminophen Tab [Tylenol] 650 mg PO Q6HR PRN tab 09/17/23 Doxycycline [Vibramycin] 100 mg PO BID 5 Days #10 cap 09/17/23 Allergies Allergy/AdvReac Type Severity Reaction Status Date / Time erythromycin base Allergy Severe Dyspnea,hiv Verified 10/17/24 15:02 es Review of Systems ROS Statement: Those systems with pertinent positive or pertinent negative responses have been documented in the HPI. ROS Other: All systems not noted in ROS Statement are negative. 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 History of Any Multi-Drug Resistant Organisms: MRSA Date of last positivie culture/infection: 04/03/23 MDRO Source:: Left Elbow Additional Past Surgical History / Comment(s): rt cataract and 3 laser procedures r/t uveitis, pain clinic procedure Past Anesthesia/Blood Transfusion Reactions: No Reported Reaction Additional Past Anesthesia/Blood Transfusion Reaction / Comment(s): Very fearful of needles Past Psychological History: Depression Smoking Status: Current every day smoker Past Alcohol Use History: Daily, Heavy Past Drug Use History: None Reported - Past Family History Brother(s) Family Medical History: Myocardial Infarction (LA) Additional Family Medical History / Comment(s): Brother had a LA at the age of 51 yrs and is living. Mother Family Medical History: CVA/TIA, Hypertension Additional Family Medical History / Comment(s): Mother has had CVAs. She is living Father Family Medical History: Myocardial Infarction (LA) Additional Family Medical History / Comment(s): Father had a LA at the age of 83 yrs. He is living General Exam General appearance: alert, in no apparent distress Head exam: Present: atraumatic, normocephalic, normal inspection Eye exam: Present: normal appearance, PERRL, EOMI. Absent: scleral icterus, conjunctival injection, periorbital swelling ENT exam: Present: normal exam, mucous membranes moist Neck exam: Present: normal inspection. Absent: tenderness, meningismus, lymphadenopathy Respiratory exam: Present: wheezes, other (tachypnea). Absent: respiratory distress, rales, rhonchi, stridor Cardiovascular Exam: Present: regular rate, normal rhythm, normal heart sounds. Absent: systolic murmur, diastolic murmur, rubs, gallop, clicks GI/Abdominal exam: Present: soft, normal bowel sounds. Absent: distended, te nderness, guarding, rebound, rigid Extremities exam: Present: normal inspection, full ROM, normal capillary refill. Absent: tenderness, pedal edema, joint swelling, calf tenderness Back exam: Present: normal inspection Neurological exam: Present: alert, oriented X3, CN II-XII intact Psychiatric exam: Present: normal affect, normal mood Skin exam: Present: warm, dry, intact, normal color. Absent: rash Course Vital Signs 10/17/24 10/17/24 10/17/24 12:53 13:11 13:22 Temperature 98.7 F Pulse Rate 69 69 64 Respiratory 30 H 22 18 Rate Blood Pressure 162/92 O2 Sat by Pulse 97 Oximetry 10/17/24 10/17/24 10/17/24 13:30 14:56 16:24 Temperature Pulse Rate 77 76 61 Respiratory 24 18 18 Rate Blood Pressure 137/77 145/75 144/72 O2 Sat by Pulse 94 L 95 95 Oximetry 10/17/24 10/17/24 10/17/24 16:50 16:57 19:49 Temperature Pulse Rate 68 62 67 Respiratory 18 18 22 Rate Blood Pressure O2 Sat by Pulse Oximetry 10/17/24 10/17/24 10/18/24 19:55 20:13 00:19 Temperature 98.7 F Pulse Rate 71 67 74 Respiratory 20 18 22 Rate Blood Pressure 130/63 O2 Sat by Pulse 94 L Oximetry 10/18/24 10/18/24 10/18/24 00:25 00:48 03:45 Temperature Pulse Rate 77 61 59 L Respiratory 22 18 20 Rate Blood Pressure 170/90 O2 Sat by Pulse 97 Oximetry 10/18/24 10/18/24 10/18/24 03:51 06:29 07:57 Temperature 98.5 F Pulse Rate 54 L 56 L 68 Respiratory 20 14 18 Rate Blood Pressure 165/87 O2 Sat by Pulse 100 Oximetry 10/18/24 08:07 Temperature Pulse Rate 72 Respiratory 18 Rate Blood Pressure O2 Sat by Pulse Oximetry Medical Decision Making - Medical Decision Making Was pt. sent in by a medical professional or institution (, PA, DEWER, urgent care, hospital, or snf...) When possible be specific @ -No Did you speak to anyone other than the patient for history (EMS, parent, family, police, friend...)? What history was obtained from this source @ -No Did you review nursing and triage notes (agree or disagree)? Why? @ -I reviewed and agree with nursing and triage notes Were old charts reviewed (outside hosp., previous admission, EMS record, old EKG, old radiological studies, urgent care reports/EKG's, snf records)? Report findings @ -No old charts were reviewed Differential Diagnosis (chest pain, altered mental status, abdominal pain women, abdominal pain men, vaginal bleeding, weakness, fever, dyspnea, syncope, headache, dizziness, GI bleed, back pain, seizure, CVA, palpatations, mental health, musculoskeletal)? @ -Differential Dyspnea: Coronary syndrome, arrhythmia, tamponade, asthma, COPD, pulmonary embolism, pneumonia, pneumothorax, pulmonary effusion, anaphylaxis, diabetic ketoacidosis, flailed chest, pulmonary contusion, diaphragmatic rupture, anemia, neuromuscular, this is not meant to be an all-inclusive list. EKG interpreted by me (3pts min.). @ -Yes and demonstrates sinus rhythm with rate of 69. SC interval 155. QRS 99. QTc of 398. No acute ST segment elevations or depressions X-rays interpreted by me (1pt min.). @ -Yes which demonstrates no acute process CT interpreted by me (1pt min.). @ -None done U/S interpreted by me (1pt. min.). @ -None done What testing was considered but not performed or refused? (CT, X-rays, U/S, labs)? Why? @ -None What meds were considered but not given or refused? Why? @ -None Did you discuss the management of the patient with other professionals (professionals i.e. , PA, DEWER, lab, RT, psych nurse, social science professor, scallop cutter machine, teacher, staff mine warfare officer, pillowcase cutter)? Give summary @ -Spoke with Dr. Lane for admission Was smoking cessation discussed for >3mins.? @ -No Was critical care preformed (if so, how long)? @ -No Were there social determinants of health that impacted care today? How? (Homelessness, low income, unemployed, alcoholism, drug addiction, transportation, low edu. Level, literacy, decrease access to med. care, m[facility], rehab)? @ -No Was there de-escalation of care discussed even if they declined (Discuss DNR or withdrawal of care, Hospice)? DNR status @ -No What co-morbidities impacted this encounter? (DM, HTN, Smoking, COPD, CAD, Cancer, CVA, ARF, Chemo, Hep., AIDS, mental health diagnosis, sleep apnea, morbid obesity)? @ -COPD Was patient admitted / discharged? Hospital course, mention meds given and route, prescriptions, significant lab abnormalities, going to OR and other pertinent info. @ -[Upon arrival patient seen and evaluated in bed 23. Thorough history and physical exam was performed. Patient given steroids and breathing treatments. Laboratory studies are conducted and chest x-ray was performed. Patient is positive for RSV. Patient will require admission for IV antibiotics and steroids. Patient was agreeable to admission. Spoke with Dr. Lane for the admission Undiagnosed new problem with uncertain prognosis? @ -No Drug Therapy requiring intensive monitoring for toxicity (Heparin, Nitro, Insulin, Cardizem)? @ -No Were any procedures done? @ -No Diagnosis/symptom? @ -[d acute respiratory insufficiency, chronic respiratory failure, acute exacerbation of COPD, RSV infection Acute, or Chronic, or Acute on Chronic? @ -Acute Uncomplicated (without systemic symptoms) or Complicated (systemic symptoms)? @ -Complicated Side effects of treatment? @ -No Exacerbation, Progression, or Severe Exacerbation? @ -Yes Poses a threat to life or bodily function? How? (Chest pain, USA, LA, pneumonia, PE, COPD, DKA, ARF, appy, cholecystitis, CVA, Diverticulitis, Homicidal, Suicidal, threat to staff... and all critical care pts) @ -Yes as patient has increased work of breathing - Lab Data Result diagrams: 10/18/24 02:32 10/20/24 05:47 Lab Results 10/17/24 10/17/24 10/17/24 Range/Units 13:09 13:09 13:09 WBC 8.6 (3.8-10.6) k/uL RBC 5.31 (4.30-5.90) m/uL Hgb 17.1 (13.0-17.5) gm/dL Hct 51.8 (39.0-53.0) % MCV 97.5 (80.0-100.0) fL MCH 32.2 (25.0-35.0) pg MCHC 33.1 (31.0-37.0) g/dL RDW 13.2 (11.5-15.5) % Plt Count 145 L (150-450) k/uL MPV 11.2 Neutrophils % 89 % Lymphocytes % 5 % Monocytes % 3 % Eosinophils % 1 % Basophils % 0 % Neutrophils # 7.7 (1.3-7.7) k/uL Lymphocytes # 0.5 L (1.0-4.8) k/uL Monocytes # 0.2 (0-1.0) k/uL Eosinophils # 0.1 (0-0.7) k/uL Basophils # 0.0 (0-0.2) k/uL Sodium 134 L (137-145) mmol/L Potassium 5.1 (3.5-5.1) mmol/L Chloride 102 (98-107) mmol/L Carbon Dioxide 18 L (22-30) mmol/L Anion Gap 14 mmol/L BUN 26 H (9-20) mg/dL Creatinine 0.84 (0.66-1.25) mg/dL Est GFR (CKD-EPI)AfAm >90 (>60 ml/min/1.73 sqM) Est GFR (CKD-EPI)NonAf >90 (>60 ml/min/1.73 sqM) Glucose 138 H (74-99) mg/dL POC Glucose (mg/dL) (70-110) mg/dL POC Glu Core Layer Machine Operator ID Estimated Ave Glu mg/dL mg/dL Hemoglobin A1c (<=6.0) % Lactic Ac Sepsis Rflx Plasma Lactic Acid Marciano 2.8 H* (0.7-2.0) mmol/L Calcium 9.8 (8.4-10.2) mg/dL Total Bilirubin 1.2 (0.2-1.3) mg/dL AST 46 (17-59) U/L ALT 46 (4-49) U/L Alkaline Phosphatase 75 (38-126) U/L Troponin I (0.000-0.034) ng/mL Total Protein 7.7 (6.3-8.2) g/dL Albumin 4.7 (3.5-5.0) g/dL Influenza Type A (PCR) (Not Detectd) Influenza Type B (PCR) (Not Detectd) RSV (PCR) (Not Detectd) SARS-CoV-2 (PCR) (Not Detectd) 10/17/24 10/17/24 10/17/24 Range/Units 13:09 13:09 13:09 WBC (3.8-10.6) k/uL RBC (4.30-5.90) m/uL Hgb (13.0-17.5) gm/dL Hct (39.0-53.0) % MCV (80.0-100.0) fL MCH (25.0-35.0) pg MCHC (31.0-37.0) g/dL RDW (11.5-15.5) % Plt Count (150-450) k/uL MPV Neutrophils % % Lymphocytes % % Monocytes % % Eosinophils % % Basophils % % Neutrophils # (1.3-7.7) k/uL Lymphocytes # (1.0-4.8) k/uL Monocytes # (0-1.0) k/uL Eosinophils # (0-0.7) k/uL Basophils # (0-0.2) k/uL Sodium (137-145) mmol/L Potassium (3.5-5.1) mmol/L Chloride (98-107) mmol/L Carbon Dioxide (22-30) mmol/L Anion Gap mmol/L BUN (9-20) mg/dL Creatinine (0.66-1.25) mg/dL Est GFR (CKD-EPI)AfAm (>60 ml/min/1.73 sqM) Est GFR (CKD-EPI)NonAf (>60 ml/min/1.73 sqM) Glucose (74-99) mg/dL POC Glucose (mg/dL) (70-110) mg/dL POC Glu Core Layer Machine Operator ID Estimated Ave Glu mg/dL 123 mg/dL Hemoglobin A1c 5.9 (<=6.0) % Lactic Ac Sepsis Rflx Plasma Lactic Acid Marciano (0.7-2.0) mmol/L Calcium (8.4-10.2) mg/dL Total Bilirubin (0.2-1.3) mg/dL AST (17-59) U/L ALT (4-49) U/L Alkaline Phosphatase (38-126) U/L Troponin I <0.012 (0.000-0.034) ng/mL Total Protein (6.3-8.2) g/dL Albumin (3.5-5.0) g/dL Influenza Type A (PCR) Not Detected (Not Detectd) Influenza Type B (PCR) Not Detected (Not Detectd) RSV (PCR) Detected A (Not Detectd) SARS-CoV-2 (PCR) Not Detected (Not Detectd) 10/17/24 10/17/24 10/17/24 Range/Units 13:44 16:40 17:46 WBC (3.8-10.6) k/uL RBC (4.30-5.90) m/uL Hgb (13.0-17.5) gm/dL Hct (39.0-53.0) % MCV (80.0-100.0) fL MCH (25.0-35.0) pg MCHC (31.0-37.0) g/dL RDW (11.5-15.5) % Plt Count (150-450) k/uL MPV Neutrophils % % Lymphocytes % % Monocytes % % Eosinophils % % Basophils % % Neutrophils # (1.3-7.7) k/uL Lymphocytes # (1.0-4.8) k/uL Monocytes # (0-1.0) k/uL Eosinophils # (0-0.7) k/uL Basophils # (0-0.2) k/uL Sodium (137-145) mmol/L Potassium (3.5-5.1) mmol/L Chloride (98-107) mmol/L Carbon Dioxide (22-30) mmol/L Anion Gap mmol/L BUN (9-20) mg/dL Creatinine (0.66-1.25) mg/dL Est GFR (CKD-EPI)AfAm (>60 ml/min/1.73 sqM) Est GFR (CKD-EPI)NonAf (>60 ml/min/1.73 sqM) Glucose (74-99) mg/dL POC Glucose (mg/dL) (70-110) mg/dL POC Glu Core Layer Machine Operator ID Estimated Ave Glu mg/dL mg/dL Hemoglobin A1c (<=6.0) % Lactic Ac Sepsis Rflx Y Y Plasma Lactic Acid Marciano 3.0 H* (0.7-2.0) mmol/L Calcium (8.4-10.2) mg/dL Total Bilirubin (0.2-1.3) mg/dL AST (17-59) U/L ALT (4-49) U/L Alkaline Phosphatase (38-126) U/L Troponin I (0.000-0.034) ng/mL Total Protein (6.3-8.2) g/dL Albumin (3.5-5.0) g/dL Influenza Type A (PCR) (Not Detectd) Influenza Type B (PCR) (Not Detectd) RSV (PCR) (Not Detectd) SARS-CoV-2 (PCR) (Not Detectd) 10/17/24 10/17/24 10/17/24 Range/Units 19:51 20:46 23:10 WBC (3.8-10.6) k/uL RBC (4.30-5.90) m/uL Hgb (13.0-17.5) gm/dL Hct (39.0-53.0) % MCV (80.0-100.0) fL MCH (25.0-35.0) pg MCHC (31.0-37.0) g/dL RDW (11.5-15.5) % Plt Count (150-450) k/uL MPV Neutrophils % % Lymphocytes % % Monocytes % % Eosinophils % % Basophils % % Neutrophils # (1.3-7.7) k/uL Lymphocytes # (1.0-4.8) k/uL Monocytes # (0-1.0) k/uL Eosinophils # (0-0.7) k/uL Basophils # (0-0.2) k/uL Sodium (137-145) mmol/L Potassium (3.5-5.1) mmol/L Chloride (98-107) mmol/L Carbon Dioxide (22-30) mmol/L Anion Gap mmol/L BUN (9-20) mg/dL Creatinine (0.66-1.25) mg/dL Est GFR (CKD-EPI)AfAm (>60 ml/min/1.73 sqM) Est GFR (CKD-EPI)NonAf (>60 ml/min/1.73 sqM) Glucose (74-99) mg/dL POC Glucose (mg/dL) (70-110) mg/dL POC Glu Core Layer Machine Operator ID Estimated Ave Glu mg/dL mg/dL Hemoglobin A1c (<=6.0) % Lactic Ac Sepsis Rflx Y Plasma Lactic Acid Marciano 4.8 H* 3.3 H* (0.7-2.0) mmol/L Calcium (8.4-10.2) mg/dL Total Bilirubin (0.2-1.3) mg/dL AST (17-59) U/L ALT (4-49) U/L Alkaline Phosphatase (38-126) U/L Troponin I (0.000-0.034) ng/mL Total Protein (6.3-8.2) g/dL Albumin (3.5-5.0) g/dL Influenza Type A (PCR) (Not Detectd) Influenza Type B (PCR) (Not Detectd) RSV (PCR) (Not Detectd) SARS-CoV-2 (PCR) (Not Detectd) 10/18/24 10/18/24 10/18/24 Range/Units 00:14 02:32 02:32 WBC 7.9 (3.8-10.6) k/uL RBC 4.98 (4.30-5.90) m/uL Hgb 16.1 (13.0-17.5) gm/dL Hct 48.6 (39.0-53.0) % MCV 97.6 (80.0-100.0) fL MCH 32.3 (25.0-35.0) pg MCHC 33.1 (31.0-37.0) g/dL RDW 13.2 (11.5-15.5) % Plt Count 143 L (150-450) k/uL MPV 10.9 Neutrophils % 85 % Lymphocytes % 7 % Monocytes % 5 % Eosinophils % 1 % Basophils % 0 % Neutrophils # 6.8 (1.3-7.7) k/uL Lymphocytes # 0.6 L (1.0-4.8) k/uL Monocytes # 0.4 (0-1.0) k/uL Eosinophils # 0.1 (0-0.7) k/uL Basophils # 0.0 (0-0.2) k/uL Sodium 134 L (137-145) mmol/L Potassium 4.5 (3.5-5.1) mmol/L Chloride 101 (98-107) mmol/L Carbon Dioxide 23 (22-30) mmol/L Anion Gap 10 mmol/L BUN 25 H (9-20) mg/dL Creatinine 0.87 (0.66-1.25) mg/dL Est GFR (CKD-EPI)AfAm >90 (>60 ml/min/1.73 sqM) Est GFR (CKD-EPI)NonAf >90 (>60 ml/min/1.73 sqM) Glucose 155 H (74-99) mg/dL POC Glucose (mg/dL) (70-110) mg/dL POC Glu Core Layer Machine Operator ID Estimated Ave Glu mg/dL mg/dL Hemoglobin A1c (<=6.0) % Lactic Ac Sepsis Rflx Y Plasma Lactic Acid Marciano (0.7-2.0) mmol/L Calcium 9.4 (8.4-10.2) mg/dL Total Bilirubin (0.2-1.3) mg/dL AST (17-59) U/L ALT (4-49) U/L Alkaline Phosphatase (38-126) U/L Troponin I (0.000-0.034) ng/mL Total Protein (6.3-8.2) g/dL Albumin (3.5-5.0) g/dL Influenza Type A (PCR) (Not Detectd) Influenza Type B (PCR) (Not Detectd) RSV (PCR) (Not Detectd) SARS-CoV-2 (PCR) (Not Detectd) 10/18/24 10/18/24 Range/Units 02:32 12:03 WBC (3.8-10.6) k/uL RBC (4.30-5.90) m/uL Hgb (13.0-17.5) gm/dL Hct (39.0-53.0) % MCV (80.0-100.0) fL MCH (25.0-35.0) pg MCHC (31.0-37.0) g/dL RDW (11.5-15.5) % Plt Count (150-450) k/uL MPV Neutrophils % % Lymphocytes % % Monocytes % % Eosinophils % % Basophils % % Neutrophils # (1.3-7.7) k/uL Lymphocytes # (1.0-4.8) k/uL Monocytes # (0-1.0) k/uL Eosinophils # (0-0.7) k/uL Basophils # (0-0.2) k/uL Sodium (137-145) mmol/L Potassium (3.5-5.1) mmol/L Chloride (98-107) mmol/L Carbon Dioxide (22-30) mmol/L Anion Gap mmol/L BUN (9-20) mg/dL Creatinine (0.66-1.25) mg/dL Est GFR (CKD-EPI)AfAm (>60 ml/min/1.73 sqM) Est GFR (CKD-EPI)NonAf (>60 ml/min/1.73 sqM) Glucose (74-99) mg/dL POC Glucose (mg/dL) 125 H (70-110) mg/dL POC Glu Core Layer Machine Operator ANA [place] Estimated Ave Glu mg/dL mg/dL Hemoglobin A1c (<=6.0) % Lactic Ac Sepsis Rflx Plasma Lactic Acid Marciano 1.5 (0.7-2.0) mmol/L Calcium (8.4-10.2) mg/dL Total Bilirubin (0.2-1.3) mg/dL AST (17-59) U/L ALT (4-49) U/L Alkaline Phosphatase (38-126) U/L Troponin I (0.000-0.034) ng/mL Total Protein (6.3-8.2) g/dL Albumin (3.5-5.0) g/dL Influenza Type A (PCR) (Not Detectd) Influenza Type B (PCR) (Not Detectd) RSV (PCR) (Not Detectd) SARS-CoV-2 (PCR) (Not Detectd) Disposition Clinical Impression: COPD exacerbation, RSV infection Disposition: ADMITTED IP TO THIS HOSP Condition: Stable Is patient prescribed a controlled substance at d/c from ED?: No Time of Disposition: 14:27 Decision to Admit Reason: Admit from EC Decision Date: 10/17/24 Decision Time: 14:27
[2024-10-17] MEDS: IPRATROPIUM-ALBUTEROL 3 ML NEB INHALATION SCH (16:50)
[2024-10-17] MEDS: oxyCODONE-APAP 10-325MG 1 EACH TAB PO PRN (18:03)
[2024-10-17] MEDS: PREGABALIN 75 MG CAP PO SCH (21:06)
[2024-10-18] MEDS: ACETAMINOPHEN TAB 325 MG TAB PO PRN (00:23)
[2024-10-18 02:53] LABS: Basophils % (A) 0 %; Eosinophils # (A) 0.1 k/uL (0-0.7); Eosinophils % (A) 1 %; HCT 48.6 % (39.0-53.0); HGB 16.1 gm/dL (13.0-17.5); Lymphocytes # (A) 0.6 k/uL (1.0-4.8); Lymphocytes % (A) 7 %; MCH 32.3 pg (25.0-35.0); MCHC 33.1 g/dL (31.0-37.0); MCV 97.6 fL (80.0-100.0); Mean Platelet Volume 10.9; Monocytes # (A) 0.4 k/uL (0-1.0); Monocytes % (A) 5 %; Neutrophils # (A) 6.8 k/uL (1.3-7.7); Neutrophils % (A) 85 %; Platelet Count 143 k/uL (150-450); RBC 4.98 m/uL (4.30-5.90); RDW 13.2 % (11.5-15.5); WBC 7.9 k/uL (3.8-10.6)
[2024-10-18 03:02] LABS: African American GFR (CKD) >90 (>60 ml/min/1.73 sqM); Anion Gap 10 mmol/L; Blood Urea Nitrogen 25 mg/dL (9-20); Calcium 9.4 mg/dL (8.4-10.2); Carbon Dioxide 23 mmol/L (22-30); Chloride 101 mmol/L (98-107); Glucose 155 mg/dL (74-99); Non-African American GFR(CKD) >90 (>60 ml/min/1.73 sqM); Potassium 4.5 mmol/L (3.5-5.1); Sodium 134 mmol/L (137-145)
[2024-10-18] MEDS: SYMBICORT 160-4.5 MCG INHALER INHALATION SCH (07:56)
[2024-10-18] MEDS ORDERED: TIOTROPIUM 2.5 MCG INHALER INHALATION SCH (08:00)
[2024-10-18] MEDS: PANTOPRAZOLE 40 MG TABLET PO SCH (08:10)
[2024-10-18] MEDS: atenoloL 50 MG TAB PO SCH (08:10)
[2024-10-18] MEDS: DULoxetine HCL 60 MG CAPSULE.DR PO SCH (08:10)
[2024-10-18] MEDS: LINAGLIPTIN 5 MG TABLET PO SCH (08:10)
[2024-10-18] MEDS: ATORVASTATIN 40 MG TAB PO SCH (08:10)
[2024-10-18] MEDS: CHOLECALCIFEROL 25 MCG (1000 IU) TABLET PO SCH (08:11)
[2024-10-18] MEDS: methylPREDNISolone SOD SUCCI 40 MG/ML 1 ML VIAL IV SCH (08:11)
[2024-10-18] MEDS ORDERED: DEXTROSE 50% SYRINGE 50 ML IVP PRN ×2 (12:02)
[2024-10-18 12:05] LABS: Glucose,Whole Blood 125 mg/dL (70-110)
[2024-10-18] MEDS: INSULIN LISPRO (HumaLOG) 100 UNIT/ML 10 mL VL SQ SCH (12:38)
--- NOTE | 2024-10-18 12:53 | P.HPIM ---
History of Present Illness 58-year-old male with known history of COPD wears 2 and half liters of oxygen at home came in with complaints of shortness of breath found to have significant wheezing patient was given doxycycline and Medrol Dosepak without any signif icant improvement in his respiratory status he continued to get worse. Patient is found to have RSV here chest x-ray did not show any pneumonia patient was started on Solu-Medrol and is admitted patient is presently on 3 L of oxygen patient does have lactic acidosis does take metformin no evidence of infection at this time patient is also bit hyponatremic REVIEW OF SYSTEMS: All other systems are negative except those mentioned in the HPI PHYSICAL EXAMINATION: GENERAL: The patient is alert and oriented x3, not in any acute distress. Well developed, well nourished. HEENT: Pupils are round and equally reacting to light. EOMI. No scleral icterus. No conjunctival pallor. Normocephalic, atraumatic. No pharyngeal erythema. No thyromegaly. CARDIOVASCULAR: S1 and S2 present. No murmurs, rubs, or gallops. PULMONARY: Bilateral rhonchi and significant expiratory wheezing on exam ABDOMEN: Soft, nontender, nondistended, normoactive bowel sounds. No palpable organomegaly. MUSCULOSKELETAL: No joint swelling or deformity. EXTREMITIES: No cyanosis, clubbing, or pedal edema. NEUROLOGICAL: Gross neurological examination did not reveal any focal deficits. SKIN: No rashes. Assessment and plan -Acute on chronic hypoxic and hypercapnic respiratory failure secondary to COPD exacerbation continue with systemic steroids inhalational treatments -RSV infection supportive care -Lactic acidosis secondary to metformin which was discontinued patient will be on sliding scale insulin for steroids -Type 2 diabetes mellitus blood sugars are expected to be uncontrolled patient will be on high-dose sliding scale probably will be started on long-acting insulin depending on his insulin requirements -Hyperlipidemia -Mild hypovolemic hyponatremia patient was started on IV fluids -Nicotine cessation counseling was provided -Diabetic peripheral neuropathy for which patient is on Lyrica which was resumed -Hypertension DVT prophylaxis: Lovenox Past Medical History Past Medical History: COPD, Diabetes Mellitus, Hyperlipidemia, Pneumonia, Skin Disorder Additional Past Medical History / Comment(s): parkinson's disease, bronchitis, anykylosing spondylitis,rt eye uveitis, monocular vision rt eye, HLAB27 positive autoimmune disease, ankylosing spondyitis, chronic back/cervical pain-2 herniated disks, degenerative disk disease, lumbar collapsed vertebrae with pinched nerves, numbness bilateral legs, 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 History of Any Multi-Drug Resistant Organisms: MRSA Date of last positivie culture/infection: 04/03/23 MDRO Source:: Left Elbow, facial Additional Past Surgical History / Comment(s): rt cataract and 3 laser procedures r/t uveitis, pain clinic procedure Past Anesthesia/Blood Transfusion Reactions: No Reported Reaction Additional Past Anesthesia/Blood Transfusion Reaction / Comment(s): Very fearful of needles Past Psychological History: Depression Additional Psychological History / Comment(s): Pt resides with his spouse and son. He has a nebulizer. No other medical equipment. He can drive. Smoking Status: Current every day smoker Past Alcohol Use History: Daily, Heavy Additional Past Alcohol Use History / Comment(s): Pt started smoking in 1977 and is a 1-2.5 ppd smoker. patient quit earlier this month. states he cut down drinking 3 months ago- used to drink daily "all my life" per patient, now he only drinks up to a six pack daily per patient. Past Drug Use History: None Reported - Past Family History Brother(s) Family Medical History: Myocardial Infarction ([place]) Additional Family Medical History / Comment(s): Brother had a AZ at the age of 51 yrs and is living. Mother Family Medical History: CVA/TIA, Hypertension Additional Family Medical History / Comment(s): Mother has had CVAs. She is living Father Family Medical History: Myocardial Infarction ([place]) Additional Family Medical History / Comment(s): Father had a AZ at the age of 83 yrs. He is living Medications and Allergies Home Medications Medication Instructions Recorded Confirmed Type DULoxetine HCL [Cymbalta] 60 mg PO DAILY 05/23/17 10/17/24 History Adalimumab [Humira(Cf) Pen] 40 mg SQ Q14D 07/06/18 10/17/24 History Atorvastatin [Lipitor] 40 mg PO DAILY 06/14/20 10/17/24 History oxyCODONE-APAP 10-325MG [Percocet 1 tab PO TID PRN 04/11/21 10/17/24 History 10-325 mg] Fluticasone/Umeclidin/Vilanter 1 puff INHALATION RT-DAILY 06/28/22 10/17/24 History [Trelegy Ellipta 100-62.5-25] Pregabalin [Lyrica] 150 mg PO BID 06/28/22 10/17/24 History Albuterol Inhaler [Ventolin Hfa 2 puff INHALATION RT-QID PRN 04/01/23 10/17/24 History Inhaler] Omeprazole [PriLOSEC] 40 mg PO DAILY 04/01/23 10/17/24 History metFORMIN HCL ER [Glucophage XR] 500 mg PO BID 04/01/23 10/17/24 History predniSONE 10 mg PO DIRECTED 04/01/23 10/17/24 History rOPINIRole HCL [Requip] 0.5 mg PO TID 04/01/23 10/17/24 History sitaGLIPtin [Januvia] 100 mg PO DAILY 04/01/23 10/17/24 History Acetaminophen Tab [Tylenol] 650 mg PO Q6HR PRN tab 09/17/23 10/17/24 Rx Doxycycline [Vibramycin] 100 mg PO BID 5 Days #10 cap 09/17/23 10/17/24 Rx Albuterol Nebulized [Ventolin 2.5 mg INHALATION RT-QID PRN 10/17/24 10/17/24 History Nebulized] Cholecalciferol [Vitamin D3 (25 50 mcg PO DAILY 10/17/24 10/17/24 History Mcg = 1000 Iu)] atenoloL [Tenormin] 50 mg PO DAILY 10/17/24 10/17/24 History methylPREDNISolone Dose Pack See Taper PO DIRECTED 10/17/24 10/17/24 History [Medrol Dose Pack] Allergies Allergy/AdvReac Type Severity Reaction Status Date / Time erythromycin base Allergy Severe Dyspnea,hiv Verified 10/17/24 15:02 es Physical Exam Vitals: Vital Signs Temp Pulse Pulse Resp BP BP Pulse Ox 10/18/24 12:39 72 10/18/24 12:28 96 10/18/24 12:25 68 10/18/24 09:20 24 10/18/24 08:39 97.8 F 63 20 199/84 93 L 10/18/24 08:07 72 18 10/18/24 07:57 68 18 10/18/24 06:29 98.5 F 56 L 14 165/87 100 10/18/24 03:51 54 L 20 10/18/24 03:45 59 L 20 10/18/24 00:48 61 18 170/90 97 10/18/24 00:25 77 22 10/18/24 00:19 74 22 10/17/24 20:13 98.7 F 67 18 130/63 94 L 10/17/24 19:55 71 20 10/17/24 19:49 67 22 10/17/24 16:57 62 18 10/17/24 16:50 68 18 10/17/24 16:24 61 18 144/72 95 10/17/24 14:56 76 18 145/75 95 10/17/24 13:30 77 24 137/77 94 L 10/17/24 13:22 64 18 10/17/24 13:11 69 22 Intake and Output 10/17/24 10/18/24 10/18/24 22:59 06:59 14:59 Other: Voiding Method Toilet Urinal Weight 114.305 kg Results CBC & Chem 7: 10/18/24 02:32 10/18/24 02:32 Labs: Abnormal Lab Results - Last 24 Hours (Table) 10/17/24 10/17/24 10/17/24 Range/Units 13:09 13:09 13:09 Plt Count 145 L (150-450) k/uL Lymphocytes # 0.5 L (1.0-4.8) k/uL Sodium 134 L (137-145) mmol/L Carbon Dioxide 18 L (22-30) mmol/L BUN 26 H (9-20) mg/dL Glucose 138 H (74-99) mg/dL POC Glucose (mg/dL) (70-110) mg/dL Plasma Lactic Acid Marciano 2.8 H* (0.7-2.0) mmol/L RSV (PCR) (Not Detectd) 10/17/24 10/17/24 10/17/24 Range/Units 13:09 16:40 19:51 Plt Count (150-450) k/uL Lymphocytes # (1.0-4.8) k/uL Sodium (137-145) mmol/L Carbon Dioxide (22-30) mmol/L BUN (9-20) mg/dL Glucose (74-99) mg/dL POC Glucose (mg/dL) (70-110) mg/dL Plasma Lactic Acid Marciano 3.0 H* 4.8 H* (0.7-2.0) mmol/L RSV (PCR) Detected A (Not Detectd) 10/17/24 10/18/24 10/18/24 Range/Units 23:10 02:32 02:32 Plt Count 143 L (150-450) k/uL Lymphocytes # 0.6 L (1.0-4.8) k/uL Sodium 134 L (137-145) mmol/L Carbon Dioxide (22-30) mmol/L BUN 25 H (9-20) mg/dL Glucose 155 H (74-99) mg/dL POC Glucose (mg/dL) (70-110) mg/dL Plasma Lactic Acid Marciano 3.3 H* (0.7-2.0) mmol/L RSV (PCR) (Not Detectd) 10/18/24 Range/Units 12:03 Plt Count (150-450) k/uL Lymphocytes # (1.0-4.8) k/uL Sodium (137-145) mmol/L Carbon Dioxide (22-30) mmol/L BUN (9-20) mg/dL Glucose (74-99) mg/dL POC Glucose (mg/dL) 125 H (70-110) mg/dL Plasma Lactic Acid Marciano (0.7-2.0) mmol/L RSV (PCR) (Not Detectd) Thrombosis Risk Factor Assmnt - Choose All That Apply Any of the Below Risk Factors Present?: Yes Each Factor Represents 1 point: Age 41-60 years, Obesity (BMI >25) Other Risk Factors: No Other congenital or acquired thrombophilia - If yes, enter type in comment: No Thrombosis Risk Factor Assessment Total Risk Factor Score: 2 Thrombosis Risk Factor Assessment Level: Low Risk
--- NOTE | 2024-10-18 15:05 | P.CNPUL ---
History of Present Illness Consult date: 10/17/24 Reason for consult: dyspnea, COPD History of present illness: Patient 58-year-old male patient, known history of COPD, presenting to the emergency department with worsening shortness of breath. The patient has been having increased dyspnea over the past few days has been using his nebulizer treatments every 4 hours without any major improvement. Based on that, he came to the emergency department. Denies having any fever or chills. No chest pain. No productive cough with some yellowish sputum. No altered mentation. No swelling lower extremities. No angina or palpitations. In terms of his COPD, the patient has been maintained on Trelegy Ellipta 1 puff a day on an outpatient basis. The patient is also on prednisone 10 mg p.o. daily. The patient is known to have history of ankylosing spondylitis and the patient has been main tained on Humira on outpatient basis and has been on Humira for several years. Is blood work in the emergency showed a white cell count of 8.6, hemoglobin 17 and platelet count of 145. BUN is 26 with a creatinine of 0.8. Sodium levels at 134 and a potassium level is at 5.1. Troponins are negative. LFTs are normal. The viral screen was positive for RSV. Negative for influenza and negative for COVID-19. Chest x-ray was done in the ED and it showed no significant abnormalities. No airspace disease. No consolidation. As such, the patient was hospitalized for an acute COPD exacerbation secondary to acute RSV infection. He was started on IV Solu-Medrol 40 mg every 8 hours. He was started on DuoNeb nebulized treatments [id number]. He is diabetic maintained on a combination of Januvia and Glucophage on outpatient basis. Review of Systems CONSTITUTIONAL: Denies any recent significant weight loss or weight gain. EYES: Denies change in vision. EARS, NOSE, MOUTH, THROAT: Denies headaches, denies sore throat. CARDIOVASCULAR: Denies chest pain, palpitations or syncopal episodes. RESPIRATORY: See HPI worsening shortness of breath as stated above typical of COPD exacerbation GASTROINTESTINAL: Denies change in appetite, abdominal pain, nausea and v omiting, or diarrhea GENITOURINARY: Denies hematuria, denies infections. MUSKULOSKELETAL: Denies pain, denies swelling. INTEGUMENTARY: Denies rash, denies eczema. NEUROLOGICAL: Denies recent memory loss, no recent seizure activity. PSYCHIATRIC: Denies anxiety, denies depression. HEMATOLOGIC/LYMPHATIC: Denies anemia, denies enlarged lymph node Past Medical History Past Medical History: COPD, Hyperlipidemia, Pneumonia, Skin Disorder Additional Past Medical History / Comment(s): parkinson's disease, bronchitis, anykylosing spondylitis,rt eye uveitis, monocular vision rt eye, HLAB27 positive autoimmune disease, ankylosing spondyitis, chronic back/cervical pain-2 herniated disks, degenerative disk disease, lumbar collapsed vertebrae with pinched nerves, numbness bilateral legs, 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 History of Any Multi-Drug Resistant Organisms: MRSA Date of last positivie culture/infection: 04/03/23 MDRO Source:: Left Elbow Additional Past Surgical History / Comment(s): rt cataract and 3 laser procedures r/t uveitis, pain clinic procedure Past Anesthesia/Blood Transfusion Reactions: No Reported Reaction Additional Past Anesthesia/Blood Transfusion Reaction / Comment(s): Very fearful of needles Past Psychological History: Depression Smoking Status: Current every day smoker Past Alcohol Use History: Daily, Heavy Past Drug Use History: None Reported - Past Family History Brother(s) Family Medical History: Myocardial Infarction ([place]) Additional Family Medical History / Comment(s): Brother had a HI at the age of 51 yrs and is living. Mother Family Medical History: CVA/TIA, Hypertension Additional Family Medical History / Comment(s): Mother has had CVAs. She is living Father Family Medical History: Myocardial Infarction ([place]) Additional Family Medical History / Comment(s): Father had a HI at the age of 83 yrs. He is living Medications and Allergies Home Medications Medication Instructions Recorded Confirmed Type DULoxetine HCL [Cymbalta] 60 mg PO DAILY 05/23/17 10/17/24 History Adalimumab [Humira(Cf) Pen] 40 mg SQ Q14D 07/06/18 10/17/24 History Atorvastatin [Lipitor] 40 mg PO DAILY 06/14/20 10/17/24 History oxyCODONE-APAP 10-325MG [Percocet 1 tab PO TID PRN 04/11/21 10/17/24 History 10-325 mg] Fluticasone/Umeclidin/Vilanter 1 puff INHALATION RT-DAILY 06/28/22 10/17/24 History [Trelegy Ellipta 100-62.5-25] Pregabalin [Lyrica] 150 mg PO BID 06/28/22 10/17/24 History Albuterol Inhaler [Ventolin Hfa 2 puff INHALATION RT-QID PRN 04/01/23 10/17/24 History Inhaler] Omeprazole [PriLOSEC] 40 mg PO DAILY 04/01/23 10/17/24 History metFORMIN HCL ER [Glucophage XR] 500 mg PO BID 04/01/23 10/17/24 History predniSONE 10 mg PO DIRECTED 04/01/23 10/17/24 History rOPINIRole HCL [Requip] 0.5 mg PO TID 04/01/23 10/17/24 History sitaGLIPtin [Januvia] 100 mg PO DAILY 04/01/23 10/17/24 History Acetaminophen Tab [Tylenol] 650 mg PO Q6HR PRN tab 09/17/23 10/17/24 Rx Doxycycline [Vibramycin] 100 mg PO BID 5 Days #10 cap 09/17/23 10/17/24 Rx Albuterol Nebulized [Ventolin 2.5 mg INHALATION RT-QID PRN 10/17/24 10/17/24 History Nebulized] Cholecalciferol [Vitamin D3 (25 50 mcg PO DAILY 10/17/24 10/17/24 History Mcg = 1000 Iu)] atenoloL [Tenormin] 50 mg PO DAILY 10/17/24 10/17/24 History methylPREDNISolone Dose Pack See Taper PO DIRECTED 10/17/24 10/17/24 History [Medrol Dose Pack] Allergies Allergy/AdvReac Type Severity Reaction Status Date / Time erythromycin base Allergy Severe Dyspnea,hiv Verified 10/17/24 15:02 es Physical Exam Vitals: Vital Signs Temp Pulse Resp BP Pulse Ox 10/17/24 14:56 76 18 145/75 95 10/17/24 13:30 77 24 137/77 94 L 10/17/24 13:22 64 18 10/17/24 13:11 69 22 10/17/24 12:53 98.7 F 69 30 H 162/92 97 Intake and Output 10/17/24 10/17/24 10/17/24 06:59 14:59 22:59 Other: Weight 114.305 kg GENERAL EXAM: Alert, 56-year-old white male, comfortable in no apparent distress. HEAD: Normocephalic and atraumatic EYES: Normal reaction of pupils, equal size. NOSE: Clear with pink turbinates. THROAT: No erythema or exudates. NECK: No masses, no JVD. CHEST: No chest wall deformity. LUNGS: Equal air entry with expiratory wheezes heard throughout and scattered rhonchi. no crackles or dullness. On 3 L nasal cannula. No conversational dyspnea or accessory muscle use.. CVS: S1 and S2 normal with no audible murmur, regular rhythm. No extra heart sounds ABDOMEN: No hepatosplenomegaly, active bowel sounds, no guarding or rigidity. SPINE: No scoliosis or deformity SKIN: No rashes CENTRAL NERVOUS SYSTEM: No focal deficits, tone is normal in all 4 extremities. EXTREMITIES: There is no peripheral edema, clubbing, or cyanosis. Peripheral pulses are intact. Results - Laboratory Findings CBC and BMP: 10/17/24 13:09 10/17/24 13:09 Abnormal lab findings: Abnormal Labs 10/17/24 10/17/24 10/17/24 13:09 13:09 13:09 Plt Count 145 L Lymphocytes # 0.5 L Sodium 134 L Carbon Dioxide 18 L BUN 26 H Glucose 138 H Plasma Lactic Acid Marciano 2.8 H* RSV (PCR) 10/17/24 13:09 Plt Count Lymphocytes # Sodium Carbon Dioxide BUN Glucose Plasma Lactic Acid Marciano RSV (PCR) Detected A Assessment and Plan Plan: Acute COPD exacerbation secondary to RSV tracheobronchitis Acute on chronic shortness of breath secondary to above Advanced and chronic oxygen dependent COPD, maintained on Trelegy Ellipta and prednisone on outpatient basis Ankylosing spondylitis maintained on Humira 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 in 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
--- NOTE | 2024-10-18 15:07 | P.PN ---
Subjective Progress Note Date: 10/18/24 Patient 58-year-old male patient, known history of COPD, presenting to the emergency department with worsening shortness of breath. The patient has been having increased dyspnea over the past few days has been using his nebulizer treatments every 4 hours without any major improvement. Based on that, he came to the emergency department. Denies having any fever or chills. No chest pain. No productive cough with some yellowish sputum. No altered mentation. No swelling lower extremities. No angina or palpitations. In terms of his COPD, the patient has been maintained on Trelegy Ellipta 1 puff a day on an outpatient basis. The patient is also on prednisone 10 mg p.o. daily. The patient is known to have history of ankylosing spondylitis and the patient has been maintained on Humira on outpatient basis and has been on Humira for several years. Is blood work in the emergency showed a white cell count of 8.6, hemoglobin 17 and platelet count of 145. BUN is 26 with a creatinine of 0.8. Sodium levels at 134 and a potassium level is at 5.1. Troponins are negative. LFTs are normal. The viral screen was positive for RSV. Negative for influenza and negative for COVID-19. Chest x-ray was done in the ED and it showed no significant abnormalities. No airspace disease. No consolidation. As such, the patient was hospitalized for an acute COPD exacerbation secondary to acute RSV infection. He was started on IV Solu-Medrol 40 mg every 8 hours. He was started on DuoNeb nebulized treatments [id number]. He is diabetic maintained on a combination of Januvia and Glucophage on outpatient basis. On today's evaluation of 10/18/2024, the patient is clinically unchanged the patient continues to be bronchospastic and wheezy. Noted improvement since yesterday. Will continue same treatment for now. White cell count is nonelevated at 7.9. Hemoglobin 16, BUN is 25 with a creatinine of 0.8 and a sodium dose of 134. Lactic acid level is dropped from 3.3 down to 1.5. Remains on bronchodilators. Remains on steroids. Patient is currently on Solu-Medrol 40 mg every 12 hours and the dose will be modified to 60 mg every 6 hours. Remains on Symbicort. Objective - Vital Signs Vital signs: Vital Signs Temp 97.8 F 10/18/24 08:39 Pulse 63 10/18/24 08:39 Resp 24 10/18/24 09:20 BP 199/84 10/18/24 08:39 Pulse Ox 93 L 10/18/24 08:39 FiO2 Intake & Output 10/17/24 10/18/24 10/18/24 18:59 06:59 18:59 Weight 114.305 kg 114.305 kg Other: Voiding Method Toilet Urinal - Exam GENERAL EXAM: Alert, 56-year-old white male, comfortable in no apparent distress. HEAD: Normocephalic and atraumatic EYES: Normal reaction of pupils, equal size. NOSE: Clear with pink turbinates. THROAT: No erythema or exudates. NECK: No masses, no JVD. CHEST: No chest wall deformity. LUNGS: Equal air entry with expiratory wheezes heard throughout and scattered rhonchi. no crackles or dullness. On 3 L nasal cannula. No conversational dys pnea or accessory muscle use.. CVS: S1 and S2 normal with no audible murmur, regular rhythm. No extra heart sounds ABDOMEN: No hepatosplenomegaly, active bowel sounds, no guarding or rigidity. SPINE: No scoliosis or deformity SKIN: No rashes CENTRAL NERVOUS SYSTEM: No focal deficits, tone is normal in all 4 extremities. EXTREMITIES: There is no peripheral edema, clubbing, or cyanosis. Peripheral pulses are intact. - Labs CBC & Chem 7: 10/18/24 02:32 10/18/24 02:32 Labs: Abnormal Lab Results - Last 24 Hours (Table) 10/17/24 10/17/24 10/17/24 Range/Units 13:09 13:09 13:09 Plt Count 145 L (150-450) k/uL Lymphocytes # 0.5 L (1.0-4.8) k/uL Sodium 134 L (137-145) mmol/L Carbon Dioxide 18 L (22-30) mmol/L BUN 26 H (9-20) mg/dL Glucose 138 H (74-99) mg/dL POC Glucose (mg/dL) (70-110) mg/dL Plasma Lactic Acid Marcinao 2.8 H* (0.7-2.0) mmol/L RSV (PCR) (Not Detectd) 10/17/24 10/17/24 10/17/24 Range/Units 13:09 16:40 19:51 Plt Count (150-450) k/uL Lymphocytes # (1.0-4.8) k/uL Sodium (137-145) mmol/L Carbon Dioxide (22-30) mmol/L BUN (9-20) mg/dL Glucose (74-99) mg/dL POC Glucose (mg/dL) (70-110) mg/dL Plasma Lactic Acid Marciano 3.0 H* 4.8 H* (0.7-2.0) mmol/L RSV (PCR) Detected A (Not Detectd) 10/17/24 10/18/24 10/18/24 Range/Units 23:10 02:32 02:32 Plt Count 143 L (150-450) k/uL Lymphocytes # 0.6 L (1.0-4.8) k/uL Sodium 134 L (137-145) mmol/L Carbon Dioxide (22-30) mmol/L BUN 25 H (9-20) mg/dL Glucose 155 H (74-99) mg/dL POC Glucose (mg/dL) (70-110) mg/dL Plasma Lactic Acid Marciano 3.3 H* (0.7-2.0) mmol/L RSV (PCR) (Not Detectd) 10/18/24 Range/Units 12:03 Plt Count (150-450) k/uL Lymphocytes # (1.0-4.8) k/uL Sodium (137-145) mmol/L Carbon Dioxide (22-30) mmol/L BUN (9-20) mg/dL Glucose (74-99) mg/dL POC Glucose (mg/dL) 125 H (70-110) mg/dL Plasma Lactic Acid Marciano (0.7-2.0) mmol/L RSV (PCR) (Not Detectd) Assessment and Plan Plan: Acute COPD exacerbation secondary to RSV tracheobronchitis Acute on chronic shortness of breath secondary to above Advanced and chronic oxygen dependent COPD, maintained on Trelegy Ellipta and prednisone on outpatient basis Ankylosing spondylitis maintained on Humira 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 Titrate oxygen flow to maintain saturation above 90%, currently on 2 L Allowed the patient to utilize Trelegy Ellipta from home Continue DuoNeb the regiment [id number] IV Solu-Medrol and increase dose to 60 mg every 6 hours. Sputum Gram stain and culture Chest x-ray is free of any acute pulmonary infiltrates Hold Humira for now Resume home medications Will continue to follow
[2024-10-18] MEDS: SODIUM CHLORIDE 0.9% 1,000 ML IV SCH (16:33)
[2024-10-18 17:29] LABS: Glucose,Whole Blood 148 mg/dL (70-110)
[2024-10-18] MEDS: methylPREDNISolone SOD SUCCI 125 MG/2 ML VIAL IV SCH (17:41)
[2024-10-18 20:24] LABS: Glucose,Whole Blood 172 mg/dL (70-110)
[2024-10-18] MEDS ORDERED: methylPREDNISolone SOD SUCCI 40 MG/ML 1 ML VIAL IV SCH (21:00)
[2024-10-19 06:14] LABS: Glucose,Whole Blood 192 mg/dL (70-110)
[2024-10-19] MEDS: ENOXAPARIN 40 MG/0.4 ML SYRINGE SQ SCH (08:48)
[2024-10-19 12:02] LABS: Glucose,Whole Blood 177 mg/dL (70-110)
--- NOTE | 2024-10-19 12:55 | P.PN ---
Subjective Progress Note Date: 10/19/24 Patient 58-year-old male patient, known history of COPD, presenting to the emergency department with worsening shortness of breath. The patient has been having increased dyspnea over the past few days has been using his nebulizer treatments every 4 hours without any major improvement. Based on that, he came to the emergency department. Denies having any fever or chills. No chest pain. No productive cough with some yellowish sputum. No altered mentation. No swelling lower extremities. No angina or palpitations. In terms of his COPD, the patient has been maintained on Trelegy Ellipta 1 puff a day on an outpatient basis. The patient is also on prednisone 10 mg p.o. daily. The patient is kn own to have history of ankylosing spondylitis and the patient has been maintained on Humira on outpatient basis and has been on Humira for several years. Is blood work in the emergency showed a white cell count of 8.6, hemoglobin 17 and platelet count of 145. BUN is 26 with a creatinine of 0.8. S odium levels at 134 and a potassium level is at 5.1. Troponins are negative. LFTs are normal. The viral screen was positive for RSV. Negative for influenza and negative for COVID-19. Chest x-ray was done in the ED and it showed no significant abnormalities. No airspace disease. No consolidation. As such, the patient was hospitalized for an acute COPD exacerbation secondary to acute RSV infection. He was started on IV Solu-Medrol 40 mg every 8 hours. He was started on DuoNeb nebulized treatments [id number]. He is diabetic maintained on a combination of Januvia and Glucophage on outpatient basis. On today's evaluation of 10/18/2024, the patient is clinically unchanged the pat ient continues to be bronchospastic and wheezy. Noted improvement since yesterday. Will continue same treatment for now. White cell count is nonelevated at 7.9. Hemoglobin 16, BUN is 25 with a creatinine of 0.8 and a sodium dose of 134. Lactic acid level is dropped from 3.3 down to 1.5. Remains on bronchodilators. Remains on steroids. Patient is currently on Solu-Medrol 40 mg every 12 hours and the dose will be modified to 60 mg every 6 hours. Remains on Symbicort. The patient is seen today October 19, 2024 in follow-up on the regular medical floor. He is currently sitting up at the bedside. Awake and alert in no acute distress. Maintaining good O2 saturations in the 90s on 3 L/min per nasal cannula. He is afebrile. Hemodynamically stable. Glucose 177. He is continued on DuoNeb inhalations, Symbicort, Solu-Medrol. Lovenox for DVT prophylaxis. Objective - Vital Signs Vital signs: Vital Signs Temp 97.9 F 10/19/24 07:00 Pulse 62 10/19/24 11:32 Resp 16 10/19/24 07:00 BP 149/73 10/19/24 07:00 Pulse Ox 97 10/19/24 07:40 FiO2 Intake & Output 10/18/24 10/19/24 10/19/24 18:59 06:59 18:59 Intake Total 120 118 Balance 120 118 Intake: Oral 120 118 Other: Voiding Method Toilet Toilet Urinal Urinal # Voids 3 1 - Exam GENERAL EXAM: Alert, active, pleasant 58-year-old male, on 3 L nasal cannula, comfortable in no apparent distress. HEAD: Normocephalic. EYES: Normal reaction of pupils, equal size. NOSE: Clear with pink turbinates. THROAT: No erythema or exudates. NECK: No masses, no JVD. CHEST: No chest wall deformity. LUNGS: Equal air entry with bilateral end expiratory wheeze, few scattered rho nchi. CVS: S1 and S2 normal with no audible murmur, regular rhythm. ABDOMEN: No hepatosplenomegaly, normal bowel sounds, no guarding or rigidity. SPINE: No scoliosis or deformity SKIN: No rashes CENTRAL NERVOUS SYSTEM: No focal deficits, tone is normal in all 4 extremities. EXTREMITIES: There is no peripheral edema. No clubbing, no cyanosis. Peripheral pulses are intact. - Labs CBC & Chem 7: 10/18/24 02:32 10/18/24 02:32 Labs: Abnormal Lab Results - Last 24 Hours (Table) 10/18/24 10/18/24 10/19/24 Range/Units 17:28 20:22 06:12 POC Glucose (mg/dL) 148 H 172 H 192 H (70-110) mg/dL 10/19/24 Range/Units 12:00 POC Glucose (mg/dL) 177 H (70-110) mg/dL Assessment and Plan Assessment: Acute on chronic hypoxemic respiratory failure secondary to an acute COPD exacerbation secondary to RSV tracheobronchitis RSV tracheobronchitis Advanced and chronic oxygen dependent COPD, maintained on Trelegy Ellipta and prednisone on outpatient basis Ankylosing spondylitis maintained on Humira 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 in addition to ankylosing spondylitis Chronic back and neck pain related to herniated disks Degenerative arthritis Chronic neuropathy involving lower extremities Umbilical hernia Hyperlipidemia Diabetes mellitus Parkinson disease History of [id number] smoking history Plan: The patient was seen and evaluated Labs and medications reviewed Continue DuoNeb inhalations, Symbicort Continue IV Solu-Medrol Lovenox for DVT prophylaxis Titrate down the FiO2 as tolerated Increase his activity as tolerated We will continue to follow I have personally seen and examined the patient, performed the documentation and the assessment and plan as written. Number of minutes spent on the visit: 25 Dictation was produced using [employer] dictation software. Please excuse any grammatical, word or spelling errors.
--- NOTE | 2024-10-19 15:34 | P.PN ---
Subjective Progress Note Date: 10/19/24 58-year-old male with known history of COPD wears 2 and half liters of oxygen at home came in with complaints of shortness of breath found to have significant wheezing patient was given doxycycline and Medrol Dosepak without any significant improvement in his respiratory status he continued to get worse. Patient is found to have RSV here chest x-ray did not show any pneumonia patient was started on Solu-Medrol and is admitted patient is presently on 3 L of oxygen patient does have lactic acidosis does take metformin no evidence of infection at this time patient is also bit hyponatremic 10/19/2024 Patient is seen in follow-up today with pulmonary following continued on [id number] DuoNeb treatments along with steroid continuing to report shortness of breath with significant wheeze noted on exam. Patient chronically wears oxygen outpatient and denies any worsening shortness of breath. Lactic acid has improved and is 1.5. Patient will continue sliding scale and will adjust accordingly as needed. Patient has been instructed to increase activity as tolerated and get up and walk more frequently. Review of systems: Constitutional: No reports of fatigue, fever, or chills Cardiovascular: No reports of chest pain or palpitations Respiratory: No reports of shortness of breath or cough GI: No reports of nausea, vomiting, or diarrhea : No reports of dysuria or retention Neurovascular: No reports of weakness or numbness All medications have been reviewed PHYSICAL EXAMINATION: GENERAL: The patient is alert and oriented x3, not in any acute distress. Well developed, well nourished. Elderly appearing, obese HEENT: Pupils are round and equally reacting to light. EOMI. No scleral icterus. No conjunctival pallor. Normocephalic, atraumatic. No pharyngeal erythema. No thyromegaly. CARDIOVASCULAR: S1 and S2 muffled PULMONARY: Bilateral rhonchi and significant expiratory wheezing persists on exam ABDOMEN: Soft, nontender, nondistended, normoactive bowel sounds. No palpable o rganomegaly. MUSCULOSKELETAL: No joint swelling or deformity. EXTREMITIES: No cyanosis, clubbing, or pedal edema. NEUROLOGICAL: Gross neurological examination did not reveal any focal deficits. SKIN: No rashes. Assessment: -Acute on chronic hypoxic and hypercapnic respiratory failure secondary to COPD exacerbation continue with systemic steroids inhalational treatments -RSV infection, continue supportive care -Lactic acidosis secondary to metformin which was discontinued, resolved -Type 2 diabetes mellitus, uncontrolled with hyperglycemia secondary to steroid effect as well -Hyperlipidemia -Mild hypovolemic hyponatremia, improving after IV fluids -Nicotine cessation, counseling was provided -Diabetic peripheral neuropathy, continue Lyrica -Obesity with a BMI 33.2 -Hypertension DVT prophylaxis: Lovenox GI prophylaxis Full code Plan: Patient is being followed by pulmonary continued on IV steroids along with breathing inhalational treatments and will continue. Patient to continue with his Trelegy inhaler as well. Per pulmonary not quite ready for discharge Patient chronically wears oxygen outpatient currently on 3 L which is chronic for him. Patient continues to report significant shortness of breath with exertion and has been instructed to increase activity slowly as tolerated Continue monitoring Accu-Cheks before meals and at bedtime and will adjust insulins accordingly especially while patient is also on steroids Home medications reviewed and resumed as appropriate Will discuss with pulmonary in the next 24 to 48 hours regarding discharge planning The impression and plan of care has been dictated by Juanita Fitzgerald, Nurse Practitioner as directed. Dr. Marsha MD I have performed a history and examination and MDM of this patient, discussed the same with the dictator, and agree with the dictator's assessment and plan as written ,documented as a scribe. Based on total visit time, I have performed more than 50% of the visit. Objective - Vital Signs Vital signs: Vital Signs Temp 97.9 F 10/19/24 07:00 Pulse 66 10/19/24 07:49 Resp 16 10/19/24 07:00 BP 149/73 10/19/24 07:00 Pulse Ox 97 10/19/24 07:40 FiO2 Intake & Output 10/18/24 10/19/24 10/19/24 18:59 06:59 18:59 Intake Total 120 118 Balance 120 118 Intake: Oral 120 118 Other: Voiding Method Toilet Toilet Urinal Urinal # Voids 3 1 - Labs CBC & Chem 7: 10/18/24 02:32 10/18/24 02:32 Labs: Abnormal Lab Results - Last 24 Hours (Table) 10/18/24 10/18/24 10/18/24 Range/Units 12:03 17:28 20:22 POC Glucose (mg/dL) 125 H 148 H 172 H (70-110) mg/dL 10/19/24 Range/Units 06:12 POC Glucose (mg/dL) 192 H (70-110) mg/dL
[2024-10-19 17:17] LABS: Glucose,Whole Blood 279 mg/dL (70-110)
[2024-10-19 20:06] LABS: Glucose,Whole Blood 203 mg/dL (70-110)
[2024-10-20 06:10] LABS: Glucose,Whole Blood 204 mg/dL (70-110)
[2024-10-20 08:34] LABS: BUN/Creat Ratio 19.25 Ratio (12.00-20.00); Blood Urea Nitrogen 15.4 mg/dL (9.0-27.0); Carbon Dioxide 23.7 mmol/L (21.6-31.8); Chloride 104 mmol/L (96-109); Glucose 196 mg/dL (70-110); Magnesium 2.1 mg/dL (1.5-2.4); Potassium 4.7 mmol/L (3.5-5.5); Sodium 139 mmol/L (135-145)
[2024-10-20] MEDS: FORMOTEROL FUMARATE 20 MCG/2 ML NEBU INHALATION SCH (08:44)
[2024-10-20] MEDS: BUDESONIDE 1 MG/2 ML NEBU INHALATION SCH (08:44)
[2024-10-20 12:32] LABS: Glucose,Whole Blood 193 mg/dL (70-110)
--- NOTE | 2024-10-20 13:20 | P.PN ---
Subjective Progress Note Date: 10/20/24 Patient 58-year-old male patient, known history of COPD, presenting to the emergency department with worsening shortness of breath. The patient has been having increased dyspnea over the past few days has been using his nebulizer treatments every 4 hours without any major improvement. Based on that, he came to the emergency department. Denies having any fever or chills. No chest pain. No productive cough with some yellowish sputum. No altered mentation. No swelling lower extremities. No angina or palpitations. In terms of his COPD, the patient has been maintained on Trelegy Ellipta 1 puff a day on an outpatient basis. The patient is also on prednisone 10 mg p.o. daily. The patient is kn own to have history of ankylosing spondylitis and the patient has been maintained on Humira on outpatient basis and has been on Humira for several years. Is blood work in the emergency showed a white cell count of 8.6, hemoglobin 17 and platelet count of 145. BUN is 26 with a creatinine of 0.8. S odium levels at 134 and a potassium level is at 5.1. Troponins are negative. LFTs are normal. The viral screen was positive for RSV. Negative for influenza and negative for COVID-19. Chest x-ray was done in the ED and it showed no significant abnormalities. No airspace disease. No consolidation. As such, the patient was hospitalized for an acute COPD exacerbation secondary to acute RSV infection. He was started on IV Solu-Medrol 40 mg every 8 hours. He was started on DuoNeb nebulized treatments [id number]. He is diabetic maintained on a combination of Januvia and Glucophage on outpatient basis. On today's evaluation of 10/18/2024, the patient is clinically unchanged the pat ient continues to be bronchospastic and wheezy. Noted improvement since yesterday. Will continue same treatment for now. White cell count is nonelevated at 7.9. Hemoglobin 16, BUN is 25 with a creatinine of 0.8 and a sodium dose of 134. Lactic acid level is dropped from 3.3 down to 1.5. Remains on bronchodilators. Remains on steroids. Patient is currently on Solu-Medrol 40 mg every 12 hours and the dose will be modified to 60 mg every 6 hours. Remains on Symbicort. The patient is seen today October 19, 2024 in follow-up on the regular medical floor. He is currently sitting up at the bedside. Awake and alert in no acute distress. Maintaining good O2 saturations in the 90s on 3 L/min per nasal cannula. He is afebrile. Hemodynamically stable. Glucose 177. He is continued on DuoNeb inhalations, Symbicort, Solu-Medrol. Lovenox for DVT prophylaxis. The patient is seen today October 20, 2024 in follow-up on the regular medical floor. He is sitting up in bed. Awake and alert in no acute distress. Maintaining O2 saturations in the mid 90s on 3 L/min per nasal cannula. He is afebrile. Hemodynamically stable. Feeling better today compared to yesterday. Still somewhat bronchospastic and wheezing. He is continued on DuoNeb inhalations, Pulmicort and Perforomist inhalations, Solu-Medrol. Lovenox for DVT prophylaxis. Sodium 139. Potassium 4.7. Bicarb 24. BUN 15. Creatinine 0.8. Glucose 196. He remains on normal saline at 75 mL/h. Objective - Vital Signs Vital signs: Vital Signs Temp 97.5 F L 10/20/24 07:30 Pulse 68 10/20/24 11:54 Resp 17 10/20/24 07:30 BP 166/76 10/20/24 07:30 Pulse Ox 96 10/20/24 07:30 FiO2 Intake & Output 10/19/24 10/20/24 10/20/24 18:59 06:59 18:59 Intake Total 236 Balance 236 Intake: Oral 236 Other: Voiding Method Toilet Urinal # Voids 3 25 - Exam GENERAL EXAM: Alert, 58-year-old male, on 3 L nasal cannula, comfortable in no apparent distress. HEAD: Normocephalic. EYES: Normal reaction of pupils, equal size. NOSE: Clear with pink turbinates. THROAT: No erythema or exudates. NECK: No masses, no JVD. CHEST: No chest wall deformity. LUNGS: Equal air entry with bilateral end expiratory wheeze, few scattered rhonchi. CVS: S1 and S2 normal with no audible murmur, regular rhythm. ABDOMEN: No hepatosplenomegaly, normal bowel sounds, no guarding or rigidity. SPINE: No scoliosis or deformity SKIN: No rashes CENTRAL NERVOUS SYSTEM: No focal deficits, tone is normal in all 4 extremities. EXTREMITIES: There is no peripheral edema. No clubbing, no cyanosis. Peripheral pulses are intact. - Labs CBC & Chem 7: 10/18/24 02:32 10/20/24 05:47 Labs: Abnormal Lab Results - Last 24 Hours (Table) 10/19/24 10/19/24 10/20/24 Range/Units 17:15 20:03 05:47 Glucose 196 H (70-110) mg/dL POC Glucose (mg/dL) 279 H 203 H (70-110) mg/dL 10/20/24 10/20/24 Range/Units 06:09 12:31 Glucose (70-110) mg/dL POC Glucose (mg/dL) 204 H 193 H (70-110) mg/dL Assessment and Plan Assessment: Acute on chronic hypoxemic respiratory failure secondary to an acute COPD exacerbation secondary to RSV tracheobronchitis RSV tracheobronchitis Advanced and chronic oxygen dependent COPD, maintained on Trelegy Ellipta and prednisone on outpatient basis Ankylosing spondylitis maintained on Humira 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 in addition to ankylosing spondylitis Chronic back and neck pain related to herniated disks Degenerative arthritis Chronic neuropathy involving lower extremities Umbilical hernia Hyperlipidemia Diabetes mellitus Parkinson disease History of [id number] smoking history Plan: The patient was seen and evaluated Labs and medications reviewed Continue DuoNeb inhalations Discontinue Symbicort Add Pulmicort and Perforomist inhalations Continue IV Solu-Medrol Lovenox for DVT prophylaxis Titrate down the FiO2 as tolerated Increase his activity as tolerated Not quite ready for discharge We will continue to follow I have personally seen and examined the patient, performed the documentation and the assessment and plan as written. Number of minutes spent on the visit: 10 Dictation was produced using [facility] dictation software. Please excuse any grammatical, word or spelling errors.
[2024-10-20 17:25] LABS: Glucose,Whole Blood 276 mg/dL (70-110)
[2024-10-20 20:36] LABS: Glucose,Whole Blood 236 mg/dL (70-110)
[2024-10-21 05:49] LABS: Glucose,Whole Blood 185 mg/dL (70-110)
--- NOTE | 2024-10-21 06:10 | P.PN ---
Subjective Progress Note Date: 10/20/24 58-year-old male with known history of COPD wears 2 and half liters of oxygen at home came in with complaints of shortness of breath found to have significant wheezing patient was given doxycycline and Medrol Dosepak without any significant improvement in his respiratory status he continued to get worse. Patient is found to have RSV here chest x-ray did not show any pneumonia patient was started on Solu-Medrol and is admitted patient is presently on 3 L of oxygen patient does have lactic acidosis does take metformin no evidence of infection at this time patient is also bit hyponatremic 10/19/2024 Patient is seen in follow-up today with pulmonary following continued on [id number] DuoNeb treatments along with steroid continuing to report shortness of breath with significant wheeze noted on exam. Patient chronically wears oxygen outpatient and denies any worsening shortness of breath. Lactic acid has improved and is 1.5. Patient will continue sliding scale and will adjust accordingly as needed. Patient has been instructed to increase activity as tolerated and get up and walk more frequently. 10/20/2024 Patient is seen in follow-up continues to be extremely short of breath with exertion, significantly wheezing with cough and reports is starting to bring some of the phlegm up. Patient is continued on IV steroids along with [id number] breathing treatments with pulmonary following. Patient currently on 3 L and weaning as tolerated. Patient chronically wears 2-[address] [facility]. Review of systems: Constitutional: No reports of fatigue, fever, or chills Cardiovascular: No reports of chest pain or palpitations Respiratory: reports of shortness of breath with continued cough and some phlegm production GI: No reports of nausea, vomiting, or diarrhea : No reports of dysuria or retention Neurovascular: No reports of weakness or numbness All medications have been reviewed PHYSICAL EXAMINATION: GENERAL: The patient is alert and oriented x3, not in any acute distress. Well developed, well nourished. Elderly appearing, obese HEENT: Pupils are round and equally reacting to light. EOMI. No scleral icterus. No conjunctival pallor. Normocephalic, atraumatic. No pharyngeal erythema. No thyromegaly. CARDIOVASCULAR: S1 and S2 muffled PULMONARY: Bilateral rhonchi and significant expiratory wheezing persists on exam ABDOMEN: Soft, nontender, nondistended, normoactive bowel sounds. No palpable organomegaly. MUSCULOSKELETAL: No joint swelling or deformity. EXTREMITIES: No cyanosis, clubbing, or pedal edema. NEUROLOGICAL: Gross neurological examination did not reveal any focal deficits. SKIN: No rashes. Assessment: -Acute on chronic hypoxic and hypercapnic respiratory failure secondary to COPD exacerbation continue with systemic steroids inhalational treatments -RSV infection, continue supportive care -Lactic acidosis secondary to metformin which was discontinued, resolved -Type 2 diabetes mellitus, uncontrolled with hyperglycemia secondary to steroid effect as well -Hyperlipidemia -Mild hypovolemic hyponatremia, improving after IV fluids -Nicotine cessation, counseling was provided -Diabetic peripheral neuropathy, continue Lyrica -Obesity with a BMI 33.2 -Hypertension DVT prophylaxis: Lovenox GI prophylaxis Full code Plan: Patient is being followed by pulmonary and will continue on IV steroids along with breathing inhalational treatments . Patient to continue with his Trelegy inhaler as well. Per pulmonary not quite ready for discharge Patient chronically wears oxygen outpatient currently on 3 L which is chronic for him. Patient continues to report significant shortness of breath with exertion and has been instructed to increase activity slowly as tolerated Continue monitoring Accu-Cheks before meals and at bedtime and will adjust insulins accordingly especially while patient is also on steroids Home medications reviewed and resumed as appropriate Will discuss with pulmonary in the next 24 hours regarding discharge planning The impression and plan of care has been dictated by Juanita Fitzgerald, Nurse Practitioner as directed. Dr. Marsha MD I have performed a history and examination and MDM of this patient, discussed the same with the dictator, and agree with the dictator's assessment and plan as written ,documented as a scribe. Based on total visit time, I have performed more than 50% of the visit. Objective - Vital Signs Vital signs: Vital Signs Temp 97.8 F 10/21/24 00:30 Pulse 56 L 10/21/24 00:30 Resp 16 10/21/24 00:30 BP 170/91 10/21/24 00:30 Pulse Ox 97 10/21/24 00:30 FiO2 Intake & Output 10/20/24 10/20/24 10/21/24 06:59 18:59 06:59 Other: # Voids 25 3 3 - Labs CBC & Chem 7: 10/18/24 02:32 10/20/24 05:47 Labs: Abnormal Lab Results - Last 24 Hours (Table) 10/20/24 10/20/24 10/20/24 Range/Units 05:47 06:09 12:31 Glucose 196 H (70-110) mg/dL POC Glucose (mg/dL) 204 H 193 H (70-110) mg/dL 10/20/24 10/20/24 10/21/24 Range/Units 17:24 20:35 05:48 Glucose (70-110) mg/dL POC Glucose (mg/dL) 276 H 236 H 185 H (70-110) mg/dL
[2024-10-21] MEDS: IPRATROPIUM-ALBUTEROL 3 ML NEB INHALATION SCH (09:43)
[2024-10-21 12:07] LABS: Glucose,Whole Blood 265 mg/dL (70-110)
--- NOTE | 2024-10-21 14:11 | P.PN ---
Subjective Progress Note Date: 10/21/24 Patient 58-year-old male patient, known history of COPD, presenting to the emergency department with worsening shortness of breath. The patient has been having increased dyspnea over the past few days has been using his nebulizer treatments every 4 hours without any major improvement. Based on that, he came to the emergency department. Denies having any fever or chills. No chest pain. No productive cough with some yellowish sputum. No altered mentation. No swelling lower extremities. No angina or palpitations. In terms of his COPD, the patient has been maintained on Trelegy Ellipta 1 puff a day on an outpatient basis. The patient is also on prednisone 10 mg p.o. daily. The patient is kn own to have history of ankylosing spondylitis and the patient has been maintained on Humira on outpatient basis and has been on Humira for several years. Is blood work in the emergency showed a white cell count of 8.6, hemoglobin 17 and platelet count of 145. BUN is 26 with a creatinine of 0.8. S odium levels at 134 and a potassium level is at 5.1. Troponins are negative. LFTs are normal. The viral screen was positive for RSV. Negative for influenza and negative for COVID-19. Chest x-ray was done in the ED and it showed no significant abnormalities. No airspace disease. No consolidation. As such, the patient was hospitalized for an acute COPD exacerbation secondary to acute RSV infection. He was started on IV Solu-Medrol 40 mg every 8 hours. He was started on DuoNeb nebulized treatments [id number]. He is diabetic maintained on a combination of Januvia and Glucophage on outpatient basis. On today's evaluation of 10/18/2024, the patient is clinically unchanged the pat ient continues to be bronchospastic and wheezy. Noted improvement since yesterday. Will continue same treatment for now. White cell count is nonelevated at 7.9. Hemoglobin 16, BUN is 25 with a creatinine of 0.8 and a sodium dose of 134. Lactic acid level is dropped from 3.3 down to 1.5. Remains on bronchodilators. Remains on steroids. Patient is currently on Solu-Medrol 40 mg every 12 hours and the dose will be modified to 60 mg every 6 hours. Remains on Symbicort. The patient is seen today October 19, 2024 in follow-up on the regular medical floor. He is currently sitting up at the bedside. Awake and alert in no acute distress. Maintaining good O2 saturations in the 90s on 3 L/min per nasal cannula. He is afebrile. Hemodynamically stable. Glucose 177. He is continued on DuoNeb inhalations, Symbicort, Solu-Medrol. Lovenox for DVT prophylaxis. The patient is seen today October 20, 2024 in follow-up on the regular medical floor. He is sitting up in bed. Awake and alert in no acute distress. Maintaining O2 saturations in the mid 90s on 3 L/min per nasal cannula. He is afebrile. Hemodynamically stable. Feeling better today compared to yesterday. Still somewhat bronchospastic and wheezing. He is continued on DuoNeb inhalations, Pulmicort and Perforomist inhalations, Solu-Medrol. Lovenox for DVT prophylaxis. Sodium 139. Potassium 4.7. Bicarb 24. BUN 15. Creatinine 0.8. Glucose 196. He remains on normal saline at 75 mL/h. The patient is seen today October 21, 2024 in follow-up on the regular medical floor. He is currently sitting up at the bedside. Awake and alert in no acute distress. Maintaining O2 saturations in the 90s on 2 L/min per nasal cannula. He has been afebrile. Hemodynamically stable. Glucose 265. He remains on DuoNeb inhalations, Pulmicort and performance inhalations, IV Solu-Medrol. Lovenox for DVT prophylaxis. Remains on normal saline at 75 mL/h. Objective - Vital Signs Vital signs: Vital Signs Temp 97.5 F L 10/21/24 07:00 Pulse 66 10/21/24 12:53 Resp 16 10/21/24 07:00 BP 154/82 10/21/24 07:00 Pulse Ox 96 10/21/24 07:00 FiO2 Intake & Output 10/20/24 10/21/24 10/21/24 18:59 06:59 18:59 Other: # Voids 3 3 - Exam GENERAL EXAM: Alert, 58-year-old male, sitting up at the bedside, on 2 L nasal cannula, in no apparent distress. HEAD: Normocephalic. EYES: Normal reaction of pupils, equal size. NOSE: Clear with pink turbinates. THROAT: No erythema or exudates. NECK: No masses, no JVD. CHEST: No chest wall deformity. LUNGS: Equal air entry with bilateral wheeze, few scattered rhonchi. CVS: S1 and S2 normal with no audible murmur, regular rhythm. ABDOMEN: No hepatosplenomegaly, normal bowel sounds, no guarding or rigidity. SPINE: No scoliosis or deformity SKIN: No rashes CENTRAL NERVOUS SYSTEM: No focal deficits, tone is normal in all 4 extremities. EXTREMITIES: There is no peripheral edema. No clubbing, no cyanosis. Peripheral pulses are intact. - Labs CBC & Chem 7: 10/18/24 02:32 10/20/24 05:47 Labs: Abnormal Lab Results - Last 24 Hours (Table) 10/20/24 10/20/24 10/21/24 Range/Units 17:24 20:35 05:48 POC Glucose (mg/dL) 276 H 236 H 185 H (70-110) mg/dL 10/21/24 Range/Units 12:06 POC Glucose (mg/dL) 265 H (70-110) mg/dL Assessment and Plan Assessment: Acute on chronic hypoxemic respiratory failure secondary to an acute COPD exacerbation secondary to RSV tracheobronchitis RSV tracheobronchitis Advanced and chronic oxygen dependent COPD, maintained on Trelegy Ellipta and prednisone on outpatient basis Ankylosing spondylitis maintained on Humira 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 I have personally seen and examined the patient, performed the documentation and the assessment and plan as written. Number of minutes spent on the visit: 10 Dictation was produced using [employer] dictation software. Please excuse any grammatical, word or spelling errors.
[2024-10-21 17:09] LABS: Glucose,Whole Blood 169 mg/dL (70-110)
[2024-10-21 20:41] LABS: Glucose,Whole Blood 277 mg/dL (70-110)
--- NOTE | 2024-10-21 21:40 | P.PN ---
Subjective Progress Note Date: 10/21/24 58-year-old male with known history of COPD wears 2 and half liters of oxygen at home came in with complaints of shortness of breath found to have significant wheezing patient was given doxycycline and Medrol Dosepak without any significant improvement in his respiratory status he continued to get worse. Patient is found to have RSV here chest x-ray did not show any pneumonia patient was started on Solu-Medrol and is admitted patient is presently on 3 L of oxygen patient does have lactic acidosis does take metformin no evidence of infection at this time patient is also bit hyponatremic 10/19/2024 Patient is seen in follow-up today with pulmonary following continued on [id number] DuoNeb treatments along with steroid continuing to report shortness of breath with significant wheeze noted on exam. Patient chronically wears oxygen outpatient and denies any worsening shortness of breath. Lactic acid has improved and is 1.5. Patient will continue sliding scale and will adjust accordingly as needed. Patient has been instructed to increase activity as tolerated and get up and walk more frequently. 10/21/2024 Patient is evaluated today in follow up on the medical floor. He is not back to baseline. Has been weaned to room air with oxygen saturations of 94% while at rest. Continued on IV solumedrol 60 mg q6h. Review of systems: Constitutional: No reports of fatigue, fever, or chills Cardiovascular: No reports of chest pain or palpitations Respiratory: No reports of shortness of breath or cough GI: No reports of nausea, vomiting, or diarrhea : No reports of dysuria or retention Neurovascular: No reports of weakness or numbness All medications have been reviewed PHYSICAL EXAMINATION: GENERAL: The patient is alert and oriented x3, not in any acute distress. Well developed, well nourished. Elderly appearing, obese HEENT: Pupils are round and equally reacting to light. EOMI. No scleral icterus. No conjunctival pallor. Normocephalic, atraumatic. No pharyngeal erythema. No thyromegaly. CARDIOVASCULAR: S1 and S2 muffled PULMONARY: Bilateral rhonchi and significant expiratory wheezing persists on exam ABDOMEN: Soft, nontender, nondistended, normoactive bowel sounds. No palpable organomegaly. MUSCULOSKELETAL: No joint swelling or deformity. EXTREMITIES: No cyanosis, clubbing, or pedal edema. NEUROLOGICAL: Gross neurological examination did not reveal any focal deficits. SKIN: No rashes. Assessment: -Acute on chronic hypoxic and hypercapnic respiratory failure secondary to COPD exacerbation continue with systemic steroids inhalational treatments -RSV infection, continue supportive care -Lactic acidosis secondary to metformin which was discontinued, resolved -Type 2 diabetes mellitus, uncontrolled with hyperglycemia secondary to steroid effect as well -Hyperlipidemia -Mild hypovolemic hyponatremia, improving after IV fluids -Nicotine cessation, counseling was provided -Diabetic peripheral neuropathy, continue Lyrica -Obesity with a BMI 33.2 -Hypertension DVT prophylaxis: Lovenox GI prophylaxis Full code Plan: Patient is being followed by pulmonary continued on IV steroids along with breathing inhalational treatments and will continue. Patient to continue with his Trelegy inhaler as well. Per pulmonary not quite ready for discharge Patient chronically wears oxygen outpatient currently on 3 L which is chronic for him. Patient continues to report significant shortness of breath with exertion and has been instructed to increase activity slowly as tolerated Continue monitoring Accu-Cheks before meals and at bedtime and will adjust insu isreal accordingly especially while patient is also on steroids. Lantus HS has been added. Electrolytes and renal function WNL and can discontinue IV fluids. Home medications reviewed and resumed as appropriate Will discuss with pulmonary in the next 24 to 48 hours regarding discharge planning The impression and plan of care has been dictated by Brianne Pabon, Nurse Practitioner as directed. Dr. Marsha MD I have performed a history and examination and MDM of this patient, discussed the same with the dictator, and agree with the dictator's assessment and plan as written ,documented as a scribe. Based on total visit time, I have performed more than 50% of the visit. Objective - Vital Signs Vital signs: Vital Signs Temp 97.5 F L 10/21/24 07:00 Pulse 66 10/21/24 12:53 Resp 16 10/21/24 07:00 BP 154/82 10/21/24 07:00 Pulse Ox 96 10/21/24 07:00 FiO2 Intake & Output 10/20/24 10/21/24 10/21/24 18:59 06:59 18:59 Other: # Voids 3 3 - Labs CBC & Chem 7: 10/18/24 02:32 10/20/24 05:47 Labs: Abnormal Lab Results - Last 24 Hours (Table) 10/20/24 10/20/24 10/21/24 Range/Units 17:24 20:35 05:48 POC Glucose (mg/dL) 276 H 236 H 185 H (70-110) mg/dL 10/21/24 Range/Units 12:06 POC Glucose (mg/dL) 265 H (70-110) mg/dL Assessment and Plan Time with Patient: Less than 30
[2024-10-21] MEDS: INSULIN GLARGINE (LANTUS) 100 UNIT/ML SYR SQ SCH (22:27)
[2024-10-21] MEDS: INSULIN LISPRO (HumaLOG) 100 UNIT/ML 10 mL VL SQ SCH (22:28)
[2024-10-22 06:12] LABS: Glucose,Whole Blood 171 mg/dL (70-110)
[2024-10-22 10:44] LABS: BUN/Creat Ratio 27.88 Ratio (12.00-20.00); Blood Urea Nitrogen 22.3 mg/dL (9.0-27.0); Calcium 9.3 mg/dL (8.7-10.3); Carbon Dioxide 26.4 mmol/L (21.6-31.8); Chloride 101 mmol/L (96-109); Glucose 180 mg/dL (70-110); Potassium 4.8 mmol/L (3.5-5.5); Sodium 138 mmol/L (135-145)
[2024-10-22 12:11] LABS: Glucose,Whole Blood 191 mg/dL (70-110)
--- NOTE | 2024-10-22 12:24 | P.PN ---
Subjective Progress Note Date: 10/22/24 Patient 58-year-old male patient, known history of COPD, presenting to the emergency department with worsening shortness of breath. The patient has been having increased dyspnea over the past few days has been using his nebulizer treatments every 4 hours without any major improvement. Based on that, he came to the emergency department. Denies having any fever or chills. No chest pain. No productive cough with some yellowish sputum. No altered mentation. No swelling lower extremities. No angina or palpitations. In terms of his COPD, the patient has been maintained on Trelegy Ellipta 1 puff a day on an outpatient basis. The patient is also on prednisone 10 mg p.o. daily. The patient is kn own to have history of ankylosing spondylitis and the patient has been maintained on Humira on outpatient basis and has been on Humira for several years. Is blood work in the emergency showed a white cell count of 8.6, hemoglobin 17 and platelet count of 145. BUN is 26 with a creatinine of 0.8. S odium levels at 134 and a potassium level is at 5.1. Troponins are negative. LFTs are normal. The viral screen was positive for RSV. Negative for influenza and negative for COVID-19. Chest x-ray was done in the ED and it showed no significant abnormalities. No airspace disease. No consolidation. As such, the patient was hospitalized for an acute COPD exacerbation secondary to acute RSV infection. He was started on IV Solu-Medrol 40 mg every 8 hours. He was started on DuoNeb nebulized treatments [id number]. He is diabetic maintained on a combination of Januvia and Glucophage on outpatient basis. On today's evaluation of 10/18/2024, the patient is clinically unchanged the pat ient continues to be bronchospastic and wheezy. Noted improvement since yesterday. Will continue same treatment for now. White cell count is nonelevated at 7.9. Hemoglobin 16, BUN is 25 with a creatinine of 0.8 and a sodium dose of 134. Lactic acid level is dropped from 3.3 down to 1.5. Remains on bronchodilators. Remains on steroids. Patient is currently on Solu-Medrol 40 mg every 12 hours and the dose will be modified to 60 mg every 6 hours. Remains on Symbicort. The patient is seen today October 19, 2024 in follow-up on the regular medical floor. He is currently sitting up at the bedside. Awake and alert in no acute distress. Maintaining good O2 saturations in the 90s on 3 L/min per nasal cannula. He is afebrile. Hemodynamically stable. Glucose 177. He is continued on DuoNeb inhalations, Symbicort, Solu-Medrol. Lovenox for DVT prophylaxis. The patient is seen today October 20, 2024 in follow-up on the regular medical floor. He is sitting up in bed. Awake and alert in no acute distress. Maintaining O2 saturations in the mid 90s on 3 L/min per nasal cannula. He is afebrile. Hemodynamically stable. Feeling better today compared to yesterday. Still somewhat bronchospastic and wheezing. He is continued on DuoNeb inhalations, Pulmicort and Perforomist inhalations, Solu-Medrol. Lovenox for DVT prophylaxis. Sodium 139. Potassium 4.7. Bicarb 24. BUN 15. Creatinine 0.8. Glucose 196. He remains on normal saline at 75 mL/h. The patient is seen today October 21, 2024 in follow-up on the regular medical floor. He is currently sitting up at the bedside. Awake and alert in no acute distress. Maintaining O2 saturations in the 90s on 2 L/min per nasal cannula. He has been afebrile. Hemodynamically stable. Glucose 265. He remains on DuoNeb inhalations, Pulmicort and performance inhalations, IV Solu-Medrol. Lovenox for DVT prophylaxis. Remains on normal saline at 75 mL/h. The patient is seen today October 22, 2024 in follow-up on the regular medical floor. He is awake and alert in no acute distress. Maintaining good O2 saturations in the 90s on room air. Sitting up at the bedside. Doing a bit better today compared to yesterday. Still not quite back to his baseline. He is maintained on DuoNeb and elations, Pulmicort and Perforomist inhalations, Solu-Medrol. Lovenox for DVT prophylaxis. Sodium 138. Potassium 4.8. Bicarb 26. BUN 22. Creatinine 0.8. Glucose 180. Objective - Vital Signs Vital signs: Vital Signs Temp 97.6 F 10/22/24 07:30 Pulse 72 10/22/24 08:28 Resp 16 10/22/24 07:30 BP 176/90 10/22/24 07:30 Pulse Ox 94 L 10/22/24 07:30 FiO2 Intake & Output 10/21/24 10/22/24 10/22/24 18:59 06:59 18:59 Intake Total 118 118 Balance 118 118 Intake: Oral 118 118 Other: Voiding Method Toilet # Voids 3 1 - Exam GENERAL EXAM: Alert, 58-year-old male, sitting up in bed, on room air oxygen, in no apparent distress. HEAD: Normocephalic. EYES: Normal reaction of pupils, equal size. NOSE: Clear with pink turbinates. THROAT: No erythema or exudates. NECK: No masses, no JVD. CHEST: No chest wall deformity. LUNGS: Equal air entry with bilateral wheeze, few scattered rhonchi. CVS: S1 and S2 normal with no audible murmur, regular rhythm. ABDOMEN: No hepatosplenomegaly, normal bowel sounds, no guarding or rigidity. SPINE: No scoliosis or deformity SKIN: No rashes CENTRAL NERVOUS SYSTEM: No focal deficits, tone is normal in all 4 extremities. EXTREMITIES: There is no peripheral edema. No clubbing, no cyanosis. Peripheral pulses are intact. - Labs CBC & Chem 7: 10/18/24 02:32 10/22/24 05:42 Labs: Abnormal Lab Results - Last 24 Hours (Table) 10/21/24 10/21/24 10/22/24 Range/Units 17:07 20:39 05:42 BUN/Creatinine Ratio 27.88 H (12.00-20.00) Ratio Glucose 180 H (70-110) mg/dL POC Glucose (mg/dL) 169 H 277 H (70-110) mg/dL 10/22/24 10/22/24 Range/Units 06:07 12:10 BUN/Creatinine Ratio (12.00-20.00) Ratio Glucose (70-110) mg/dL POC Glucose (mg/dL) 171 H 191 H (70-110) mg/dL Assessment and Plan Assessment: Acute on chronic hypoxemic respiratory failure secondary to an acute COPD exacerbation secondary to RSV tracheobronchitis RSV tracheobronchitis Advanced and chronic oxygen dependent COPD, maintained on Trelegy Ellipta and prednisone on outpatient basis Ankylosing spondylitis maintained on Humira 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 We will continue to follow I have personally seen and examined the patient, performed the documentation and the assessment and plan as written. Number of minutes spent on the visit: 10 Dictation was produced using [employer] dictation software. Please excuse any grammatical, word or spelling errors.
[2024-10-22 17:25] LABS: Glucose,Whole Blood 220 mg/dL (70-110)
[2024-10-22 20:14] LABS: Glucose,Whole Blood 210 mg/dL (70-110)
--- NOTE | 2024-10-22 21:37 | P.PN ---
Subjective Progress Note Date: 10/22/24 58-year-old male with known history of COPD wears 2 and half liters of oxygen at home came in with complaints of shortness of breath found to have significant wheezing patient was given doxycycline and Medrol Dosepak without any significant improvement in his respiratory status he continued to get worse. Patient is found to have RSV here chest x-ray did not show any pneumonia patient was started on Solu-Medrol and is admitted patient is presently on 3 L of oxygen patient does have lactic acidosis does take metformin no evidence of infection at this time patient is also bit hyponatremic 10/19/2024 Patient is seen in follow-up today with pulmonary following continued on [id number] DuoNeb treatments along with steroid continuing to report shortness of breath with significant wheeze noted on exam. Patient chronically wears oxygen outpatient and denies any worsening shortness of breath. Lactic acid has improved and is 1.5. Patient will continue sliding scale and will adjust accordingly as needed. Patient has been instructed to increase activity as tolerated and get up and walk more frequently. 10/21/2024 Patient is evaluated today in follow up on the medical floor. He is not back to baseline. Has been weaned to room air with oxygen saturations of 94% while at rest. Continued on IV solumedrol 60 mg q6h. 10/22/2024 Patient evaluated today in follow up resting in bed. He remains with adequate oxygen saturations at rest on room air. He is continued on IV solumedrol. Pulmonology following. Feels he is not ready for discharge yet. Review of systems: Constitutional: No reports of fatigue, fever, or chills Cardiovascular: No reports of chest pain or palpitations Respiratory: No reports of shortness of breath or cough GI: No reports of nausea, vomiting, or diarrhea : No reports of dysuria or retention Neurovascular: No reports of weakness or numbness All medications have been reviewed PHYSICAL EXAMINATION: GENERAL: The patient is alert and oriented x3, not in any acute distress. Well developed, well nourished. Elderly appearing, obese HEENT: Pupils are round and equally reacting to light. EOMI. No scleral icterus. No conjunctival pallor. Normocephalic, atraumatic. No pharyngeal erythema. No thyromegaly. CARDIOVASCULAR: S1 and S2 muffled PULMONARY: Bilateral rhonchi and significant expiratory wheezing persists on exam ABDOMEN: Soft, nontender, nondistended, normoactive bowel sounds. No palpable organomegaly. MUSCULOSKELETAL: No joint swelling or deformity. EXTREMITIES: No cyanosis, clubbing, or pedal edema. NEUROLOGICAL: Gross neurological examination did not reveal any focal deficits. SKIN: No rashes. Assessment: -Acute on chronic hypoxic and hypercapnic respiratory failure secondary to COPD exacerbation continue with systemic steroids inhalational treatments -RSV infection, continue supportive care -Lactic acidosis secondary to metformin which was discontinued, resolved -Type 2 diabetes mellitus, uncontrolled with hyperglycemia secondary to steroid effect as well -Hyperlipidemia -Mild hypovolemic hyponatremia, improving after IV fluids -Nicotine cessation, counseling was provided -Diabetic peripheral neuropathy, continue Lyrica -Obesity with a BMI 33.2 -Hypertension DVT prophylaxis: Lovenox GI prophylaxis Full code Plan: Patient is being followed by pulmonary continued on IV steroids along with breathing inhalational treatments and will continue. Patient to continue with his Trelegy inhaler as well. Per pulmonary not quite ready for discharge Patient chronically wears oxygen outpatient currently on 3 L which is chronic for him. Patient continues to report significant shortness of breath with exertion and has been instructed to increase activity slowly as tolerated Continue monitoring Accu-Cheks before meals and at bedtime and will adjust insulins accordingly especially while patient is also on steroids. Lantus HS has been added. Electrolytes and renal function WNL and can discontinue IV fluids. Repeat chest xray in the AM Home medications reviewed and resumed as appropriate Will discuss with pulmonary in the next 24 to 48 hours regarding discharge planning The impression and plan of care has been dictated by Brianne Pabon, Nurse Practitioner as directed. Dr. Marsha MD I have performed a history and examination and MDM of this patient, discussed the same with the dictator, and agree with the dictator's assessment and plan as written ,documented as a scribe. Based on total visit time, I have performed more than 50% of the visit. Objective - Vital Signs Vital signs: Vital Signs Temp 98.2 F 10/22/24 19:40 Pulse 70 10/22/24 20:45 Resp 17 10/22/24 19:40 BP 182/87 10/22/24 19:40 Pulse Ox 92 L 10/22/24 19:40 FiO2 Intake & Output 10/22/24 10/22/24 10/23/24 06:59 18:59 06:59 Intake Total 716 Balance 716 Intake: Oral 716 Other: Voiding Method Toilet Toilet # Voids 1 2 1 - Labs CBC & Chem 7: 10/18/24 02:32 10/22/24 05:42 Labs: Abnormal Lab Results - Last 24 Hours (Table) 10/22/24 10/22/24 10/22/24 Range/Units 05:42 06:07 12:10 BUN/Creatinine Ratio 27.88 H (12.00-20.00) Ratio Glucose 180 H (70-110) mg/dL POC Glucose (mg/dL) 171 H 191 H (70-110) mg/dL 10/22/24 10/22/24 Range/Units 17:23 20:12 BUN/Creatinine Ratio (12.00-20.00) Ratio Glucose (70-110) mg/dL POC Glucose (mg/dL) 220 H 210 H (70-110) mg/dL Assessment and Plan Time with Patient: Less than 30
[2024-10-23 05:34] LABS: Glucose,Whole Blood 186 mg/dL (70-110)
[2024-10-23 07:37] VITALS: BMI 33.2
[2024-10-23 07:58] VITALS: BP 157/87; RESP 16; TEMP 98.4
--- NOTE | 2024-10-23 08:15 | XR ---
EXAMINATION TYPE: XR chest 1V portable DATE OF EXAM: 10/23/2024 6:48 AM COMPARISON: 10/17/2024 CLINICAL INDICATION: Male, 58 years old with history of Dyspnea, TECHNIQUE: XR chest 1V portable view(s) obtained. FINDINGS: The heart size is normal. The pulmonary vasculature is normal. The lungs are clear. IMPRESSION: 1. No acute pulmonary process. [facility], , 10/23/2024 8:13 AM
[2024-10-23 09:18] VITALS: PULSE 72
--- NOTE | 2024-10-23 13:00 | P.PN ---
Subjective Progress Note Date: 10/23/24 Patient 58-year-old male patient, known history of COPD, presenting to the emergency department with worsening shortness of breath. The patient has been having increased dyspnea over the past few days has been using his nebulizer treatments every 4 hours without any major improvement. Based on that, he came to the emergency department. Denies having any fever or chills. No chest pain. No productive cough with some yellowish sputum. No altered mentation. No swelling lower extremities. No angina or palpitations. In terms of his COPD, the patient has been maintained on Trelegy Ellipta 1 puff a day on an outpatient basis. The patient is also on prednisone 10 mg p.o. daily. The patient is kn own to have history of ankylosing spondylitis and the patient has been maintained on Humira on outpatient basis and has been on Humira for several years. Is blood work in the emergency showed a white cell count of 8.6, hemoglobin 17 and platelet count of 145. BUN is 26 with a creatinine of 0.8. S odium levels at 134 and a potassium level is at 5.1. Troponins are negative. LFTs are normal. The viral screen was positive for RSV. Negative for influenza and negative for COVID-19. Chest x-ray was done in the ED and it showed no significant abnormalities. No airspace disease. No consolidation. As such, the patient was hospitalized for an acute COPD exacerbation secondary to acute RSV infection. He was started on IV Solu-Medrol 40 mg every 8 hours. He was started on DuoNeb nebulized treatments [id number]. He is diabetic maintained on a combination of Januvia and Glucophage on outpatient basis. On today's evaluation of 10/18/2024, the patient is clinically unchanged the pat ient continues to be bronchospastic and wheezy. Noted improvement since yesterday. Will continue same treatment for now. White cell count is nonelevated at 7.9. Hemoglobin 16, BUN is 25 with a creatinine of 0.8 and a sodium dose of 134. Lactic acid level is dropped from 3.3 down to 1.5. Remains on bronchodilators. Remains on steroids. Patient is currently on Solu-Medrol 40 mg every 12 hours and the dose will be modified to 60 mg every 6 hours. Remains on Symbicort. The patient is seen today October 19, 2024 in follow-up on the regular medical floor. He is currently sitting up at the bedside. Awake and alert in no acute distress. Maintaining good O2 saturations in the 90s on 3 L/min per nasal cannula. He is afebrile. Hemodynamically stable. Glucose 177. He is continued on DuoNeb inhalations, Symbicort, Solu-Medrol. Lovenox for DVT prophylaxis. The patient is seen today October 20, 2024 in follow-up on the regular medical floor. He is sitting up in bed. Awake and alert in no acute distress. Maintaining O2 saturations in the mid 90s on 3 L/min per nasal cannula. He is afebrile. Hemodynamically stable. Feeling better today compared to yesterday. Still somewhat bronchospastic and wheezing. He is continued on DuoNeb inhalations, Pulmicort and Perforomist inhalations, Solu-Medrol. Lovenox for DVT prophylaxis. Sodium 139. Potassium 4.7. Bicarb 24. BUN 15. Creatinine 0.8. Glucose 196. He remains on normal saline at 75 mL/h. The patient is seen today October 21, 2024 in follow-up on the regular medical floor. He is currently sitting up at the bedside. Awake and alert in no acute distress. Maintaining O2 saturations in the 90s on 2 L/min per nasal cannula. He has been afebrile. Hemodynamically stable. Glucose 265. He remains on DuoNeb inhalations, Pulmicort and performance inhalations, IV Solu-Medrol. Lovenox for DVT prophylaxis. Remains on normal saline at 75 mL/h. The patient is seen today October 22, 2024 in follow-up on the regular medical floor. He is awake and alert in no acute distress. Maintaining good O2 saturations in the 90s on room air. Sitting up at the bedside. Doing a bit better today compared to yesterday. Still not quite back to his baseline. He is maintained on DuoNeb and elations, Pulmicort and Perforomist inhalations, Solu-Medrol. Lovenox for DVT prophylaxis. Sodium 138. Potassium 4.8. Bicarb 26. BUN 22. Creatinine 0.8. Glucose 180. The patient is seen today October 23, 2024 in follow-up on the regular medical floor. He is currently sitting up at the bedside. Awake and alert in no acute distress. Maintaining good O2 saturations in the 90s on room air. Glucose 186. He continues on Pulmicort and Perforomist inhalations, DuoNeb inhalations, Solu-Medrol. Lovenox for DVT prophylaxis. Follow-up chest x-ray today continues to reveal no acute pulmonary process. Objective - Vital Signs Vital signs: Vital Signs Temp 98.4 F 10/23/24 07:15 Pulse 72 10/23/24 09:18 Resp 16 10/23/24 07:15 BP 157/87 10/23/24 07:15 Pulse Ox 94 L 10/23/24 07:15 FiO2 Intake & Output 10/22/24 10/23/24 10/23/24 18:59 06:59 18:59 Intake Total 716 240 Balance 716 240 Weight 114.305 kg Intake: Oral 716 240 Other: Voiding Method Toilet Toilet Toilet # Voids 2 2 - Exam GENERAL EXAM: Alert, pleasant 58-year-old male, sitting up in bed, on room air oxygen, in no apparent distress. HEAD: Normocephalic. EYES: Normal reaction of pupils, equal size. NOSE: Clear with pink turbinates. THROAT: No erythema or exudates. NECK: No masses, no JVD. CHEST: No chest wall deformity. LUNGS: Equal air entry with bilateral wheeze, few scattered rhonchi. CVS: S1 and S2 normal with no audible murmur, regular rhythm. ABDOMEN: No hepatosplenomegaly, normal bowel sounds, no guarding or rigidity. SPINE: No scoliosis or deformity SKIN: No rashes CENTRAL NERVOUS SYSTEM: No focal deficits, tone is normal in all 4 extremities. EXTREMITIES: There is no peripheral edema. No clubbing, no cyanosis. Peripheral pulses are intact. 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 in addition to ankylosing spondylitis Chronic back and neck pain related to herniated disks Degenerative arthritis Chronic neuropathy involving lower extremities Umbilical hernia Hyperlipidemia Diabetes mellitus Parkinson disease History of [id number] smoking history Plan: The patient was seen and evaluated Chest x-ray, labs and medications reviewed Chest x-ray continues to show no acute pulmonary process He remains stable and on room air He is anxious to go home Continue his home pulmonary medications/oxygen Complete a prednisone taper Follow-up in our office in 1 week This patient was seen independently by the pulmonary nurse practitioner addressing pulmonary issues I have personally seen and examined the patient, performed the documentation and the assessment and plan as written. Number of minutes spent on the visit: 23 Dictation was produced using [email or web address] dictation software. Please excuse any grammatical, word or spelling errors.
--- NOTE | 2024-10-25 21:16 | P.DS ---
Providers Date of admission: 10/18/24 12:47 Attending physician: Francseco Lane MD Consults: 10/17/24 14:36 Consult Physician Urgent Consulting Provider: Brayan Hugo Consult Reason/Comments: copd exacerbation, rsv Do you want consulting provider notified?: Yes Primary care physician: Maribel Murguia Hospital Course: Final Diagnosis -Acute on chronic hypoxic and hypercapnic respiratory failure secondary to COPD exacerbation continue with systemic steroids inhalational treatments -RSV infection, continue supportive care -Lactic acidosis secondary to metformin which was discontinued, resolved -Type 2 diabetes mellitus, uncontrolled with hyperglycemia secondary to steroid effect as well -Hyperlipidemia -Mild hypovolemic hyponatremia, improving after IV fluids -Nicotine cessation, counseling was provided -Diabetic peripheral neuropathy, continue Lyrica -Obesity with a BMI 33.2 -Hypertension Discharge Disposition Stable for discharge home with overall guarded prognosis. Follow up with Dr. Rueda in 2 weeks. Follow up with PCP Dr Murguia 1 to 2 days. Continue all same home medications. Continue oral prednisone taper for the next 7 days. Hospital Course This is a 58-year-old male with known history of COPD wears 2 and half liters of oxygen at home per the patient. Although he does states its his wifes and he uses as needed. Patient does not want to pay for his own oxygen. Came in with co mplaints of shortness of breath found to have significant wheezing patient was given doxycycline and Medrol Dosepak without any significant improvement in his respiratory status he continued to get worse. Patient is found to have RSV here chest x-ray did not show any pneumonia patient was started on Solu-Medrol and is admitted patient is presently on 3 L of oxygen patient does have lactic acidosis does take metformin no evidence of infection at this time patient is also bit hyponatremic and was hydrated. He was followed by pulmonology had slow clinical improvement. Oxygen saturations improved 88% on room air while ambulating and 94% room air at rest. He is not having any significant shortness of breath. Still having some congested cough. Lung sounds are diminished with faint scattered wheezing. He wants to go home. He will be discharged on prednisone taper. Please see medication reconciliation for a list of current medications. Thank you for allowing us to participate in the care of this patient. The impression and plan of care has been dictated by Brianne Pabon, Nurse Practitioner as directed. Dr. Marsha MD I have performed a history and physical examination and medical decision making of this patient, discussed the same with the dictator, and agree with the dictators assessment and plan as written, documented as a scribe. Based on total visit time, I have performed more than 50% of this visit. Patient Condition at Discharge: Stable Plan - Discharge Summary Discharge Rx Participant: No New Discharge Prescriptions: New predniSONE 0 mg PO DIRECTED 7 Days #23 tab Continue DULoxetine HCL [Cymbalta] 60 mg PO DAILY Adalimumab [Humira(Cf) Pen] 40 mg SQ Q14D Atorvastatin [Lipitor] 40 mg PO DAILY oxyCODONE-APAP 10-325MG [Percocet 10-325 mg] 1 tab PO TID PRN PRN Reason: Pain Fluticasone/Umeclidin/Vilanter [Trelegy Ellipta 100-62.5-25] 1 puff INHALATION RT-DAILY sitaGLIPtin [Januvia] 100 mg PO DAILY Albuterol Inhaler [Ventolin Hfa Inhaler] 2 puff INHALATION RT-QID PRN PRN Reason: Shortness Of Breath Or Wheezing rOPINIRole HCL [Requip] 0.5 mg PO TID Omeprazole [PriLOSEC] 40 mg PO DAILY atenoloL [Tenormin] 50 mg PO DAILY Albuterol Nebulized [Ventolin Nebulized] 2.5 mg INHALATION RT-QID PRN PRN Reason: Shortness Of Breath Pregabalin [Lyrica] 150 mg PO BID metFORMIN HCL ER [Glucophage XR] 500 mg PO BID Acetaminophen Tab [Tylenol] 650 mg PO Q6HR PRN tab PRN Reason: Mild Pain Or Fever > 100.5 Cholecalciferol [Vitamin D3 (25 Mcg = 1000 Iu)] 50 mcg PO DAILY Discontinued predniSONE 10 mg PO DIRECTED Doxycycline [Vibramycin] 100 mg PO BID 5 Days #10 cap methylPREDNISolone Dose Pack [Medrol Dose Pack] See Taper PO DIRECTED Discharge Medication List DULoxetine HCL [Cymbalta] 60 mg PO DAILY 05/23/17 [History] Adalimumab [Humira(Cf) Pen] 40 mg SQ Q14D 07/06/18 [History] Atorvastatin [Lipitor] 40 mg PO DAILY 06/14/20 [History] oxyCODONE-APAP 10-325MG [Percocet 10-325 mg] 1 tab PO TID PRN 04/11/21 [History] Fluticasone/Umeclidin/Vilanter [Trelegy Ellipta 100-62.5-25] 1 puff INHALATION RT-DAILY 06/28/22 [History] Pregabalin [Lyrica] 150 mg PO BID 06/28/22 [History] Albuterol Inhaler [Ventolin Hfa Inhaler] 2 puff INHALATION RT-QID PRN 04/01/23 [History] Omeprazole [PriLOSEC] 40 mg PO DAILY 04/01/23 [History] metFORMIN HCL ER [Glucophage XR] 500 mg PO BID 04/01/23 [History] rOPINIRole HCL [Requip] 0.5 mg PO TID 04/01/23 [History] sitaGLIPtin [Januvia] 100 mg PO DAILY 04/01/23 [History] Acetaminophen Tab [Tylenol] 650 mg PO Q6HR PRN tab 09/17/23 [Rx] Albuterol Nebulized [Ventolin Nebulized] 2.5 mg INHALATION RT-QID PRN 10/17/24 [History] Cholecalciferol [Vitamin D3 (25 Mcg = 1000 Iu)] 50 mcg PO DAILY 10/17/24 [History] atenoloL [Tenormin] 50 mg PO DAILY 10/17/24 [History] predniSONE 0 mg PO DIRECTED 7 Days #23 tab 10/23/24 [Rx] Follow up Appointment(s)/Referral(s): Maribel uMrguia DO [Primary Care Provider] - 1-2 days Marquise Rueda DO [Doctor of Osteopathic Medicine] - 11/05/24 1:00 pm Patient Instructions/Handouts: COPD (Chronic Obstructive Pulmonary Disease) (DC) Activity/Diet/Wound Care/Special Instructions: Continue oral prednisone taper Maintain trelegy inhaler as prescribed Follow up with pulmonology in the office Discharge Disposition: HOME SELF-CARE
== END 2024-10-23 11:59 | disposition home or self-care (01) | DRG 190 ==
LOC: EC 12:52 → 6NMEDSUR 14:27 → OBSVTOIN 10-18 12:47
PROVIDERS: ADMIT Internal Medicine; ATTEND Internal Medicine
DX: J44.1 Chronic obstructive pulmonary disease with (acute) exacerbation (principal); J96.21 Acute and chronic respiratory failure with hypoxia; J96.22 Acute and chronic respiratory failure with hypercapnia; E11.42 Type 2 diabetes mellitus with diabetic polyneuropathy; M45.9 Ankylosing spondylitis of unspecified sites in spine; G20.A1 Parkinson's disease without dyskinesia, without mention of fluctuations; Z68.33 Body mass index [BMI] 33.0-33.9, adult; I10 Essential (primary) hypertension; F32.A Depression, unspecified; E87.1 Hypo-osmolality and hyponatremia; E87.20 Acidosis, unspecified; H20.9 Unspecified iridocyclitis; E11.65 Type 2 diabetes mellitus with hyperglycemia; T38.3X5A Adverse effect of insulin and oral hypoglycemic [antidiabetic] drugs, initial encounter; T38.0X5A Adverse effect of glucocorticoids and synthetic analogues, initial encounter; J20.5 Acute bronchitis due to respiratory syncytial virus; E66.9 Obesity, unspecified; E86.1 Hypovolemia; E78.5 Hyperlipidemia, unspecified; F17.210 Nicotine dependence, cigarettes, uncomplicated; Z99.81 Dependence on supplemental oxygen; Z79.52 Long term (current) use of systemic steroids; M19.90 Unspecified osteoarthritis, unspecified site; K42.9 Umbilical hernia without obstruction or gangrene; X58.XXXA Exposure to other specified factors, initial encounter; G89.29 Other chronic pain; Z79.84 Long term (current) use of oral hypoglycemic drugs; Z79.899 Other long term (current) drug therapy; Z82.49 Family history of ischemic heart disease and other diseases of the circulatory system; Z11.52 Encounter for screening for COVID-19; Z88.1 Allergy status to other antibiotic agents; M54.9 Dorsalgia, unspecified; M54.2 Cervicalgia
CPT/HCPCS: 36415; 71045; 71046; 80048; 80053; 83036; 83605; 83735; 84484; 85025; 87636; 94640; 94760; 96374; 96375; 96376; 99285

== ENCOUNTER 2024-11-27 19:32 | Emergency (ER) | payer MEDICARE, OTHER ==
--- NOTE | 2024-11-27 19:55 | XR ---
EXAMINATION TYPE: XR elbow complete LT DATE OF EXAM: 11/27/2024 7:48 PM COMPARISON: None. CLINICAL INDICATION: Male, 58 years old with history of pain, pain TECHNIQUE: 3 view(s) obtained. FINDINGS: Radius aligns normally with the humerus. No acute fracture or dislocation evident. Anterior fat pad i s normal. No elevation of posterior fat pad is evident. Follow up exams can be performed 7-10 days from acute trauma for continued pain. MRI can be performed if there is concern for soft tissue injury. IMPRESSION: 1. No acute osseous abnormality left elbow [facility], , 11/27/2024 7:53 PM
--- NOTE | 2024-11-27 20:46 | ED ---
General Adult HPI - General Chief complaint: Extremity Injury, Upper Stated complaint: L elbow injury Time Seen by Provider: 11/27/24 20:04 Source: patient Mode of arrival: ambulatory Limitations: no limitations - History of Present Illness Initial comments: 59-year-old presenting with chief complaint of elbow pain. Patient reports he was lifting something heavy today when he felt a pop in his elbow. He is having pain with range of motion. Some swelling also present. He still able to move the elbow and has no numbness or tingling. - Related Data Home Medications Medication Instructions Recorded Confirmed DULoxetine HCL [Cymbalta] 60 mg PO DAILY 05/23/17 10/17/24 Adalimumab [Humira(Cf) Pen] 40 mg SQ Q14D 07/06/18 10/17/24 Atorvastatin [Lipitor] 40 mg PO DAILY 06/14/20 10/17/24 oxyCODONE-APAP 10-325MG [Percocet 1 tab PO TID PRN 04/11/21 10/17/24 10-325 mg] Fluticasone/Umeclidin/Vilanter 1 puff INHALATION RT-DAILY 06/28/22 10/17/24 [Trelegy Ellipta 100-62.5-25] Pregabalin [Lyrica] 150 mg PO BID 06/28/22 10/17/24 Albuterol Inhaler [Ventolin Hfa 2 puff INHALATION RT-QID PRN 04/01/23 10/17/24 Inhaler] Omeprazole [PriLOSEC] 40 mg PO DAILY 04/01/23 10/17/24 metFORMIN HCL ER [Glucophage XR] 500 mg PO BID 04/01/23 10/17/24 rOPINIRole HCL [Requip] 0.5 mg PO TID 04/01/23 10/17/24 sitaGLIPtin [Januvia] 100 mg PO DAILY 04/01/23 10/17/24 Albuterol Nebulized [Ventolin 2.5 mg INHALATION RT-QID PRN 10/17/24 10/17/24 Nebulized] Cholecalciferol [Vitamin D3 (25 50 mcg PO DAILY 10/17/24 10/17/24 Mcg = 1000 Iu)] atenoloL [Tenormin] 50 mg PO DAILY 10/17/24 10/17/24 Previous Rx's Medication Instructions Recorded Acetaminophen Tab [Tylenol] 650 mg PO Q6HR PRN tab 09/17/23 predniSONE 0 mg PO DIRECTED 7 Days #23 tab 10/23/24 Allergies Allergy/AdvReac Type Severity Reaction Status Date / Time erythromycin base Allergy Severe Dyspnea,hiv Verified 11/27/24 19:39 es Review of Systems ROS Statement: Those systems with pertinent positive or pertinent negative responses have been documented in the HPI. ROS Other: All systems not noted in ROS Statement are negative. 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 History of Any Multi-Drug Resistant Organisms: MRSA Date of last positivie culture/infection: 04/03/23 MDRO Source:: Left Elbow Additional Past Surgical History / Comment(s): rt cataract and 3 laser procedures r/t uveitis, pain clinic procedure Past Anesthesia/Blood Transfusion Reactions: No Reported Reaction Additional Past Anesthesia/Blood Transfusion Reaction / Comment(s): Very fearful of needles Past Psychological History: Depression Smoking Status: Current every day smoker Past Alcohol Use History: Daily, Heavy Past Drug Use History: None Reported - Past Family History Brother(s) Family Medical History: Myocardial Infarction (NC) Additional Family Medical History / Comment(s): Brother had a NC at the age of 51 yrs and is living. Mother Family Medical History: CVA/TIA, Hypertension Additional Family Medical History / Comment(s): Mother has had CVAs. She is living Father Family Medical History: Myocardial Infarction (NC) Additional Family Medical History / Comment(s): Father had a NC at the age of 83 yrs. He is living General Exam Limitations: no limitations General appearance: alert, in no apparent distress Head exam: Present: atraumatic, normocephalic, normal inspection Course Vital Signs 11/27/24 11/27/24 19:37 20:57 Temperature 97.3 F L 97.6 F Pulse Rate 64 57 L Respiratory 18 16 Rate Blood Pressure 127/77 147/87 O2 Sat by Pulse 97 96 Oximetry Medical Decision Making - Medical Decision Making Was pt. sent in by a medical professional or institution (, PADDY, SHIPPING ASSOCIATE, urgent care, hospital, or jail...) When possible be specific @ -No Did you speak to anyone other than the patient for history (EMS, parent, family, police, friend...)? What history was obtained from this source @ -No Did you review nursing and triage notes (agree or disagree)? Why? @ -I reviewed and agree with nursing and triage notes Were old charts reviewed (outside hosp., previous admission, EMS record, old EKG, old radiological studies, urgent care reports/EKG's, jail records)? Report findings @ -No old charts were reviewed Differential Diagnosis (chest pain, altered mental status, abdominal pain women, abdominal pain men, vaginal bleeding, weakness, fever, dyspnea, syncope, headache, dizziness, GI bleed, back pain, seizure, CVA, palpatations, mental health, musculoskeletal)? @ -Differential Musculoskeletal Muscular strain, contusion, ligament sprain, fracture, arthritis, septic arthritis, bursitis, cellulitis, muscle spasm, nerve compression, DVT, arterial occlusion, herpes zoster, electrolyte abnormality, tumor.... This is not meant to be in all inclusive list EKG interpreted by me (3pts min.). @ -As above X-rays interpreted by me (1pt min.). @ -X-ray negative for acute osseous abnormality CT interpreted by me (1pt min.). @ -None done U/S interpreted by me (1pt. min.). @ -None done What testing was considered but not performed or refused? (CT, X-rays, U/S, labs)? Why? @ -None What meds were considered but not given or refused? Why? @ -None Did you discuss the management of the patient with other professionals (professionals i.e. , PADDY, SHIPPING ASSOCIATE, lab, RT, psych nurse, hospital social worker, radiological engineer, teacher, public health service officer, case management assistant)? Give summary @ -No Was smoking cessation discussed for >3mins.? @ -No Was critical care preformed (if so, how long)? @ -No Were there social determinants of health that impacted care today? How? (Homelessness, low income, unemployed, alcoholism, drug addiction, transportation, low edu. Level, literacy, decrease access to med. care, halfway, rehab)? @ -No Was there de-escalation of care discussed even if they declined (Discuss DNR or withdrawal of care, Hospice)? DNR status @ -No What co-morbidities impacted this encounter? (DM, HTN, Smoking, COPD, CAD, Cancer, CVA, ARF, Chemo, Hep., AIDS, mental health diagnosis, sleep apnea, morbid obesity)? @ -None Was patient admitted / discharged? Hospital course, mention meds given and route, prescriptions, significant lab abnormalities, going to OR and other pertinent info. @ -59-year-old male presenting with chief complaint of left elbow pain after lifting something heavy today. He felt a pop. He is still able to move the elbow. X-rays negative for acute osseous abnormality. Patient is placed in a sling and instructed to follow-up with orthopedics. Educated on supportive management at home. Follow-up with PCP. Report back to ER with any new or worsening symptoms. Discussed return parameters and answered all questions. Patient conveyed verbal understanding and agreed to the plan. I discussed this case in detail with my attending Dr. Zavala Undiagnosed new problem with uncertain prognosis? @ -No Drug Therapy requiring intensive monitoring for toxicity (Heparin, Nitro, Insulin, Cardizem)? @ -No Were any procedures done? @ -No Diagnosis/symptom? @ -Tendon injury, elbow pain Acute, or Chronic, or Acute on Chronic? @ -Acute Uncomplicated (without systemic symptoms) or Complicated (systemic symptoms)? @ -Uncomplicated Side effects of treatment? @ -No Exacerbation, Progression, or Severe Exacerbation? @ -No Poses a threat to life or bodily function? How? (Chest pain, USA, NC, pneumonia, PE, COPD, DKA, ARF, appy, cholecystitis, CVA, Diverticulitis, Homicidal, Suicidal, threat to staff... and all critical care pts) @ -Low likelihood Disposition Clinical Impression: Tendon injury Disposition: HOME SELF-CARE Condition: Good Instructions (If sedation given, give patient instructions): Elbow Sprain (ED) Additional Instructions: Follow-up with orthopedics, call the office on Saturday. Report back to ER with any new or worsening symptoms. Keep your arm in the sling and do not use the arm until cleared by orthopedics Is patient prescribed a controlled substance at d/c from ED?: No Referrals: Maribel Murguia DO [Primary Care Provider] - 1-2 days Sachin Teague DO [Doctor of Osteopathic Medicine] - 1-2 days Time of Disposition: 20:46
[2024-11-27] MEDS: HYDROmorphone 1 MG/ML 1 ML SYRINGE IM STA (20:53)
[2024-11-27 21:27] VITALS: BP 147/87; PULSE 57; RESP 16; TEMP 97.6
== END 2024-11-27 20:57 | disposition home or self-care (01) ==
LOC: EC 19:32
DX: S46.902A Unspecified injury of unspecified muscle, fascia and tendon at shoulder and upper arm level, left arm, initial encounter (principal); F17.200 Nicotine dependence, unspecified, uncomplicated; Z88.1 Allergy status to other antibiotic agents; X50.0XXA Overexertion from strenuous movement or load, initial encounter
CPT/HCPCS: 73080; 99283; 96372; J1171